=== PATIENT | male | born 1965 | race American Indian/Alaskan Native ===

== ENCOUNTER 2020-12-15 18:53 | Inpatient (IN) | payer MEDICAID ==
[2020-12-15] MEDS ORDERED: SODIUM CHLORIDE 0.9% 1000 ML IV SOLN IV ONE (20:20)
--- NOTE | 2020-12-15 20:23 | Event Note ---
Date: 12/15/20 Verbal report received from emergency medical services. EMS documentation not available at time of chart dictation medical screening examination: 55-year-old gentleman, history of Parkinson's, appears to be bedbound, brought to the hospital by EMS from local long-term for weakness and hypotension. EMS reports this patient was found to be anemic a few weeks ago, and reportedly admitted to [facility]. His medical records not available at this time for review. On examination, the patient appears to be listless, weak and lethargic. He does groan, and he is awake. He is protecting his airway. Initial orders placed. Detailed history and physical to follow. IV fluids ordered. EMS also administering IV fluids.
[2020-12-15 20:55] LABS: Basophils % (Auto) 0.2 % (0.0-1.8); Eosinophils # (Auto) 0.1 K/mm3 (0.0-0.4); Eosinophils % (Auto) 0.7 % (0.0-4.3); Hematocrit 20.2 % (35.5-45.6); Lymphocytes # (Auto) 1.2 K/mm3 (1.2-5.4); Lymphocytes % (Auto) 6.4 % (13.4-35.0); Mean Corpuscular HGB Conc 30 % (32-34); Mean Corpuscular Volume 79 fl (84-94); Monocytes # (Auto) 1.3 K/mm3 (0.0-0.8); Monocytes % (Auto) 6.8 % (0.0-7.3); Platelet Count 512 K/mm3 (140-440); Red Blood Count 2.56 M/mm3 (3.65-5.03)
[2020-12-15 21:01] LABS: Red Cell Distribution Width 22.2 % (13.2-15.2)
[2020-12-15] MEDS ORDERED: cefTRIAXone/NS 1 GM/50 ML 1 GM/50 ML BAG IV ONE (21:07)
[2020-12-15 21:15] LABS: Albumin 2.7 g/dL (3.9-5); Calcium 9.3 mg/dL (8.4-10.2)
[2020-12-15] MEDS ORDERED: SODIUM CHLORIDE 0.9% 500 ML 500 ML IV ONE (21:15)
--- NOTE | 2020-12-15 21:15 | Emergency Department Report ---
HPI - General Chief Complaint: Fever Time Seen by Provider: 12/15/20 21:05 - HPI HPI: 55-year-old -[place] male presents to the emergency department via EMS from [facility] with a complaint of some generalized weakness, fatigue, and concern for anemia. The patient has a history of anemia and recently was transfused during an admission at [facility]. He has a past medical history of Parkinson's disease, DVT, depression previous fracture of the right acetabulum and lumbosacral spine and pelvis. The patient appears to be bedbound. He has a PEG tube in place and sacral decubitus ulcers. The patient is currently AAO x1 to person, but not place or time. Therefore the patient is a poor historian. He does not appear to have been in our emergency department or hospital previously. ED Past Medical Hx - Past Medical History Previous Medical History?: Yes Additional medical history: Paraplegia, Parkinsons, G-TUBE - Surgical History Past Surgical History?: Yes Additional Surgical History: Partial amputation bilateral feet, G-tube - Social History Smoking Status: Never Smoker Substance Use Type: None ED Review of Systems ROS: Stated complaint: NOT EATING/DEHYDRATION Other details as noted in HPI Comment: Unobtainable due to pts medical conditions Physical Exam - Physical Exam Vital Signs: Vital Signs 12/15/20 19:38 Temperature 98.8 F Pulse Rate 90 Respiratory 16 Rate Blood Pressure 84/54 [Left] O2 Sat by Pulse 99 Oximetry Physical Exam: GENERAL: The patient is ill-appearing. HENT: Normocephalic. Atraumatic. Patient has moist mucous membranes. EYES: Extraocular motions are intact. NECK: Supple. Trachea is midline. CHEST/LUNGS: Clear to auscultation. There is no respiratory distress noted. HEART/CARDIOVASCULAR: Regular. There is mild tachycardia. There is no murmur. ABDOMEN: Abdomen is soft, nontender. Patient has normal bowel sounds. G-tube in place. SKIN: Skin is warm and dry. Stage II-III sacral decubitus ulcer. NEURO: The patient is awake but confused. AAO x1 to person, but not place or time. No slurred speech. MUSCULOSKELETAL: There is no tenderness to palpation. ED Course Vital Signs 12/15/20 19:38 Temperature 98.8 F Pulse Rate 90 Respiratory 16 Rate Blood Pressure 84/54 [Left] O2 Sat by Pulse 99 Oximetry - Reevaluation(s) Reevaluation #1: 12/15/20 23:14 I spoke with the patient's ex-, who is also his DPOA. She pulled up "my chart" from [facility] and showed me the patient's most recent visit, about 10 days ago. At that time the patient did not have any renal insufficiency so the creatinine of 2.2 and GFR of about 30 is acute kidney injury. The patient had a hemoglobin of 5.8 at that time. The examination done did not show any evidence of rectal bleeding or melena. During that visit, the patient had been sent in by his SNF for the low hemoglobin and an elevated alkaline phosphatase. Patient's ex- also says that he is a full code. - Consultations Consultation #1: 12/15/20 22:46 I spoke with the department store manager on-call, Dr. Bravo. They will see the patient as a consult but given the patient's anemia requiring transfusions he agrees that the patient is not a candidate for heparin at this time. No acute intervention from cardiology. ED Medical Decision Making - Lab Data Result diagrams: 12/15/20 20:29 12/15/20 20:29 Lab Results 12/15/20 12/15/20 12/15/20 Range/Units 20:20 20:29 20:29 WBC 19.2 H (4.5-11.0) K/mm3 RBC 2.56 L (3.65-5.03) M/mm3 Hgb 6.0 L (11.8-15.2) gm/dl Hct 20.2 L (35.5-45.6) % MCV 79 L (84-94) fl MCH 24 L (28-32) pg MCHC 30 L (32-34) % RDW 22.2 H (13.2-15.2) % Plt Count 512 H (140-440) K/mm3 Lymph % (Auto) 6.4 L (13.4-35.0) % Cook % (Auto) 6.8 (0.0-7.3) % Eos % (Auto) 0.7 (0.0-4.3) % Baso % (Auto) 0.2 (0.0-1.8) % Lymph # (Auto) 1.2 (1.2-5.4) K/mm3 Cook # (Auto) 1.3 H (0.0-0.8) K/mm3 Eos # (Auto) 0.1 (0.0-0.4) K/mm3 Baso # (Auto) 0.0 (0.0-0.1) K/mm3 Seg Neutrophils % 85.9 H (40.0-70.0) % Seg Neutrophils # 16.5 H (1.8-7.7) K/mm3 PT (12.2-14.9) Sec. INR (0.87-1.13) APTT 42.0 H (24.2-36.6) Sec. Sodium (137-145) mmol/L Potassium (3.6-5.0) mmol/L Chloride (98-107) mmol/L Carbon Dioxide (22-30) mmol/L Anion Gap mmol/L BUN (9-20) mg/dL Creatinine (0.8-1.3) mg/dL Estimated GFR ml/min BUN/Creatinine Ratio % Glucose (75-100) mg/dL Lactic Acid (0.7-2.0) mmol/L Calcium (8.4-10.2) mg/dL Total Bilirubin (0.1-1.2) mg/dL AST (5-40) units/L ALT (7-56) units/L Alkaline Phosphatase (35-129) units/L Ammonia (25-60) umol/L Troponin T (0.00-0.029) ng/mL Total Protein (6.3-8.2) g/dL Albumin (3.9-5) g/dL Albumin/Globulin Ratio % Triglycerides (2-149) mg/dL Cholesterol (50-199) mg/dL LDL Cholesterol Direct (50-130) mg/dL HDL Cholesterol (40-59) mg/dL Cholesterol/HDL Ratio % TSH (0.270-4.200) mlU/mL Urine Color Angela (Yellow) Urine Turbidity Turbid (Clear) Urine pH 7.0 (5.0-7.0) Ur Specific Caldwell 1.012 (1.003-1.030) Urine Protein 100 mg/dl (Negative) mg/dL Urine Glucose (UA) Neg (Negative) mg/dL Urine Ketones Neg (Negative) mg/dL Urine Blood Lg (Negative) Urine Nitrite Neg (Negative) Urine Bilirubin Neg (Negative) Urine Urobilinogen 4.0 (<2.0) mg/dL Ur Leukocyte Esterase Lg (Negative) Urine WBC (Auto) > 182.0 H (0.0-6.0) /HPF Urine RBC (Auto) 117.0 (0.0-6.0) /HPF Urine Bacteria (Auto) 3+ (Negative) /HPF Urine WBC Clumps 3+ /HPF Urine Mucus Few /HPF Urine Yeast (Budding) 3+ /HPF Salicylates (2.8-20.0) mg/dL Acetaminophen (10.0-30.0) ug/mL Plasma/Serum Alcohol (0-0.07) % Blood Type Antibody Screen Crossmatch 12/15/20 12/15/20 12/15/20 Range/Units 20:29 20:29 20:29 WBC (4.5-11.0) K/mm3 RBC (3.65-5.03) M/mm3 Hgb (11.8-15.2) gm/dl Hct (35.5-45.6) % MCV (84-94) fl MCH (28-32) pg MCHC (32-34) % RDW (13.2-15.2) % Plt Count (140-440) K/mm3 Lymph % (Auto) (13.4-35.0) % Cook % (Auto) (0.0-7.3) % Eos % (Auto) (0.0-4.3) % Baso % (Auto) (0.0-1.8) % Lymph # (Auto) (1.2-5.4) K/mm3 Cook # (Auto) (0.0-0.8) K/mm3 Eos # (Auto) (0.0-0.4) K/mm3 Baso # (Auto) (0.0-0.1) K/mm3 Seg Neutrophils % (40.0-70.0) % Seg Neutrophils # (1.8-7.7) K/mm3 PT (12.2-14.9) Sec. INR (0.87-1.13) APTT (24.2-36.6) Sec. Sodium 131 L (137-145) mmol/L Potassium 6.0 H (3.6-5.0) mmol/L Chloride 95.1 L (98-107) mmol/L Carbon Dioxide 23 (22-30) mmol/L Anion Gap 19 mmol/L BUN 70 H (9-20) mg/dL Creatinine 2.2 H (0.8-1.3) mg/dL Estimated GFR 31 ml/min BUN/Creatinine Ratio 32 % Glucose 113 H (75-100) mg/dL Lactic Acid 0.80 (0.7-2.0) mmol/L Calcium 9.3 (8.4-10.2) mg/dL Total Bilirubin 0.80 (0.1-1.2) mg/dL AST 16 (5-40) units/L ALT 17 (7-56) units/L Alkaline Phosphatase 321 H (35-129) units/L Ammonia (25-60) umol/L Troponin T 0.215 H* (0.00-0.029) ng/mL Total Protein 7.0 (6.3-8.2) g/dL Albumin 2.7 L (3.9-5) g/dL Albumin/Globulin Ratio 0.6 % Triglycerides 153 H (2-149) mg/dL Cholesterol 95 (50-199) mg/dL LDL Cholesterol Direct 23 L (50-130) mg/dL HDL Cholesterol 27 L (40-59) mg/dL Cholesterol/HDL Ratio 3.51 % TSH (0.270-4.200) mlU/mL Urine Color (Yellow) Urine Turbidity (Clear) Urine pH (5.0-7.0) Ur Specific Caldwell (1.003-1.030) Urine Protein (Negative) mg/dL Urine Glucose (UA) (Negative) mg/dL Urine Ketones (Negative) mg/dL Urine Blood (Negative) Urine Nitrite (Negative) Urine Bilirubin (Negative) Urine Urobilinogen (<2.0) mg/dL Ur Leukocyte Esterase (Negative) Urine WBC (Auto) (0.0-6.0) /HPF Urine RBC (Auto) (0.0-6.0) /HPF Urine Bacteria (Auto) (Negative) /HPF Urine WBC Clumps /HPF Urine Mucus /HPF Urine Yeast (Budding) /HPF Salicylates (2.8-20.0) mg/dL Acetaminophen (10.0-30.0) ug/mL Plasma/Serum Alcohol (0-0.07) % Blood Type A POSITIVE Antibody Screen Negative Crossmatch See Detail 12/15/20 12/15/20 12/15/20 Range/Units 20:29 20:29 20:29 WBC (4.5-11.0) K/mm3 RBC (3.65-5.03) M/mm3 Hgb (11.8-15.2) gm/dl Hct (35.5-45.6) % MCV (84-94) fl MCH (28-32) pg MCHC (32-34) % RDW (13.2-15.2) % Plt Count (140-440) K/mm3 Lymph % (Auto) (13.4-35.0) % Cook % (Auto) (0.0-7.3) % Eos % (Auto) (0.0-4.3) % Baso % (Auto) (0.0-1.8) % Lymph # (Auto) (1.2-5.4) K/mm3 Cook # (Auto) (0.0-0.8) K/mm3 Eos # (Auto) (0.0-0.4) K/mm3 Baso # (Auto) (0.0-0.1) K/mm3 Seg Neutrophils % (40.0-70.0) % Seg Neutrophils # (1.8-7.7) K/mm3 PT (12.2-14.9) Sec. INR (0.87-1.13) APTT (24.2-36.6) Sec. Sodium (137-145) mmol/L Potassium (3.6-5.0) mmol/L Chloride (98-107) mmol/L Carbon Dioxide (22-30) mmol/L Anion Gap mmol/L BUN (9-20) mg/dL Creatinine (0.8-1.3) mg/dL Estimated GFR ml/min BUN/Creatinine Ratio % Glucose (75-100) mg/dL Lactic Acid (0.7-2.0) mmol/L Calcium (8.4-10.2) mg/dL Total Bilirubin (0.1-1.2) mg/dL AST (5-40) units/L ALT (7-56) units/L Alkaline Phosphatase (35-129) units/L Ammonia (25-60) umol/L Troponin T (0.00-0.029) ng/mL Total Protein (6.3-8.2) g/dL Albumin (3.9-5) g/dL Albumin/Globulin Ratio % Triglycerides (2-149) mg/dL Cholesterol (50-199) mg/dL LDL Cholesterol Direct (50-130) mg/dL HDL Cholesterol (40-59) mg/dL Cholesterol/HDL Ratio % TSH 1.380 (0.270-4.200) mlU/mL Urine Color (Yellow) Urine Turbidity (Clear) Urine pH (5.0-7.0) Ur Specific Caldwell (1.003-1.030) Urine Protein (Negative) mg/dL Urine Glucose (UA) (Negative) mg/dL Urine Ketones (Negative) mg/dL Urine Blood (Negative) Urine Nitrite (Negative) Urine Bilirubin (Negative) Urine Urobilinogen (<2.0) mg/dL Ur Leukocyte Esterase (Negative) Urine WBC (Auto) (0.0-6.0) /HPF Urine RBC (Auto) (0.0-6.0) /HPF Urine Bacteria (Auto) (Negative) /HPF Urine WBC Clumps /HPF Urine Mucus /HPF Urine Yeast (Budding) /HPF Salicylates < 0.3 L (2.8-20.0) mg/dL Acetaminophen 5.0 L (10.0-30.0) ug/mL Plasma/Serum Alcohol (0-0.07) % Blood Type Antibody Screen Crossmatch 12/15/20 12/15/20 12/15/20 Range/Units 20:29 20:29 21:28 WBC (4.5-11.0) K/mm3 RBC (3.65-5.03) M/mm3 Hgb (11.8-15.2) gm/dl Hct (35.5-45.6) % MCV (84-94) fl MCH (28-32) pg MCHC (32-34) % RDW (13.2-15.2) % Plt Count (140-440) K/mm3 Lymph % (Auto) (13.4-35.0) % Cook % (Auto) (0.0-7.3) % Eos % (Auto) (0.0-4.3) % Baso % (Auto) (0.0-1.8) % Lymph # (Auto) (1.2-5.4) K/mm3 Cook # (Auto) (0.0-0.8) K/mm3 Eos # (Auto) (0.0-0.4) K/mm3 Baso # (Auto) (0.0-0.1) K/mm3 Seg Neutrophils % (40.0-70.0) % Seg Neutrophils # (1.8-7.7) K/mm3 PT 15.8 H (12.2-14.9) Sec. INR 1.14 H (0.87-1.13) APTT (24.2-36.6) Sec. Sodium (137-145) mmol/L Potassium (3.6-5.0) mmol/L Chloride (98-107) mmol/L Carbon Dioxide (22-30) mmol/L Anion Gap mmol/L BUN (9-20) mg/dL Creatinine (0.8-1.3) mg/dL Estimated GFR ml/min BUN/Creatinine Ratio % Glucose (75-100) mg/dL Lactic Acid (0.7-2.0) mmol/L Calcium (8.4-10.2) mg/dL Total Bilirubin (0.1-1.2) mg/dL AST (5-40) units/L ALT (7-56) units/L Alkaline Phosphatase (35-129) units/L Ammonia 21.0 L (25-60) umol/L Troponin T (0.00-0.029) ng/mL Total Protein (6.3-8.2) g/dL Albumin (3.9-5) g/dL Albumin/Globulin Ratio % Triglycerides (2-149) mg/dL Cholesterol (50-199) mg/dL LDL Cholesterol Direct (50-130) mg/dL HDL Cholesterol (40-59) mg/dL Cholesterol/HDL Ratio % TSH (0.270-4.200) mlU/mL Urine Color (Yellow) Urine Turbidity (Clear) Urine pH (5.0-7.0) Ur Specific Caldwell (1.003-1.030) Urine Protein (Negative) mg/dL Urine Glucose (UA) (Negative) mg/dL Urine Ketones (Negative) mg/dL Urine Blood (Negative) Urine Nitrite (Negative) Urine Bilirubin (Negative) Urine Urobilinogen (<2.0) mg/dL Ur Leukocyte Esterase (Negative) Urine WBC (Auto) (0.0-6.0) /HPF Urine RBC (Auto) (0.0-6.0) /HPF Urine Bacteria (Auto) (Negative) /HPF Urine WBC Clumps /HPF Urine Mucus /HPF Urine Yeast (Budding) /HPF Salicylates (2.8-20.0) mg/dL Acetaminophen (10.0-30.0) ug/mL Plasma/Serum Alcohol < 0.01 (0-0.07) % Blood Type Antibody Screen Crossmatch - EKG Data -: EKG Interpreted by Me EKG shows normal: sinus rhythm, axis, intervals, QRS complexes, ST-T waves Rate: normal - EKG Data When compared to previous EKG there are: previous EKG unavailable Interpretation: normal EKG - Radiology Data Radiology results: image reviewed interpreted by me: Chest x-ray does not show any acute process. There are no pleural effusions, obvious pneumonia and there is no pneumothorax. No widened mediastinum. - Medical Decision Making This patient presents to the emergency department with hypotension, concern for anemia, tachycardia. A code sepsis was initiated. The patient received IV fluid at 20 cc/kg. He was found to have a hemoglobin of 6 so 2 units of packed red blood cells were ordered for transfusion. Patient has a leukocytosis of 19,000, acute kidney injury with a GFR of about 30, has started to develop some uremia with a BUN of 70, hyperkalemia with potassium of 6, and NSTEMI with a troponin of 0.215, and a urinary tract infection. The patient was given IV antibiotics. Cardiology was contacted and consulted but is not a candidate for heparin secondary to his significant anemia. The patient will be admitted to the hospital for further evaluation and treatment was accepted for admission by the hospitalist, Dr. Ling. Critical Care Time: Yes Critical care time in (mins) excluding proc time.: 35 Critical care attestation.: If time is entered above; I have spent that time in minutes in the direct care of this critically ill patient, excluding procedure time. Critical care time spent on this patient in doing his initial evaluation, multiple reevaluations, ordering and interpretation of labs and imaging, discussion with cardiology, discussion with the patient's ex-/DPOA, ordering of packed red blood cells for transfusion, IV fluid resuscitation for his hypotension. Critical Care Time: 35 minutes ED Disposition Clinical Impression: Anemia requiring transfusions, Renal insufficiency, NSTEMI (non-ST elevated myocardial infarction), Hyperkalemia Hypotension Qualifiers: Hypotension type: unspecified hypotension type Qualified Code(s): I95.9 - Hypotension, unspecified Sepsis Qualifiers: Sepsis type: sepsis due to unspecified organism Sepsis acute organ dysfunction status: with acute organ dysfunction Severe sepsis acute organ dysfunction type: acute renal failure Severe sepsis shock status: unspecified UTI (urinary tract infection) Qualifiers: Urinary tract infection type: acute cystitis Hematuria presence: with hematuria Qualified Code(s): N30.01 - Acute cystitis with hematuria Disposition: 09 ADMITTED INPATIENT Is pt being admited?: Yes Condition: Serious Time of Disposition: 22:47
[2020-12-15] MEDS ORDERED: SODIUM POLYSTYRENE 15 GM/60 ML ORAL LIQD PO ONE (21:22)
[2020-12-15] MEDS ORDERED: CALCIUM GLUCONATE 1,000 MG in SODIUM CHLORIDE 0.9% 100 ML IV ONE (21:22)
[2020-12-15] MEDS ORDERED: INSULIN REGULAR, HUMAN 100 UNITS/1 ML IV ONE (21:49)
[2020-12-15] MEDS ORDERED: DEXTROSE 50% IN WATER (25GM) 50 ML SYRINGE IV ONE ×2 (21:49→23:54)
[2020-12-15 22:05] LABS: INR 1.14 (0.87-1.13)
--- NOTE | 2020-12-15 22:29 | XRay Report ---
CHEST 1 VIEW 12/15/2020 9:10 PM INDICATION / CLINICAL INFORMATION: hypotension weakness. COMPARISON: None available. FINDINGS: SUPPORT DEVICES: None. HEART / MEDIASTINUM: No significant abnormality. LUNGS / PLEURA: No significant pulmonary or pleural abnormality. No pneumothorax. ADDITIONAL FINDINGS: Hardware in right humerus. Old fracture proximal right humerus. IMPRESSION: 1. No acute findings. Signer Name: Iker Cooley MD Signed: 12/15/2020 10:25 PM Workstation Name: [id number]
[2020-12-15] MEDS ORDERED: SODIUM CHLORIDE 0.9% 500 ML 500 ML ONE (22:32)
[2020-12-15 22:37] LABS: Chol/HDL Ratio 3.51 %
[2020-12-15] MEDS ORDERED: SODIUM CHLORIDE 0.9% 1000 ML 1,000 ML IV SCH (23:45)
[2020-12-15] MEDS ORDERED: INSULIN REGULAR, HUMAN 100 UNITS/1 ML ONE (23:54)
[2020-12-15] MEDS ORDERED: SODIUM BICARBONATE 325 MG TAB FEEDTUBE PRN (23:59)
[2020-12-15] MEDS ORDERED: ACETAMINOPHEN 650 MG RECT SUPP PR PRN (23:59)
[2020-12-15] MEDS ORDERED: LIPASE 10,500/PROTEASE 25,000/AMYLASE 43,750 (UNITS) DR CAP FEEDTUBE PRN (23:59)
[2020-12-15] MEDS ORDERED: MAGNESIUM HYDROXIDE (MOM) ORAL LIQD UDC PO PRN (23:59)
[2020-12-15] MEDS ORDERED: SIMPLE SYRUP 15 ML FEEDTUBE PRN ×2 (23:59)
--- NOTE | 2020-12-16 00:13 | History and Physical Report ---
History of Present Illness Date of examination: 12/15/20 Date of admission: 12/15/20 22:47 Chief complaint: Generalized Weakness History of present illness: 55-year-old -I[place]ian female resident of [facility] group home with known history of Parkinson's disease, depression, DVT, previous fracture of right acetabulum lumbosacral spine and pelvis and who is currently bedbound brought into the emergency room today with generalized weakness, fatigue and possible concern for anemia. Patient was said to have been transfused recently at [facility]. Patient has a PEG tube in place and also has history of sacral decubitus ulcers. Patient is a poor historian and most of the history was gotten from the ER staff. Upon arrival in the emergency room patient was hypotensive with blood pressure systolic in the 80s and diastolic in the 50s. Work-up in the emergency room today, hemoglobin was found to be 6.0 with hematocrit of 20.2. Patient had a potassium level of 6.0, BUN of 70 and creatinine of 2.2. Chest X-ray- no acute findings Past History Past Medical History: other (Paraplegia,Parkinson's Disease) Past Surgical History: Other (Bilateral Partial Amputation of feet,G-tube pl acement) Social history: no significant social history Family history: no significant family history Medications and Allergies Allergies Allergy/AdvReac Type Severity Reaction Status Date / Time Penicillins Allergy Itching Verified 12/16/20 02:38 Active Meds: Active Medications Acetaminophen (Acetaminophen 650 Mg Rect Supp) 650 mg [place] Q6H PRN PRN Reason: Pain MILD(1-3)/Fever >100.5/RHOADES Lipase/Protease/Amylase (Lipase 10,500/Protease 25,000/Amylase 43,750 (Units) Dr Conroy) 1 each FEEDTUBE PRN PRN PRN Reason: For Clogged Feeding Tube Sodium Chloride (Nacl 0.9% 1000 Ml) 1,000 mls @ 75 mls/hr IV DIRECT TIFF Magnesium Hydroxide (Magnesium Hydroxide (Mom) Oral Liqd Udc) 30 ml PO Q4H PRN PRN Reason: Constipation Morphine Sulfate (Morphine 2 Mg/1 Ml Inj) 2 mg IV Q4H PRN PRN Reason: Pain, Moderate (4-6) Morphine Sulfate (Morphine 4 Mg/1 Ml Inj) 4 mg IV Q4H PRN PRN Reason: Pain , Severe (7-10) Ondansetron HCl (Ondansetron 4 Mg/2 Ml Inj) 4 mg IV Q8H PRN PRN Reason: Nausea And Vomiting Simple Syrup (Simple Syrup 15 Ml) 15 ml FEEDTUBE PRN PRN PRN Reason: Hypoglycemia Simple Syrup (Simple Syrup 15 Ml) 30 ml FEEDTUBE PRN PRN PRN Reason: Hypoglycemia Sodium Bicarbonate (Sodium Bicarbonate 325 Mg Tab) 325 mg FEEDTUBE PRN PRN PRN Reason: For Clogged Feeding Tube Sodium Chloride (Sodium Chloride 0.9% 10 Ml Flush Syringe) 10 ml IV BID TIFF Sodium Chloride (Sodium Chloride 0.9% 10 Ml Flush Syringe) 10 ml IV PRN PRN PRN Reason: LINE FLUSH Sodium Chloride (Sodium Chloride 0.9% 10 Ml Flush Syringe) 10 ml IV PRN PRN PRN Reason: LINE FLUSH Review of Systems ROS unobtainable: due to mental status Exam - Constitutional Vitals: Temp Pulse Resp BP Pulse Ox 97.0 F L 94 H 18 99/69 99 12/15/20 23:20 12/15/20 23:20 12/15/20 23:20 12/15/20 23:20 12/15/20 23:20 General appearance: Present: no acute distress, cachectic, other (Moderately pale) - EENT Eyes: Present: PERRL, EOM intact. Absent: scleral icterus ENT: hearing intact, clear oral mucosa, dentition normal, other (Dry oral Mucosa) - Neck Neck: Present: supple, normal ROM - Respiratory Respiratory effort: normal Respiratory: bilateral: CTA - Cardiovascular Rhythm: regular Heart Sounds: Present: S1 & S2. Absent: gallop, systolic murmur, diastolic murmur, rub, click - Extremities Extremities: no ischemia, pulses intact, No edema, normal temperature, normal color, Full ROM Extremity abnormal: ulceration (Dressing over decubitus ulcers on feet), other (Partially amputated feet bilaterally) Peripheral Pulses: within normal limits - Abdominal General gastrointestinal: Present: soft, non-tender, non-distended, normal bowel sounds, other (G-tube in place). Absent: mass - Integumentary Integumentary: Present: clear, warm, dry, decreased turgor. Absent: rash - Musculoskeletal Musculoskeletal: strength equal bilaterally - Psychiatric Psychiatric: appropriate mood/affect, intact judgment & insight, memory intact, cooperative - Neurologic Neurologic: CNII-XII intact, no focal deficits, moves all extremities, other (Paraplegic ) HEART Score - HEART Score Troponin: Troponin T 0.215 ng/mL (0.00-0.029) H* 12/15/20 20:29 Results - Labs CBC & Chem 7: 12/15/20 20:29 12/15/20 20:29 Labs: Abnormal lab results 12/15/20 12/15/20 12/15/20 Range/Units 20:29 20:29 20:29 WBC 19.2 H (4.5-11.0) K/mm3 RBC 2.56 L (3.65-5.03) M/mm3 Hgb 6.0 L (11.8-15.2) gm/dl Hct 20.2 L (35.5-45.6) % MCV 79 L (84-94) fl MCH 24 L (28-32) pg MCHC 30 L (32-34) % RDW 22.2 H (13.2-15.2) % Plt Count 512 H (140-440) K/mm3 Lymph % (Auto) 6.4 L (13.4-35.0) % Garvin # (Auto) 1.3 H (0.0-0.8) K/mm3 Seg Neutrophils % 85.9 H (40.0-70.0) % Seg Neutrophils # 16.5 H (1.8-7.7) K/mm3 PT (12.2-14.9) Sec. INR (0.87-1.13) APTT 42.0 H (24.2-36.6) Sec. Sodium 131 L (137-145) mmol/L Potassium 6.0 H (3.6-5.0) mmol/L Chloride 95.1 L (98-107) mmol/L BUN 70 H (9-20) mg/dL Creatinine 2.2 H (0.8-1.3) mg/dL Glucose 113 H (75-100) mg/dL Alkaline Phosphatase 321 H (35-129) units/L Ammonia (25-60) umol/L Troponin T 0.215 H* (0.00-0.029) ng/mL Albumin 2.7 L (3.9-5) g/dL Triglycerides 153 H (2-149) mg/dL LDL Cholesterol Direct 23 L (50-130) mg/dL HDL Cholesterol 27 L (40-59) mg/dL Salicylates (2.8-20.0) mg/dL Acetaminophen (10.0-30.0) ug/mL Crossmatch 12/15/20 12/15/20 12/15/20 Range/Units 20:29 20:29 20:29 WBC (4.5-11.0) K/mm3 RBC (3.65-5.03) M/mm3 Hgb (11.8-15.2) gm/dl Hct (35.5-45.6) % MCV (84-94) fl MCH (28-32) pg MCHC (32-34) % RDW (13.2-15.2) % Plt Count (140-440) K/mm3 Lymph % (Auto) (13.4-35.0) % Garvin # (Auto) (0.0-0.8) K/mm3 Seg Neutrophils % (40.0-70.0) % Seg Neutrophils # (1.8-7.7) K/mm3 PT (12.2-14.9) Sec. INR (0.87-1.13) APTT (24.2-36.6) Sec. Sodium (137-145) mmol/L Potassium (3.6-5.0) mmol/L Chloride (98-107) mmol/L BUN (9-20) mg/dL Creatinine (0.8-1.3) mg/dL Glucose (75-100) mg/dL Alkaline Phosphatase (35-129) units/L Ammonia (25-60) umol/L Troponin T (0.00-0.029) ng/mL Albumin (3.9-5) g/dL Triglycerides (2-149) mg/dL LDL Cholesterol Direct (50-130) mg/dL HDL Cholesterol (40-59) mg/dL Salicylates < 0.3 L (2.8-20.0) mg/dL Acetaminophen 5.0 L (10.0-30.0) ug/mL Crossmatch See Detail 12/15/20 12/15/20 Range/Units 20:29 21:28 WBC (4.5-11.0) K/mm3 RBC (3.65-5.03) M/mm3 Hgb (11.8-15.2) gm/dl Hct (35.5-45.6) % MCV (84-94) fl MCH (28-32) pg MCHC (32-34) % RDW (13.2-15.2) % Plt Count (140-440) K/mm3 Lymph % (Auto) (13.4-35.0) % Garvin # (Auto) (0.0-0.8) K/mm3 Seg Neutrophils % (40.0-70.0) % Seg Neutrophils # (1.8-7.7) K/mm3 PT 15.8 H (12.2-14.9) Sec. INR 1.14 H (0.87-1.13) APTT (24.2-36.6) Sec. Sodium (137-145) mmol/L Potassium (3.6-5.0) mmol/L Chloride (98-107) mmol/L BUN (9-20) mg/dL Creatinine (0.8-1.3) mg/dL Glucose (75-100) mg/dL Alkaline Phosphatase (35-129) units/L Ammonia 21.0 L (25-60) umol/L Troponin T (0.00-0.029) ng/mL Albumin (3.9-5) g/dL Triglycerides (2-149) mg/dL LDL Cholesterol Direct (50-130) mg/dL HDL Cholesterol (40-59) mg/dL Salicylates (2.8-20.0) mg/dL Acetaminophen (10.0-30.0) ug/mL Crossmatch Assessment and Plan - Patient Problems (1) Anemia requiring transfusions Current Visit: Yes Status: Acute Plan to address problem: Patient being transfused with PRBC Will monitor CBC (2) Hyperkalemia Current Visit: Yes Status: Acute Plan to address problem: Will check follow up potassium. Patient has received insulin and glucose, Kayexalate (3) Hypotension Current Visit: Yes Status: Acute Qualifiers: Hypotension type: unspecified hypotension type Qualified Code(s): I95.9 - Hypotension, unspecified Plan to address problem: Possibly secondary to sepsis We will place on IV fluid. Will monitor vital signs closely. We consider placing patient on pressors if no improvement. (4) NSTEMI (non-ST elevated myocardial infarction) Current Visit: Yes Status: Acute Plan to address problem: No EKG changes, no chest pain Cardiology consult requested (5) Renal insufficiency Current Visit: Yes Status: Acute Plan to address problem: Patient placed on IV fluid. We will request nephrology evaluation. (6) Sepsis Current Visit: Yes Status: Acute Qualifiers: Sepsis type: sepsis due to unspecified organism Sepsis acute organ dysfunction status: with acute organ dysfunction Severe sepsis acute organ dysfunction type: acute renal failure Severe sepsis shock status: unspecified Plan to address problem: Probably secondary to the UTI Will continue on IV fluid and empiric IV antibiotics. (7) UTI (urinary tract infection) Current Visit: Yes Status: Acute Qualifiers: Urinary tract infection type: acute cystitis Hematuria presence: with hematuria Qualified Code(s): N30.01 - Acute cystitis with hematuria Plan to address problem: Patient commenced on empiric IV antibiotics. We will await culture results. (8) Elevated troponin Current Visit: Yes Status: Acute Plan to address problem: Possibly secondary tot the sepsis/anemia. (9) DVT prophylaxis Current Visit: Yes Status: Acute Plan to address problem: Patient placed on sequential compression device. (10) Full code status Current Visit: Yes Status: Acute Plan to address problem: Patient is full code.
[2020-12-16] MEDS: MORPHINE 4 MG/1 ML INJ IV PRN (00:59)
[2020-12-16] MEDS: ONDANSETRON 4 MG/2 ML INJ IV PRN (01:00)
[2020-12-16 01:06] LABS: Bacteria,Urine 3+ /HPF (Negative); Bilirubin,Urine NEG (Negative); Blood,Urine LG (Negative); Color,Urine Amber (Yellow); Mucus,Urine FEW /HPF
[2020-12-16 01:11] LABS: WBC,Urine > 182.0 /HPF (0.0-6.0)
[2020-12-16] MEDS ORDERED: SODIUM CHLORIDE 0.9% 500 ML 500 ML IV SCH (03:00)
[2020-12-16] MEDS ORDERED: SODIUM CHLORIDE 0.9% 500 ML 500 ML IV ONE ×2 (03:07→05:54)
[2020-12-16 06:28] LABS: Hematocrit 26.3 % (35.5-45.6); Hemoglobin 8.1 gm/dl (11.8-15.2); Mean Corpuscular HGB Conc 31 % (32-34); Mean Corpuscular Volume 82 fl (84-94); Platelet Count 427 K/mm3 (140-440); Red Blood Count 3.19 M/mm3 (3.65-5.03)
[2020-12-16 06:34] LABS: Red Cell Distribution Width 20.3 % (13.2-15.2)
[2020-12-16 06:47] LABS: BUN/Creatinine Ratio 36; Blood Urea Nitrogen 47 mg/dL (9-20); Calcium 7.2 mg/dL (8.4-10.2); Hemolysis Index 3
[2020-12-16] MEDS ORDERED: NORepinephrine/NS 8 MG-250 ML 8 MG/250 ML INFUS..BTL IV SCH ×2 (07:00)
[2020-12-16] MEDS: LACTATED RINGERS 1,000 ML IV SCH (10:50)
--- NOTE | 2020-12-16 11:26 | Electrocardiograph Report ---
[facility] Test Date: 2020-12-15 Test Time: 22:26:17 Pat Name: PAPO CARTY Department: Room: [place] [address] Gender: M [facility] Supervisor: michelle : 1965 Requested By: COLLEEN OH Order Number: [id number] Reading MD: Antony Obregon Measurements Intervals [place] Rate: 85 P: 75 MO: 139 QRS: 71 QRSD: 82 T: 75 QT: 360 QTc: 429 Interpretive Statements Sinus rhythm No previous ECG available for comparison Electronically Signed On 12-16-2020 11:25:45 EST by Antony Obregon
--- NOTE | 2020-12-16 11:44 | Consultation ---
History of Present Illness Consult date: 12/16/20 History of present illness: 55-year-old -Mexican female resident of [facility] long-term with known history of Parkinson's disease, depression, DVT, previous fracture of right acetabulum lumbosacral spine and pelvis and who is currently bedbound brought into the emergency room today with generalized weakness, fatigue and possible concern for anemia. Patient was said to have been transfused recently at [facility]. Patient has a PEG tube in place and also has history of sacral decubitus ulcers. Upon arrival in the emergency room patient was hypotensive with blood pressure systolic in the 80s and diastolic in the 50s. Work-up in the emergency room today, hemoglobin was found to be 6.0 with hematocrit of 20.2. Patient had a potassium level of 6.0, BUN of 70 and creatinine of 2.2. Chest X-ray- no acute findings Patient denies other medical problems. Patient says history of smoking 1 pack x 10 years. Says stopped 1 year ago. Denies alcohol or drug abuse. 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 has two children. Allergic to pencillins. Patient awake. Weak. Patient is on room air. O2 saturation running 83%. Recommended to place him on 4 litres O2 right away. Patient afebrile. Has leukocytosis. Blood pressure 99/72. Pulse 90. Chest xray done 12/15/20 reported No acute findings Patient is on ceftriaxone. Past History Past Medical History: other (Paraplegia,Parkinson's Disease) Past Surgical History: Other (Bilateral Partial Amputation of feet,G-tube placem ent) Social history: no significant social history Family history: no significant family history Medications and Allergies Allergies Allergy/AdvReac Type Severity Reaction Status Date / Time Penicillins Allergy Itching Verified 12/16/20 02:38 Home Medications Medication Instructions Recorded Confirmed Last Taken Type Amantadine 10 mg FEEDTUBE 12/16/20 Unknown History Ascorbic Acid [Vitamin C with Irma 1 tab FEEDTUBE 12/16/20 Unknown History Hips] Aspirin BABY CHEW TAB 81 mg FEEDTUBE 12/16/20 Unknown History Cetirizine HCl [Cetirizine 10mg 1 tab FEEDTUBE 12/16/20 Unknown History chew] Clindamycin [Clindamycin CAP] 1 cap FEEDTUBE 12/16/20 Unknown History Gabapentin 1 cap FEEDTUBE 12/16/20 Unknown History Ibuprofen [Motrin] 800 mg FEEDTUBE 12/16/20 Unknown History Multiple Vitamin TAB (Theragran) 1 tab FEEDTUBE 12/16/20 Unknown History Sennosides [Senna] 8.6 mg FEEDTUBE 12/16/20 Unknown History Sertraline [Zoloft] 1 tab FEEDTUBE 12/16/20 Unknown History Tamsulosin [Flomax] 1 cap FEEDTUBE 12/16/20 Unknown History Vitamin D3 50,000UNIT CAP 1 cap FEEDTUBE 12/16/20 Unknown History Zinc Sulfate 1 cap FEEDTUBE 12/16/20 Unknown History Active Meds: Active Medications Acetaminophen (Acetaminophen 650 Mg Rect Supp) 650 mg SC Q6H PRN PRN Reason: Pain MILD(1-3)/Fever >100.5/RHOADES Last Admin: 12/16/20 00:32 Dose: 650 mg Documented by: Lipase/Protease/Amylase (Lipase 10,500/Protease 25,000/Amylase 43,750 (Units) Dr Conroy) 1 each FEEDTUBE PRN PRN PRN Reason: For Clogged Feeding Tube Ceftriaxone Sodium (Rocephin/Ns 1 Gm/50 Ml) 1 gm in 50 mls @ 100 mls/hr IV Q24H TIFF; Protocol NORepinephrine/NS 8 MG-250 ML (Norepinephrine/Ns 8 Mg-250 Ml (Double Conc)) 8 mg in 250 mls @ 3.75 mls/hr IV TITRATE TIFF; Protocol Lactated Ringer's (Lactated Ringers) 1,000 mls @ 100 mls/hr IV DIRECT TIFF Last Admin: 12/16/20 10:50 Dose: 100 mls/hr Documented by: Magnesium Hydroxide (Magnesium Hydroxide (Mom) Oral Liqd Udc) 30 ml PO Q4H PRN PRN Reason: Constipation Morphine Sulfate (Morphine 2 Mg/1 Ml Inj) 2 mg IV Q4H PRN PRN Reason: Pain, Moderate (4-6) Morphine Sulfate (Morphine 4 Mg/1 Ml Inj) 4 mg IV Q4H PRN PRN Reason: Pain , Severe (7-10) Last Admin: 12/16/20 00:59 Dose: 4 mg Documented by: Ondansetron HCl (Ondansetron 4 Mg/2 Ml Inj) 4 mg IV Q8H PRN PRN Reason: Nausea And Vomiting Last Admin: 12/16/20 01:00 Dose: 4 mg Documented by: Simple Syrup (Simple Syrup 15 Ml) 15 ml FEEDTUBE PRN PRN PRN Reason: Hypoglycemia Simple Syrup (Simple Syrup 15 Ml) 30 ml FEEDTUBE PRN PRN PRN Reason: Hypoglycemia Sodium Bicarbonate (Sodium Bicarbonate 325 Mg Tab) 325 mg FEEDTUBE PRN PRN PRN Reason: For Clogged Feeding Tube Sodium Chloride (Sodium Chloride 0.9% 10 Ml Flush Syringe) 10 ml IV BID TIFF Last Admin: 12/16/20 09:38 Dose: 10 ml Documented by: Sodium Chloride (Sodium Chloride 0.9% 10 Ml Flush Syringe) 10 ml IV PRN PRN PRN Reason: LINE FLUSH Review of Systems All systems: negative Physical Examination Vital signs: Vital Signs Temp Pulse Resp BP Pulse Ox 98.8 F 90 16 84/54 99 12/15/20 19:38 12/15/20 19:38 12/15/20 19:38 12/15/20 19:38 12/15/20 19:38 General appearance: no acute distress, alert, other (Weak, deblitated. Poor dental hygiene.) Eyes: non-icteric ENT: oropharynx dry Neck: supple, no JVD Ascultation: Bilateral: rhonchi Cardiovascular: regular rate and rhythm Gastrointestinal: normoactive bowel sounds, soft, non-tender Integumentary: decubitus ulcer Extremities: no cyanosis, no edema non-focal exam, pupils equal and round depressed Results - Laboratory Findings CBC and BMP: 12/17/20 04:27 12/17/20 04:27 PT/INR, D-dimer PT 15.8 Sec. (12.2-14.9) H 12/15/20 20:29 INR 1.14 (0.87-1.13) H 12/15/20 20:29 Abnormal lab findings: Abnormal Labs 12/15/20 12/15/20 12/15/20 20:20 20:29 20:29 WBC 19.2 H RBC 2.56 L Hgb 6.0 L Hct 20.2 L MCV 79 L MCH 24 L MCHC 30 L RDW 22.2 H Plt Count 512 H Lymph % (Auto) 6.4 L Fisher # (Auto) 1.3 H Seg Neutrophils % 85.9 H Seg Neutrophils # 16.5 H PT INR APTT 42.0 H Sodium Potassium Chloride Carbon Dioxide BUN Creatinine Glucose Calcium Alkaline Phosphatase Ammonia Troponin T Albumin Triglycerides LDL Cholesterol Direct HDL Cholesterol Urine WBC (Auto) > 182.0 H Salicylates Acetaminophen Crossmatch 12/15/20 12/15/20 12/15/20 20:29 20:29 20:29 WBC RBC Hgb Hct MCV MCH MCHC RDW Plt Count Lymph % (Auto) Fisher # (Auto) Seg Neutrophils % Seg Neutrophils # PT INR APTT Sodium 131 L Potassium 6.0 H Chloride 95.1 L Carbon Dioxide BUN 70 H Creatinine 2.2 H Glucose 113 H Calcium Alkaline Phosphatase 321 H Ammonia Troponin T 0.215 H* Albumin 2.7 L Triglycerides 153 H LDL Cholesterol Direct 23 L HDL Cholesterol 27 L Urine WBC (Auto) Salicylates < 0.3 L Acetaminophen Crossmatch See Detail 12/15/20 12/15/20 12/15/20 20:29 20:29 21:28 WBC RBC Hgb Hct MCV MCH MCHC RDW Plt Count Lymph % (Auto) Fisher # (Auto) Seg Neutrophils % Seg Neutrophils # PT 15.8 H INR 1.14 H APTT Sodium Potassium Chloride Carbon Dioxide BUN Creatinine Glucose Calcium Alkaline Phosphatase Ammonia 21.0 L Troponin T Albumin Triglycerides LDL Cholesterol Direct HDL Cholesterol Urine WBC (Auto) Salicylates Acetaminophen 5.0 L Crossmatch 12/16/20 12/16/20 06:02 06:02 WBC 16.4 H RBC 3.19 L Hgb 8.1 L Hct 26.3 L D MCV 82 L MCH 25 L MCHC 31 L RDW 20.3 H Plt Count Lymph % (Auto) Fisher # (Auto) Seg Neutrophils % Seg Neutrophils # PT INR APTT Sodium Potassium Chloride 112.9 H Carbon Dioxide 15 L D BUN 47 H Creatinine Glucose 185 H Calcium 7.2 L D Alkaline Phosphatase Ammonia Troponin T 0.126 H* D Albumin Triglycerides LDL Cholesterol Direct HDL Cholesterol Urine WBC (Auto) Salicylates Acetaminophen Crossmatch - Diagnostic Findings Chest x-ray: report reviewed, image reviewed Additional studies: CHEST 1 VIEW 12/15/2020 9:10 PM INDICATION / CLINICAL INFORMATION: hypotension weakness. COMPARISON: None available. FINDINGS: SUPPORT DEVICES: None. HEART / MEDIASTINUM: No significant abnormality. LUNGS / PLEURA: No significant pulmonary or pleural abnormality. No pneumothorax. ADDITIONAL FINDINGS: Hardware in right humerus. Old fracture proximal right humerus. IMPRESSION: 1. No acute findings. Assessment and Plan 55-year-old -Mexican female resident of [facility] long-term with known history of Parkinson's disease, depression, DVT, previous fracture of right acetabulum lumbosacral spine and pelvis and who is currently bedbound brought into the emergency room today with generalized weakness, fatigue and possible concern for anemia. Patient was said to have been transfused recently at [facility]. Patient has a PEG tube in place and also has history of sacral decubitus ulcers. Upon arrival in the emergency room patient was hypotensive with blood pressure systolic in the 80s and diastolic in the 50s. Work-up in the emergency room today, hemoglobin was found to be 6.0 with he matocrit of 20.2. Patient had a potassium level of 6.0, BUN of 70 and creatinine of 2.2. Chest X-ray- no acute findings Patient denies other medical problems. Patient says history of smoking 1 pack x 10 years. Says stopped 1 year ago. Denies alcohol or drug abuse. 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 has two children. Allergic to pencillins. Patient awake. Weak. Patient is on room air. O2 saturation running 83%. Recommended to place him on 4 litres O2 right away. Patient afebrile. Has leukocytosis. Blood pressure 99/72. Pulse 90. Chest xray done 12/15/20 reported No acute findings Patient was seen in the emergency room. I spent critical care time of 40 minutes Obtaining history, review the chart, examine the patient, review chest xray, Lab results, talking to the nursing sta ff, respiratory therapy and work up plan of treatment. - Patient Problems (1) Hypotension Current Visit: Yes Status: Acute Qualifiers: Hypotension type: unspecified hypotension type Qualified Code(s): I95.9 - Hypotension, unspecified Plan to address problem: Patient is started on Nor epinephrine. Patient received blood tansfusion. (2) Anemia requiring transfusions Current Visit: Yes Status: Acute Plan to address problem: Received blood transfusion. Management as per primary care and hematology. (3) NSTEMI (non-ST elevated myocardial infarction) Current Visit: Yes Status: Acute Plan to address problem: Management as per cardiology. (4) Sepsis Current Visit: Yes Status: Acute Qualifiers: Sepsis type: sepsis due to unspecified organism Sepsis acute organ dysfunction status: with acute organ dysfunction Severe sepsis acute organ dysfunction type: acute renal failure Severe sepsis shock status: unspecified Plan to address problem: Patient is on ceftriaxone. (5) UTI (urinary tract infection) Current Visit: Yes Status: Acute Qualifiers: Urinary tract infection type: acute cystitis Hematuria presence: with hematuria Qualified Code(s): N30.01 - Acute cystitis with hematuria Plan to address problem: Patient is on ceftriaxone.
--- NOTE | 2020-12-16 13:26 | Event Note ---
Date: 12/16/20 Patient evaluated in the ED. Paged by RN due to hypotension and wounds with drainage. Was currently only on Rocephin for presumed UTI. Vancomycin was added along with maintenance fluids and a wound care consult. Patient paperwork from [place] was seen. Outpatient medications were restarted. Patient with PEG tube and is fed via G-tube per [facility] records. We will continue with tube feeds for now. He also had a lower abdominal scar with yellowish-green drainage seen. Speech evaluation ordered to assess for swallowing, since patient's reports that he is able to consume solids. Time spent: 30 minutes
[2020-12-16] MEDS ORDERED: VANCOMYCIN PHARMACY TO DOSE IV SCH (14:00)
--- NOTE | 2020-12-16 14:48 | Consultation ---
History of Present Illness Consult date: 12/16/20 Requesting physician: JOHNATHAN RAMIRES Consult reason: other (NSTEMI) History of present illness: Patient is a 55-year-old -[place]ian male with a past medical history of Parkinson's, depression, DVT previous fracture of right acetabulum lumbosacral spine and pelvis who was brought to the ED for generalized weakness, fatigue, concern for anemia from [place] [facility]. History is taken from the chart due to patient being poor historian. ED work-up showed patient to be anemic, hyperkalemic, have BERNICE, patient was found to be septic, and have elevated troponins. Patient is previously unknown to our practice. Cardiology is consulted for NSTEMI Past History Past Medical History: other (Paraplegia,Parkinson's Disease) Past Surgical History: Other (Bilateral Partial Amputation of feet,G-tube placement) Social history: no significant social history Family history: no significant family history Medications and Allergies Allergies Allergy/AdvReac Type Severity Reaction Status Date / Time Penicillins Allergy Itching Verified 12/16/20 02:38 Home Medications Medication Instructions Recorded Confirmed Last Taken Type Amantadine 10 mg FEEDTUBE 12/16/20 Unknown History Ascorbic Acid [Vitamin C with Irma 1 tab FEEDTUBE 12/16/20 Unknown History Hips] Aspirin BABY CHEW TAB 81 mg FEEDTUBE 12/16/20 Unknown History Cetirizine HCl [Cetirizine 10mg 1 tab FEEDTUBE 12/16/20 Unknown History chew] Clindamycin [Clindamycin CAP] 1 cap FEEDTUBE 12/16/20 Unknown History Gabapentin 1 cap FEEDTUBE 12/16/20 Unknown History Ibuprofen [Motrin] 800 mg FEEDTUBE 12/16/20 Unknown History Multiple Vitamin TAB (Theragran) 1 tab FEEDTUBE 12/16/20 Unknown History Sennosides [Senna] 8.6 mg FEEDTUBE 12/16/20 Unknown History Sertraline [Zoloft] 1 tab FEEDTUBE 12/16/20 Unknown History Tamsulosin [Flomax] 1 cap FEEDTUBE 12/16/20 Unknown History Vitamin D3 50,000UNIT CAP 1 cap FEEDTUBE 12/16/20 Unknown History Zinc Sulfate 1 cap FEEDTUBE 12/16/20 Unknown History Active Meds: Active Medications Acetaminophen (Acetaminophen 650 Mg Rect Supp) 650 mg HI Q6H PRN PRN Reason: Pain MILD(1-3)/Fever >100.5/RHOADES Last Admin: 12/16/20 00:32 Dose: 650 mg Documented by: Amantadine HCl (Amantadine 100 Mg Cap) 100 mg PO QDAY TIFF Lipase/Protease/Amylase (Lipase 10,500/Protease 25,000/Amylase 43,750 (Units) Dr Rafiq) 1 each FEEDTUBE PRN PRN PRN Reason: For Clogged Feeding Tube Gabapentin (Gabapentin 300 Mg Cap) 600 mg PO Q8HR TIFF Ceftriaxone Sodium (Rocephin/Ns 1 Gm/50 Ml) 1 gm in 50 mls @ 100 mls/hr IV Q24H TIFF; Protocol Lactated Ringer's (Lactated Ringers) 1,000 mls @ 100 mls/hr IV DIRECT TIFF Last Admin: 12/16/20 10:50 Dose: 100 mls/hr Documented by: Magnesium Hydroxide (Magnesium Hydroxide (Mom) Oral Liqd Udc) 30 ml PO Q4H PRN PRN Reason: Constipation Mirtazapine (Mirtazapine 15 Mg Tab) 15 mg PO QHS TIFF Morphine Sulfate (Morphine 2 Mg/1 Ml Inj) 2 mg IV Q4H PRN PRN Reason: Pain, Moderate (4-6) Morphine Sulfate (Morphine 4 Mg/1 Ml Inj) 4 mg IV Q4H PRN PRN Reason: Pain , Severe (7-10) Last Admin: 12/16/20 00:59 Dose: 4 mg Documented by: Ondansetron HCl (Ondansetron 4 Mg/2 Ml Inj) 4 mg IV Q8H PRN PRN Reason: Nausea And Vomiting Last Admin: 12/16/20 01:00 Dose: 4 mg Documented by: Sertraline HCl (Sertraline 50 Mg Tab) 50 mg PO QDAY TIFF Simple Syrup (Simple Syrup 15 Ml) 15 ml FEEDTUBE PRN PRN PRN Reason: Hypoglycemia Simple Syrup (Simple Syrup 15 Ml) 30 ml FEEDTUBE PRN PRN PRN Reason: Hypoglycemia Sodium Bicarbonate (Sodium Bicarbonate 325 Mg Tab) 325 mg FEEDTUBE PRN PRN PRN Reason: For Clogged Feeding Tube Sodium Chloride (Sodium Chloride 0.9% 10 Ml Flush Syringe) 10 ml IV BID TIFF Last Admin: 12/16/20 09:38 Dose: 10 ml Documented by: Sodium Chloride (Sodium Chloride 0.9% 10 Ml Flush Syringe) 10 ml IV PRN PRN PRN Reason: LINE FLUSH Tamsulosin HCl (Tamsulosin 0.4 Mg Cap) 0.4 mg PO QDAY [facility] Review of Systems ROS unobtainable: due to mental status Physical Examination Vital Signs Temp Pulse Resp BP Pulse Ox 98.8 F 90 16 84/54 99 12/15/20 19:38 12/15/20 19:38 12/15/20 19:38 12/15/20 19:38 12/15/20 19:38 General appearance: no acute distress HEENT: Positive: PERRL Neck: Positive: trachea midline Cardiac: Positive: Reg Rate and Rhythm Lungs: Positive: Normal Breath Sounds Neuro: Positive: Grossly Intact Abdomen: Positive: Soft, Active Bowel Sounds Extremities: Present: upper extr. pulses, Other (Bilateral partial foot amputations) Results 12/16/20 06:02 12/16/20 06:02 Cardiac Enzymes 12/15/20 Range/Units 20:29 AST 16 (5-40) units/L Coagulation 12/15/20 12/15/20 Range/Units 20:29 20:29 PT 15.8 H (12.2-14.9) Sec. INR 1.14 H (0.87-1.13) APTT 42.0 H (24.2-36.6) Sec. Lipids 12/15/20 Range/Units 20:29 Triglycerides 153 H (2-149) mg/dL Cholesterol 95 (50-199) mg/dL HDL Cholesterol 27 L (40-59) mg/dL Cholesterol/HDL Ratio 3.51 % CBC 12/15/20 12/16/20 Range/Units 20:29 06:02 WBC 19.2 H 16.4 H (4.5-11.0) K/mm3 RBC 2.56 L 3.19 L (3.65-5.03) M/mm3 Hgb 6.0 L 8.1 L (11.8-15.2) gm/dl Hct 20.2 L 26.3 L D (35.5-45.6) % Plt Count 512 H 427 (140-440) K/mm3 Lymph # (Auto) 1.2 (1.2-5.4) K/mm3 [place] # (Auto) 1.3 H (0.0-0.8) K/mm3 Eos # (Auto) 0.1 (0.0-0.4) K/mm3 Baso # (Auto) 0.0 (0.0-0.1) K/mm3 Comprehensive Metabolic Panel 12/15/20 12/16/20 Range/Units 20:29 06:02 Sodium 131 L 141 D (137-145) mmol/L Potassium 6.0 H 4.3 D (3.6-5.0) mmol/L Chloride 95.1 L 112.9 H (98-107) mmol/L Carbon Dioxide 23 15 L D (22-30) mmol/L BUN 70 H 47 H (9-20) mg/dL Creatinine 2.2 H 1.3 (0.8-1.3) mg/dL Glucose 113 H 185 H (75-100) mg/dL Calcium 9.3 7.2 L D (8.4-10.2) mg/dL AST 16 (5-40) units/L ALT 17 (7-56) units/L Alkaline Phosphatase 321 H (35-129) units/L Total Protein 7.0 (6.3-8.2) g/dL Albumin 2.7 L (3.9-5) g/dL - Imaging and Cardiology Echo: pending EKG interpretations - Telemetry EKG Rhythm: Sinus Rhythm - EKG Sinus rhythms and dysrhythmias: sinus rhythm Assessment and Plan EKG shows sinus rhythm 85 with no acute ischemic changes. Troponin is noted to be elevated but downtrending 0.2->0.12 Suspect NSTEMI type II in setting of sepsis and BERNICE Echo pending Patient seen in conjunction with Dr. Alvarez who agrees with the plan of care. We will continue to follow - Patient Problems (1) Anemia requiring transfusions Current Visit: Yes Status: Acute (2) Renal insufficiency Current Visit: Yes Status: Acute (3) NSTEMI (non-ST elevated myocardial infarction) Current Visit: Yes Status: Acute (4) Hyperkalemia Current Visit: Yes Status: Acute (5) Hypotension Current Visit: Yes Status: Acute Qualifiers: Hypotension type: unspecified hypotension type Qualified Code(s): I95.9 - Hypotension, unspecified (6) Sepsis Current Visit: Yes Status: Acute Qualifiers: Sepsis type: sepsis due to unspecified organism Sepsis acute organ dysfunction status: with acute organ dysfunction Severe sepsis acute organ dysfunction type: acute renal failure Severe sepsis shock status: unspecified
[2020-12-16] MEDS ORDERED: SODIUM BICARBONATE 325 MG TAB FEEDTUBE PRN (15:13)
[2020-12-16] MEDS ORDERED: LIPASE 10,500/PROTEASE 25,000/AMYLASE 43,750 (UNITS) DR CAP FEEDTUBE PRN (15:13)
[2020-12-16] MEDS ORDERED: SIMPLE SYRUP 15 ML FEEDTUBE PRN ×2 (15:13)
[2020-12-16] MEDS: GABAPENTIN 300 MG CAP PO SCH ×2 (15:47→23:29)
[2020-12-16] MEDS: VANCOMYCIN/NS 1 GM/250 ML 1 GM/250 ML BAG IV SCH (16:51)
[2020-12-16] MEDS: TAMSULOSIN 0.4 MG CAP PO SCH (16:52)
[2020-12-16] MEDS: SERTRALINE 50 MG TAB PO SCH (16:52)
--- NOTE | 2020-12-16 17:02 | Consultation ---
History of Present Illness - Reason for Consult acute renal failure, hyperkalemia - History of Present Illness 55-year-old frail ill-appearing -[place]oc[place] male, resident of [facility] facility, presented to the emergency department secondary to hypotension and worsening weakness. Found to be anemic requiring 1 unit of packed red blood cells here in the emergency department. Per at bedside patient had recent admission to [place] secondary to similar weakness, low blood pressures, and se janine anemia which required 2 units of packed red blood cells to be transfused during that admission. Did not undergo any further diagnostic imaging such as colonoscopy during the previous admission. Nephrology was consulted for acute kidney injury present on initial admission labs. Urinalysis also concerning for underlying urinary tract infection. Patient does have indwelling Kyle catheter at this time. With IV fluid hydration, antibiotic therapy, and transfusion of 1 unit of packed blood cells it seems that renal function is showing improvement on follow-up labs. Past History Past Medical History: other (Paraplegia,Parkinson's Disease) Past Surgical History: Other (Bilateral Partial Amputation of feet,G-tube placement) Social history: no significant social history Family history: no significant family history Medications and Allergies Allergies Allergy/AdvReac Type Severity Reaction Status Date / Time Penicillins Allergy Itching Verified 12/16/20 02:38 Home Medications Medication Instructions Recorded Confirmed Last Taken Type Amantadine 10 mg FEEDTUBE 12/16/20 Unknown History Ascorbic Acid [Vitamin C with Irma 1 tab FEEDTUBE 12/16/20 Unknown History Hips] Aspirin BABY CHEW TAB 81 mg FEEDTUBE 12/16/20 Unknown History Cetirizine HCl [Cetirizine 10mg 1 tab FEEDTUBE 12/16/20 Unknown History chew] Clindamycin [Clindamycin CAP] 1 cap FEEDTUBE 12/16/20 Unknown History Gabapentin 1 cap FEEDTUBE 12/16/20 Unknown History Ibuprofen [Motrin] 800 mg FEEDTUBE 12/16/20 Unknown History Multiple Vitamin TAB (Theragran) 1 tab FEEDTUBE 12/16/20 Unknown History Sennosides [Senna] 8.6 mg FEEDTUBE 12/16/20 Unknown History Sertraline [Zoloft] 1 tab FEEDTUBE 12/16/20 Unknown History Tamsulosin [Flomax] 1 cap FEEDTUBE 12/16/20 Unknown History Vitamin D3 50,000UNIT CAP 1 cap FEEDTUBE 12/16/20 Unknown History Zinc Sulfate 1 cap FEEDTUBE 12/16/20 Unknown History Active Meds: Active Medications Acetaminophen (Acetaminophen 650 Mg Rect Supp) 650 mg [place] Q6H PRN PRN Reason: Pain MILD(1-3)/Fever >100.5/RHOADES Last Admin: 12/16/20 00:32 Dose: 650 mg Documented by: Amantadine HCl (Amantadine 100 Mg Cap) 100 mg PO QDAY TIFF Lipase/Protease/Amylase (Lipase 10,500/Protease 25,000/Amylase 43,750 (Units) Dr Conroy) 1 each FEEDTUBE PRN PRN PRN Reason: For Clogged Feeding Tube Gabapentin (Gabapentin 300 Mg Cap) 600 mg PO Q8HR TIFF Last Admin: 12/16/20 15:47 Dose: 600 mg Documented by: Ceftriaxone Sodium (Rocephin/Ns 1 Gm/50 Ml) 1 gm in 50 mls @ 100 mls/hr IV Q24H TIFF; Protocol Lactated Ringer's (Lactated Ringers) 1,000 mls @ 100 mls/hr IV DIRECT TIFF Last Admin: 12/16/20 10:50 Dose: 100 mls/hr Documented by: Vancomycin HCl (Vancomycin/Ns 1 Gm/250 Ml) 1 gm in 250 mls @ 125 mls/hr IV Q12H TIFF Last Admin: 12/16/20 16:51 Dose: 125 mls/hr Documented by: Magnesium Hydroxide (Magnesium Hydroxide (Mom) Oral Liqd Udc) 30 ml PO Q4H PRN PRN Reason: Constipation Mirtazapine (Mirtazapine 15 Mg Tab) 15 mg PO QHS TIFF Morphine Sulfate (Morphine 2 Mg/1 Ml Inj) 2 mg IV Q4H PRN PRN Reason: Pain, Moderate (4-6) Morphine Sulfate (Morphine 4 Mg/1 Ml Inj) 4 mg IV Q4H PRN PRN Reason: Pain , Severe (7-10) Last Admin: 12/16/20 00:59 Dose: 4 mg Documented by: Ondansetron HCl (Ondansetron 4 Mg/2 Ml Inj) 4 mg IV Q8H PRN PRN Reason: Nausea And Vomiting Last Admin: 12/16/20 01:00 Dose: 4 mg Documented by: Sertraline HCl (Sertraline 50 Mg Tab) 50 mg PO QDAY TIFF Last Admin: 12/16/20 16:52 Dose: 50 mg Documented by: Simple Syrup (Simple Syrup 15 Ml) 15 ml FEEDTUBE PRN PRN PRN Reason: Hypoglycemia Simple Syrup (Simple Syrup 15 Ml) 30 ml FEEDTUBE PRN PRN PRN Reason: Hypoglycemia Simple Syrup (Simple Syrup 15 Ml) 15 ml FEEDTUBE PRN PRN PRN Reason: Hypoglycemia Simple Syrup (Simple Syrup 15 Ml) 30 ml FEEDTUBE PRN PRN PRN Reason: Hypoglycemia Sodium Bicarbonate (Sodium Bicarbonate 325 Mg Tab) 325 mg FEEDTUBE PRN PRN PRN Reason: For Clogged Feeding Tube Sodium Bicarbonate (Sodium Bicarbonate 325 Mg Tab) 325 mg FEEDTUBE PRN PRN PRN Reason: For Clogged Feeding Tube Sodium Chloride (Sodium Chloride 0.9% 10 Ml Flush Syringe) 10 ml IV BID [facility] Last Admin: 12/16/20 09:38 Dose: 10 ml Documented by: Sodium Chloride (Sodium Chloride 0.9% 10 Ml Flush Syringe) 10 ml IV PRN PRN PRN Reason: LINE FLUSH Tamsulosin HCl (Tamsulosin 0.4 Mg Cap) 0.4 mg PO QDAY [facility] Last Admin: 12/16/20 16:52 Dose: 0.4 mg Documented by: Review of Systems Constitutional: fatigue, weakness Exam - Vital Signs Vital signs: Vital Signs Temp Pulse Resp BP Pulse Ox 98.8 F 90 16 84/54 99 12/15/20 19:38 12/15/20 19:38 12/15/20 19:38 12/15/20 19:38 12/15/20 19:38 - General Appearance General appearance: chronically ill, fatigue, frail EENT: ATNC, PERRL Neck: Present: neck supple Respiratory: Clear to Ascultation Heart: regular Gastrointestinal: Present: normal Integumentary: warm and dry Neurologic: no focal deficit, alert and oriented x3 Musculoskeletal: Present: deferred Psychiatric: cooperative Results - Lab Results 12/16/20 06:02 12/16/20 06:02 Most recent lab results Calcium 7.2 mg/dL (8.4-10.2) L D 12/16/20 06:02 Assessment and Plan - Patient Problems (1) Acute kidney injury Current Visit: Yes Status: Acute Plan to address problem: likely prerenal in nature in the setting of acute on chronic blood loss anemia along with questionable sepsis in the setting of urinary tract infection. Overall renal function is showing improvement after IV fluid hydration as well as transfusion of 1 unit of packed blood cells. Continue close monitoring and please avoid all nephrotoxins at this time. We will continue to follow up closely. (2) Anemia requiring transfusions Current Visit: Yes Status: Acute Plan to address problem: transfuse to maintain hemoglobin above 7. (3) Hyperkalemia Current Visit: Yes Status: Acute Plan to address problem: serum potassium levels have shown improvement with adequate fluid hydration. We will continue to monitor closely. (4) Sepsis Current Visit: Yes Status: Acute Qualifiers: Sepsis type: sepsis due to unspecified organism Sepsis acute organ dysfunction status: with acute organ dysfunction Severe sepsis acute organ dysfunction type: acute renal failure Severe sepsis shock status: unspecified Plan to address problem: patient started on appropriate IV antibiotic therapy along with IV fluid hydration. Please maintain mean Rodriguez pressures above 65 mmHg. We will continue to follow closely. Cultures pending at this time. (5) UTI (urinary tract infection) Current Visit: Yes Status: Acute Qualifiers: Urinary tract infection type: acute cystitis Hematuria presence: with hematuria Qualified Code(s): N30.01 - Acute cystitis with hematuria Plan to address problem: please ensure that antibiotics a dose properly for renal function. We will continue to monitor closely.
[2020-12-16] MEDS ORDERED: cefTRIAXone/NS 1 GM/50 ML 1 GM/50 ML BAG IV SCH (22:00)
[2020-12-16] MEDS: MIRTAZAPINE 15 MG TAB PO SCH (23:29)
[2020-12-17 04:47] LABS: Hematocrit 28.9 % (35.5-45.6); Mean Corpuscular HGB Conc 31 % (32-34); Mean Corpuscular Volume 82 fl (84-94); Platelet Count 585 K/mm3 (140-440); Red Blood Count 3.51 M/mm3 (3.65-5.03)
[2020-12-17] MEDS: MORPHINE 4 MG/1 ML INJ IV PRN ×2 (04:55→22:21)
[2020-12-17] MEDS: ONDANSETRON 4 MG/2 ML INJ IV PRN (04:55)
[2020-12-17 04:56] LABS: Red Cell Distribution Width 20.9 % (13.2-15.2)
[2020-12-17 04:59] LABS: INR 1.22 (0.87-1.13)
[2020-12-17 05:10] LABS: BUN/Creatinine Ratio 34; Blood Urea Nitrogen 41 mg/dL (9-20); Calcium 8.5 mg/dL (8.4-10.2); Hemolysis Index 3
[2020-12-17 06:46] LABS: Total Cells Counted 100
[2020-12-17 06:47] LABS: Anisocytosis 1+; Hypochromasia 1+; Platelet Estimate Consistent w Auto
[2020-12-17] MEDS: TAMSULOSIN 0.4 MG CAP PO SCH (12:49)
[2020-12-17] MEDS: SERTRALINE 50 MG TAB PO SCH (12:50)
--- NOTE | 2020-12-17 13:34 | Progress Note ---
Assessment and Plan Hypotension Anemia requiring transfusions NSTEMI (non-ST elevated myocardial infarction) Sepsis UTI (urinary tract infection) - prn supplemental oxygen to keep O2 sats > 90% - Wound care per RN/WCT - prn Bronchodilators (DARWIN) with pulm hygiene per RT - continue to avoid nephrotoxins, renally dose all medications - continue mobility protocols to prevent pressure ulcers - PT/OT as tolerated - prn analgesia per pain score - accuchecks with glycemic control per SSI for target blood glucose < 180 mg/dL - tobacco abstinence counseling - home oxygen evaluation at discharge - GI & VTE prophylaxis - Flu & pneumovax per protocol - Pulmonary out patient follow up for PFTs and optimization of respiratory status - continue other care per attending / other consultants ... re-evaluate in am & prn Subjective Date of service: 12/17/20 Principal diagnosis: Hypotension; Anemia; NSTEMI; UTI Interval history: Patient is seen today for: Hypotension; Anemia; NSTEMI; UTI Seen and examined at bedside; 24hour events reviewed; nursing and respiratory care staff consulted; no adverse overnight events reported to me; resting peacefully in bed; denies acute chest pains or palpitations; no longer hypotensive; no emesis or overt aspiration and no acute issues Objective Vital Signs - 12hr 12/17/20 12/17/20 12/17/20 01:30 01:45 02:00 Temperature Pulse Rate 87 84 86 Respiratory 22 18 22 Rate Blood Pressure 122/86 120/81 125/83 O2 Sat by Pulse 92 91 Oximetry 12/17/20 12/17/20 12/17/20 02:15 02:30 02:45 Temperature Pulse Rate 84 85 85 Respiratory 20 20 19 Rate Blood Pressure 128/82 120/83 119/86 O2 Sat by Pulse 93 91 Oximetry 12/17/20 12/17/20 12/17/20 03:00 03:15 03:30 Temperature Pulse Rate 83 83 86 Respiratory 22 16 22 Rate Blood Pressure 114/81 105/80 123/87 O2 Sat by Pulse 94 92 92 Oximetry 12/17/20 12/17/20 12/17/20 03:45 04:00 04:15 Temperature Pulse Rate 83 85 81 Respiratory 20 24 19 Rate Blood Pressure 132/82 125/84 116/80 O2 Sat by Pulse 95 93 95 Oximetry 12/17/20 12/17/20 12/17/20 04:30 04:45 05:00 Temperature Pulse Rate 91 H 85 83 Respiratory 20 21 20 Rate Blood Pressure 126/84 120/76 122/74 O2 Sat by Pulse 94 90 94 Oximetry 12/17/20 12/17/20 12/17/20 05:11 05:15 05:30 Temperature 98.6 F Pulse Rate 90 84 Respiratory 20 21 Rate Blood Pressure 115/83 111/76 O2 Sat by Pulse 91 88 Oximetry 12/17/20 12/17/20 12/17/20 05:45 06:26 06:30 Temperature Pulse Rate 93 H 90 86 Respiratory 18 30 H Rate Blood Pressure 121/83 121/83 120/77 O2 Sat by Pulse 94 94 Oximetry 12/17/20 12/17/20 12/17/20 06:45 07:00 07:30 Temperature Pulse Rate 81 79 79 Respiratory 24 21 18 Rate Blood Pressure 116/74 115/76 112/76 O2 Sat by Pulse 93 94 97 Oximetry 12/17/20 12/17/20 12/17/20 08:30 09:00 10:00 Temperature Pulse Rate 81 83 86 Respiratory 16 19 Rate Blood Pressure 112/76 120/77 O2 Sat by Pulse 97 95 95 Oximetry 12/17/20 12:00 Temperature Pulse Rate Respiratory Rate Blood Pressure O2 Sat by Pulse 95 Oximetry Constitutional: no acute distress, alert Eyes: non-icteric ENT: other (Poor dental hygiene.) Neck: supple, no JVD Effort: normal Ascultation: Bilateral: rhonchi (scant) Percussion: Bilateral: not dull Cardiovascular: regular rate and rhythm Gastrointestinal: normoactive bowel sounds, soft, non-tender, non-distended Integumentary: decubitus ulcer (decubitus ulcer; please see [facility] notes for full description) Extremities: no cyanosis, no edema, pulses normal Neurologic: non-focal exam, pupils equal and round Psychiatric: mood appropriate, affect normal CBC and BMP: 12/18/20 07:53 12/18/20 07:53 ABG, PT/INR, D-dimer: PT/INR, D-dimer PT 16.7 Sec. (12.2-14.9) H 12/17/20 04:27 INR 1.22 (0.87-1.13) H 12/17/20 04:27 Abnormal lab findings: Abnormal Labs 12/15/20 12/15/20 12/15/20 20:20 20:29 20:29 WBC 19.2 H RBC 2.56 L Hgb 6.0 L Hct 20.2 L MCV 79 L MCH 24 L MCHC 30 L RDW 22.2 H Plt Count 512 H Lymph % (Auto) 6.4 L [place] # (Auto) 1.3 H Seg Neutrophils % 85.9 H Seg Neuts % (Manual) Lymphocytes % (Manual) Seg Neutrophils # 16.5 H Seg Neutrophils # Man Lymphocytes # (Manual) Monocytes # (Manual) PT INR APTT 42.0 H Sodium Potassium Chloride Carbon Dioxide BUN Creatinine Glucose Calcium Alkaline Phosphatase Ammonia Troponin T Albumin Triglycerides LDL Cholesterol Direct HDL Cholesterol Urine WBC (Auto) > 182.0 H Salicylates Acetaminophen Crossmatch 12/15/20 12/15/20 12/15/20 20:29 20:29 20:29 WBC RBC Hgb Hct MCV MCH MCHC RDW Plt Count Lymph % (Auto) [place] # (Auto) Seg Neutrophils % Seg Neuts % (Manual) Lymphocytes % (Manual) Seg Neutrophils # Seg Neutrophils # Man Lymphocytes # (Manual) Monocytes # (Manual) PT INR APTT Sodium 131 L Potassium 6.0 H Chloride 95.1 L Carbon Dioxide BUN 70 H Creatinine 2.2 H Glucose 113 H Calcium Alkaline Phosphatase 321 H Ammonia Troponin T 0.215 H* Albumin 2.7 L Triglycerides 153 H LDL Cholesterol Direct 23 L HDL Cholesterol 27 L Urine WBC (Auto) Salicylates < 0.3 L Acetaminophen Crossmatch See Detail 12/15/20 12/15/20 12/15/20 20:29 20:29 21:28 WBC RBC Hgb Hct MCV MCH MCHC RDW Plt Count Lymph % (Auto) [place] # (Auto) Seg Neutrophils % Seg Neuts % (Manual) Lymphocytes % (Manual) Seg Neutrophils # Seg Neutrophils # Man Lymphocytes # (Manual) Monocytes # (Manual) PT 15.8 H INR 1.14 H APTT Sodium Potassium Chloride Carbon Dioxide BUN Creatinine Glucose Calcium Alkaline Phosphatase Ammonia 21.0 L Troponin T Albumin Triglycerides LDL Cholesterol Direct HDL Cholesterol Urine WBC (Auto) Salicylates Acetaminophen 5.0 L Crossmatch 12/16/20 12/16/20 12/16/20 06:02 06:02 20:19 WBC 16.4 H RBC 3.19 L Hgb 8.1 L Hct 26.3 L D MCV 82 L MCH 25 L MCHC 31 L RDW 20.3 H Plt Count Lymph % (Auto) [place] # (Auto) Seg Neutrophils % Seg Neuts % (Manual) Lymphocytes % (Manual) Seg Neutrophils # Seg Neutrophils # Man Lymphocytes # (Manual) Monocytes # (Manual) PT INR APTT Sodium Potassium Chloride 112.9 H Carbon Dioxide 15 L D BUN 47 H Creatinine Glucose 185 H Calcium 7.2 L D Alkaline Phosphatase Ammonia Troponin T 0.126 H* D 0.078 H D Albumin Triglycerides LDL Cholesterol Direct HDL Cholesterol Urine WBC (Auto) Salicylates Acetaminophen Crossmatch 12/17/20 12/17/20 12/17/20 04:27 04:27 04:27 WBC 24.5 H RBC 3.51 L Hgb 9.0 L Hct 28.9 L MCV 82 L MCH 26 L MCHC 31 L RDW 20.9 H Plt Count 585 H Lymph % (Auto) [place] # (Auto) Seg Neutrophils % Seg Neuts % (Manual) 91.0 H Lymphocytes % (Manual) 3.0 L Seg Neutrophils # Seg Neutrophils # Man 22.3 H Lymphocytes # (Manual) 0.7 L Monocytes # (Manual) 1.5 H PT 16.7 H INR 1.22 H APTT Sodium Potassium Chloride 115.2 H Carbon Dioxide 16 L BUN 41 H Creatinine Glucose 105 H Calcium Alkaline Phosphatase Ammonia Troponin T Albumin Triglycerides LDL Cholesterol Direct HDL Cholesterol Urine WBC (Auto) Salicylates Acetaminophen Crossmatch Allied health notes reviewed: nursing
--- NOTE | 2020-12-17 13:44 | Electrocardiograph Report ---
[facility] Test Date: 2020-12-17 Test Time: 11:35:16 Pat Name: PAPO CARTY Department: Room: A252 1 Gender: M Professional Nursing Tutor: EDGAR : 1965 Requested By: DAVID ARREOLA Order Number: [id number] Reading MD: Antony Obregon Measurements Intervals [place] Rate: 86 P: 59 [place]: 138 QRS: 42 QRSD: 83 T: 59 QT: 358 QTc: 429 Interpretive Statements Sinus rhythm Low voltage, extremity leads Compared to ECG 12/15/2020 22:26:17 Low QRS voltage now present Electronically Signed On 12-17-2020 13:43:38 EST by Antony Obregon
[2020-12-17] MEDS: GABAPENTIN 300 MG CAP PO SCH ×2 (14:46→22:14)
--- NOTE | 2020-12-17 15:12 | Progress Note ---
Assessment and Plan Assessment and plan: #Hypotension -blood pressure improved after multiple fluid boluses -pressors never required -Likely secondary to anemia and volume depletion #UTI -complicated -UCx: 10-100k GNRs -vicente changed on admission -continue vancomycin and cefepime for now -ID consulted, assistance appreciated #Anemia requiring transfusion -s/p 2 units pRBC -Hgb improved to 9.0 -will transfuse for Hgb less than 7 #Leukocytosis -WBC count 24.5, worsening -afebrile -BCx NGTD #Hyperkalemia -resolved -will continue to monitor K levels #Type II NSTEMI -troponin 0.215, downtrending to 0.078 -Echo showed EF 45-50% -Cardiology evaluated patient, no intervention at this time -likely 2/2 BERNICE #Acute kidney injury -SCr 2.2, improved to 1.2 -likely 2/2 to vasomotor nephropathy -will continue to monitor -Nephrology consulted, assistance appreciated #Stage III Decubitus ulcers -chronic -continue wound care #Malnutrition -albumin 2.7 -Nutrition consulted -will continue PEG feeds in addition to oral feeds to improve healing. Disposition Plan: [facility] assisted once medically stable Total Time Spent with Patient (Minutes): 20 minutes History Interval history: No acute events overnight. Patient more alert today. Reports pain in his back. Eager to drink by mouth. Hospitalist Physical - Physical exam Narrative exam: GENERAL: Thin male. Lying in bed no acute distress. HEENT: Normocephalic. Atraumatic. CHEST/LUNGS: CTAB on room air HEART/CARDIOVASCULAR: RRR. No murmur, rubs or gallops appreciated. ABDOMEN: PEG tube in place. Abdominal wound dressed and intact. +BS. NT/ND. NEURO: No focal motor deficit. EXTREMITIES: Bilateral metatarsal amputation PSYCH: Cooperative. - Constitutional Vitals: Temp Pulse Resp BP Pulse Ox 98.6 F 86 19 120/77 95 12/17/20 05:11 12/17/20 10:00 12/17/20 09:00 12/17/20 09:00 12/17/20 12:00 General appearance: Present: no acute distress HEART Score - HEART Score Troponin: Troponin T 0.078 ng/mL (0.00-0.029) H D 12/16/20 20:19 Results - Labs CBC & Chem 7: 12/19/20 04:50 12/19/20 04:50 Labs: Laboratory Last Values WBC 24.5 K/mm3 (4.5-11.0) H 12/17/20 04:27 RBC 3.51 M/mm3 (3.65-5.03) L 12/17/20 04:27 Hgb 9.0 gm/dl (11.8-15.2) L 12/17/20 04:27 Hct 28.9 % (35.5-45.6) L 12/17/20 04:27 MCV 82 fl (84-94) L 12/17/20 04:27 MCH 26 pg (28-32) L 12/17/20 04:27 MCHC 31 % (32-34) L 12/17/20 04:27 RDW 20.9 % (13.2-15.2) H 12/17/20 04:27 Plt Count 585 K/mm3 (140-440) H 12/17/20 04:27 Lymph % (Auto) 6.4 % (13.4-35.0) L 12/15/20 20:29 [place] % (Auto) 6.8 % (0.0-7.3) 12/15/20 20: Eos % (Auto) 0.7 % (0.0-4.3) 12/15/20 20:29 Baso % (Auto) 0.2 % (0.0-1.8) 12/15/20 20:29 Lymph # (Auto) 1.2 K/mm3 (1.2-5.4) 12/15/20 20:29 [place] # (Auto) 1.3 K/mm3 (0.0-0.8) H 12/15/20 20:29 Eos # (Auto) 0.1 K/mm3 (0.0-0.4) 12/15/20 20:29 Baso # (Auto) 0.0 K/mm3 (0.0-0.1) 12/15/20 20:29 Add Manual Diff Complete 12/17/20 04:27 Total Counted 100 12/17/20 04:27 Seg Neutrophils % 85.9 % (40.0-70.0) H 12/15/20 20:29 Seg Neuts % (Manual) 91.0 % (40.0-70.0) H 12/17/20 04:27 Lymphocytes % (Manual) 3.0 % (13.4-35.0) L 12/17/20 04:27 Monocytes % (Manual) 6.0 % (0.0-7.3) 12/17/20 04:27 Nucleated RBC % Not Reportable 12/17/20 04:27 Seg Neutrophils # 16.5 K/mm3 (1.8-7.7) H 12/15/20 20:29 Seg Neutrophils # Man 22.3 K/mm3 (1.8-7.7) H 12/17/20 04:27 Band Neutrophils # 0.0 K/mm3 12/17/20 04:27 Lymphocytes # (Manual) 0.7 K/mm3 (1.2-5.4) L 12/17/20 04:27 Abs React Lymphs (Man) 0.0 K/mm3 12/17/20 04:27 Monocytes # (Manual) 1.5 K/mm3 (0.0-0.8) H 12/17/20 04:27 Eosinophils # (Manual) 0.0 K/mm3 (0.0-0.4) 12/17/20 04:27 Basophils # (Manual) 0.0 K/mm3 (0.0-0.1) 12/17/20 04:27 Metamyelocytes # 0.0 K/mm3 12/17/20 04:27 Myelocytes # 0.0 K/mm3 12/17/20 04:27 Promyelocytes # 0.0 K/mm3 12/17/20 04:27 Blast Cells # 0.0 K/mm3 12/17/20 04:27 WBC Morphology Not Reportable 12/17/20 04:27 Hypersegmented Neuts Not Reportable 12/17/20 04:27 Hyposegmented Neuts Not Reportable 12/17/20 04:27 Hypogranular Neuts Not Reportable 12/17/20 04:27 Smudge Cells Not Reportable 12/17/20 04:27 Toxic Granulation Not Reportable 12/17/20 04:27 Toxic Vacuolation Not Reportable 12/17/20 04:27 Dohle Bodies Not Reportable 12/17/20 04:27 Pelger-Huet Anomaly Not Reportable 12/17/20 04:27 Marcell Rods Not Reportable 12/17/20 04:27 Platelet Estimate Consistent w auto 12/17/20 04:27 Clumped Platelets Not Reportable 12/17/20 04:27 Plt Clumps, EDTA Not Reportable 12/17/20 04:27 Large Platelets Not Reportable 12/17/20 04:27 Giant Platelets Not Reportable 12/17/20 04:27 Platelet Satelliting Not Reportable 12/17/20 04:27 Plt Morphology Comment Not Reportable 12/17/20 04:27 RBC Morphology Not Reportable 12/17/20 04:27 Dimorphic RBCs Not Reportable 12/17/20 04:27 Polychromasia Not Reportable 12/17/20 04:27 Hypochromasia 1+ 12/17/20 04:27 Poikilocytosis Not Reportable 12/17/20 04:27 Anisocytosis 1+ 12/17/20 04:27 Microcytosis Not Reportable 12/17/20 04:27 Macrocytosis Not Reportable 12/17/20 04:27 Spherocytes Not Reportable 12/17/20 04:27 Pappenheimer Bodies Not Reportable 12/17/20 04:27 Sickle Cells Not Reportable 12/17/20 04:27 Target Cells Not Reportable 12/17/20 04:27 Tear Drop Cells Not Reportable 12/17/20 04:27 Ovalocytes Not Reportable 12/17/20 04:27 Helmet Cells Not Reportable 12/17/20 04:27 [place] Bodies Not Reportable 12/17/20 04:27 Pax Rings Not Reportable 12/17/20 04:27 Nicol Cells Not Reportable 12/17/20 04:27 Bite Cells Not Reportable 12/17/20 04:27 Crenated Cell Not Reportable 12/17/20 04:27 Elliptocytes Not Reportable 12/17/20 04:27 Acanthocytes (Spur) Not Reportable 12/17/20 04:27 Rouleaux Not Reportable 12/17/20 04:27 Hemoglobin C Crystals Not Reportable 12/17/20 04:27 Schistocytes Not Reportable 12/17/20 04:27 Malaria parasites Not Reportable 12/17/20 04:27 Azeem Bodies Not Reportable 12/17/20 04:27 Hem Pathologist Commnt No 12/17/20 04:27 PT 16.7 Sec. (12.2-14.9) H 12/17/20 04:27 INR 1.22 (0.87-1.13) H 12/17/20 04:27 APTT 42.0 Sec. (24.2-36.6) H 12/15/20 20:29 Sodium 144 mmol/L (137-145) 12/17/20 04:27 Potassium 4.3 mmol/L (3.6-5.0) 12/17/20 04:27 Chloride 115.2 mmol/L (98-107) H 12/17/20 04:27 Carbon Dioxide 16 mmol/L (22-30) L 12/17/20 04:27 Anion Gap 17 mmol/L 12/17/20 04:27 BUN 41 mg/dL (9-20) H 12/17/20 04:27 Creatinine 1.2 mg/dL (0.8-1.3) 12/17/20 04:27 Estimated GFR > 60 ml/min 12/17/20 04:27 BUN/Creatinine Ratio 34 % 12/17/20 04:27 Glucose 105 mg/dL (75-100) H 12/17/20 04:27 POC Glucose 72 mg/dL (70-105) 12/15/20 23:48 Lactic Acid 0.80 mmol/L (0.7-2.0) 12/15/20 20:29 Calcium 8.5 mg/dL (8.4-10.2) D 12/17/20 04:27 Total Bilirubin 0.80 mg/dL (0.1-1.2) 12/15/20 20:29 AST 16 units/L (5-40) 12/15/20 20:29 ALT 17 units/L (7-56) 12/15/20 20:29 Alkaline Phosphatase 321 units/L (35-129) H 12/15/20 20:29 Ammonia 21.0 umol/L (25-60) L 12/15/20 21:28 Troponin T 0.078 ng/mL (0.00-0.029) H D 12/16/20 20:19 Total Protein 7.0 g/dL (6.3-8.2) 12/15/20 20:29 Albumin 2.7 g/dL (3.9-5) L 12/15/20 20: Albumin/Globulin Ratio 0.6 % 12/15/20 20: Triglycerides 153 mg/dL (2-149) H 12/15/20 20: Cholesterol 95 mg/dL (50-199) 12/15/20 20: LDL Cholesterol Direct 23 mg/dL (50-130) L 12/15/20: HDL Cholesterol 27 mg/dL (40-59) L 12/15/20: Cholesterol/HDL Ratio 3.51 % 12/15/20 20: TSH 1.380 mlU/mL (0.270-4.200) 12/15/20 20: Urine Color Angela (Yellow) 12/15/20 20: Urine Turbidity Turbid (Clear) 12/15/20 20: Urine pH 7.0 (5.0-7.0) 12/15/20 20:20 Ur Specific [place] 1.012 (1.003-1.030) 12/15/20 20: Urine Protein 100 mg/dl mg/dL (Negative) 12/15/20 20:20 Urine Glucose (UA) Neg mg/dL (Negative) 12/15/20 20:20 Urine Ketones Neg mg/dL (Negative) 12/15/20 20:20 Urine Blood Lg (Negative) 12/15/20 20:20 Urine Nitrite Neg (Negative) 12/15/20 20:20 Urine Bilirubin Neg (Negative) 12/15/20 20:20 Urine Urobilinogen 4.0 mg/dL (<2.0) 12/15/20 20:20 Ur Leukocyte Esterase Lg (Negative) 12/15/20 20:20 Urine WBC (Auto) > 182.0 /HPF (0.0-6.0) H 12/15/20 20:20 Urine RBC (Auto) 117.0 /HPF (0.0-6.0) 12/15/20 20:20 Urine Bacteria (Auto) 3+ /HPF (Negative) 12/15/20 20:20 Urine WBC Clumps 3+ /HPF 12/15/20 20:20 Urine Mucus Few /HPF 12/15/20 20:20 Urine Yeast (Budding) 3+ /HPF 12/15/20 20:20 Salicylates < 0.3 mg/dL (2.8-20.0) L 12/15/20 20:29 Acetaminophen 5.0 ug/mL (10.0-30.0) L 12/15/20 20:29 Plasma/Serum Alcohol < 0.01 % (0-0.07) 12/15/20 20:29 Blood Type A POSITIVE 12/15/20 20:29 Antibody Screen Negative 12/15/20 20:29 Crossmatch See Detail 12/15/20 20:29 Microbiology: Microbiology 12/15/20 00:00 Urine,Clean Catch Urine Culture - Preliminary Gram Negative Akil 12/15/20 20:29 Peripheral/Venous Blood Culture - Preliminary NO GROWTH AFTER 24 HOURS 12/15/20 20:29 Peripheral/Venous Blood Culture - Preliminary NO GROWTH AFTER 24 HOURS Vicente/IV: Voiding Method Indwelling Catheter Active Medications - Current Medications Current Medications: Generic Name Dose Route Start Last Admin Trade Name Freq PRN Reason Stop Dose Admin Acetaminophen 650 mg 12/15/20 23:59 12/16/20 00:32 Acetaminophen 650 Mg Rect Supp [place] 650 mg Q6H PRN Administration Pain MILD(1-3)/Fever >100.5/RHOADES Amantadine HCl 100 mg 12/16/20 17:00 12/17/20 12:50 Amantadine 100 Mg Cap PO Not Given QDAY TIFF Lipase/Protease/Amylase 1 each 12/16/20 15:13 Lipase 10,500/Protease 25,000/Amylase 43,750 (Units) Dr Rafiq FEEDTUBE PRN PRN For Clogged Feeding Tube Gabapentin 600 mg 12/16/20 16:00 12/17/20 14:46 Gabapentin 300 Mg Cap PO 600 mg Q8HR TIFF Administration Lactated Ringer's 1,000 mls @ 100 mls/hr 12/16/20 08:15 12/16/20 10:50 Lactated Ringers IV 100 mls/hr DIRECT TIFF Administration Vancomycin HCl 1 gm in 250 mls @ 125 mls/hr 12/16/20 16:30 12/16/20 19:28 Vancomycin/Ns 1 Gm/250 Ml IV Infused Q12H TIFF Infusion Ceftriaxone Sodium 2 gm in 100 mls @ 200 mls/hr 12/17/20 22:00 Rocephin/Ns 2 Gm/100 Ml IV Q24H TIFF Protocol Magnesium Hydroxide 30 ml 12/15/20 23:59 Magnesium Hydroxide (Mom) Oral Liqd Udc PO Q4H PRN Constipation Metoprolol Tartrate 12.5 mg 12/17/20 22:00 Metoprolol Tartrate 25 Mg Tab PO BID [facility] Mirtazapine 15 mg 12/16/20 22:00 12/16/20 23:29 Mirtazapine 15 Mg Tab PO Not Given QHS TIFF Morphine Sulfate 2 mg 12/15/20 23:59 Morphine 2 Mg/1 Ml Inj IV Q4H PRN Pain, Moderate (4-6) Morphine Sulfate 4 mg 12/15/20 23:59 12/17/20 04:55 Morphine 4 Mg/1 Ml Inj IV 4 mg Q4H PRN Administration Pain , Severe (7-10) Ondansetron HCl 4 mg 12/15/20 23:59 12/17/20 04:55 Ondansetron 4 Mg/2 Ml Inj IV 4 mg Q8H PRN Administration Nausea And Vomiting Sertraline HCl 50 mg 12/16/20 17:00 12/17/20 12:50 Sertraline 50 Mg Tab PO Not Given QDAY [facility] Simple Syrup 15 ml 12/16/20 15:13 Simple Syrup 15 Ml FEEDTUBE PRN PRN Hypoglycemia Simple Syrup 30 ml 12/16/20 15:13 Simple Syrup 15 Ml FEEDTUBE PRN PRN Hypoglycemia Sodium Bicarbonate 325 mg 12/16/20 15:13 Sodium Bicarbonate 325 Mg Tab FEEDTUBE PRN PRN For Clogged Feeding Tube Sodium Chloride 10 ml 12/16/20 10:00 12/17/20 14:46 Sodium Chloride 0.9% 10 Ml Flush Syringe IV Not Given BID [facility] Sodium Chloride 10 ml 12/15/20 23:59 Sodium Chloride 0.9% 10 Ml Flush Syringe IV PRN PRN LINE FLUSH Tamsulosin HCl 0.4 mg 12/16/20 17:00 12/17/20 12:49 Tamsulosin 0.4 Mg Cap PO Not Given QDAY [facility] Nutrition/Malnutrition Assess - Dietary Evaluation Nutrition/Malnutrition Findings: Nutrition Notes Start: 12/16/20 1 3:54 Freq: Status: Active Protocol: Document 12/16/20 14:53 GB (Rec: 12/16/20 15:13 GB [email or web address]) Nutrition Notes Need for Assessment generated from: MD Order Initial or Follow up Assessment Current Diagnosis Sepsis Other Pertinent Diagnosis Anemia, hyperkalemia, UTI, Gen weakness, parkinson's disease , depression Current Diet TF - Nepro Labs/Tests 12/16: glucose 185, BUN 47, creatinine 1.3, Na 141, K 4.3, Ca 7.2 Pertinent Medications Lactated Ringers 100ml/hr, Height 6 ft Weight 81.647 kg Marshall Body Weight (kg) 80.90 BMI 24.4 Weight change and time frame No reported weight change upon admission Weight Status Appropriate Subjective/Other Information H/P: PEG tube present, bedbound, resident assisted, history of sacral decubitis ulcer Chart notes 12/16: states pt can eat PO, [employer] swallow eval ordered Bowel sounds hypoactive Percent of energy/protein needs met: unable to assess at this time. TF order to be entered to meet 50% needs to encourage PO intake. Burn Absent Trauma Absent GI Symptoms None Food Allergy No Skin Integrity/Comment wounds Current % PO Other Minimum of two criteria No #1 Nutrition Diagnosis Increased nutrient needs ( specify in comment below) Comments: PEG tube present Etiology anemia, parkinson's disease, spinal/pelvis fractures As Evidenced by Signs and Symptoms PEG tube present, parkinson's disease Is patient on ventilator? No Is Patient Ambulatory and/or Out of Bed No REE-([facility]-confined to bed) [phone] Calculation Used for Recommendations [facility] Additional Notes Protein: 1-1.2 g/kg @ 82k -98g Fluids: 1 ml/kcal or per MD Nutrition Intervention Change Diet Order: Advance to regular type diet when medically feasible with texture/consistency per [employer] Nutrition Support: TF: nepro @ 23ml/hr goal. Flush: 100ml/4hrs Total free water/day: TF@goal + flush = 1004ml Kcal 1,000 Protein (gm) 45 Carbohydrates (gm) 89 Fat (gm) 53 Fluid (mL) 404 Fiber (gm) 7 % RDI: 50%/50% Goal #1 TF (nepro) started by f/u Goal #2 TF (nepro) at goal rate (23ml/ hr) by f/u Goal #3 Diet advanced per [employer]OR recommendations. Follow-Up By: 12/18/20 Additional Comments f/u: TF, diet advanced, [employer] SELECTOR eval
--- NOTE | 2020-12-17 16:04 | Consultation ---
History of Present Illness - Reason for Consult Consult date: 12/17/20 - History of Present Illness 55-year-old male past medical history Parkinson's, depression, DVT, fracture of the right acetabulum [facility] due to weakness, fatigue, anemia. Of note the patient is bedbound and is affected with sacral decubitus ulcers. Afebrile with some low-grade temperatures yesterday, white count of 24.5. Urine cultures with gram-negative ochoa, blood cultures no growth so far. Currently on ceftriaxone and vancomycin. Imaging personally reviewed: Chest x-ray: No acute findings. Review of Systems: Bold if positive, otherwise negative General: fevers, chills, rigors HEENT: visual disturbance, diplopia, eye pain Respiratory: cough, sputum, hemoptysis, shortness of breath Cardiovascular: chest pain, syncope Gastrointestinal: nausea, vomiting, diarrhea, abdominal pain Genitourinary: dysuria, hematuria, flank pain Musculoskeletal: neck pain, back pain, joint pain, edema Neurologic: headaches, seizures Hematologic: easy bruising or bleeding Endocrine: night sweats, acute weight loss Skin: rash, jaundice, redness Psychiatric: suicidal, homicidal ideation Past History Past Medical History: other (Paraplegia,Parkinson's Disease) Past Surgical History: Other (Bilateral Partial Amputation of feet,G-tube placement) Social history: no significant social history Family history: no significant family history Medications and Allergies Allergies Allergy/AdvReac Type Severity Reaction Status Date / Time Penicillins Allergy Itching Verified 12/16/20 02:38 Home Medications Medication Instructions Recorded Confirmed Last Taken Type Amantadine 10 mg FEEDTUBE 12/16/20 Unknown History Ascorbic Acid [Vitamin C with Irma 1 tab FEEDTUBE 12/16/20 Unknown History Hips] Aspirin BABY CHEW TAB 81 mg FEEDTUBE 12/16/20 Unknown History Cetirizine HCl [Cetirizine 10mg 1 tab FEEDTUBE 12/16/20 Unknown History chew] Clindamycin [Clindamycin CAP] 1 cap FEEDTUBE 12/16/20 Unknown History Gabapentin 1 cap FEEDTUBE 12/16/20 Unknown History Ibuprofen [Motrin] 800 mg FEEDTUBE 12/16/20 Unknown History Multiple Vitamin TAB (Theragran) 1 tab FEEDTUBE 12/16/20 Unknown History Sennosides [Senna] 8.6 mg FEEDTUBE 12/16/20 Unknown History Sertraline [Zoloft] 1 tab FEEDTUBE 12/16/20 Unknown History Tamsulosin [Flomax] 1 cap FEEDTUBE 12/16/20 Unknown History Vitamin D3 50,000UNIT CAP 1 cap FEEDTUBE 12/16/20 Unknown History Zinc Sulfate 1 cap FEEDTUBE 12/16/20 Unknown History Active Meds: Active Medications Acetaminophen (Acetaminophen 650 Mg Rect Supp) 650 mg [place] Q6H PRN PRN Reason: Pain MILD(1-3)/Fever >100.5/RHOADES Last Admin: 12/16/20 00:32 Dose: 650 mg Documented by: Amantadine HCl (Amantadine 100 Mg Cap) 100 mg PO QDAY TIFF Last Admin: 12/17/20 12:50 Dose: Not Given Documented by: Lipase/Protease/Amylase (Lipase 10,500/Protease 25,000/Amylase 43,750 (Units) Dr Rafiq) 1 each FEEDTUBE PRN PRN PRN Reason: For Clogged Feeding Tube Gabapentin (Gabapentin 300 Mg Cap) 600 mg PO Q8HR TIFF Last Admin: 12/17/20 14:46 Dose: 600 mg Documented by: Lactated Ringer's (Lactated Ringers) 1,000 mls @ 100 mls/hr IV DIRECT TIFF Last Admin: 12/16/20 10:50 Dose: 100 mls/hr Documented by: Vancomycin HCl (Vancomycin/Ns 1 Gm/250 Ml) 1 gm in 250 mls @ 125 mls/hr IV Q12H TIFF Last Infusion: 12/16/20 19:28 Dose: Infused Documented by: Ceftriaxone Sodium (Rocephin/Ns 2 Gm/100 Ml) 2 gm in 100 mls @ 200 mls/hr IV Q24H TIFF; Protocol Magnesium Hydroxide (Magnesium Hydroxide (Mom) Oral Liqd Udc) 30 ml PO Q4H PRN PRN Reason: Constipation Metoprolol Tartrate (Metoprolol Tartrate 25 Mg Tab) 12.5 mg PO BID TIFF Mirtazapine (Mirtazapine 15 Mg Tab) 15 mg PO QHS TIFF Last Admin: 12/16/20 23:29 Dose: Not Given Documented by: Morphine Sulfate (Morphine 2 Mg/1 Ml Inj) 2 mg IV Q4H PRN PRN Reason: Pain, Moderate (4-6) Morphine Sulfate (Morphine 4 Mg/1 Ml Inj) 4 mg IV Q4H PRN PRN Reason: Pain , Severe (7-10) Last Admin: 12/17/20 04:55 Dose: 4 mg Documented by: Ondansetron HCl (Ondansetron 4 Mg/2 Ml Inj) 4 mg IV Q8H PRN PRN Reason: Nausea And Vomiting Last Admin: 12/17/20 04:55 Dose: 4 mg Documented by: Sertraline HCl (Sertraline 50 Mg Tab) 50 mg PO QDAY [facility] Last Admin: 12/17/20 12:50 Dose: Not Given Documented by: Simple Syrup (Simple Syrup 15 Ml) 15 ml FEEDTUBE PRN PRN PRN Reason: Hypoglycemia Simple Syrup (Simple Syrup 15 Ml) 30 ml FEEDTUBE PRN PRN PRN Reason: Hypoglycemia Sodium Bicarbonate (Sodium Bicarbonate 325 Mg Tab) 325 mg FEEDTUBE PRN PRN PRN Reason: For Clogged Feeding Tube Sodium Chloride (Sodium Chloride 0.9% 10 Ml Flush Syringe) 10 ml IV BID [facility] Last Admin: 12/17/20 14:46 Dose: Not Given Documented by: Sodium Chloride (Sodium Chloride 0.9% 10 Ml Flush Syringe) 10 ml IV PRN PRN PRN Reason: LINE FLUSH Tamsulosin HCl (Tamsulosin 0.4 Mg Cap) 0.4 mg PO QDAY [facility] Last Admin: 12/17/20 12:49 Dose: Not Given Documented by: Physical Examination - Physical Exam Narrative exam: Physical Exam: Constitutional: Alert, cooperative. No acute distress Head, Ears, Nose: Normocephalic, atraumatic. External ears, nose normal Eyes: Conjunctivae/corneas clear. No icterus. No ptosis. Neck: Supple, no meningeal signs Oral: dentition fair, no thrush Cardiovascular: S1, S2 normal. Respiratory: Good air entry, clear to auscultation bilaterally GI: Soft, non-tender; bowel sounds normal. No peritoneal signs. Musculoskeletal: No pedal edema, no cyanosis. Skin: No rash or abscess Hem/Lymphatic: No palpable cervical or supraclavicular nodes. No lymphangitis Psych: Mood ok. Affect normal Neurological: Awake, alert, oriented. No gross abnormality - Constitutional Vitals: Vital Signs Temp Pulse Resp BP Pulse Ox 98.6 F 86 19 120/77 95 12/17/20 05:11 12/17/20 10:00 12/17/20 09:00 12/17/20 09:00 12/17/20 12:00 Temperature -Last 24 Hours Temperature 98.6 F Temperature 98.2 F Temperature 98.0 F Results - Labs CBC & Chem 7: 12/17/20 04:27 12/17/20 04:27 Labs: Abnormal lab results 12/16/20 12/17/20 12/17/20 Range/Units 20:19 04:27 04:27 WBC 24.5 H (4.5-11.0) K/mm3 RBC 3.51 L (3.65-5.03) M/mm3 Hgb 9.0 L (11.8-15.2) gm/dl Hct 28.9 L (35.5-45.6) % MCV 82 L (84-94) fl MCH 26 L (28-32) pg MCHC 31 L (32-34) % RDW 20.9 H (13.2-15.2) % Plt Count 585 H (140-440) K/mm3 Seg Neuts % (Manual) 91.0 H (40.0-70.0) % Lymphocytes % (Manual) 3.0 L (13.4-35.0) % Seg Neutrophils # Man 22.3 H (1.8-7.7) K/mm3 Lymphocytes # (Manual) 0.7 L (1.2-5.4) K/mm3 Monocytes # (Manual) 1.5 H (0.0-0.8) K/mm3 PT 16.7 H (12.2-14.9) Sec. INR 1.22 H (0.87-1.13) Chloride (98-107) mmol/L Carbon Dioxide (22-30) mmol/L BUN (9-20) mg/dL Glucose (75-100) mg/dL Troponin T 0.078 H D (0.00-0.029) ng/mL 12/17/20 Range/Units 04:27 WBC (4.5-11.0) K/mm3 RBC (3.65-5.03) M/mm3 Hgb (11.8-15.2) gm/dl Hct (35.5-45.6) % MCV (84-94) fl MCH (28-32) pg MCHC (32-34) % RDW (13.2-15.2) % Plt Count (140-440) K/mm3 Seg Neuts % (Manual) (40.0-70.0) % Lymphocytes % (Manual) (13.4-35.0) % Seg Neutrophils # Man (1.8-7.7) K/mm3 Lymphocytes # (Manual) (1.2-5.4) K/mm3 Monocytes # (Manual) (0.0-0.8) K/mm3 PT (12.2-14.9) Sec. INR (0.87-1.13) Chloride 115.2 H (98-107) mmol/L Carbon Dioxide 16 L (22-30) mmol/L BUN 41 H (9-20) mg/dL Glucose 105 H (75-100) mg/dL Troponin T (0.00-0.029) ng/mL Assessment and Plan Cultures: Blood culture no growth so far Urine culture gram-negative ochoa pending ID and MJ A/P: 55-year-old male past medical history Parkinson's, depression, DVT, fracture of the right acetabulum admitted with fatigue #Complicated UTI: GNR growing in the urine culture, patient with signficant leukocytosis. Given NH exposure will escalate to cefepime for now. #Bedbound status with ulcers: pending wound care consult. #Penicillin allergy: currently tolerating ceftriaxone Recs: -Continue vancomycin for now -Chagne ceftriaxone to cefepime for now pending ID and MJ of urine culture given NH exposure -Pending wound care consult. Thank you for the consult, we will continue to follow. Mitul Montana MD [facility] ([facility] O: [phone] F: [phone]
--- NOTE | 2020-12-17 16:29 | Progress Note ---
Assessment and Plan EKG shows sinus rhythm 85 with no acute ischemic changes. Troponin is noted to be elevated but downtrending 0.2->0.12->0.078 Suspect NSTEMI type II in setting of sepsis and BERNICE Echo 12/16/2020-EF 45 to 50%. LV systolic function is borderline. Right ventricle systolic function is normal. Mild to moderate tricuspid regurgitation. Due to borderline decreased EF will initiate metoprolol 12.5 mg p.o. twice daily Patient seen in conjunction with Dr. Alvarez who agrees with the plan of care. We will continue to follow - Patient Problems (1) Anemia requiring transfusions Current Visit: Yes Status: Acute (2) Renal insufficiency Current Visit: Yes Status: Deleted (3) NSTEMI (non-ST elevated myocardial infarction) Current Visit: Yes Status: Acute (4) Hyperkalemia Current Visit: Yes Status: Acute (5) Hypotension Current Visit: Yes Status: Acute Qualifiers: Hypotension type: unspecified hypotension type Qualified Code(s): I95.9 - Hypotension, unspecified (6) Sepsis Current Visit: Yes Status: Acute Qualifiers: Sepsis type: sepsis due to unspecified organism Sepsis acute organ dysfunction status: with acute organ dysfunction Severe sepsis acute organ dysfunction type: acute renal failure Severe sepsis shock status: unspecified (7) UTI (urinary tract infection) Current Visit: Yes Status: Acute Qualifiers: Urinary tract infection type: acute cystitis Hematuria presence: with hematuria Qualified Code(s): N30.01 - Acute cystitis with hematuria Subjective Date of service: 12/17/20 Principal diagnosis: sepsis Interval history: Patient resting in bed more alert and oriented today however still slightly confused Sinus 84 monitor Objective Vital Signs Temp Pulse Resp BP Pulse Ox 12/17/20 12:00 95 12/17/20 10:00 86 95 12/17/20 09:00 83 19 120/77 95 12/17/20 08:30 81 16 112/76 97 12/17/20 07:30 79 18 112/76 97 12/17/20 07:00 79 21 115/76 94 12/17/20 06:45 81 24 116/74 93 12/17/20 06:30 86 30 H 120/77 94 12/17/20 06:26 90 121/83 12/17/20 05:45 93 H 18 121/83 94 12/17/20 05:30 84 21 111/76 88 12/17/20 05:15 90 20 115/83 91 12/17/20 05:11 98.6 F 12/17/20 05:00 83 20 122/74 94 12/17/20 04:45 85 21 120/76 90 12/17/20 04:30 91 H 20 126/84 94 12/17/20 04:15 81 19 116/80 95 12/17/20 04:00 85 24 125/84 93 12/17/20 03:45 83 20 132/82 95 12/17/20 03:30 86 22 123/87 92 12/17/20 03:15 83 16 105/80 92 12/17/20 03:00 83 22 114/81 94 12/17/20 02:45 85 19 119/86 12/17/20 02:30 85 20 120/83 91 12/17/20 02:15 84 20 128/82 93 12/17/20 02:00 86 22 125/83 91 12/17/20 01:45 84 18 120/81 12/17/20 01:30 87 22 122/86 92 12/17/20 01:15 84 22 124/81 94 12/17/20 01:00 85 19 119/80 12/17/20 00:52 94 12/17/20 00:45 87 18 113/80 12/17/20 00:30 87 23 117/80 96 12/17/20 00:15 85 18 112/78 93 12/17/20 00:03 98.2 F 12/17/20 00:00 86 22 115/79 92 12/16/20 23:45 88 20 116/79 92 12/16/20 23:30 85 23 118/79 91 12/16/20 23:15 86 25 H 122/81 92 12/16/20 23:00 88 18 120/80 93 12/16/20 22:45 86 21 121/80 91 12/16/20 22:30 86 21 117/78 91 12/16/20 22:15 88 22 120/80 91 12/16/20 22:00 89 20 114/81 94 12/16/20 21:45 87 20 119/80 93 12/16/20 21:30 88 18 119/76 97 12/16/20 21:15 88 22 116/80 92 12/16/20 21:00 86 20 116/79 87 12/16/20 20:45 88 24 113/80 89 12/16/20 20:30 86 20 115/79 91 12/16/20 20:15 86 17 117/81 95 12/16/20 20:00 85 19 120/80 96 12/16/20 19:45 87 21 117/80 96 12/16/20 19:30 90 18 116/82 92 12/16/20 19:27 98.0 F 12/16/20 19:15 90 14 112/76 93 12/16/20 19:00 90 15 110/76 91 12/16/20 18:45 88 14 104/74 91 12/16/20 18:30 89 18 112/79 12/16/20 18:15 88 19 113/79 92 12/16/20 18:00 90 16 108/75 90 12/16/20 17:45 90 18 116/81 91 12/16/20 17:30 92 H 21 121/84 91 12/16/20 17:15 90 17 117/79 12/16/20 17:00 95 H 17 121/85 93 12/16/20 16:45 88 16 117/79 95 12/16/20 16:30 92 H 16 117/85 93 - Physical Examination General: No Apparent Distress HEENT: Positive: PERRL Neck: Positive: neck supple Cardiac: Positive: Reg Rate and Rhythm Lungs: Positive: Normal Breath Sounds Neuro: Positive: Grossly Intact Abdomen: Positive: Soft, Active Bowel Sounds Extremities: Present: upper extr. pulses, Other (Bilateral partial foot amputations) - Labs and Meds Coagulation 12/17/20 Range/Units 04:27 PT 16.7 H (12.2-14.9) Sec. INR 1.22 H (0.87-1.13) CBC 12/17/20 Range/Units 04:27 WBC 24.5 H (4.5-11.0) K/mm3 RBC 3.51 L (3.65-5.03) M/mm3 Hgb 9.0 L (11.8-15.2) gm/dl Hct 28.9 L (35.5-45.6) % Plt Count 585 H (140-440) K/mm3 Comprehensive Metabolic Panel 11/10/21 Range/Units 04:27 Sodium 144 (137-145) mmol/L Potassium 4.3 (3.6-5.0) mmol/L Chloride 115.2 H (98-107) mmol/L Carbon Dioxide 16 L (22-30) mmol/L BUN 41 H (9-20) mg/dL Creatinine 1.2 (0.8-1.3) mg/dL Glucose 105 H (75-100) mg/dL Calcium 8.5 D (8.4-10.2) mg/dL - Imaging and Cardiology Echo: report reviewed - Telemetry EKG Rhythm: Sinus Rhythm - EKG Sinus rhythms and dysrhythmias: sinus rhythm - Allied health notes Allied health notes reviewed: nursing
[2020-12-17] MEDS: VANCOMYCIN/NS 1 GM/250 ML 1 GM/250 ML BAG IV SCH (17:09)
[2020-12-17] MEDS: LACTATED RINGERS 1,000 ML IV SCH (17:10)
[2020-12-17] MEDS: CEFEPIME/NS 2 GM/100 ML 2 GM/100 ML BAG IV SCH (19:51)
[2020-12-17] MEDS ORDERED: cefTRIAXone/NS 2 GM/100 ML 2 GM/100 ML BAG IV SCH (22:00)
[2020-12-17] MEDS: MIRTAZAPINE 15 MG TAB PO SCH (22:14)
[2020-12-17] MEDS: METOPROLOL TARTRATE 25 MG TAB PO SCH (22:14)
[2020-12-18] MEDS: LACTATED RINGERS 1,000 ML IV SCH (02:41)
[2020-12-18] MEDS: VANCOMYCIN/NS 1 GM/250 ML 1 GM/250 ML BAG IV SCH ×3 (05:32→17:24)
[2020-12-18] MEDS: GABAPENTIN 300 MG CAP PO SCH ×4 (05:32→21:55)
[2020-12-18 05:50] LABS: ABG Base Excess -3.6 mmol/L (-2.0-3.0); ABG HCO3 19.8 mmol/L (20.0-26.0); ABG Methemoglobin 0.5 % (0.0-1.5); ABG Oxygen Saturation 99.4 % (95.0-99.0); ABG PCO2 28.5 mm Hg; ABG PH 7.46 pH Units (7.350-7.450); ABG PO2 250.2 mm Hg (80.0-90.0)
[2020-12-18] MEDS: MORPHINE 4 MG/1 ML INJ IV PRN ×3 (07:11→21:56)
[2020-12-18 08:53] LABS: Hematocrit 29.3 % (35.5-45.6); Mean Corpuscular HGB Conc 31 % (32-34); Mean Corpuscular Volume 82 fl (84-94); Platelet Count 593 K/mm3 (140-440); Red Blood Count 3.56 M/mm3 (3.65-5.03)
[2020-12-18 09:09] LABS: Red Cell Distribution Width 21.3 % (13.2-15.2)
[2020-12-18 09:38] LABS: BUN/Creatinine Ratio 38; Blood Urea Nitrogen 30 mg/dL (9-20); Calcium 8.2 mg/dL (8.4-10.2); Hemolysis Index 4
[2020-12-18] MEDS: METOPROLOL TARTRATE 25 MG TAB PO SCH ×2 (10:24→21:55)
[2020-12-18] MEDS: SERTRALINE 50 MG TAB PO SCH (10:24)
[2020-12-18] MEDS: TAMSULOSIN 0.4 MG CAP PO SCH (10:24)
--- NOTE | 2020-12-18 10:56 | Progress Note ---
Assessment and Plan Cultures: Blood culture no growth so far Urine culture gram-negative ochoa pending ID and MJ A/P: 55-year-old male past medical history Parkinson's, depression, DVT, fracture of the right acetabulum admitted with fatigue #Complicated UTI: GNR growing in the urine culture, patient with signficant leukocytosis. Given NH exposure will escalate to cefepime for now. Has history of Kyle cath #Bedbound status with ulcers: pending wound care consult. #Penicillin allergy: currently tolerating ceftriaxone Recs: -Continue vancomycin for now -Continue cefepime for now -Awaiting upload of wound care pictures. Thank you for the consult, we will continue to follow. Mitul Montana MD [facility] O: [phone] F: [phone] Subjective Date of service: 12/18/20 Principal diagnosis: sepsis Interval history: Afebrile, low-grade temp of 100.1. White count 19.3. Patient now on floor. Urine cultures with Klebsiella Objective - Exam Narrative Exam: Physical Exam: Constitutional: Alert, cooperative. No acute distress Head, Ears, Nose: Normocephalic, atraumatic. External ears, nose normal Eyes: Conjunctivae/corneas clear. No icterus. No ptosis. Neck: Supple, no meningeal signs Oral: dentition fair, no thrush Cardiovascular: S1, S2 normal. Respiratory: Good air entry, clear to auscultation bilaterally GI: Soft, non-tender; bowel sounds normal. No peritoneal signs. Musculoskeletal: No pedal edema, no cyanosis. Skin: No rash or abscess Hem/Lymphatic: No palpable cervical or supraclavicular nodes. No lymphangitis Psych: Mood ok. Affect normal Neurological: Awake, alert, oriented. No gross abnormality - Constitutional Vitals: Vital Signs Temp Pulse Resp BP Pulse Ox 100.1 F H 94 H 19 124/82 95 12/18/20 06:51 12/18/20 10:24 12/18/20 06:51 12/18/20 06:51 12/18/20 06:51 Temperature -Last 24 Hours Temperature 100.1 F Temperature 98.1 F Temperature 99.0 F Temperature 98.2 F Temperature 98.5 F Temperature 98.5 F - Labs CBC & Chem 7: 12/18/20 07:53 12/18/20 07:53 Labs: Abnormal lab results 12/18/20 12/18/20 12/18/20 Range/Units 04:40 07:53 07:53 WBC 19.3 H (4.5-11.0) K/mm3 RBC 3.56 L (3.65-5.03) M/mm3 Hgb 9.0 L (11.8-15.2) gm/dl Hct 29.3 L (35.5-45.6) % MCV 82 L (84-94) fl MCH 25 L (28-32) pg MCHC 31 L (32-34) % RDW 21.3 H (13.2-15.2) % Plt Count 593 H (140-440) K/mm3 ABG pH 7.460 H (7.350-7.450) pH Units ABG pO2 250.2 H (80.0-90.0) mm Hg ABG HCO3 19.8 L (20.0-26.0) mmol/L ABG O2 Saturation 99.4 H (95.0-99.0) % ABG Base Excess -3.6 L (-2.0-3.0) mmol/L ABG Hemoglobin 6.9 L (14.0-18.0) gm/dl Potassium 3.4 L D (3.6-5.0) mmol/L Chloride 110.0 H (98-107) mmol/L Carbon Dioxide 16 L (22-30) mmol/L BUN 30 H (9-20) mg/dL Calcium 8.2 L (8.4-10.2) mg/dL
[2020-12-18] MEDS: CEFEPIME/NS 2 GM/100 ML 2 GM/100 ML BAG IV SCH ×2 (11:26→18:49)
[2020-12-18] MEDS ORDERED: FLU VACC QUAD 2021-22(6MOS UP)/PF 60 MCG/0.5 ML SYRINGE IM ONE (12:00)
--- NOTE | 2020-12-18 13:26 | Progress Note ---
Assessment and Plan Hypotension Anemia requiring transfusions NSTEMI (non-ST elevated myocardial infarction) Sepsis UTI (urinary tract infection) - prn supplemental oxygen to keep O2 sats > 90% - Wound care per RN/WCT - prn Bronchodilators (DARWIN) with pulm hygiene per RT - continue to avoid nephrotoxins, renally dose all medications - continue mobility protocols to prevent pressure ulcers - PT/OT as tolerated - prn analgesia per pain score - accuchecks with glycemic control per SSI for target blood glucose < 180 mg/dL - tobacco abstinence counseling - home oxygen evaluation at discharge - GI & VTE prophylaxis - Flu & pneumovax per protocol - Pulmonary out patient follow up for PFTs and optimization of respiratory status - continue other care per attending / other consultants ... re-evaluate in am & prn Subjective Date of service: 12/18/20 Principal diagnosis: Hypotension; Anemia; NSTEMI; UTI Interval history: Patient is seen today for: Hypotension; Anemia; NSTEMI; UTI Seen and examined at bedside; 24hour events reviewed; nursing and respiratory care staff consulted; no adverse overnight events reported to me; resting peacefully in bed; denies acute chest pain or SOB at rest; denies N/V/F/C Objective Vital Signs - 12hr 12/18/20 12/18/20 06:51 10:24 Temperature 100.1 F H Pulse Rate 101 H 94 H Respiratory 19 Rate Blood Pressure 124/82 O2 Sat by Pulse 95 Oximetry Constitutional: no acute distress, alert Eyes: non-icteric ENT: other (Poor dental hygiene.) Neck: supple, no JVD Effort: normal Ascultation: Bilateral: rhonchi (scant) Percussion: Bilateral: not dull Cardiovascular: regular rate and rhythm Gastrointestinal: normoactive bowel sounds, soft, non-tender, non-distended Integumentary: decubitus ulcer (decubitus ulcer; please see [facility] notes for full description) Extremities: no cyanosis, no edema, pulses normal, other (+ digital amputations / TMA) Neurologic: non-focal exam (grossly), pupils equal and round, CN II-XII normal Psychiatric: mood appropriate, affect normal CBC and BMP: 12/19/20 04:50 12/19/20 04:50 ABG, PT/INR, D-dimer: ABG ABG pH 7.460 pH Units (7.350-7.450) H 12/18/20 04:40 ABG pCO2 28.5 mm Hg 12/18/20 04:40 ABG pO2 250.2 mm Hg (80.0-90.0) H 12/18/20 04:40 ABG O2 Saturation 99.4 % (95.0-99.0) H 12/18/20 04:40 PT/INR, D-dimer PT 16.7 Sec. (12.2-14.9) H 12/17/20 04:27 INR 1.22 (0.87-1.13) H 12/17/20 04:27 Abnormal lab findings: Abnormal Labs 12/15/20 12/15/20 12/15/20 20:20 20:29 20:29 WBC 19.2 H RBC 2.56 L Hgb 6.0 L Hct 20.2 L MCV 79 L MCH 24 L MCHC 30 L RDW 22.2 H Plt Count 512 H Lymph % (Auto) 6.4 L [place] # (Auto) 1.3 H Seg Neutrophils % 85.9 H Seg Neuts % (Manual) Lymphocytes % (Manual) Seg Neutrophils # 16.5 H Seg Neutrophils # Man Lymphocytes # (Manual) Monocytes # (Manual) PT INR APTT 42.0 H ABG pH ABG pO2 ABG HCO3 ABG O2 Saturation ABG Base Excess ABG Hemoglobin Sodium Potassium Chloride Carbon Dioxide BUN Creatinine Glucose Calcium Alkaline Phosphatase Ammonia Troponin T Albumin Triglycerides LDL Cholesterol Direct HDL Cholesterol Urine WBC (Auto) > 182.0 H Salicylates Acetaminophen Crossmatch 12/15/20 12/15/20 12/15/20 20:29 20:29 20:29 WBC RBC Hgb Hct MCV MCH MCHC RDW Plt Count Lymph % (Auto) [place] # (Auto) Seg Neutrophils % Seg Neuts % (Manual) Lymphocytes % (Manual) Seg Neutrophils # Seg Neutrophils # Man Lymphocytes # (Manual) Monocytes # (Manual) PT INR APTT ABG pH ABG pO2 ABG HCO3 ABG O2 Saturation ABG Base Excess ABG Hemoglobin Sodium 131 L Potassium 6.0 H Chloride 95.1 L Carbon Dioxide BUN 70 H Creatinine 2.2 H Glucose 113 H Calcium Alkaline Phosphatase 321 H Ammonia Troponin T 0.215 H* Albumin 2.7 L Triglycerides 153 H LDL Cholesterol Direct 23 L HDL Cholesterol 27 L Urine WBC (Auto) Salicylates < 0.3 L Acetaminophen Crossmatch See Detail 12/15/20 12/15/20 12/15/20 20:29 20:29 21:28 WBC RBC Hgb Hct MCV MCH MCHC RDW Plt Count Lymph % (Auto) [place] # (Auto) Seg Neutrophils % Seg Neuts % (Manual) Lymphocytes % (Manual) Seg Neutrophils # Seg Neutrophils # Man Lymphocytes # (Manual) Monocytes # (Manual) PT 15.8 H INR 1.14 H APTT ABG pH ABG pO2 ABG HCO3 ABG O2 Saturation ABG Base Excess ABG Hemoglobin Sodium Potassium Chloride Carbon Dioxide BUN Creatinine Glucose Calcium Alkaline Phosphatase Ammonia 21.0 L Troponin T Albumin Triglycerides LDL Cholesterol Direct HDL Cholesterol Urine WBC (Auto) Salicylates Acetaminophen 5.0 L Crossmatch 12/16/20 12/16/20 12/16/20 06:02 06:02 20:19 WBC 16.4 H RBC 3.19 L Hgb 8.1 L Hct 26.3 L D MCV 82 L MCH 25 L MCHC 31 L RDW 20.3 H Plt Count Lymph % (Auto) [place] # (Auto) Seg Neutrophils % Seg Neuts % (Manual) Lymphocytes % (Manual) Seg Neutrophils # Seg Neutrophils # Man Lymphocytes # (Manual) Monocytes # (Manual) PT INR APTT ABG pH ABG pO2 ABG HCO3 ABG O2 Saturation ABG Base Excess ABG Hemoglobin Sodium Potassium Chloride 112.9 H Carbon Dioxide 15 L D BUN 47 H Creatinine Glucose 185 H Calcium 7.2 L D Alkaline Phosphatase Ammonia Troponin T 0.126 H* D 0.078 H D Albumin Triglycerides LDL Cholesterol Direct HDL Cholesterol Urine WBC (Auto) Salicylates Acetaminophen Crossmatch 12/17/20 12/17/20 12/17/20 04:27 04:27 04:27 WBC 24.5 H RBC 3.51 L Hgb 9.0 L Hct 28.9 L MCV 82 L MCH 26 L MCHC 31 L RDW 20.9 H Plt Count 585 H Lymph % (Auto) [place] # (Auto) Seg Neutrophils % Seg Neuts % (Manual) 91.0 H Lymphocytes % (Manual) 3.0 L Seg Neutrophils # Seg Neutrophils # Man 22.3 H Lymphocytes # (Manual) 0.7 L Monocytes # (Manual) 1.5 H PT 16.7 H INR 1.22 H APTT ABG pH ABG pO2 ABG HCO3 ABG O2 Saturation ABG Base Excess ABG Hemoglobin Sodium Potassium Chloride 115.2 H Carbon Dioxide 16 L BUN 41 H Creatinine Glucose 105 H Calcium Alkaline Phosphatase Ammonia Troponin T Albumin Triglycerides LDL Cholesterol Direct HDL Cholesterol Urine WBC (Auto) Salicylates Acetaminophen Crossmatch 12/18/20 12/18/20 12/18/20 04:40 07:53 07:53 WBC 19.3 H RBC 3.56 L Hgb 9.0 L Hct 29.3 L MCV 82 L MCH 25 L MCHC 31 L RDW 21.3 H Plt Count 593 H Lymph % (Auto) [place] # (Auto) Seg Neutrophils % Seg Neuts % (Manual) Lymphocytes % (Manual) Seg Neutrophils # Seg Neutrophils # Man Lymphocytes # (Manual) Monocytes # (Manual) PT INR APTT ABG pH 7.460 H ABG pO2 250.2 H ABG HCO3 19.8 L ABG O2 Saturation 99.4 H ABG Base Excess -3.6 L ABG Hemoglobin 6.9 L Sodium Potassium 3.4 L D Chloride 110.0 H Carbon Dioxide 16 L BUN 30 H Creatinine Glucose Calcium 8.2 L Alkaline Phosphatase Ammonia Troponin T Albumin Triglycerides LDL Cholesterol Direct HDL Cholesterol Urine WBC (Auto) Salicylates Acetaminophen Crossmatch Allied health notes reviewed: nursing
[2020-12-18] MEDS ORDERED: POTASSIUM CHLORIDE ER 20 MEQ TAB PO NR (13:30)
--- NOTE | 2020-12-18 14:31 | Progress Note ---
Assessment and Plan - Patient Problems (1) Acute kidney injury Current Visit: Yes Status: Acute Plan to address problem: likely prerenal in nature in the setting of acute on chronic blood loss anemia along with questionable sepsis in the setting of urinary tract infection. Overall renal function is showing improvement after IV fluid hydration as well as transfusion of 1 unit of packed blood cells. Continue close monitoring and please avoid all nephrotoxins at this time. We will continue to follow up closely. Renal function continues to show improvement. (2) Anemia requiring transfusions Current Visit: Yes Status: Acute Plan to address problem: transfuse to maintain hemoglobin above 7. (3) Hyperkalemia Current Visit: Yes Status: Acute Plan to address problem: serum potassium levels have shown improvement with adequate fluid hydration. We will continue to monitor closely. (4) Sepsis Current Visit: Yes Status: Acute Qualifiers: Sepsis type: sepsis due to unspecified organism Sepsis acute organ dysfunction status: with acute organ dysfunction Severe sepsis acute organ dysfunction type: acute renal failure Severe sepsis shock status: unspecified Plan to address problem: patient started on appropriate IV antibiotic therapy along with IV fluid hydration. Please maintain mean Rodriguez pressures above 65 mmHg. We will continue to follow closely. Cultures pending at this time. (5) UTI (urinary tract infection) Current Visit: Yes Status: Acute Qualifiers: Urinary tract infection type: acute cystitis Hematuria presence: with hematuria Qualified Code(s): N30.01 - Acute cystitis with hematuria Plan to address problem: please ensure that antibiotics a dose properly for renal function. We will continue to monitor closely. Subjective Date of service: 12/18/20 Principal diagnosis: Hypotension; Anemia; NSTEMI; UTI Interval history: No acute issues this afternoon. Patient transferred out of the ICU to telemetry. Objective - Vital Signs Vital signs: Vital Signs - 12hr 12/18/20 12/18/20 12/18/20 06:51 10:24 11:27 Temperature 100.1 F H 99.2 F Pulse Rate 101 H 94 H 86 Respiratory 19 18 Rate Blood Pressure 124/82 130/90 O2 Sat by Pulse 95 93 Oximetry - General Appearance General appearance: cachectic, chronically ill, frail EENT: ATNC Neck: no JVD Respiratory: Present: Clear to Ascultation Cardiology: regular Gastrointestinal: normal Integumentary: warm and dry Neurologic: no focal deficit Musculoskeletal: deferred Psychiatric: cooperative - Lab 12/18/20 07:53 11/11/21 07:53 Most recent lab results ABG pH 7.460 pH Units (7.350-7.450) H 12/18/20 04:40 ABG pCO2 28.5 mm Hg 12/18/20 04:40 ABG pO2 250.2 mm Hg (80.0-90.0) H 12/18/20 04:40 ABG HCO3 19.8 mmol/L (20.0-26.0) L 12/18/20 04:40 ABG O2 Saturation 99.4 % (95.0-99.0) H 12/18/20 04:40 Calcium 8.2 mg/dL (8.4-10.2) L 12/18/20 07:53 - Allied health notes Allied health notes reviewed: nursing Medications & Allergies - Medications Allergies/Adverse Reactions: Allergies Penicillins Allergy (Verified 12/16/20 02:38) Itching Home Medications: Home Medications Medication Instructions Recorded Confirmed Last Taken Type Amantadine 10 mg FEEDTUBE 12/16/20 Unknown History Ascorbic Acid [Vitamin C with Irma 1 tab FEEDTUBE 12/16/20 Unknown History Hips] Aspirin BABY CHEW TAB 81 mg FEEDTUBE 12/16/20 Unknown History Cetirizine HCl [Cetirizine 10mg 1 tab FEEDTUBE 12/16/20 Unknown History chew] Clindamycin [Clindamycin CAP] 1 cap FEEDTUBE 12/16/20 Unknown History Gabapentin 1 cap FEEDTUBE 12/16/20 Unknown History Ibuprofen [Motrin] 800 mg FEEDTUBE 12/16/20 Unknown History Multiple Vitamin TAB (Theragran) 1 tab FEEDTUBE 12/16/20 Unknown History Sennosides [Senna] 8.6 mg FEEDTUBE 12/16/20 Unknown History Sertraline [Zoloft] 1 tab FEEDTUBE 12/16/20 Unknown History Tamsulosin [Flomax] 1 cap FEEDTUBE 12/16/20 Unknown History Vitamin D3 50,000UNIT CAP 1 cap FEEDTUBE 12/16/20 Unknown History Zinc Sulfate 1 cap FEEDTUBE 12/16/20 Unknown History Active Medications: Generic Name Dose Route Start Last Admin Trade Name Freq PRN Reason Stop Dose Admin Acetaminophen 650 mg 12/15/20 23:59 12/16/20 00:32 Acetaminophen 650 Mg Rect Supp MS 650 mg Q6H PRN Administration Pain MILD(1-3)/Fever >100.5/RHOADES Amantadine HCl 100 mg 12/16/20 17:00 12/18/20 13:34 Amantadine 100 Mg Cap PO 100 mg QDAY TIFF Administration Lipase/Protease/Amylase 1 each 12/16/20 15:13 Lipase 10,500/Protease 25,000/Amylase 43,750 (Units) Dr Conroy FEEDTUBE PRN PRN For Clogged Feeding Tube Gabapentin 600 mg 12/16/20 16:00 12/18/20 13:34 Gabapentin 300 Mg Cap PO 600 mg Q8HR TIFF Administration Vancomycin HCl 1 gm in 250 mls @ 125 mls/hr 12/16/20 16:30 12/18/20 08:34 Vancomycin/Ns 1 Gm/250 Ml IV Not Given Q12H TIFF Cefepime HCl 2 gm in 100 mls @ 200 mls/hr 12/17/20 18:00 12/18/20 11:26 Cefepime/Ns 2 Gm/100 Ml IV 200 mls/hr Q12H TIFF Administration Protocol Magnesium Hydroxide 30 ml 12/15/20 23:59 Magnesium Hydroxide (Mom) Oral Liqd Udc PO Q4H PRN Constipation Metoprolol Tartrate 12.5 mg 12/17/20 22:00 12/18/20 10:24 Metoprolol Tartrate 25 Mg Tab PO 12.5 mg BID TIFF Administration Mirtazapine 15 mg 12/16/20 22:00 12/17/20 22:14 Mirtazapine 15 Mg Tab PO 15 mg QHS TIFF Administration Morphine Sulfate 2 mg 12/15/20 23:59 Morphine 2 Mg/1 Ml Inj IV Q4H PRN Pain, Moderate (4-6) Morphine Sulfate 4 mg 12/15/20 23:59 12/18/20 07:11 Morphine 4 Mg/1 Ml Inj IV 4 mg Q4H PRN Administration Pain , Severe (7-10) Ondansetron HCl 4 mg 12/15/20 23:59 12/17/20 04:55 Ondansetron 4 Mg/2 Ml Inj IV 4 mg Q8H PRN Administration Nausea And Vomiting Potassium Chloride 40 meq 12/18/20 13:30 12/18/20 13:34 Potassium Chloride Er 20 Meq Tab PO 12/18/20 15:30 40 meq ONCE@1330 NR Administration Sertraline HCl 50 mg 12/16/20 17:00 12/18/20 10:24 Sertraline 50 Mg Tab PO 50 mg QDAY TIFF Administration Simple Syrup 15 ml 12/16/20 15:13 Simple Syrup 15 Ml FEEDTUBE PRN PRN Hypoglycemia Simple Syrup 30 ml 12/16/20 15:13 Simple Syrup 15 Ml FEEDTUBE PRN PRN Hypoglycemia Sodium Bicarbonate 325 mg 12/16/20 15:13 Sodium Bicarbonate 325 Mg Tab FEEDTUBE PRN PRN For Clogged Feeding Tube Sodium Chloride 10 ml 12/16/20 10:00 12/18/20 10:25 Sodium Chloride 0.9% 10 Ml Flush Syringe IV 10 ml BID TIFF Administration Sodium Chloride 10 ml 12/15/20 23:59 Sodium Chloride 0.9% 10 Ml Flush Syringe IV PRN PRN LINE FLUSH Tamsulosin HCl 0.4 mg 12/16/20 17:00 12/18/20 10:24 Tamsulosin 0.4 Mg Cap PO 0.4 mg QDAY TIFF Administration
--- NOTE | 2020-12-18 14:40 | Progress Note ---
Assessment and Plan Echo 12/16/2020 - EF 45-50%, mild-mod TR. CE elevation appears consistent with type 2 [place] in the setting of sepsis and significant anemia. Recommend conservative cardiac mgmt. Continue PO Lopressor 12.5mg BID as BP permits. Cardiac status is otherwise stable. Will see on an as-needed basis. Pt seen in conjunction with Dr. Alvarez, who agrees with the assessment and plan of care. - Patient Problems (1) Sepsis Current Visit: Yes Status: Acute (2) UTI (urinary tract infection) Current Visit: Yes Status: Acute Qualifiers: Urinary tract infection type: acute cystitis Hematuria presence: with hematuria Qualified Code(s): N30.01 - Acute cystitis with hematuria (3) Acute kidney injury Current Visit: Yes Status: Acute (4) Anemia Current Visit: Yes Status: Resolved (5) Hypotension Current Visit: Yes Status: Acute Qualifiers: Qualified Code(s): I95.9 - Hypotension, unspecified (6) Type 2 [place] (myocardial infarction) Current Visit: Yes Status: Acute (7) Tobacco abuse Current Visit: Yes Status: Chronic (8) Hx of deep venous thrombosis Current Visit: Yes Status: Chronic (9) Parkinson disease Current Visit: Yes Status: Chronic (10) Depression Current Visit: Yes Status: Chronic (11) Bedbound Current Visit: Yes Status: Chronic Subjective Date of service: 12/18/20 Principal diagnosis: Urosepsis, Type 2 [place] Interval history: C/o pain in both of his legs. Denies chest pain, SOB, or any additional cardiac complaints. SR 60s on tele, no events. Objective Last Vital Signs Temp 99.2 F 12/18/20 11:27 Pulse 86 12/18/20 11:27 Resp 18 12/18/20 11:27 BP 130/90 12/18/20 11:27 Pulse Ox 93 12/18/20 11:27 - Physical Examination General: No Apparent Distress HEENT: Positive: EOMI, Normocephaly Neck: Positive: neck supple, trachea midline. Negative: JVD/HJR Cardiac: Positive: Reg Rate and Rhythm, S1/S2 Lungs: Positive: clear to auscultation Neuro: Positive: Grossly Intact Abdomen: Positive: Soft. Negative: Tender Skin: Positive: Ulceration (BLE) Extremities: Present: Other (bilateral partial foot amputations). Absent: edema - Labs and Meds CBC 11/11/21 Range/Units 07:53 WBC 19.3 H (4.5-11.0) K/mm3 RBC 3.56 L (3.65-5.03) M/mm3 Hgb 9.0 L (11.8-15.2) gm/dl Hct 29.3 L (35.5-45.6) % Plt Count 593 H (140-440) K/mm3 Comprehensive Metabolic Panel 12/18/20 Range/Units 07:53 Sodium 139 (137-145) mmol/L Potassium 3.4 L D (3.6-5.0) mmol/L Chloride 110.0 H (98-107) mmol/L Carbon Dioxide 16 L (22-30) mmol/L BUN 30 H (9-20) mg/dL Creatinine 0.8 (0.8-1.3) mg/dL Glucose 92 (75-100) mg/dL Calcium 8.2 L (8.4-10.2) mg/dL - Imaging and Cardiology EKG: report reviewed, image reviewed Echo: report reviewed - Telemetry EKG Rhythm: Sinus Rhythm - EKG Sinus rhythms and dysrhythmias: sinus rhythm
--- NOTE | 2020-12-18 15:01 | Progress Note ---
Assessment and Plan Assessment and plan: #UTI -complicated -UCx: 10-100k GNRs -continue vancomycin and cefepime for now -ID following, assistance appreciated #Anemia requiring transfusion -s/p 2 units pRBC -H&H 8.5/28.0 -will transfuse for Hgb less than 7 #Leukocytosis -WBC count 19.3 -afebrile -BCx NGTD x 72hrs #Hypokalemia -K 3.4, will replete -will continue to monitor K levels #Acute kidney injury-resolved -likely 2/2 to vasomotor nephropathy -will continue to monitor -Nephrology consulted, assistance appreciated #Stage III Decubitus ulcers -chronic -continue wound care #Malnutrition -albumin 2.7 -Nutrition consulted -will continue PEG feeds in addition to oral feeds to improve healing. Resolved issues #Hypotension-resolved #Hyperkalemia-resolved #Type II NSTEMI -troponin 0.215, downtrending to 0.078 -Echo showed EF 45-50% -Cardiology evaluated patient, no intervention at this time -likely 2/2 BERNICE Disposition Plan: [facility] pending medical improvement Total Time Spent with Patient (Minutes): 20 minutes History Interval history: No acute events overnight. Patient continues to have lower back pain from lying in the bed. No other complaints at this time. Hospitalist Physical - Physical exam Narrative exam: GENERAL: Thin male. Lying in bed no acute distress. CHEST/LUNGS: CTAB on room air HEART/CARDIOVASCULAR: RRR. No murmur, rubs or gallops appreciated. ABDOMEN: PEG tube in place. Abdominal wound dressed and intact. +BS. NT/ND. NEURO: No focal motor deficit. EXTREMITIES: Bilateral metatarsal amputation PSYCH: Cooperative. - Constitutional Vitals: Temp Pulse Resp BP Pulse Ox 99.2 F 86 18 130/90 93 12/18/20 11:27 12/18/20 11:27 12/18/20 11:27 12/18/20 11:27 12/18/20 11:27 General appearance: Present: no acute distress HEART Score - HEART Score Troponin: Troponin T 0.078 ng/mL (0.00-0.029) H D 12/16/20 20:19 Results - Labs CBC & Chem 7: 12/19/20 04:50 12/19/20 04:50 Labs: Laboratory Last Values WBC 19.3 K/mm3 (4.5-11.0) H 12/18/20 07:53 RBC 3.56 M/mm3 (3.65-5.03) L 12/18/20 07:53 Hgb 9.0 gm/dl (11.8-15.2) L 12/18/20 07:53 Hct 29.3 % (35.5-45.6) L 12/18/20 07:53 MCV 82 fl (84-94) L 12/18/20 07:53 MCH 25 pg (28-32) L 12/18/20 07:53 MCHC 31 % (32-34) L 12/18/20 07:53 RDW 21.3 % (13.2-15.2) H 12/18/20 07:53 Plt Count 593 K/mm3 (140-440) H 12/18/20 07:53 Lymph % (Auto) 6.4 % (13.4-35.0) L 12/15/20 20:29 [place] % (Auto) 6.8 % (0.0-7.3) 12/15/20 20:29 Eos % (Auto) 0.7 % (0.0-4.3) 12/15/20 20:29 Baso % (Auto) 0.2 % (0.0-1.8) 12/15/20 20:29 Lymph # (Auto) 1.2 K/mm3 (1.2-5.4) 12/15/20 20:29 [place] # (Auto) 1.3 K/mm3 (0.0-0.8) H 12/15/20 20:29 Eos # (Auto) 0.1 K/mm3 (0.0-0.4) 12/15/20 20:29 Baso # (Auto) 0.0 K/mm3 (0.0-0.1) 12/15/20 20:29 Add Manual Diff Complete 12/17/20 04:27 Total Counted 100 12/17/20 04:27 Seg Neutrophils % 85.9 % (40.0-70.0) H 12/15/20 20:29 Seg Neuts % (Manual) 91.0 % (40.0-70.0) H 12/17/20 04:27 Lymphocytes % (Manual) 3.0 % (13.4-35.0) L 12/17/20 04:27 Monocytes % (Manual) 6.0 % (0.0-7.3) 12/17/20 04:27 Nucleated RBC % Not Reportable 12/17/20 04:27 Seg Neutrophils # 16.5 K/mm3 (1.8-7.7) H 12/15/20 20:29 Seg Neutrophils # Man 22.3 K/mm3 (1.8-7.7) H 12/17/20 04:27 Band Neutrophils # 0.0 K/mm3 12/17/20 04:27 Lymphocytes # (Manual) 0.7 K/mm3 (1.2-5.4) L 12/17/20 04:27 Abs React Lymphs (Man) 0.0 K/mm3 12/17/20 04:27 Monocytes # (Manual) 1.5 K/mm3 (0.0-0.8) H 12/17/20 04:27 Eosinophils # (Manual) 0.0 K/mm3 (0.0-0.4) 12/17/20 04:27 Basophils # (Manual) 0.0 K/mm3 (0.0-0.1) 12/17/20 04:27 Metamyelocytes # 0.0 K/mm3 12/17/20 04:27 Myelocytes # 0.0 K/mm3 12/17/20 04:27 Promyelocytes # 0.0 K/mm3 12/17/20 04:27 Blast Cells # 0.0 K/mm3 12/17/20 04:27 WBC Morphology Not Reportable 12/17/20 04:27 Hypersegmented Neuts Not Reportable 12/17/20 04:27 Hyposegmented Neuts Not Reportable 12/17/20 04:27 Hypogranular Neuts Not Reportable 12/17/20 04:27 Smudge Cells Not Reportable 12/17/20 04:27 Toxic Granulation Not Reportable 12/17/20 04:27 Toxic Vacuolation Not Reportable 12/17/20 04:27 Dohle Bodies Not Reportable 12/17/20 04:27 Pelger-Huet Anomaly Not Reportable 12/17/20 04:27 Marcell Rods Not Reportable 12/17/20 04:27 Platelet Estimate Consistent w auto 12/17/20 04:27 Clumped Platelets Not Reportable 12/17/20 04:27 Plt Clumps, EDTA Not Reportable 12/17/20 04:27 Large Platelets Not Reportable 12/17/20 04:27 Giant Platelets Not Reportable 12/17/20 04:27 Platelet Satelliting Not Reportable 12/17/20 04:27 Plt Morphology Comment Not Reportable 12/17/20 04:27 RBC Morphology Not Reportable 12/17/20 04:27 Dimorphic RBCs Not Reportable 12/17/20 04:27 Polychromasia Not Reportable 12/17/20 04:27 Hypochromasia 1+ 12/17/20 04:27 Poikilocytosis Not Reportable 12/17/20 04:27 Anisocytosis 1+ 12/17/20 04:27 Microcytosis Not Reportable 12/17/20 04:27 Macrocytosis Not Reportable 12/17/20 04:27 Spherocytes Not Reportable 12/17/20 04:27 Pappenheimer Bodies Not Reportable 12/17/20 04:27 Sickle Cells Not Reportable 12/17/20 04:27 Target Cells Not Reportable 12/17/20 04:27 Tear Drop Cells Not Reportable 12/17/20 04:27 Ovalocytes Not Reportable 12/17/20 04:27 Helmet Cells Not Reportable 12/17/20 04:27 Joshi-[place] Bodies Not Reportable 12/17/20 04:27 [place] Rings Not Reportable 12/17/20 04:27 Nicol Cells Not Reportable 12/17/20 04:27 Bite Cells Not Reportable 12/17/20 04:27 Crenated Cell Not Reportable 12/17/20 04:27 Elliptocytes Not Reportable 12/17/20 04:27 Acanthocytes (Spur) Not Reportable 12/17/20 04:27 Rouleaux Not Reportable 12/17/20 04:27 Hemoglobin C Crystals Not Reportable 12/17/20 04:27 Schistocytes Not Reportable 12/17/20 04:27 Malaria parasites Not Reportable 12/17/20 04:27 Azeem Bodies Not Reportable 12/17/20 04:27 Hem Pathologist Commnt No 12/17/20 04:27 PT 16.7 Sec. (12.2-14.9) H 12/17/20 04:27 INR 1.22 (0.87-1.13) H 12/17/20 04:27 APTT 42.0 Sec. (24.2-36.6) H 12/15/20 20:29 ABG pH 7.460 pH Units (7.350-7.450) H 12/18/20 04:40 ABG pCO2 28.5 mm Hg 12/18/20 04:40 ABG pO2 250.2 mm Hg (80.0-90.0) H 12/18/20 04:40 ABG HCO3 19.8 mmol/L (20.0-26.0) L 12/18/20 04:40 ABG O2 Saturation 99.4 % (95.0-99.0) H 12/18/20 04:40 ABG O2 Content 10.1 (0.0-44) 12/18/20 04:40 ABG Base Excess -3.6 mmol/L (-2.0-3.0) L 12/18/20 04:40 ABG Hemoglobin 6.9 gm/dl (14.0-18.0) L 12/18/20 04:40 ABG Carboxyhemoglobin 1.4 % (0.0-5.0) 12/18/20 04:40 ABG Methemoglobin 0.5 % (0.0-1.5) 12/18/20 04:40 Oxyhemoglobin 97.5 % (95.0-99.0) 12/18/20 04:40 FiO2 60 % 12/18/20 04:40 Sodium 139 mmol/L (137-145) 12/18/20 07:53 Potassium 3.4 mmol/L (3.6-5.0) L D 12/18/20 07:53 Chloride 110.0 mmol/L (98-107) H 12/18/20 07:53 Carbon Dioxide 16 mmol/L (22-30) L 12/18/20 07:53 Anion Gap 16 mmol/L 12/18/20 07:53 BUN 30 mg/dL (9-20) H 12/18/20 07:53 Creatinine 0.8 mg/dL (0.8-1.3) 12/18/20 07:53 Estimated GFR > 60 ml/min 12/18/20 07:53 BUN/Creatinine Ratio 38 % 12/18/20 07:53 Glucose 92 mg/dL (75-100) 12/18/20 07:53 POC Glucose 72 mg/dL (70-105) 12/15/20 23:48 Lactic Acid 0.80 mmol/L (0.7-2.0) 12/15/20 20:29 Calcium 8.2 mg/dL (8.4-10.2) L 12/18/20 07:53 Total Bilirubin 0.80 mg/dL (0.1-1.2) 12/15/20 20:29 AST 16 units/L (5-40) 12/15/20 20:29 ALT 17 units/L (7-56) 12/15/20 20:29 Alkaline Phosphatase 321 units/L (35-129) H 12/15/20 20:29 Ammonia 21.0 umol/L (25-60) L 12/15/20 21:28 Troponin T 0.078 ng/mL (0.00-0.029) H D 12/16/20 20:19 Total Protein 7.0 g/dL (6.3-8.2) 12/15/20 20:29 Albumin 2.7 g/dL (3.9-5) L 12/15/20 20:29 Albumin/Globulin Ratio 0.6 % 12/15/20 20:29 Triglycerides 153 mg/dL (2-149) H 12/15/20 20:29 Cholesterol 95 mg/dL (50-199) 12/15/20 20:29 LDL Cholesterol Direct 23 mg/dL (50-130) L 12/15/20 20:29 HDL Cholesterol 27 mg/dL (40-59) L 12/15/20 20:29 Cholesterol/HDL Ratio 3.51 % 12/15/20 20:29 TSH 1.380 mlU/mL (0.270-4.200) 12/15/20 20:29 Urine Color Angela (Yellow) 12/15/20 20:20 Urine Turbidity Turbid (Clear) 12/15/20 20:20 Urine pH 7.0 (5.0-7.0) 12/15/20 20:20 Ur Specific [place] 1.012 (1.003-1.030) 12/15/20 20:20 Urine Protein 100 mg/dl mg/dL (Negative) 12/15/20 20:20 Urine Glucose (UA) Neg mg/dL (Negative) 12/15/20 20:20 Urine Ketones Neg mg/dL (Negative) 12/15/20 20:20 Urine Blood Lg (Negative) 12/15/20 20:20 Urine Nitrite Neg (Negative) 12/15/20 20:20 Urine Bilirubin Neg (Negative) 12/15/20 20:20 Urine Urobilinogen 4.0 mg/dL (<2.0) 12/15/20 20:20 Ur Leukocyte Esterase Lg (Negative) 12/15/20 20:20 Urine WBC (Auto) > 182.0 /HPF (0.0-6.0) H 12/15/20 20:20 Urine RBC (Auto) 117.0 /HPF (0.0-6.0) 12/15/20 20:20 Urine Bacteria (Auto) 3+ /HPF (Negative) 12/15/20 20:20 Urine WBC Clumps 3+ /HPF 12/15/20 20:20 Urine Mucus Few /HPF 12/15/20 20:20 Urine Yeast (Budding) 3+ /HPF 12/15/20 20:20 Salicylates < 0.3 mg/dL (2.8-20.0) L 12/15/20 20:29 Acetaminophen 5.0 ug/mL (10.0-30.0) L 12/15/20 20:29 Plasma/Serum Alcohol < 0.01 % (0-0.07) 12/15/20 20:29 Coronavirus (PCR) Negative (Negative) 12/18/20 08:00 Blood Type A POSITIVE 12/15/20 20:29 Antibody Screen Negative 12/15/20 20:29 Crossmatch See Detail 12/15/20 20:29 Microbiology: Microbiology 12/15/20 00:00 Urine,Clean Catch Urine Culture - Final Klebsiella Pneumoniae 12/15/20 20:29 Peripheral/Venous Blood Culture - Preliminary NO GROWTH AFTER 48 HOURS 12/15/20 20:29 Peripheral/Venous Blood Culture - Preliminary NO GROWTH AFTER 48 HOURS Kyle/IV: Voiding Method Indwelling Catheter Active Medications - Current Medications Current Medications: Generic Name Dose Route Start Last Admin Trade Name Freq PRN Reason Stop Dose Admin Acetaminophen 650 mg 12/15/20 23:59 12/16/20 00:32 Acetaminophen 650 Mg Rect Supp NC 650 mg Q6H PRN Administration Pain MILD(1-3)/Fever >100.5/RHOADES Amantadine HCl 100 mg 12/16/20 17:00 12/18/20 13:34 Amantadine 100 Mg Cap PO 100 mg QDAY TIFF Administration Lipase/Protease/Amylase 1 each 12/16/20 15:13 Lipase 10,500/Protease 25,000/Amylase 43,750 (Units) Dr Conroy FEEDTUBE PRN PRN For Clogged Feeding Tube Gabapentin 600 mg 12/16/20 16:00 12/18/20 13:34 Gabapentin 300 Mg Cap PO 600 mg Q8HR TIFF Administration Vancomycin HCl 1 gm in 250 mls @ 125 mls/hr 12/16/20 16:30 12/18/20 08:34 Vancomycin/Ns 1 Gm/250 Ml IV Not Given Q12H TIFF Cefepime HCl 2 gm in 100 mls @ 200 mls/hr 12/17/20 18:00 12/18/20 11:26 Cefepime/Ns 2 Gm/100 Ml IV 200 mls/hr Q12H TFIF Administration Protocol Magnesium Hydroxide 30 ml 12/15/20 23:59 Magnesium Hydroxide (Mom) Oral Liqd Udc PO Q4H PRN Constipation Metoprolol Tartrate 12.5 mg 12/17/20 22:00 12/18/20 10:24 Metoprolol Tartrate 25 Mg Tab PO 12.5 mg BID TIFF Administration Mirtazapine 15 mg 12/16/20 22:00 12/17/20 22:14 Mirtazapine 15 Mg Tab PO 15 mg QHS TIFF Administration Morphine Sulfate 2 mg 12/15/20 23:59 Morphine 2 Mg/1 Ml Inj IV Q4H PRN Pain, Moderate (4-6) Morphine Sulfate 4 mg 12/15/20 23:59 12/18/20 07:11 Morphine 4 Mg/1 Ml Inj IV 4 mg Q4H PRN Administration Pain , Severe (7-10) Ondansetron HCl 4 mg 12/15/20 23:59 12/17/20 04:55 Ondansetron 4 Mg/2 Ml Inj IV 4 mg Q8H PRN Administration Nausea And Vomiting Potassium Chloride 40 meq 12/18/20 13:30 12/18/20 13:34 Potassium Chloride Er 20 Meq Tab PO 12/18/20 15:30 40 meq ONCE@1330 NR Administration Sertraline HCl 50 mg 12/16/20 17:00 12/18/20 10:24 Sertraline 50 Mg Tab PO 50 mg QDAY TIFF Administration Simple Syrup 15 ml 12/16/20 15:13 Simple Syrup 15 Ml FEEDTUBE PRN PRN Hypoglycemia Simple Syrup 30 ml 12/16/20 15:13 Simple Syrup 15 Ml FEEDTUBE PRN PRN Hypoglycemia Sodium Bicarbonate 325 mg 12/16/20 15:13 Sodium Bicarbonate 325 Mg Tab FEEDTUBE PRN PRN For Clogged Feeding Tube Sodium Chloride 10 ml 12/16/20 10:00 12/18/20 10:25 Sodium Chloride 0.9% 10 Ml Flush Syringe IV 10 ml BID TIFF Administration Sodium Chloride 10 ml 12/15/20 23:59 Sodium Chloride 0.9% 10 Ml Flush Syringe IV PRN PRN LINE FLUSH Tamsulosin HCl 0.4 mg 12/16/20 17:00 12/18/20 10:24 Tamsulosin 0.4 Mg Cap PO 0.4 mg QDAY TIFF Administration Nutrition/Malnutrition Assess - Dietary Evaluation Nutrition/Malnutrition Findings: Nutrition Notes Start: 12/16/20 13:54 Freq: Status: Active Protocol: Document 12/16/20 14:53 GB (Rec: 12/16/20 15:13 GB [id number]) Nutrition Notes Need for Assessment generated from: MD Order Initial or Follow up Assessment Current Diagnosis Sepsis Other Pertinent Diagnosis Anemia, hyperkalemia, UTI, Gen weakness, parkinson's disease , depression Current Diet TF - Nepro Labs/Tests 12/16: glucose 185, BUN 47, creatinine 1.3, Na 141, K 4.3, Ca 7.2 Pertinent Medications Lactated Ringers 100ml/hr, Height 6 ft Weight 81.647 kg [place] Body Weight (kg) 80.90 BMI 24.4 Weight change and time frame No reported weight change upon admission Weight Status Appropriate Subjective/Other Information H/P: PEG tube present, bedbound, resident snf, history of sacral decubitis ulcer Chart notes 12/16: states pt can eat PO, CERTIFIED ATHLETIC TRAINER swallow eval ordered Bowel sounds hypoactive Percent of energy/protein needs met: unable to assess at this time. TF order to be entered to meet 50% needs to encourage PO intake. Burn Absent Trauma Absent GI Symptoms None Food Allergy No Skin Integrity/Comment wounds Current % PO Other Minimum of two criteria No #1 Nutrition Diagnosis Increased nutrient needs ( specify in comment below) Comments: PEG tube present Etiology anemia, parkinson's disease, spinal/pelvis fractures As Evidenced by Signs and Symptoms PEG tube present, parkinson's disease Is patient on ventilator? No Is Patient Ambulatory and/or Out of Bed No REE-([facility]-confined to bed) 2042.468 Calculation Used for Recommendations [facility] Additional Notes Protein: 1-1.2 g/kg @ 82k -98g Fluids: 1 ml/kcal or per MD Nutrition Intervention Change Diet Order: Advance to regular type diet when medically feasible with texture/consistency per CERTIFIED ATHLETIC TRAINER Nutrition Support: TF: nepro @ 23ml/hr goal. Flush: 100ml/4hrs Total free water/day: TF@goal + flush = 1004ml Kcal 1,000 Protein (gm) 45 Carbohydrates (gm) 89 Fat (gm) 53 Fluid (mL) 404 Fiber (gm) 7 % RDI: 50%/50% Goal #1 TF (nepro) started by f/u Goal #2 TF (nepro) at goal rate (23ml/ hr) by f/u Goal #3 Diet advanced per CERTIFIED ATHLETIC TRAINER recommendations. Follow-Up By: 12/18/20 Additional Comments f/u: TF, diet advanced, CERTIFIED ATHLETIC TRAINER rahel
[2020-12-18 17:09] LABS: ABG Base Excess -6.7 mmol/L (-2.0-3.0); ABG HCO3 17.7 mmol/L (20.0-26.0); ABG Methemoglobin 0.6 % (0.0-1.5); ABG Oxygen Saturation 73.9 % (95.0-99.0); ABG PH 7.374 pH Units (7.350-7.450); ABG PO2 40.2 mm Hg (80.0-90.0)
[2020-12-18] MEDS: MIRTAZAPINE 15 MG TAB PO SCH (21:56)
[2020-12-19] MEDS: MORPHINE 4 MG/1 ML INJ IV PRN ×3 (01:49→16:34)
[2020-12-19] MEDS: VANCOMYCIN/NS 1 GM/250 ML 1 GM/250 ML BAG IV SCH ×2 (04:03→16:34)
[2020-12-19] MEDS: GABAPENTIN 300 MG CAP PO SCH ×3 (06:03→21:19)
[2020-12-19] MEDS: CEFEPIME/NS 2 GM/100 ML 2 GM/100 ML BAG IV SCH (06:03)
[2020-12-19 06:35] LABS: Blood Urea Nitrogen 21 mg/dL (9-20); Calcium 7.9 mg/dL (8.4-10.2); Hemolysis Index 7
[2020-12-19 06:36] LABS: BUN/Creatinine Ratio 30
[2020-12-19 06:37] LABS: Hemoglobin 8.5 gm/dl (11.8-15.2); Mean Corpuscular HGB Conc 30 % (32-34); Mean Corpuscular Volume 83 fl (84-94); Platelet Count 563 K/mm3 (140-440); Red Blood Count 3.37 M/mm3 (3.65-5.03)
[2020-12-19 06:40] LABS: Red Cell Distribution Width 21.4 % (13.2-15.2)
[2020-12-19] MEDS ORDERED: MAGNESIUM SULFATE 4 GM/100 ML BAG IV ONE (07:47)
[2020-12-19] MEDS: SERTRALINE 50 MG TAB PO SCH (09:16)
[2020-12-19] MEDS: TAMSULOSIN 0.4 MG CAP PO SCH (09:16)
[2020-12-19] MEDS: METOPROLOL TARTRATE 25 MG TAB PO SCH ×2 (09:16→21:21)
--- NOTE | 2020-12-19 12:11 | Progress Note ---
Assessment and Plan Cultures: Blood culture no growth so far Urine culture gram-negative ochoa pending ID and MJ A/P: 55-year-old male past medical history Parkinson's, depression, DVT, fracture of the right acetabulum admitted with fatigue #Complicated UTI: GNR growing in the urine culture, patient with significant leukocytosis. Has history of Kyle cath, which has been changed since admission #Bedbound status with ulcers: pending wound care consult. #Sacral wounds: patient refuses examination. #BERNICE: improving. #Penicillin allergy: currently tolerating ceftriaxone Recs: -Continue vancomycin for now -Continue ceftriaxone 2g q24h -Awaiting upload of wound care pictures, patient in too much pain to roll over for my examination Thank you for the consult, we will continue to follow. Dr. Watson taking over Tuesday Mitul Montana MD [facility] ([facility]) O: [phone] F: [phone] Subjective Date of service: 12/19/20 Principal diagnosis: Urosepsis, Type 2 [place] Interval history: Afebrile overnight, white count increased to 24. Blood cultures remain no growth so far. Objective - Exam Narrative Exam: Physical Exam: Constitutional: Alert, cooperative. No acute distress Head, Ears, Nose: Normocephalic, atraumatic. External ears, nose normal Eyes: Conjunctivae/corneas clear. No icterus. No ptosis. Neck: Supple, no meningeal signs Oral: dentition fair, no thrush Cardiovascular: S1, S2 normal. Respiratory: Good air entry, clear to auscultation bilaterally GI: Soft, non-tender; bowel sounds normal. No peritoneal signs. Feeding tube Musculoskeletal: Bilateral TMA, no evident wounds of stumps. Skin: No rash or abscess Hem/Lymphatic: No palpable cervical or supraclavicular nodes. No lymphangitis Psych: Mood ok. Affect normal Neurological: Awake, alert, oriented. No gross abnormality - Constitutional Vitals: Vital Signs Temp Pulse Resp BP Pulse Ox 98.0 F 95 H 24 110/71 90 12/19/20 06:06 12/19/20 06:06 12/19/20 06:06 12/19/20 06:06 12/19/20 06:06 Temperature -Last 24 Hours Temperature 98.0 F Temperature 97.7 F Temperature 99.6 F Temperature 97.8 F - Labs CBC & Chem 7: 12/19/20 04:50 12/19/20 04:50 Labs: Abnormal lab results 12/18/20 12/18/20 12/19/20 Range/Units 11:56 18:40 04:50 WBC 24.1 H (4.5-11.0) K/mm3 RBC 3.37 L (3.65-5.03) M/mm3 Hgb 8.5 L (11.8-15.2) gm/dl Hct 28.0 L (35.5-45.6) % MCV 83 L (84-94) fl MCH 25 L (28-32) pg MCHC 30 L (32-34) % RDW 21.4 H (13.2-15.2) % Plt Count 563 H (140-440) K/mm3 ABG pO2 40.2 L (80.0-90.0) mm Hg ABG HCO3 17.7 L (20.0-26.0) mmol/L ABG O2 Saturation 73.9 L (95.0-99.0) % ABG Base Excess -6.7 L (-2.0-3.0) mmol/L ABG Hemoglobin 9.0 L (14.0-18.0) gm/dl Oxyhemoglobin 71.9 L (95.0-99.0) % Chloride (98-107) mmol/L Carbon Dioxide (22-30) mmol/L BUN (9-20) mg/dL Creatinine (0.8-1.3) mg/dL Calcium (8.4-10.2) mg/dL Magnesium 1.50 L (1.7-2.3) mg/dL Total Creatine Kinase 41 L (55-170) units/L 12/19/20 Range/Units 04:50 WBC (4.5-11.0) K/mm3 RBC (3.65-5.03) M/mm3 Hgb (11.8-15.2) gm/dl Hct (35.5-45.6) % MCV (84-94) fl MCH (28-32) pg MCHC (32-34) % RDW (13.2-15.2) % Plt Count (140-440) K/mm3 ABG pO2 (80.0-90.0) mm Hg ABG HCO3 (20.0-26.0) mmol/L ABG O2 Saturation (95.0-99.0) % ABG Base Excess (-2.0-3.0) mmol/L ABG Hemoglobin (14.0-18.0) gm/dl Oxyhemoglobin (95.0-99.0) % Chloride 109.8 H (98-107) mmol/L Carbon Dioxide 16 L (22-30) mmol/L BUN 21 H (9-20) mg/dL Creatinine 0.7 L (0.8-1.3) mg/dL Calcium 7.9 L (8.4-10.2) mg/dL Magnesium (1.7-2.3) mg/dL Total Creatine Kinase (55-170) units/L
--- NOTE | 2020-12-19 12:53 | Progress Note ---
Assessment and Plan Assessment and plan: #UTI -complicated -UCx: 10-100k Klebsiella sensitive to cefepime -continue cefepime -ID following, assistance appreciated #Anemia requiring transfusion -s/p 2 units pRBC -H&H 8.5/28.0 -will transfuse for Hgb less than 7 #Leukocytosis -WBC count 19.3 -afebrile -BCx NGTD x 72hrs #Hypokalemia -resolved -will continue to monitor K levels #Acute kidney injury-resolved -likely 2/2 to vasomotor nephropathy -will continue to monitor -Nephrology consulted, assistance appreciated #Stage III Decubitus ulcers -chronic -continue wound care #Malnutrition -albumin 2.7 -Nutrition consulted -will continue PEG feeds in addition to oral feeds to improve healing. Resolved issues #Hypotension-resolved #Hyperkalemia-resolved #Type II NSTEMI -troponin 0.215, downtrending to 0.078 -Echo showed EF 45-50% -Cardiology evaluated patient, no intervention at this time -likely 2/2 BERNICE Disposition Plan: [facility] upon discharge Total Time Spent with Patient (Minutes): 20 minutes History Interval history: No acute events overnight. Patient lying in bed sleepy, but easily arousable. No complaints at this time. Hospitalist Physical - Physical exam Narrative exam: GENERAL: Thin male. Lying in bed no acute distress. CHEST/LUNGS: CTAB on room air HEART/CARDIOVASCULAR: RRR. No murmur, rubs or gallops appreciated. ABDOMEN: PEG tube in place. Abdominal wound dressed and intact. +BS. NT/ND. NEURO: No focal motor deficit. EXTREMITIES: Bilateral metatarsal amputation PSYCH: Cooperative. - Constitutional Vitals: Temp Pulse Resp BP Pulse Ox 98.0 F 95 H 24 110/71 97 12/19/20 06:06 12/19/20 06:06 12/19/20 06:06 12/19/20 06:06 12/19/20 10:00 General appearance: Present: no acute distress HEART Score - HEART Score Troponin: Troponin T 0.078 ng/mL (0.00-0.029) H D 12/16/20 20:19 Results - Labs CBC & Chem 7: 12/19/20 04:50 12/19/20 04:50 Labs: Laboratory Last Values WBC 24.1 K/mm3 (4.5-11.0) H 12/19/20 04:50 RBC 3.37 M/mm3 (3.65-5.03) L 12/19/20 04:50 Hgb 8.5 gm/dl (11.8-15.2) L 12/19/20 04:50 Hct 28.0 % (35.5-45.6) L 12/19/20 04:50 MCV 83 fl (84-94) L 12/19/20 04:50 MCH 25 pg (28-32) L 12/19/20 04:50 MCHC 30 % (32-34) L 12/19/20 04:50 RDW 21.4 % (13.2-15.2) H 12/19/20 04:50 Plt Count 563 K/mm3 (140-440) H 12/19/20 04:50 Lymph % (Auto) 6.4 % (13.4-35.0) L 12/15/20 20:29 [place] % (Auto) 6.8 % (0.0-7.3) 12/15/20 20: Eos % (Auto) 0.7 % (0.0-4.3) 12/15/20 20: Baso % (Auto) 0.2 % (0.0-1.8) 12/15/20 20: Lymph # (Auto) 1.2 K/mm3 (1.2-5.4) 12/15/20 20:29 [place] # (Auto) 1.3 K/mm3 (0.0-0.8) H 12/15/20 20:29 Eos # (Auto) 0.1 K/mm3 (0.0-0.4) 12/15/20 20:29 Baso # (Auto) 0.0 K/mm3 (0.0-0.1) 12/15/20 20:29 Add Manual Diff Complete 12/17/20 04:27 Total Counted 100 12/17/20 04:27 Seg Neutrophils % 85.9 % (40.0-70.0) H 12/15/20 20:29 Seg Neuts % (Manual) 91.0 % (40.0-70.0) H 12/17/20 04:27 Lymphocytes % (Manual) 3.0 % (13.4-35.0) L 12/17/20 04:27 Monocytes % (Manual) 6.0 % (0.0-7.3) 12/17/20 04:27 Nucleated RBC % Not Reportable 12/17/20 04:27 Seg Neutrophils # 16.5 K/mm3 (1.8-7.7) H 12/15/20 20:29 Seg Neutrophils # Man 22.3 K/mm3 (1.8-7.7) H 12/17/20 04:27 Band Neutrophils # 0.0 K/mm3 12/17/20 04:27 Lymphocytes # (Manual) 0.7 K/mm3 (1.2-5.4) L 12/17/20 04:27 Abs React Lymphs (Man) 0.0 K/mm3 12/17/20 04:27 Monocytes # (Manual) 1.5 K/mm3 (0.0-0.8) H 12/17/20 04:27 Eosinophils # (Manual) 0.0 K/mm3 (0.0-0.4) 12/17/20 04:27 Basophils # (Manual) 0.0 K/mm3 (0.0-0.1) 12/17/20 04:27 Metamyelocytes # 0.0 K/mm3 12/17/20 04:27 Myelocytes # 0.0 K/mm3 12/17/20 04:27 Promyelocytes # 0.0 K/mm3 12/17/20 04:27 Blast Cells # 0.0 K/mm3 12/17/20 04:27 WBC Morphology Not Reportable 12/17/20 04:27 Hypersegmented Neuts Not Reportable 12/17/20 04:27 Hyposegmented Neuts Not Reportable 12/17/20 04:27 Hypogranular Neuts Not Reportable 12/17/20 04:27 Smudge Cells Not Reportable 12/17/20 04:27 Toxic Granulation Not Reportable 12/17/20 04:27 Toxic Vacuolation Not Reportable 12/17/20 04:27 Dohle Bodies Not Reportable 12/17/20 04:27 Pelger-Huet Anomaly Not Reportable 12/17/20 04:27 Marcell Rods Not Reportable 12/17/20 04:27 Platelet Estimate Consistent w auto 12/17/20 04:27 Clumped Platelets Not Reportable 12/17/20 04:27 Plt Clumps, EDTA Not Reportable 12/17/20 04:27 Large Platelets Not Reportable 12/17/20 04:27 Giant Platelets Not Reportable 12/17/20 04:27 Platelet Satelliting Not Reportable 12/17/20 04:27 Plt Morphology Comment Not Reportable 12/17/20 04:27 RBC Morphology Not Reportable 12/17/20 04:27 Dimorphic RBCs Not Reportable 12/17/20 04:27 Polychromasia Not Reportable 12/17/20 04:27 Hypochromasia 1+ 12/17/20 04:27 Poikilocytosis Not Reportable 12/17/20 04:27 Anisocytosis 1+ 12/17/20 04:27 Microcytosis Not Reportable 12/17/20 04:27 Macrocytosis Not Reportable 12/17/20 04:27 Spherocytes Not Reportable 12/17/20 04:27 Pappenheimer Bodies Not Reportable 12/17/20 04:27 Sickle Cells Not Reportable 12/17/20 04:27 Target Cells Not Reportable 12/17/20 04:27 Tear Drop Cells Not Reportable 12/17/20 04:27 Ovalocytes Not Reportable 12/17/20 04:27 Helmet Cells Not Reportable 12/17/20 04:[address] [place] Bodies Not Reportable 12/17/20 04:27 [place]ima Rings Not Reportable 12/17/20 04:27 [place] Cells Not Reportable 12/17/20 04:27 Bite Cells Not Reportable 12/17/20 04:27 Crenated Cell Not Reportable 12/17/20 04:27 Elliptocytes Not Reportable 12/17/20 04:27 Acanthocytes (Spur) Not Reportable 12/17/20 04:27 Rouleaux Not Reportable 12/17/20 04:27 Hemoglobin C Crystals Not Reportable 12/17/20 04:27 Schistocytes Not Reportable 12/17/20 04:27 Malaria parasites Not Reportable 12/17/20 04:27 Azeem Bodies Not Reportable 12/17/20 04:27 Hem Pathologist Commnt No 12/17/20 04:27 PT 16.7 Sec. (12.2-14.9) H 12/17/20 04:27 INR 1.22 (0.87-1.13) H 12/17/20 04:27 APTT 42.0 Sec. (24.2-36.6) H 12/15/20 20:29 ABG pH 7.374 pH Units (7.350-7.450) 12/18/20 11:56 ABG pCO2 31.0 mm Hg 12/18/20 11:56 ABG pO2 40.2 mm Hg (80.0-90.0) L 12/18/20 11:56 ABG HCO3 17.7 mmol/L (20.0-26.0) L 12/18/20 11:56 ABG O2 Saturation 73.9 % (95.0-99.0) L 12/18/20 11:56 ABG O2 Content 9.1 (0.0-44) 12/18/20 11:56 ABG Base Excess -6.7 mmol/L (-2.0-3.0) L 12/18/20 11:56 ABG Hemoglobin 9.0 gm/dl (14.0-18.0) L 12/18/20 11:56 ABG Carboxyhemoglobin 2.0 % (0.0-5.0) 12/18/20 11:56 ABG Methemoglobin 0.6 % (0.0-1.5) 12/18/20 11:56 Oxyhemoglobin 71.9 % (95.0-99.0) L 12/18/20 11:56 FiO2 21 % 12/18/20 11:56 Sodium 138 mmol/L (137-145) 12/19/20 04:50 Potassium 3.9 mmol/L (3.6-5.0) 12/19/20 04:50 Chloride 109.8 mmol/L (98-107) H 12/19/20 04:50 Carbon Dioxide 16 mmol/L (22-30) L 12/19/20 04:50 Anion Gap 16 mmol/L 12/19/20 04:50 BUN 21 mg/dL (9-20) H 12/19/20 04:50 Creatinine 0.7 mg/dL (0.8-1.3) L 12/19/20 04:50 Estimated GFR > 60 ml/min 12/19/20 04:50 BUN/Creatinine Ratio 30 % 12/19/20 04:50 Glucose 91 mg/dL (75-100) 12/19/20 04:50 POC Glucose 72 mg/dL (70-105) 12/15/20 23:48 Lactic Acid 0.80 mmol/L (0.7-2.0) 12/15/20 20:29 Calcium 7.9 mg/dL (8.4-10.2) L 12/19/20 04:50 Magnesium 1.50 mg/dL (1.7-2.3) L 12/18/20 18:40 Total Bilirubin 0.80 mg/dL (0.1-1.2) 12/15/20 20:29 AST 16 units/L (5-40) 12/15/20 20:29 ALT 17 units/L (7-56) 12/15/20 20:29 Alkaline Phosphatase 321 units/L (35-129) H 12/15/20 20:29 Ammonia 21.0 umol/L (25-60) L 12/15/20 21:28 Total Creatine Kinase 41 units/L (55-170) L 12/18/20 18:40 Troponin T 0.078 ng/mL (0.00-0.029) H D 12/16/20 20:19 Total Protein 7.0 g/dL (6.3-8.2) 12/15/20 20:29 Albumin 2.7 g/dL (3.9-5) L 12/15/20 20:29 Albumin/Globulin Ratio 0.6 % 12/15/20 20:29 Triglycerides 153 mg/dL (2-149) H 12/15/20 20:29 Cholesterol 95 mg/dL (50-199) 12/15/20 20:29 LDL Cholesterol Direct 23 mg/dL (50-130) L 12/15/20 20:29 HDL Cholesterol 27 mg/dL (40-59) L 12/15/20 20:29 Cholesterol/HDL Ratio 3.51 % 12/15/20 20:29 TSH 1.380 mlU/mL (0.270-4.200) 12/15/20 20:29 Urine Color Angela (Yellow) 12/15/20 20:20 Urine Turbidity Turbid (Clear) 12/15/20 20:20 Urine pH 7.0 (5.0-7.0) 12/15/20 20:20 Ur Specific [place] 1.012 (1.003-1.030) 12/15/20 20:20 Urine Protein 100 mg/dl mg/dL (Negative) 12/15/20 20:20 Urine Glucose (UA) Neg mg/dL (Negative) 12/15/20 20:20 Urine Ketones Neg mg/dL (Negative) 12/15/20 20:20 Urine Blood Lg (Negative) 12/15/20 20:20 Urine Nitrite Neg (Negative) 12/15/20 20:20 Urine Bilirubin Neg (Negative) 12/15/20 20:20 Urine Urobilinogen 4.0 mg/dL (<2.0) 12/15/20 20:20 Ur Leukocyte Esterase Lg (Negative) 12/15/20 20:20 Urine WBC (Auto) > 182.0 /HPF (0.0-6.0) H 12/15/20 20:20 Urine RBC (Auto) 117.0 /HPF (0.0-6.0) 12/15/20 20:20 Urine Bacteria (Auto) 3+ /HPF (Negative) 12/15/20 20:20 Urine WBC Clumps 3+ /HPF 12/15/20 20:20 Urine Mucus Few /HPF 12/15/20 20:20 Urine Yeast (Budding) 3+ /HPF 12/15/20 20:20 Nasal Screen MRSA (PCR) Negative (Negative) 12/17/20 Unknown Salicylates < 0.3 mg/dL (2.8-20.0) L 12/15/20 20: Acetaminophen 5.0 ug/mL (10.0-30.0) L 12/15/20 20: Plasma/Serum Alcohol < 0.01 % (0-0.07) 12/15/20 20:29 Coronavirus (PCR) Negative (Negative) 12/18/20 08:00 Blood Type A POSITIVE 12/15/20 20: Antibody Screen Negative 12/15/20 20: Crossmatch See Detail 12/15/20 20:29 Microbiology: Microbiology 12/15/20 20:29 Peripheral/Venous Blood Culture - Preliminary NO GROWTH AFTER 72 HOURS 12/15/20 20:29 Peripheral/Venous Blood Culture - Preliminary NO GROWTH AFTER 72 HOURS 12/15/20 00:00 Urine,Clean Catch Urine Culture - Final Klebsiella Pneumoniae Kyle/IV: Voiding Method Indwelling Catheter Active Medications - Current Medications Current Medications: Generic Name Dose Route Start Last Admin Trade Name Freq PRN Reason Stop Dose Admin Acetaminophen 650 mg 12/15/20 23:59 12/16/20 00:32 Acetaminophen 650 Mg Rect Supp OR 650 mg Q6H PRN Administration Pain MILD(1-3)/Fever >100.5/RHOADES Amantadine HCl 100 mg 12/16/20 17:00 12/19/20 09:16 Amantadine 100 Mg Cap PO 100 mg QDAY TIFF Administration Lipase/Protease/Amylase 1 each 12/16/20 15:13 Lipase 10,500/Protease 25,000/Amylase 43,750 (Units) Dr Conroy FEEDTUBE PRN PRN For Clogged Feeding Tube Gabapentin 600 mg 12/16/20 16:00 12/19/20 06:03 Gabapentin 300 Mg Cap PO 600 mg Q8HR TIFF Administration Vancomycin HCl 1 gm in 250 mls @ 125 mls/hr 12/16/20 16:30 12/19/20 04:03 Vancomycin/Ns 1 Gm/250 Ml IV 166 mls/hr Q12H TIFF Administration Cefepime HCl 2 gm in 100 mls @ 200 mls/hr 12/17/20 18:00 12/19/20 06:03 Cefepime/Ns 2 Gm/100 Ml IV 200 mls/hr Q12H TIFF Administration Protocol Magnesium Hydroxide 30 ml 12/15/20 23:59 Magnesium Hydroxide (Mom) Oral Liqd Udc PO Q4H PRN Constipation Metoprolol Tartrate 12.5 mg 12/17/20 22:00 12/19/20 09:16 Metoprolol Tartrate 25 Mg Tab PO 12.5 mg BID TIFF Administration Mirtazapine 15 mg 12/16/20 22:00 12/18/20 21:56 Mirtazapine 15 Mg Tab PO 15 mg QHS TIFF Administration Morphine Sulfate 2 mg 12/15/20 23:59 Morphine 2 Mg/1 Ml Inj IV Q4H PRN Pain, Moderate (4-6) Morphine Sulfate 4 mg 12/15/20 23:59 12/19/20 07:19 Morphine 4 Mg/1 Ml Inj IV 4 mg Q4H PRN Administration Pain , Severe (7-10) Ondansetron HCl 4 mg 12/15/20 23:59 12/17/20 04:55 Ondansetron 4 Mg/2 Ml Inj IV 4 mg Q8H PRN Administration Nausea And Vomiting Sertraline HCl 50 mg 12/16/20 17:00 12/19/20 09:16 Sertraline 50 Mg Tab PO 50 mg QDAY TIFF Administration Simple Syrup 15 ml 12/16/20 15:13 Simple Syrup 15 Ml FEEDTUBE PRN PRN Hypoglycemia Simple Syrup 30 ml 12/16/20 15:13 Simple Syrup 15 Ml FEEDTUBE PRN PRN Hypoglycemia Sodium Bicarbonate 325 mg 12/16/20 15:13 Sodium Bicarbonate 325 Mg Tab FEEDTUBE PRN PRN For Clogged Feeding Tube Sodium Chloride 10 ml 12/16/20 10:00 12/19/20 12:09 Sodium Chloride 0.9% 10 Ml Flush Syringe IV 10 ml BID TIFF Administration Sodium Chloride 10 ml 12/15/20 23:59 Sodium Chloride 0.9% 10 Ml Flush Syringe IV PRN PRN LINE FLUSH Tamsulosin HCl 0.4 mg 12/16/20 17:00 12/19/20 09:16 Tamsulosin 0.4 Mg Cap PO 0.4 mg QDAY TIFF Administration Nutrition/Malnutrition Assess - Dietary Evaluation Nutrition/Malnutrition Findings: Nutrition Notes Start: 12/16/20 13:54 Freq: Status: Active Protocol: Document 12/18/20 16:39 HAWK (Rec: 12/18/20 17:12 HAWK [id number]) Nutrition Notes Initial or Follow up Reassessment Current Diagnosis Acute Kidney Injury,Sepsis Other Pertinent Diagnosis Anemia, Hyperkalemia, UTI. Labs/Tests 12/18: K 3.4, Cl 110, CO2 16, BUN 30, Ca 8.2. Pertinent Medications 12/18: Nutritionally unremarkable. Height 6 ft Weight 81.647 kg [place] Body Weight (kg) 80.90 BMI 24.4 Subjective/Other Information RD consult for routine F/U on TF initiation. Percent of energy/protein needs met: Prescribed Regular Diet provides for energy/protein needs (2,289 Kcal/89 g) during LOS. Additionally TF provides for 1,000 Kcal and 45 g respectivelly. Burn Absent Trauma Absent GI Symptoms Other Food Allergy No Skin Integrity/Comment Surgical wound Current % PO Other Minimum of two criteria No #1 Nutrition Diagnosis Altered GI function Etiology Current concomitant conditions , PEG placement. As Evidenced by Signs and Symptoms Abnotrmal chemistry lab values , MD order for TF + PO Diet. Is patient on ventilator? No Is Patient Ambulatory and/or Out of Bed No REE-([place]-St. Jeor-confined to bed) 2043.468 Kcal/Kg value to use for calculation 25 Approximate Energy Requirements Using 2041 kcal/Kg Calculation Used for Recommendations Kcal/kg Additional Notes Protein: 1.2-1.5 g/Kg; 97-122 g/day (from IBW+critical care) . Fluids: 1 ml/Kcal, or as per MD. Nutrition Intervention Change Diet Order: Continue Regular Diet. Nutrition Support: Continue TF Nepro with CARBSTEADY @ 23 ml/hr; Flush 100 ml Q 4 hrs. Kcal 1,000 Protein (gm) 45 Carbohydrates (gm) 89 Fat (gm) 53 Fluid (mL) 404 Fiber (gm) 7 % RDI: 49% Kcal; 55% AA. Goal #1 Maintain body weight within +/ -3% of current BWt during LOS. Goal #2 Reach and mainatain acceptable chemistry lab values during LOS. Follow-Up By: 12/25/20 Additional Comments Continue monitoring food and TF tolerance, %PO intake of meals, Hydration, and BM.
[2020-12-19] MEDS: MORPHINE 2 MG/1 ML INJ IV PRN ×2 (13:44→21:19)
--- NOTE | 2020-12-19 14:34 | Progress Note ---
Assessment and Plan Hypotension Anemia requiring transfusions NSTEMI (non-ST elevated myocardial infarction) Sepsis UTI (urinary tract infection) - antibiotics de-escalated per ID rec's - continue care as below otherwise; - prn supplemental oxygen to keep O2 sats > 90% - Wound care per RN/WCT - prn Bronchodilators (DARWIN) with pulm hygiene per RT - continue to avoid nephrotoxins, renally dose all medications - continue mobility protocols to prevent pressure ulcers - PT/OT as tolerated - prn analgesia per pain score - accuchecks with glycemic control per SSI for target blood glucose < 180 mg/dL - tobacco abstinence counseling - home oxygen evaluation at discharge - GI & VTE prophylaxis - Flu & pneumovax per protocol - Pulmonary out patient follow up for PFTs and optimization of respiratory status - continue other care per attending / other consultants ... re-evaluate in am & prn Subjective Date of service: 12/19/20 Principal diagnosis: Hypotension; Anemia; NSTEMI; UTI Interval history: Patient is seen today for: Hypotension; Anemia; NSTEMI; UTI Seen and examined at bedside; 24hour events reviewed; nursing and respiratory care staff consulted; no adverse overnight events reported to me; resting peacefully in bed; no new issues today Objective Vital Signs - 12hr 12/19/20 12/19/20 06:06 10:00 Temperature 98.0 F Pulse Rate 95 H Respiratory 24 Rate Blood Pressure 110/71 O2 Sat by Pulse 90 97 Oximetry Constitutional: no acute distress, alert Eyes: non-icteric Neck: supple, no JVD Effort: normal Ascultation: Bilateral: rhonchi (scant) Percussion: Bilateral: not dull Cardiovascular: regular rate and rhythm Gastrointestinal: normoactive bowel sounds, soft, non-tender, non-distended Integumentary: decubitus ulcer (decubitus ulcer; please see [facility] notes for full description) Extremities: no cyanosis, no edema, pulses normal Neurologic: non-focal exam, pupils equal and round, CN II-XII normal, other (weak) Psychiatric: mood appropriate, affect normal CBC and BMP: 12/19/20 04:50 12/19/20 04:50 ABG, PT/INR, D-dimer: ABG ABG pH 7.374 pH Units (7.350-7.450) 12/18/20 11:56 ABG pCO2 31.0 mm Hg 12/18/20 11:56 ABG pO2 40.2 mm Hg (80.0-90.0) L 12/18/20 11:56 ABG O2 Saturation 73.9 % (95.0-99.0) L 12/18/20 11:56 PT/INR, D-dimer PT 16.7 Sec. (12.2-14.9) H 12/17/20 04:27 INR 1.22 (0.87-1.13) H 12/17/20 04:27 Abnormal lab findings: Abnormal Labs 12/15/20 12/15/20 12/15/20 20:20 20:29 20:29 WBC 19.2 H RBC 2.56 L Hgb 6.0 L Hct 20.2 L MCV 79 L MCH 24 L MCHC 30 L RDW 22.2 H Plt Count 512 H Lymph % (Auto) 6.4 L [place] # (Auto) 1.3 H Seg Neutrophils % 85.9 H Seg Neuts % (Manual) Lymphocytes % (Manual) Seg Neutrophils # 16.5 H Seg Neutrophils # Man Lymphocytes # (Manual) Monocytes # (Manual) PT INR APTT 42.0 H ABG pH ABG pO2 ABG HCO3 ABG O2 Saturation ABG Base Excess ABG Hemoglobin Oxyhemoglobin Sodium Potassium Chloride Carbon Dioxide BUN Creatinine Glucose Calcium Magnesium Alkaline Phosphatase Ammonia Total Creatine Kinase Troponin T Albumin Triglycerides LDL Cholesterol Direct HDL Cholesterol Urine WBC (Auto) > 182.0 H Salicylates Acetaminophen Crossmatch 12/15/20 12/15/20 12/15/20 20:29 20:29 20:29 WBC RBC Hgb Hct MCV MCH MCHC RDW Plt Count Lymph % (Auto) [place] # (Auto) Seg Neutrophils % Seg Neuts % (Manual) Lymphocytes % (Manual) Seg Neutrophils # Seg Neutrophils # Man Lymphocytes # (Manual) Monocytes # (Manual) PT INR APTT ABG pH ABG pO2 ABG HCO3 ABG O2 Saturation ABG Base Excess ABG Hemoglobin Oxyhemoglobin Sodium 131 L Potassium 6.0 H Chloride 95.1 L Carbon Dioxide BUN 70 H Creatinine 2.2 H Glucose 113 H Calcium Magnesium Alkaline Phosphatase 321 H Ammonia Total Creatine Kinase Troponin T 0.215 H* Albumin 2.7 L Triglycerides 153 H LDL Cholesterol Direct 23 L HDL Cholesterol 27 L Urine WBC (Auto) Salicylates < 0.3 L Acetaminophen Crossmatch See Detail 12/15/20 12/15/20 12/15/20 20:29 20:29 21:28 WBC RBC Hgb Hct MCV MCH MCHC RDW Plt Count Lymph % (Auto) [place] # (Auto) Seg Neutrophils % Seg Neuts % (Manual) Lymphocytes % (Manual) Seg Neutrophils # Seg Neutrophils # Man Lymphocytes # (Manual) Monocytes # (Manual) PT 15.8 H INR 1.14 H APTT ABG pH ABG pO2 ABG HCO3 ABG O2 Saturation ABG Base Excess ABG Hemoglobin Oxyhemoglobin Sodium Potassium Chloride Carbon Dioxide BUN Creatinine Glucose Calcium Magnesium Alkaline Phosphatase Ammonia 21.0 L Total Creatine Kinase Troponin T Albumin Triglycerides LDL Cholesterol Direct HDL Cholesterol Urine WBC (Auto) Salicylates Acetaminophen 5.0 L Crossmatch 12/16/20 12/16/20 12/16/20 06:02 06:02 20:19 WBC 16.4 H RBC 3.19 L Hgb 8.1 L Hct 26.3 L D MCV 82 L MCH 25 L MCHC 31 L RDW 20.3 H Plt Count Lymph % (Auto) [place] # (Auto) Seg Neutrophils % Seg Neuts % (Manual) Lymphocytes % (Manual) Seg Neutrophils # Seg Neutrophils # Man Lymphocytes # (Manual) Monocytes # (Manual) PT INR APTT ABG pH ABG pO2 ABG HCO3 ABG O2 Saturation ABG Base Excess ABG Hemoglobin Oxyhemoglobin Sodium Potassium Chloride 112.9 H Carbon Dioxide 15 L D BUN 47 H Creatinine Glucose 185 H Calcium 7.2 L D Magnesium Alkaline Phosphatase Ammonia Total Creatine Kinase Troponin T 0.126 H* D 0.078 H D Albumin Triglycerides LDL Cholesterol Direct HDL Cholesterol Urine WBC (Auto) Salicylates Acetaminophen Crossmatch 12/17/20 12/17/20 12/17/20 04:27 04:27 04:27 WBC 24.5 H RBC 3.51 L Hgb 9.0 L Hct 28.9 L MCV 82 L MCH 26 L MCHC 31 L RDW 20.9 H Plt Count 585 H Lymph % (Auto) [place] # (Auto) Seg Neutrophils % Seg Neuts % (Manual) 91.0 H Lymphocytes % (Manual) 3.0 L Seg Neutrophils # Seg Neutrophils # Man 22.3 H Lymphocytes # (Manual) 0.7 L Monocytes # (Manual) 1.5 H PT 16.7 H INR 1.22 H APTT ABG pH ABG pO2 ABG HCO3 ABG O2 Saturation ABG Base Excess ABG Hemoglobin Oxyhemoglobin Sodium Potassium Chloride 115.2 H Carbon Dioxide 16 L BUN 41 H Creatinine Glucose 105 H Calcium Magnesium Alkaline Phosphatase Ammonia Total Creatine Kinase Troponin T Albumin Triglycerides LDL Cholesterol Direct HDL Cholesterol Urine WBC (Auto) Salicylates Acetaminophen Crossmatch 12/18/20 12/18/20 12/18/20 04:40 07:53 07:53 WBC 19.3 H RBC 3.56 L Hgb 9.0 L Hct 29.3 L MCV 82 L MCH 25 L MCHC 31 L RDW 21.3 H Plt Count 593 H Lymph % (Auto) [place] # (Auto) Seg Neutrophils % Seg Neuts % (Manual) Lymphocytes % (Manual) Seg Neutrophils # Seg Neutrophils # Man Lymphocytes # (Manual) Monocytes # (Manual) PT INR APTT ABG pH 7.460 H ABG pO2 250.2 H ABG HCO3 19.8 L ABG O2 Saturation 99.4 H ABG Base Excess -3.6 L ABG Hemoglobin 6.9 L Oxyhemoglobin Sodium Potassium 3.4 L D Chloride 110.0 H Carbon Dioxide 16 L BUN 30 H Creatinine Glucose Calcium 8.2 L Magnesium Alkaline Phosphatase Ammonia Total Creatine Kinase Troponin T Albumin Triglycerides LDL Cholesterol Direct HDL Cholesterol Urine WBC (Auto) Salicylates Acetaminophen Crossmatch 12/18/20 12/18/20 12/19/20 11:56 18:40 04:50 WBC 24.1 H RBC 3.37 L Hgb 8.5 L Hct 28.0 L MCV 83 L MCH 25 L MCHC 30 L RDW 21.4 H Plt Count 563 H Lymph % (Auto) [place] # (Auto) Seg Neutrophils % Seg Neuts % (Manual) Lymphocytes % (Manual) Seg Neutrophils # Seg Neutrophils # Man Lymphocytes # (Manual) Monocytes # (Manual) PT INR APTT ABG pH ABG pO2 40.2 L ABG HCO3 17.7 L ABG O2 Saturation 73.9 L ABG Base Excess -6.7 L ABG Hemoglobin 9.0 L Oxyhemoglobin 71.9 L Sodium Potassium Chloride Carbon Dioxide BUN Creatinine Glucose Calcium Magnesium 1.50 L Alkaline Phosphatase Ammonia Total Creatine Kinase 41 L Troponin T Albumin Triglycerides LDL Cholesterol Direct HDL Cholesterol Urine WBC (Auto) Salicylates Acetaminophen Crossmatch 12/19/20 04:50 WBC RBC Hgb Hct MCV MCH MCHC RDW Plt Count Lymph % (Auto) [place] # (Auto) Seg Neutrophils % Seg Neuts % (Manual) Lymphocytes % (Manual) Seg Neutrophils # Seg Neutrophils # Man Lymphocytes # (Manual) Monocytes # (Manual) PT INR APTT ABG pH ABG pO2 ABG HCO3 ABG O2 Saturation ABG Base Excess ABG Hemoglobin Oxyhemoglobin Sodium Potassium Chloride 109.8 H Carbon Dioxide 16 L BUN 21 H Creatinine 0.7 L Glucose Calcium 7.9 L Magnesium Alkaline Phosphatase Ammonia Total Creatine Kinase Troponin T Albumin Triglycerides LDL Cholesterol Direct HDL Cholesterol Urine WBC (Auto) Salicylates Acetaminophen Crossmatch Allied health notes reviewed: nursing
--- NOTE | 2020-12-19 14:57 | Progress Note ---
Assessment and Plan - Patient Problems (1) Acute kidney injury Current Visit: Yes Status: Acute Plan to address problem: likely prerenal in nature in the setting of acute on chronic blood loss anemia along with questionable sepsis in the setting of urinary tract infection. Overall renal function is showing improvement after IV fluid hydration as well as transfusion of 1 unit of packed blood cells. Continue close monitoring and please avoid all nephrotoxins at this time. We will continue to follow up closely. Renal function continues to show improvement. (2) Anemia requiring transfusions Current Visit: Yes Status: Acute Plan to address problem: transfuse to maintain hemoglobin above 7. (3) Hyperkalemia Current Visit: Yes Status: Acute Plan to address problem: serum potassium levels have shown improvement with adequate fluid hydration. We will continue to monitor closely. (4) Sepsis Current Visit: Yes Status: Acute Plan to address problem: patient started on appropriate IV antibiotic therapy along with IV fluid hydration. Please maintain mean Rodriguez pressures above 65 mmHg. We will continue to follow closely. Cultures pending at this time. (5) UTI (urinary tract infection) Current Visit: Yes Status: Acute Qualifiers: Urinary tract infection type: acute cystitis Hematuria presence: with hematuria Qualified Code(s): N30.01 - Acute cystitis with hematuria Plan to address problem: please ensure that antibiotics a dose properly for renal function. We will co ntinue to monitor closely. Subjective Date of service: 12/19/20 Principal diagnosis: Hypotension; Anemia; NSTEMI; UTI Interval history: no acute changes. Renal function remained stable. Objective - Vital Signs Vital signs: Vital Signs - 12hr 12/19/20 12/19/20 06:06 10:00 Temperature 98.0 F Pulse Rate 95 H Respiratory 24 Rate Blood Pressure 110/71 O2 Sat by Pulse 90 97 Oximetry - General Appearance General appearance: appears stated age, cachectic, chronically ill, frail EENT: ATNC Neck: no JVD Respiratory: Present: Clear to Ascultation Cardiology: regular Gastrointestinal: normal Integumentary: no rash Musculoskeletal: deferred - Lab 12/19/20 04:50 12/19/20 04:50 Most recent lab results ABG pH 7.374 pH Units (7.350-7.450) 12/18/20 11:56 ABG pCO2 31.0 mm Hg 12/18/20 11:56 ABG pO2 40.2 mm Hg (80.0-90.0) L 12/18/20 11:56 ABG HCO3 17.7 mmol/L (20.0-26.0) L 12/18/20 11:56 ABG O2 Saturation 73.9 % (95.0-99.0) L 12/18/20 11:56 Calcium 7.9 mg/dL (8.4-10.2) L 12/19/20 04:50 Magnesium 1.50 mg/dL (1.7-2.3) L 12/18/20 18:40 Medications & Allergies - Medications Allergies/Adverse Reactions: Allergies Penicillins Allergy (Verified 12/16/20 02:38) Itching Home Medications: Home Medications Medication Instructions Recorded Confirmed Last Taken Type Amantadine 10 mg FEEDTUBE DAILY 12/16/20 12/18/20 Unknown History Ascorbic Acid [Vitamin C with Irma 1 tab FEEDTUBE DAILY 12/16/20 12/18/20 Unknown History Hips] Aspirin BABY CHEW TAB 81 mg FEEDTUBE DAILY 12/16/20 12/18/20 Unknown History Cetirizine HCl [Cetirizine 10mg 1 tab FEEDTUBE DAILY 12/16/20 12/18/20 Unknown History chew] Gabapentin 1 cap FEEDTUBE TID 12/16/20 12/18/20 Unknown History Ibuprofen [Motrin] 800 mg FEEDTUBE Q8H PRN 12/16/20 12/18/20 Unknown History Multiple Vitamin TAB (Theragran) 1 tab FEEDTUBE DAILY 12/16/20 12/18/20 Unknown History Sennosides [Senna] 8.6 mg FEEDTUBE DAILY 12/16/20 12/18/20 Unknown History Sertraline [Zoloft] 1 tab FEEDTUBE DAILY 12/16/20 12/18/20 Unknown History Tamsulosin [Flomax] 1 cap FEEDTUBE DAILY 12/16/20 12/18/20 Unknown History Vitamin D3 50,000UNIT CAP 1 cap FEEDTUBE DAILY 12/16/20 12/18/20 Unknown History Zinc Sulfate 1 cap FEEDTUBE DAILY 12/16/20 12/18/20 Unknown History Active Medications: Generic Name Dose Route Start Last Admin Trade Name Freq PRN Reason Stop Dose Admin Acetaminophen 650 mg 12/15/20 23:59 12/16/20 00:32 Acetaminophen 650 Mg Rect Supp [place] 650 mg Q6H PRN Administration Pain MILD(1-3)/Fever >100.5/RHOADES Amantadine HCl 100 mg 12/16/20 17:00 12/19/20 09:16 Amantadine 100 Mg Cap PO 100 mg QDAY TIFF Administration Lipase/Protease/Amylase 1 each 12/16/20 15:13 Lipase 10,500/Protease 25,000/Amylase 43,750 (Units) Dr Conroy FEEDTUBE PRN PRN For Clogged Feeding Tube Gabapentin 600 mg 12/16/20 16:00 12/19/20 13:43 Gabapentin 300 Mg Cap PO 600 mg Q8HR TIFF Administration Vancomycin HCl 1 gm in 250 mls @ 125 mls/hr 12/16/20 16:30 12/19/20 04:03 Vancomycin/Ns 1 Gm/250 Ml IV 166 mls/hr Q12H TIFF Administration Cefepime HCl 2 gm in 100 mls @ 200 mls/hr 12/17/20 18:00 12/19/20 06:03 Cefepime/Ns 2 Gm/100 Ml IV 200 mls/hr Q12H TIFF Administration Protocol Magnesium Hydroxide 30 ml 12/15/20 23:59 Magnesium Hydroxide (Mom) Oral Liqd Udc PO Q4H PRN Constipation Metoprolol Tartrate 12.5 mg 12/17/20 22:00 12/19/20 09:16 Metoprolol Tartrate 25 Mg Tab PO 12.5 mg BID TIFF Administration Mirtazapine 15 mg 12/16/20 22:00 12/18/20 21:56 Mirtazapine 15 Mg Tab PO 15 mg QHS TIFF Administration Morphine Sulfate 2 mg 12/15/20 23:59 12/19/20 13:44 Morphine 2 Mg/1 Ml Inj IV 2 mg Q4H PRN Administration Pain, Moderate (4-6) Morphine Sulfate 4 mg 12/15/20 23:59 12/19/20 07:19 Morphine 4 Mg/1 Ml Inj IV 4 mg Q4H PRN Administration Pain , Severe (7-10) Ondansetron HCl 4 mg 12/15/20 23:59 12/17/20 04:55 Ondansetron 4 Mg/2 Ml Inj IV 4 mg Q8H PRN Administration Nausea And Vomiting Sertraline HCl 50 mg 12/16/20 17:00 12/19/20 09:16 Sertraline 50 Mg Tab PO 50 mg QDAY TIFF Administration Simple Syrup 15 ml 12/16/20 15:13 Simple Syrup 15 Ml FEEDTUBE PRN PRN Hypoglycemia Simple Syrup 30 ml 12/16/20 15:13 Simple Syrup 15 Ml FEEDTUBE PRN PRN Hypoglycemia Sodium Bicarbonate 325 mg 12/16/20 15:13 Sodium Bicarbonate 325 Mg Tab FEEDTUBE PRN PRN For Clogged Feeding Tube Sodium Chloride 10 ml 12/16/20 10:00 12/19/20 12:09 Sodium Chloride 0.9% 10 Ml Flush Syringe IV 10 ml BID TIFF Administration Sodium Chloride 10 ml 12/15/20 23:59 Sodium Chloride 0.9% 10 Ml Flush Syringe IV PRN PRN LINE FLUSH Tamsulosin HCl 0.4 mg 12/16/20 17:00 12/19/20 09:16 Tamsulosin 0.4 Mg Cap PO 0.4 mg QDAY TIFF Administration
[2020-12-19] MEDS: MIRTAZAPINE 15 MG TAB PO SCH (21:19)
[2020-12-19] MEDS: cefTRIAXone/NS 2 GM/100 ML 2 GM/100 ML BAG IV SCH (21:20)
[2020-12-20] MEDS: GABAPENTIN 300 MG CAP PO SCH ×3 (05:42→22:52)
[2020-12-20 05:55] LABS: Hematocrit 29.9 % (35.5-45.6); Mean Corpuscular HGB Conc 30 % (32-34); Mean Corpuscular Volume 87 fl (84-94); Platelet Count 516 K/mm3 (140-440); Red Blood Count 3.43 M/mm3 (3.65-5.03); Red Cell Distribution Width 21.6 % (13.2-15.2)
[2020-12-20] MEDS: VANCOMYCIN/NS 1 GM/250 ML 1 GM/250 ML BAG IV SCH (06:46)
--- NOTE | 2020-12-20 07:43 | Progress Note ---
Assessment and Plan Assessment and plan: #UTI -complicated -UCx: 10-100k Klebsiella sensitive to rocephin -continue rocephin -ID following, assistance appreciated #Anemia requiring transfusion -s/p 2 units pRBC -H&H stable -will transfuse for Hgb less than 7 #Leukocytosis -WBC count persistently elevated -afebrile -BCx NGTD x 4 days #Hypokalemia -resolved -will continue to monitor K levels #Acute kidney injury-resolved -likely 2/2 to vasomotor nephropathy -will continue to monitor -Nephrology consulted, assistance appreciated #Stage III Decubitus ulcers -chronic -continue wound care #Malnutrition -albumin 2.7 -Nutrition consulted -will continue PEG feeds in addition to oral feeds to improve healing. Resolved issues #Hypotension-resolved #Hyperkalemia-resolved #Type II NSTEMI -troponin 0.215, downtrending to 0.078 -Echo showed EF 45-50% -Cardiology evaluated patient, no intervention at this time -likely 2/2 BERNICE Disposition Plan: [facility] facility Total Time Spent with Patient (Minutes): 20 minutes History Interval history: No acute events overnight. Patient lying in bed with complaints of lower back pain. Was encouraged to ask for pain medications which he was not doing. No other complaints at this time. Hospitalist Physical - Physical exam Narrative exam: GENERAL: Thin male. Lying in bed no acute distress. CHEST/LUNGS: CTAB on room air HEART/CARDIOVASCULAR: RRR. No murmur, rubs or gallops appreciated. ABDOMEN: PEG tube in place. Abdominal wound dressed and intact. +BS. NT/ND. NEURO: No focal motor deficit. EXTREMITIES: Bilateral metatarsal amputation PSYCH: Cooperative. - Constitutional Vitals: Temp Pulse Resp BP Pulse Ox 98.0 F 93 H 18 103/71 92 12/20/20 05:44 12/20/20 05:44 12/20/20 05:44 12/20/20 05:44 12/20/20 05:44 General appearance: Present: no acute distress HEART Score - HEART Score Troponin: Troponin T 0.078 ng/mL (0.00-0.029) H D 12/16/20 20:19 Results - Labs CBC & Chem 7: 12/20/20 05:10 12/19/20 04:50 Labs: Laboratory Last Values WBC 23.6 K/mm3 (4.5-11.0) H 12/20/20 05:10 RBC 3.43 M/mm3 (3.65-5.03) L 12/20/20 05:10 Hgb 9.0 gm/dl (11.8-15.2) L 12/20/20 05:10 Hct 29.9 % (35.5-45.6) L 12/20/20 05:10 MCV 87 fl (84-94) 12/20/20 05:10 MCH 26 pg (28-32) L 12/20/20 05:10 MCHC 30 % (32-34) L 12/20/20 05:10 RDW 21.6 % (13.2-15.2) H 12/20/20 05:10 Plt Count 516 K/mm3 (140-440) H 12/20/20 05:10 Lymph % (Auto) 6.4 % (13.4-35.0) L 12/15/20 20:29 [place] % (Auto) 6.8 % (0.0-7.3) 12/15/20 20:29 Eos % (Auto) 0.7 % (0.0-4.3) 12/15/20 20: Baso % (Auto) 0.2 % (0.0-1.8) 12/15/20 20:29 Lymph # (Auto) 1.2 K/mm3 (1.2-5.4) 12/15/20 20:29 [place] # (Auto) 1.3 K/mm3 (0.0-0.8) H 12/15/20 20:29 Eos # (Auto) 0.1 K/mm3 (0.0-0.4) 12/15/20 20:29 Baso # (Auto) 0.0 K/mm3 (0.0-0.1) 12/15/20 20:29 Add Manual Diff Complete 12/17/20 04:27 Total Counted 100 12/17/20 04:27 Seg Neutrophils % 85.9 % (40.0-70.0) H 12/15/20 20:29 Seg Neuts % (Manual) 91.0 % (40.0-70.0) H 12/17/20 04:27 Lymphocytes % (Manual) 3.0 % (13.4-35.0) L 12/17/20 04:27 Monocytes % (Manual) 6.0 % (0.0-7.3) 12/17/20 04:27 Nucleated RBC % Not Reportable 12/17/20 04:27 Seg Neutrophils # 16.5 K/mm3 (1.8-7.7) H 12/15/20 20:29 Seg Neutrophils # Man 22.3 K/mm3 (1.8-7.7) H 12/17/20 04:27 Band Neutrophils # 0.0 K/mm3 12/17/20 04:27 Lymphocytes # (Manual) 0.7 K/mm3 (1.2-5.4) L 12/17/20 04:27 Abs React Lymphs (Man) 0.0 K/mm3 12/17/20 04:27 Monocytes # (Manual) 1.5 K/mm3 (0.0-0.8) H 12/17/20 04:27 Eosinophils # (Manual) 0.0 K/mm3 (0.0-0.4) 12/17/20 04:27 Basophils # (Manual) 0.0 K/mm3 (0.0-0.1) 12/17/20 04:27 Metamyelocytes # 0.0 K/mm3 12/17/20 04:27 Myelocytes # 0.0 K/mm3 12/17/20 04:27 Promyelocytes # 0.0 K/mm3 12/17/20 04:27 Blast Cells # 0.0 K/mm3 12/17/20 04:27 WBC Morphology Not Reportable 12/17/20 04:27 Hypersegmented Neuts Not Reportable 12/17/20 04:27 Hyposegmented Neuts Not Reportable 12/17/20 04:27 Hypogranular Neuts Not Reportable 12/17/20 04:27 Smudge Cells Not Reportable 12/17/20 04:27 Toxic Granulation Not Reportable 12/17/20 04:27 Toxic Vacuolation Not Reportable 12/17/20 04:27 Dohle Bodies Not Reportable 12/17/20 04:27 Pelger-Huet Anomaly Not Reportable 12/17/20 04:27 Marcell Rods Not Reportable 12/17/20 04:27 Platelet Estimate Consistent w auto 12/17/20 04:27 Clumped Platelets Not Reportable 12/17/20 04:27 Plt Clumps, EDTA Not Reportable 12/17/20 04:27 Large Platelets Not Reportable 12/17/20 04:27 Giant Platelets Not Reportable 12/17/20 04:27 Platelet Satelliting Not Reportable 12/17/20 04:27 Plt Morphology Comment Not Reportable 12/17/20 04:27 RBC Morphology Not Reportable 12/17/20 04:27 Dimorphic RBCs Not Reportable 12/17/20 04:27 Polychromasia Not Reportable 12/17/20 04:27 Hypochromasia 1+ 12/17/20 04:27 Poikilocytosis Not Reportable 12/17/20 04:27 Anisocytosis 1+ 12/17/20 04:27 Microcytosis Not Reportable 12/17/20 04:27 Macrocytosis Not Reportable 12/17/20 04:27 Spherocytes Not Reportable 12/17/20 04:27 Pappenheimer Bodies Not Reportable 12/17/20 04:27 Sickle Cells Not Reportable 12/17/20 04:27 Target Cells Not Reportable 12/17/20 04:27 Tear Drop Cells Not Reportable 12/17/20 04:27 Ovalocytes Not Reportable 12/17/20 04:27 Helmet Cells Not Reportable 12/17/20 04:27 [place] Bodies Not Reportable 12/17/20 04:27 [place] Rings Not Reportable 12/17/20 04:27 Lindley Cells Not Reportable 12/17/20 04:27 Bite Cells Not Reportable 12/17/20 04:27 Crenated Cell Not Reportable 12/17/20 04:27 Elliptocytes Not Reportable 12/17/20 04:27 Acanthocytes (Spur) Not Reportable 12/17/20 04:27 Rouleaux Not Reportable 12/17/20 04:27 Hemoglobin C Crystals Not Reportable 12/17/20 04:27 Schistocytes Not Reportable 12/17/20 04:27 Malaria parasites Not Reportable 12/17/20 04:27 Azeem Bodies Not Reportable 12/17/20 04:27 Hem Pathologist Commnt No 12/17/20 04:27 PT 16.7 Sec. (12.2-14.9) H 12/17/20 04:27 INR 1.22 (0.87-1.13) H 12/17/20 04:27 APTT 42.0 Sec. (24.2-36.6) H 12/15/20 20:29 ABG pH 7.374 pH Units (7.350-7.450) 12/18/20 11:56 ABG pCO2 31.0 mm Hg 12/18/20 11:56 ABG pO2 40.2 mm Hg (80.0-90.0) L 12/18/20 11:56 ABG HCO3 17.7 mmol/L (20.0-26.0) L 12/18/20 11:56 ABG O2 Saturation 73.9 % (95.0-99.0) L 12/18/20 11:56 ABG O2 Content 9.1 (0.0-44) 12/18/20 11:56 ABG Base Excess -6.7 mmol/L (-2.0-3.0) L 12/18/20 11:56 ABG Hemoglobin 9.0 gm/dl (14.0-18.0) L 12/18/20 11:56 ABG Carboxyhemoglobin 2.0 % (0.0-5.0) 12/18/20 11:56 ABG Methemoglobin 0.6 % (0.0-1.5) 12/18/20 11:56 Oxyhemoglobin 71.9 % (95.0-99.0) L 12/18/20 11:56 FiO2 21 % 12/18/20 11:56 Sodium 138 mmol/L (137-145) 12/19/20 04:50 Potassium 3.9 mmol/L (3.6-5.0) 12/19/20 04:50 Chloride 109.8 mmol/L (98-107) H 12/19/20 04:50 Carbon Dioxide 16 mmol/L (22-30) L 12/19/20 04:50 Anion Gap 16 mmol/L 12/19/20 04:50 BUN 21 mg/dL (9-20) H 12/19/20 04:50 Creatinine 0.7 mg/dL (0.8-1.3) L 12/19/20 04:50 Estimated GFR > 60 ml/min 12/19/20 04:50 BUN/Creatinine Ratio 30 % 12/19/20 04:50 Glucose 91 mg/dL (75-100) 12/19/20 04:50 POC Glucose 72 mg/dL (70-105) 12/15/20 23:48 Lactic Acid 0.80 mmol/L (0.7-2.0) 12/15/20 20:29 Calcium 7.9 mg/dL (8.4-10.2) L 12/19/20 04:50 Magnesium 1.50 mg/dL (1.7-2.3) L 12/18/20 18:40 Total Bilirubin 0.80 mg/dL (0.1-1.2) 12/15/20 20:29 AST 16 units/L (5-40) 12/15/20 20:29 ALT 17 units/L (7-56) 12/15/20 20:29 Alkaline Phosphatase 321 units/L (35-129) H 12/15/20 20:29 Ammonia 21.0 umol/L (25-60) L 12/15/20 21:28 Total Creatine Kinase 41 units/L (55-170) L 12/18/20 18:40 Troponin T 0.078 ng/mL (0.00-0.029) H D 12/16/20 20:19 Total Protein 7.0 g/dL (6.3-8.2) 12/15/20 20:29 Albumin 2.7 g/dL (3.9-5) L 12/15/20 20:29 Albumin/Globulin Ratio 0.6 % 12/15/20 20:29 Triglycerides 153 mg/dL (2-149) H 12/15/20 20:29 Cholesterol 95 mg/dL (50-199) 12/15/20 20:29 LDL Cholesterol Direct 23 mg/dL (50-130) L 12/15/20 20:29 HDL Cholesterol 27 mg/dL (40-59) L 12/15/20 20:29 Cholesterol/HDL Ratio 3.51 % 12/15/20 20: TSH 1.380 mlU/mL (0.270-4.200) 12/15/20 20:29 Urine Color Angela (Yellow) 12/15/20 20:20 Urine Turbidity Turbid (Clear) 12/15/20 20:20 Urine pH 7.0 (5.0-7.0) 12/15/20 20:20 Ur Specific [place] 1.012 (1.003-1.030) 12/15/20 20:20 Urine Protein 100 mg/dl mg/dL (Negative) 12/15/20 20:20 Urine Glucose (UA) Neg mg/dL (Negative) 12/15/20 20:20 Urine Ketones Neg mg/dL (Negative) 12/15/20 20:20 Urine Blood Lg (Negative) 12/15/20 20:20 Urine Nitrite Neg (Negative) 12/15/20 20:20 Urine Bilirubin Neg (Negative) 12/15/20 20:20 Urine Urobilinogen 4.0 mg/dL (<2.0) 12/15/20 20:20 Ur Leukocyte Esterase Lg (Negative) 12/15/20 20:20 Urine WBC (Auto) > 182.0 /HPF (0.0-6.0) H 12/15/20 20:20 Urine RBC (Auto) 117.0 /HPF (0.0-6.0) 12/15/20 20:20 Urine Bacteria (Auto) 3+ /HPF (Negative) 12/15/20 20:20 Urine WBC Clumps 3+ /HPF 12/15/20 20:20 Urine Mucus Few /HPF 12/15/20 20:20 Urine Yeast (Budding) 3+ /HPF 12/15/20 20:20 Nasal Screen MRSA (PCR) Negative (Negative) 12/17/20 Unknown Vancomycin Trough 30.2 ug/mL (5.0-20.0) H 12/20/20 05:10 Salicylates < 0.3 mg/dL (2.8-20.0) L 12/15/20 20:29 Acetaminophen 5.0 ug/mL (10.0-30.0) L 12/15/20 20:29 Plasma/Serum Alcohol < 0.01 % (0-0.07) 12/15/20 20:29 Coronavirus (PCR) Negative (Negative) 12/18/20 08:00 Blood Type A POSITIVE 12/15/20 20: Antibody Screen Negative 12/15/20 20:29 Crossmatch See Detail 12/15/20 20:29 Microbiology: Microbiology 12/15/20 20:29 Peripheral/Venous Blood Culture - Preliminary NO GROWTH AFTER 4 DAYS 12/15/20 20:29 Peripheral/Venous Blood Culture - Preliminary NO GROWTH AFTER 4 DAYS Kyle/IV: Voiding Method Indwelling Catheter Active Medications - Current Medications Current Medications: Generic Name Dose Route Start Last Admin Trade Name Freq PRN Reason Stop Dose Admin Acetaminophen 650 mg 12/15/20 23:59 12/16/20 00:32 Acetaminophen 650 Mg Rect Supp [place] 650 mg Q6H PRN Administration Pain MILD(1-3)/Fever >100.5/RHOADES Amantadine HCl 100 mg 12/16/20 17:00 12/19/20 09:16 Amantadine 100 Mg Cap PO 100 mg QDAY TIFF Administration Lipase/Protease/Amylase 1 each 12/16/20 15:13 Lipase 10,500/Protease 25,000/Amylase 43,750 (Units) Dr Conroy FEEDTUBE PRN PRN For Clogged Feeding Tube Gabapentin 600 mg 12/16/20 16:00 12/20/20 05:42 Gabapentin 300 Mg Cap PO 600 mg Q8HR TIFF Administration Ceftriaxone Sodium 2 gm in 100 mls @ 200 mls/hr 12/19/20 22:00 12/19/20 21:20 Rocephin/Ns 2 Gm/100 Ml IV 200 mls/hr Q24H TIFF Administration Magnesium Hydroxide 30 ml 12/15/20 23:59 Magnesium Hydroxide (Mom) Oral Liqd Udc PO Q4H PRN Constipation Metoprolol Tartrate 12.5 mg 12/17/20 22:00 12/19/20 21:21 Metoprolol Tartrate 25 Mg Tab PO 12.5 mg BID TIFF Administration Mirtazapine 15 mg 12/16/20 22:00 12/19/20 21:19 Mirtazapine 15 Mg Tab PO 15 mg QHS TIFF Administration Morphine Sulfate 2 mg 12/15/20 23:59 12/19/20 21:19 Morphine 2 Mg/1 Ml Inj IV 2 mg Q4H PRN Administration Pain, Moderate (4-6) Morphine Sulfate 4 mg 12/15/20 23:59 12/19/20 16:34 Morphine 4 Mg/1 Ml Inj IV 4 mg Q4H PRN Administration Pain , Severe (7-10) Ondansetron HCl 4 mg 12/15/20 23:59 12/17/20 04:55 Ondansetron 4 Mg/2 Ml Inj IV 4 mg Q8H PRN Administration Nausea And Vomiting Sertraline HCl 50 mg 12/16/20 17:00 12/19/20 09:16 Sertraline 50 Mg Tab PO 50 mg QDAY TIFF Administration Simple Syrup 15 ml 12/16/20 15:13 Simple Syrup 15 Ml FEEDTUBE PRN PRN Hypoglycemia Simple Syrup 30 ml 12/16/20 15:13 Simple Syrup 15 Ml FEEDTUBE PRN PRN Hypoglycemia Sodium Bicarbonate 325 mg 12/16/20 15:13 Sodium Bicarbonate 325 Mg Tab FEEDTUBE PRN PRN For Clogged Feeding Tube Sodium Chloride 10 ml 12/16/20 10:00 12/20/20 01:25 Sodium Chloride 0.9% 10 Ml Flush Syringe IV 10 ml BID TIFF Administration Sodium Chloride 10 ml 12/15/20 23:59 Sodium Chloride 0.9% 10 Ml Flush Syringe IV PRN PRN LINE FLUSH Tamsulosin HCl 0.4 mg 12/16/20 17:00 12/19/20 09:16 Tamsulosin 0.4 Mg Cap PO 0.4 mg QDAY TIFF Administration Nutrition/Malnutrition Assess - Dietary Evaluation Nutrition/Malnutrition Findings: Nutrition Notes Start: 12/16/20 13:54 Freq: Status: Active Protocol: Document 12/18/20 16:39 HAWK (Rec: 12/18/20 17:12 HAWK [id number]) Nutrition Notes Initial or Follow up Reassessment Current Diagnosis Acute Kidney Injury,Sepsis Other Pertinent Diagnosis Anemia, Hyperkalemia, UTI. Labs/Tests 12/18: K 3.4, Cl 110, CO2 16, BUN 30, Ca 8.2. Pertinent Medications 12/18: Nutritionally unremarkable. Height 6 ft Weight 81.647 kg [place] Body Weight (kg) 80.90 BMI 24.4 Subjective/Other Information RD consult for routine F/U on TF initiation. Percent of energy/protein needs met: Prescribed Regular Diet provides for energy/protein needs (2,289 Kcal/89 g) during LOS. Additionally TF provides for 1,000 Kcal and 45 g respectivelly. Burn Absent Trauma Absent GI Symptoms Other Food Allergy No Skin Integrity/Comment Surgical wound Current % PO Other Minimum of two criteria No #1 Nutrition Diagnosis Altered GI function Etiology Current concomitant conditions , PEG placement. As Evidenced by Signs and Symptoms Abnotrmal chemistry lab values , MD order for TF + PO Diet. Is patient on ventilator? No Is Patient Ambulatory and/or Out of Bed No [facility] 2043.468 Kcal/Kg value to use for calculation 25 Approximate Energy Requirements Using 2041 kcal/Kg Calculation Used for Recommendations Kcal/kg Additional Notes Protein: 1.2-1.5 g/Kg; 97-122 g/day (from IBW+critical care) . Fluids: 1 ml/Kcal, or as per MD. Nutrition Intervention Change Diet Order: Continue Regular Diet. Nutrition Support: Continue TF Nepro with CARBSTEADY @ 23 ml/hr; Flush 100 ml Q 4 hrs. Kcal 1,000 Protein (gm) 45 Carbohydrates (gm) 89 Fat (gm) 53 Fluid (mL) 404 Fiber (gm) 7 % RDI: 49% Kcal; 55% AA. Goal #1 Maintain body weight within +/ -3% of current BWt during LOS. Goal #2 Reach and mainatain acceptable chemistry lab values during LOS. Follow-Up By: 12/25/20 Additional Comments Continue monitoring food and TF tolerance, %PO intake of meals, Hydration, and BM.
[2020-12-20] MEDS: SERTRALINE 50 MG TAB PO SCH (09:47)
[2020-12-20] MEDS: METOPROLOL TARTRATE 25 MG TAB PO SCH ×2 (09:48→22:51)
[2020-12-20] MEDS: TAMSULOSIN 0.4 MG CAP PO SCH (09:49)
[2020-12-20] MEDS: MORPHINE 2 MG/1 ML INJ IV PRN ×3 (09:50→17:51)
--- NOTE | 2020-12-20 11:16 | Progress Note ---
Assessment and Plan - Patient Problems (1) Acute kidney injury Current Visit: Yes Status: Acute Plan to address problem: Prerenal azotemia secondary to sepsis/hypotension. Kidney function improving. Follow-up electrolytes and renal function (2) Metabolic acidosis Current Visit: Yes Status: Acute Plan to address problem: Metabolic acidosis persist. Will start p.o. sodium bicarbonate if tolerated (3) Hyperkalemia Current Visit: Yes Status: Acute Plan to address problem: Resolved. Follow-up potassium periodically (4) Anemia Current Visit: Yes Status: Resolved Plan to address problem: Follow-up hemoglobin (5) UTI (urinary tract infection) Current Visit: Yes Status: Acute Qualifiers: Urinary tract infection type: acute cystitis Hematuria presence: with hematuria Qualified Code(s): N30.01 - Acute cystitis with hematuria Plan to address problem: Continue antibiotics and follow-up Subjective Date of service: 12/20/20 Principal diagnosis: Urosepsis, Type 2 DE Interval history: Patient seen lying in bed. Complains "sore all over". No nausea or vomiting. Objective - Exam Narrative Exam: Frail middle-aged -[place] male lying in bed in no acute distress HEENT: NCAT, pink oral mucous membrane Neck: Supple, no venous distention CVS: S1S2 RRR with no murmur, rub or gallop Chest: Clear to auscultation Abdomen: Protuberant, soft, nontender, no organomegaly, bowel sounds are present Extremities: No edema, muscle wasting Neuro: Awake, looks dull - Vital Signs Vital signs: Vital Signs - 12hr 12/19/20 12/20/20 12/20/20 23:30 05:44 09:48 Temperature 98.7 F 98.0 F Pulse Rate 89 93 H 96 H Respiratory 18 18 Rate Blood Pressure 104/70 103/71 107/73 O2 Sat by Pulse 97 92 Oximetry - Lab 12/20/20 05:10 12/19/20 04:50 Most recent lab results ABG pH 7.374 pH Units (7.350-7.450) 12/18/20 11:56 ABG pCO2 31.0 mm Hg 12/18/20 11:56 ABG pO2 40.2 mm Hg (80.0-90.0) L 12/18/20 11:56 ABG HCO3 17.7 mmol/L (20.0-26.0) L 12/18/20 11:56 ABG O2 Saturation 73.9 % (95.0-99.0) L 12/18/20 11:56 Calcium 7.9 mg/dL (8.4-10.2) L 12/19/20 04:50 Magnesium 1.50 mg/dL (1.7-2.3) L 12/18/20 18:40 Medications & Allergies - Medications Allergies/Adverse Reactions: Allergies Penicillins Allergy (Verified 12/16/20 02:38) Itching Home Medications: Home Medications Medication Instructions Recorded Confirmed Last Taken Type Amantadine 10 mg FEEDTUBE DAILY 12/16/20 12/18/20 Unknown History Ascorbic Acid [Vitamin C with Irma 1 tab FEEDTUBE DAILY 12/16/20 12/18/20 Unknown History Hips] Aspirin BABY CHEW TAB 81 mg FEEDTUBE DAILY 12/16/20 12/18/20 Unknown History Cetirizine HCl [Cetirizine 10mg 1 tab FEEDTUBE DAILY 12/16/20 12/18/20 Unknown History chew] Gabapentin 1 cap FEEDTUBE TID 12/16/20 12/18/20 Unknown History Ibuprofen [Motrin] 800 mg FEEDTUBE Q8H PRN 12/16/20 12/18/20 Unknown History Multiple Vitamin TAB (Theragran) 1 tab FEEDTUBE DAILY 12/16/20 12/18/20 Unknown History Sennosides [Senna] 8.6 mg FEEDTUBE DAILY 12/16/20 12/18/20 Unknown History Sertraline [Zoloft] 1 tab FEEDTUBE DAILY 12/16/20 12/18/20 Unknown History Tamsulosin [Flomax] 1 cap FEEDTUBE DAILY 12/16/20 12/18/20 Unknown History Vitamin D3 50,000UNIT CAP 1 cap FEEDTUBE DAILY 12/16/20 12/18/20 Unknown History Zinc Sulfate 1 cap FEEDTUBE DAILY 12/16/20 12/18/20 Unknown History Active Medications: Generic Name Dose Route Start Last Admin Trade Name Freq PRN Reason Stop Dose Admin Acetaminophen 650 mg 12/15/20 23:59 12/16/20 00:32 Acetaminophen 650 Mg Rect Supp OK 650 mg Q6H PRN Administration Pain MILD(1-3)/Fever >100.5/RHOADES Amantadine HCl 100 mg 12/16/20 17:00 12/20/20 09:47 Amantadine 100 Mg Cap PO 100 mg QDAY TIFF Administration Lipase/Protease/Amylase 1 each 12/16/20 15:13 Lipase 10,500/Protease 25,000/Amylase 43,750 (Units) Dr Conroy FEEDTUBE PRN PRN For Clogged Feeding Tube Gabapentin 600 mg 12/16/20 16:00 12/20/20 05:42 Gabapentin 300 Mg Cap PO 600 mg Q8HR TIFF Administration Ceftriaxone Sodium 2 gm in 100 mls @ 200 mls/hr 12/19/20 22:00 12/19/20 21:20 Rocephin/Ns 2 Gm/100 Ml IV 200 mls/hr Q24H TIFF Administration Magnesium Hydroxide 30 ml 12/15/20 23:59 Magnesium Hydroxide (Mom) Oral Liqd Udc PO Q4H PRN Constipation Metoprolol Tartrate 12.5 mg 12/17/20 22:00 12/20/20 09:48 Metoprolol Tartrate 25 Mg Tab PO 12.5 mg BID TIFF Administration Mirtazapine 15 mg 12/16/20 22:00 12/19/20 21:19 Mirtazapine 15 Mg Tab PO 15 mg QHS TIFF Administration Morphine Sulfate 2 mg 12/15/20 23:59 12/20/20 09:50 Morphine 2 Mg/1 Ml Inj IV 2 mg Q4H PRN Administration Pain, Moderate (4-6) Morphine Sulfate 4 mg 12/15/20 23:59 12/19/20 16:34 Morphine 4 Mg/1 Ml Inj IV 4 mg Q4H PRN Administration Pain , Severe (7-10) Ondansetron HCl 4 mg 12/15/20 23:59 12/17/20 04:55 Ondansetron 4 Mg/2 Ml Inj IV 4 mg Q8H PRN Administration Nausea And Vomiting Sertraline HCl 50 mg 12/16/20 17:00 12/20/20 09:47 Sertraline 50 Mg Tab PO 50 mg QDAY TIFF Administration Simple Syrup 15 ml 12/16/20 15:13 Simple Syrup 15 Ml FEEDTUBE PRN PRN Hypoglycemia Simple Syrup 30 ml 12/16/20 15:13 Simple Syrup 15 Ml FEEDTUBE PRN PRN Hypoglycemia Sodium Bicarbonate 325 mg 12/16/20 15:13 Sodium Bicarbonate 325 Mg Tab FEEDTUBE PRN PRN For Clogged Feeding Tube Sodium Chloride 10 ml 12/16/20 10:00 12/20/20 09:50 Sodium Chloride 0.9% 10 Ml Flush Syringe IV 10 ml BID TIFF Administration Sodium Chloride 10 ml 12/15/20 23:59 Sodium Chloride 0.9% 10 Ml Flush Syringe IV PRN PRN LINE FLUSH Tamsulosin HCl 0.4 mg 12/16/20 17:00 12/20/20 09:49 Tamsulosin 0.4 Mg Cap PO 0.4 mg QDAY TIFF Administration
--- NOTE | 2020-12-20 12:26 | Progress Note ---
Assessment and Plan Hypotension Anemia requiring transfusions NSTEMI (non-ST elevated myocardial infarction) Sepsis UTI (urinary tract infection) - azotemia per nephrology - trend procalcitonin & lactic acid levels if WBC continues to rise - anti-infective's per ID rec's - continue care as below otherwise; - prn supplemental oxygen to keep O2 sats > 90% - Wound care per RN/WCT - prn Bronchodilators (DARWIN) with pulm hygiene per RT - continue to avoid nephrotoxins, renally dose all medications - continue mobility protocols to prevent pressure ulcers - PT/OT as tolerated - prn analgesia per pain score - accuchecks with glycemic control per SSI for target blood glucose < 180 mg/dL - tobacco abstinence counseling - home oxygen evaluation at discharge - GI & VTE prophylaxis - Flu & pneumovax per protocol - Pulmonary out patient follow up for PFTs and optimization of respiratory statu s - continue other care per attending / other consultants ... re-evaluate in am & prn Subjective Date of service: 12/20/20 Principal diagnosis: Hypotension; Anemia; NSTEMI; UTI Interval history: Patient is seen today for: Hypotension; Anemia; NSTEMI; UTI Seen and examined at bedside; 24hour events reviewed; nursing and respiratory care staff consulted; no adverse overnight events reported to me; resting peacefully in bed; leucocytosis is persistent; azotemia is better however he remains with metabolic acidosis; no emesis or overt aspiration Objective Vital Signs - 12hr 12/20/20 12/20/20 05:44 09:48 Temperature 98.0 F Pulse Rate 93 H 96 H Respiratory 18 Rate Blood Pressure 103/71 107/73 O2 Sat by Pulse 92 Oximetry Constitutional: no acute distress, alert Eyes: non-icteric ENT: other (Poor dental hygiene.) Neck: supple, no JVD Effort: normal Ascultation: Bilateral: rhonchi (scant) Percussion: Bilateral: not dull Cardiovascular: regular rate and rhythm Gastrointestinal: normoactive bowel sounds, soft, non-tender, non-distended Integumentary: decubitus ulcer (decubitus ulcer; please see [facility] notes for full description) Extremities: no cyanosis, no edema, pulses normal Neurologic: non-focal exam, pupils equal and round, CN II-XII normal, other (weak) Psychiatric: mood appropriate, affect normal CBC and BMP: 12/21/20 07:46 12/21/20 05:17 ABG, PT/INR, D-dimer: ABG ABG pH 7.374 pH Units (7.350-7.450) 12/18/20 11:56 ABG pCO2 31.0 mm Hg 12/18/20 11:56 ABG pO2 40.2 mm Hg (80.0-90.0) L 12/18/20 11:56 ABG O2 Saturation 73.9 % (95.0-99.0) L 12/18/20 11:56 PT/INR, D-dimer PT 16.7 Sec. (12.2-14.9) H 12/17/20 04:27 INR 1.22 (0.87-1.13) H 12/17/20 04:27 Abnormal lab findings: Abnormal Labs 12/15/20 12/15/20 12/15/20 20:20 20:29 20:29 WBC 19.2 H RBC 2.56 L Hgb 6.0 L Hct 20.2 L MCV 79 L MCH 24 L MCHC 30 L RDW 22.2 H Plt Count 512 H Lymph % (Auto) 6.4 L [place] # (Auto) 1.3 H Seg Neutrophils % 85.9 H Seg Neuts % (Manual) Lymphocytes % (Manual) Seg Neutrophils # 16.5 H Seg Neutrophils # Man Lymphocytes # (Manual) Monocytes # (Manual) PT INR APTT 42.0 H ABG pH ABG pO2 ABG HCO3 ABG O2 Saturation ABG Base Excess ABG Hemoglobin Oxyhemoglobin Sodium Potassium Chloride Carbon Dioxide BUN Creatinine Glucose Calcium Magnesium Alkaline Phosphatase Ammonia Total Creatine Kinase Troponin T Albumin Triglycerides LDL Cholesterol Direct HDL Cholesterol Urine WBC (Auto) > 182.0 H Vancomycin Trough Salicylates Acetaminophen Crossmatch 12/15/20 12/15/20 12/15/20 20:29 20:29 20:29 WBC RBC Hgb Hct MCV MCH MCHC RDW Plt Count Lymph % (Auto) [place] # (Auto) Seg Neutrophils % Seg Neuts % (Manual) Lymphocytes % (Manual) Seg Neutrophils # Seg Neutrophils # Man Lymphocytes # (Manual) Monocytes # (Manual) PT INR APTT ABG pH ABG pO2 ABG HCO3 ABG O2 Saturation ABG Base Excess ABG Hemoglobin Oxyhemoglobin Sodium 131 L Potassium 6.0 H Chloride 95.1 L Carbon Dioxide BUN 70 H Creatinine 2.2 H Glucose 113 H Calcium Magnesium Alkaline Phosphatase 321 H Ammonia Total Creatine Kinase Troponin T 0.215 H* Albumin 2.7 L Triglycerides 153 H LDL Cholesterol Direct 23 L HDL Cholesterol 27 L Urine WBC (Auto) Vancomycin Trough Salicylates < 0.3 L Acetaminophen Crossmatch See Detail 12/15/20 12/15/20 12/15/20 20:29 20:29 21:28 WBC RBC Hgb Hct MCV MCH MCHC RDW Plt Count Lymph % (Auto) [place] # (Auto) Seg Neutrophils % Seg Neuts % (Manual) Lymphocytes % (Manual) Seg Neutrophils # Seg Neutrophils # Man Lymphocytes # (Manual) Monocytes # (Manual) PT 15.8 H INR 1.14 H APTT ABG pH ABG pO2 ABG HCO3 ABG O2 Saturation ABG Base Excess ABG Hemoglobin Oxyhemoglobin Sodium Potassium Chloride Carbon Dioxide BUN Creatinine Glucose Calcium Magnesium Alkaline Phosphatase Ammonia 21.0 L Total Creatine Kinase Troponin T Albumin Triglycerides LDL Cholesterol Direct HDL Cholesterol Urine WBC (Auto) Vancomycin Trough Salicylates Acetaminophen 5.0 L Crossmatch 12/16/20 12/16/20 12/16/20 06:02 06:02 20:19 WBC 16.4 H RBC 3.19 L Hgb 8.1 L Hct 26.3 L D MCV 82 L MCH 25 L MCHC 31 L RDW 20.3 H Plt Count Lymph % (Auto) [place] # (Auto) Seg Neutrophils % Seg Neuts % (Manual) Lymphocytes % (Manual) Seg Neutrophils # Seg Neutrophils # Man Lymphocytes # (Manual) Monocytes # (Manual) PT INR APTT ABG pH ABG pO2 ABG HCO3 ABG O2 Saturation ABG Base Excess ABG Hemoglobin Oxyhemoglobin Sodium Potassium Chloride 112.9 H Carbon Dioxide 15 L D BUN 47 H Creatinine Glucose 185 H Calcium 7.2 L D Magnesium Alkaline Phosphatase Ammonia Total Creatine Kinase Troponin T 0.126 H* D 0.078 H D Albumin Triglycerides LDL Cholesterol Direct HDL Cholesterol Urine WBC (Auto) Vancomycin Trough Salicylates Acetaminophen Crossmatch 12/17/20 12/17/20 12/17/20 04:27 04:27 04:27 WBC 24.5 H RBC 3.51 L Hgb 9.0 L Hct 28.9 L MCV 82 L MCH 26 L MCHC 31 L RDW 20.9 H Plt Count 585 H Lymph % (Auto) [place] # (Auto) Seg Neutrophils % Seg Neuts % (Manual) 91.0 H Lymphocytes % (Manual) 3.0 L Seg Neutrophils # Seg Neutrophils # Man 22.3 H Lymphocytes # (Manual) 0.7 L Monocytes # (Manual) 1.5 H PT 16.7 H INR 1.22 H APTT ABG pH ABG pO2 ABG HCO3 ABG O2 Saturation ABG Base Excess ABG Hemoglobin Oxyhemoglobin Sodium Potassium Chloride 115.2 H Carbon Dioxide 16 L BUN 41 H Creatinine Glucose 105 H Calcium Magnesium Alkaline Phosphatase Ammonia Total Creatine Kinase Troponin T Albumin Triglycerides LDL Cholesterol Direct HDL Cholesterol Urine WBC (Auto) Vancomycin Trough Salicylates Acetaminophen Crossmatch 12/18/20 12/18/20 12/18/20 04:40 07:53 07:53 WBC 19.3 H RBC 3.56 L Hgb 9.0 L Hct 29.3 L MCV 82 L MCH 25 L MCHC 31 L RDW 21.3 H Plt Count 593 H Lymph % (Auto) [place] # (Auto) Seg Neutrophils % Seg Neuts % (Manual) Lymphocytes % (Manual) Seg Neutrophils # Seg Neutrophils # Man Lymphocytes # (Manual) Monocytes # (Manual) PT INR APTT ABG pH 7.460 H ABG pO2 250.2 H ABG HCO3 19.8 L ABG O2 Saturation 99.4 H ABG Base Excess -3.6 L ABG Hemoglobin 6.9 L Oxyhemoglobin Sodium Potassium 3.4 L D Chloride 110.0 H Carbon Dioxide 16 L BUN 30 H Creatinine Glucose Calcium 8.2 L Magnesium Alkaline Phosphatase Ammonia Total Creatine Kinase Troponin T Albumin Triglycerides LDL Cholesterol Direct HDL Cholesterol Urine WBC (Auto) Vancomycin Trough Salicylates Acetaminophen Crossmatch 12/18/20 12/18/20 12/19/20 11:56 18:40 04:50 WBC 24.1 H RBC 3.37 L Hgb 8.5 L Hct 28.0 L MCV 83 L MCH 25 L MCHC 30 L RDW 21.4 H Plt Count 563 H Lymph % (Auto) [place] # (Auto) Seg Neutrophils % Seg Neuts % (Manual) Lymphocytes % (Manual) Seg Neutrophils # Seg Neutrophils # Man Lymphocytes # (Manual) Monocytes # (Manual) PT INR APTT ABG pH ABG pO2 40.2 L ABG HCO3 17.7 L ABG O2 Saturation 73.9 L ABG Base Excess -6.7 L ABG Hemoglobin 9.0 L Oxyhemoglobin 71.9 L Sodium Potassium Chloride Carbon Dioxide BUN Creatinine Glucose Calcium Magnesium 1.50 L Alkaline Phosphatase Ammonia Total Creatine Kinase 41 L Troponin T Albumin Triglycerides LDL Cholesterol Direct HDL Cholesterol Urine WBC (Auto) Vancomycin Trough Salicylates Acetaminophen Crossmatch 12/19/20 12/20/20 12/20/20 04:50 05:10 05:10 WBC 23.6 H RBC 3.43 L Hgb 9.0 L Hct 29.9 L MCV MCH 26 L MCHC 30 L RDW 21.6 H Plt Count 516 H Lymph % (Auto) [place] # (Auto) Seg Neutrophils % Seg Neuts % (Manual) Lymphocytes % (Manual) Seg Neutrophils # Seg Neutrophils # Man Lymphocytes # (Manual) Monocytes # (Manual) PT INR APTT ABG pH ABG pO2 ABG HCO3 ABG O2 Saturation ABG Base Excess ABG Hemoglobin Oxyhemoglobin Sodium Potassium Chloride 109.8 H Carbon Dioxide 16 L BUN 21 H Creatinine 0.7 L Glucose Calcium 7.9 L Magnesium Alkaline Phosphatase Ammonia Total Creatine Kinase Troponin T Albumin Triglycerides LDL Cholesterol Direct HDL Cholesterol Urine WBC (Auto) Vancomycin Trough 30.2 H Salicylates Acetaminophen Crossmatch Allied health notes reviewed: nursing
[2020-12-20] MEDS: cefTRIAXone/NS 2 GM/100 ML 2 GM/100 ML BAG IV SCH (22:52)
[2020-12-20] MEDS: MIRTAZAPINE 15 MG TAB PO SCH (22:52)
[2020-12-20] MEDS: MORPHINE 4 MG/1 ML INJ IV PRN (22:53)
[2020-12-21] MEDS: MORPHINE 4 MG/1 ML INJ IV PRN (05:14)
[2020-12-21] MEDS: GABAPENTIN 300 MG CAP PO SCH ×3 (05:15→22:09)
[2020-12-21 06:24] LABS: Blood Urea Nitrogen 15 mg/dL (9-20); Hemolysis Index 3
[2020-12-21 06:27] LABS: BUN/Creatinine Ratio 25
[2020-12-21 08:16] LABS: Hematocrit 28.8 % (35.5-45.6); Hemoglobin 8.7 gm/dl (11.8-15.2); Mean Corpuscular HGB Conc 30 % (32-34); Mean Corpuscular Volume 83 fl (84-94); Platelet Count 644 K/mm3 (140-440); Red Blood Count 3.45 M/mm3 (3.65-5.03)
[2020-12-21 08:18] LABS: Red Cell Distribution Width 21.6 % (13.2-15.2)
[2020-12-21] MEDS ORDERED: POTASSIUM PHOSPHATE 45 MMOL in SODIUM CHLORIDE 0.9% 500 ML 500 ML IV ONE (09:00)
--- NOTE | 2020-12-21 12:46 | Progress Note ---
Assessment and Plan Assessment and plan: #UTI -complicated -UCx: 10-100k Klebsiella sensitive to rocephin -continue rocephin -ID following, assistance appreciated #Anemia requiring transfusion -s/p 2 units pRBC -H&H stable -will transfuse for Hgb less than 7 #Leukocytosis -WBC count increasing -afebrile -BCx NGTD x 5 days #Hypokalemia -resolved -will continue to monitor K levels #Acute kidney injury-resolved -likely 2/2 to vasomotor nephropathy -will continue to monitor -Nephrology consulted, assistance appreciated #Stage III Decubitus ulcers -chronic -continue wound care #Malnutrition -albumin 2.7 -Nutrition consulted -will continue PEG feeds in addition to oral feeds to improve healing. Resolved issues #Hypotension-resolved #Hyperkalemia-resolved #Type II NSTEMI -troponin 0.215, downtrending to 0.078 -Echo showed EF 45-50% -Cardiology evaluated patient, no intervention at this time -likely 2/2 BERNICE Disposition Plan: NH once medically stable Total Time Spent with Patient (Minutes): 20 minutes History Interval history: No acute events overnight. Continues to have lower back pain. No complaints at this time. Hospitalist Physical - Physical exam Narrative exam: GENERAL: Thin male. Lying in bed no acute distress. CHEST/LUNGS: CTAB on 2L NC HEART/CARDIOVASCULAR: RRR. No murmur, rubs or gallops appreciated. ABDOMEN: PEG tube in place. Abdominal wound dressed and intact. +BS. NT/ND. NEURO: No focal motor deficit. EXTREMITIES: Bilateral metatarsal amputation PSYCH: Cooperative. - Constitutional Vitals: Temp Pulse Resp BP Pulse Ox 98.1 F 94 H 18 105/69 95 12/21/20 04:31 12/21/20 04:31 12/21/20 04:31 12/21/20 04:31 12/21/20 04:31 General appearance: Present: no acute distress HEART Score - HEART Score Troponin: Troponin T 0.078 ng/mL (0.00-0.029) H D 12/16/20 20:19 Results - Labs CBC & Chem 7: 12/21/20 07:46 12/21/20 05:17 Labs: Laboratory Last Values WBC 31.7 K/mm3 (4.5-11.0) H 12/21/20 07:46 RBC 3.45 M/mm3 (3.65-5.03) L 12/21/20 07:46 Hgb 8.7 gm/dl (11.8-15.2) L 12/21/20 07:46 Hct 28.8 % (35.5-45.6) L 12/21/20 07:46 MCV 83 fl (84-94) L 12/21/20 07:46 MCH 25 pg (28-32) L 12/21/20 07:46 MCHC 30 % (32-34) L 12/21/20 07:46 RDW 21.6 % (13.2-15.2) H 12/21/20 07:46 Plt Count 644 K/mm3 (140-440) H 12/21/20 07:46 Lymph % (Auto) 6.4 % (13.4-35.0) L 12/15/20 20:29 [place] % (Auto) 6.8 % (0.0-7.3) 12/15/20 20: Eos % (Auto) 0.7 % (0.0-4.3) 12/15/20 20:29 Baso % (Auto) 0.2 % (0.0-1.8) 12/15/20 20: Lymph # (Auto) 1.2 K/mm3 (1.2-5.4) 12/15/20 20:29 [place] # (Auto) 1.3 K/mm3 (0.0-0.8) H 12/15/20 20:29 Eos # (Auto) 0.1 K/mm3 (0.0-0.4) 12/15/20 20:29 Baso # (Auto) 0.0 K/mm3 (0.0-0.1) 12/15/20 20:29 Add Manual Diff Complete 12/17/20 04:27 Total Counted 100 12/17/20 04:27 Seg Neutrophils % 85.9 % (40.0-70.0) H 12/15/20 20:29 Seg Neuts % (Manual) 91.0 % (40.0-70.0) H 12/17/20 04:27 Lymphocytes % (Manual) 3.0 % (13.4-35.0) L 12/17/20 04:27 Monocytes % (Manual) 6.0 % (0.0-7.3) 12/17/20 04:27 Nucleated RBC % Not Reportable 12/17/20 04:27 Seg Neutrophils # 16.5 K/mm3 (1.8-7.7) H 12/15/20 20:29 Seg Neutrophils # Man 22.3 K/mm3 (1.8-7.7) H 12/17/20 04:27 Band Neutrophils # 0.0 K/mm3 12/17/20 04:27 Lymphocytes # (Manual) 0.7 K/mm3 (1.2-5.4) L 12/17/20 04:27 Abs React Lymphs (Man) 0.0 K/mm3 12/17/20 04:27 Monocytes # (Manual) 1.5 K/mm3 (0.0-0.8) H 12/17/20 04:27 Eosinophils # (Manual) 0.0 K/mm3 (0.0-0.4) 12/17/20 04:27 Basophils # (Manual) 0.0 K/mm3 (0.0-0.1) 12/17/20 04:27 Metamyelocytes # 0.0 K/mm3 12/17/20 04:27 Myelocytes # 0.0 K/mm3 12/17/20 04:27 Promyelocytes # 0.0 K/mm3 12/17/20 04:27 Blast Cells # 0.0 K/mm3 12/17/20 04:27 WBC Morphology Not Reportable 12/17/20 04:27 Hypersegmented Neuts Not Reportable 12/17/20 04:27 Hyposegmented Neuts Not Reportable 12/17/20 04:27 Hypogranular Neuts Not Reportable 12/17/20 04:27 Smudge Cells Not Reportable 12/17/20 04:27 Toxic Granulation Not Reportable 12/17/20 04:27 Toxic Vacuolation Not Reportable 12/17/20 04:27 Dohle Bodies Not Reportable 12/17/20 04:27 Pelger-Huet Anomaly Not Reportable 12/17/20 04:27 Marcell Rods Not Reportable 12/17/20 04:27 Platelet Estimate Consistent w auto 12/17/20 04:27 Clumped Platelets Not Reportable 12/17/20 04:27 Plt Clumps, EDTA Not Reportable 12/17/20 04:27 Large Platelets Not Reportable 12/17/20 04:27 Giant Platelets Not Reportable 12/17/20 04:27 Platelet Satelliting Not Reportable 12/17/20 04:27 Plt Morphology Comment Not Reportable 12/17/20 04:27 RBC Morphology Not Reportable 12/17/20 04:27 Dimorphic RBCs Not Reportable 12/17/20 04:27 Polychromasia Not Reportable 12/17/20 04:27 Hypochromasia 1+ 12/17/20 04:27 Poikilocytosis Not Reportable 12/17/20 04:27 Anisocytosis 1+ 12/17/20 04:27 Microcytosis Not Reportable 12/17/20 04:27 Macrocytosis Not Reportable 12/17/20 04:27 Spherocytes Not Reportable 12/17/20 04:27 Pappenheimer Bodies Not Reportable 12/17/20 04:27 Sickle Cells Not Reportable 12/17/20 04:27 Target Cells Not Reportable 12/17/20 04:27 Tear Drop Cells Not Reportable 12/17/20 04:27 Ovalocytes Not Reportable 12/17/20 04:27 Helmet Cells Not Reportable 12/17/20 04:27 Joshi-Faribault Bodies Not Reportable 12/17/20 04:27 Uledi Rings Not Reportable 12/17/20 04:27 Nicol Cells Not Reportable 12/17/20 04:27 Bite Cells Not Reportable 12/17/20 04:27 Crenated Cell Not Reportable 12/17/20 04:27 Elliptocytes Not Reportable 12/17/20 04:27 Acanthocytes (Spur) Not Reportable 12/17/20 04:27 Rouleaux Not Reportable 12/17/20 04:27 Hemoglobin C Crystals Not Reportable 12/17/20 04:27 Schistocytes Not Reportable 12/17/20 04:27 Malaria parasites Not Reportable 12/17/20 04:27 Azeem Bodies Not Reportable 12/17/20 04:27 Hem Pathologist Commnt No 12/17/20 04:27 PT 16.7 Sec. (12.2-14.9) H 12/17/20 04:27 INR 1.22 (0.87-1.13) H 12/17/20 04:27 APTT 42.0 Sec. (24.2-36.6) H 12/15/20 20:29 ABG pH 7.374 pH Units (7.350-7.450) 12/18/20 11:56 ABG pCO2 31.0 mm Hg 12/18/20 11:56 ABG pO2 40.2 mm Hg (80.0-90.0) L 12/18/20 11:56 ABG HCO3 17.7 mmol/L (20.0-26.0) L 12/18/20 11:56 ABG O2 Saturation 73.9 % (95.0-99.0) L 12/18/20 11:56 ABG O2 Content 9.1 (0.0-44) 12/18/20 11:56 ABG Base Excess -6.7 mmol/L (-2.0-3.0) L 12/18/20 11:56 ABG Hemoglobin 9.0 gm/dl (14.0-18.0) L 12/18/20 11:56 ABG Carboxyhemoglobin 2.0 % (0.0-5.0) 12/18/20 11:56 ABG Methemoglobin 0.6 % (0.0-1.5) 12/18/20 11:56 Oxyhemoglobin 71.9 % (95.0-99.0) L 12/18/20 11:56 FiO2 21 % 12/18/20 11:56 Sodium 138 mmol/L (137-145) 12/21/20 05:17 Potassium 3.3 mmol/L (3.6-5.0) L 12/21/20 05:17 Chloride 109.3 mmol/L (98-107) H 12/21/20 05:17 Carbon Dioxide 17 mmol/L (22-30) L 12/21/20 05:17 Anion Gap 15 mmol/L 12/21/20 05:17 BUN 15 mg/dL (9-20) 12/21/20 05:17 Creatinine 0.6 mg/dL (0.8-1.3) L 12/21/20 05:17 Estimated GFR > 60 ml/min 12/21/20 05:17 BUN/Creatinine Ratio 25 % 12/21/20 05:17 Glucose 123 mg/dL (75-100) H 12/21/20 05:17 POC Glucose 72 mg/dL (70-105) 12/15/20 23:48 Lactic Acid 0.80 mmol/L (0.7-2.0) 12/15/20 20:29 Calcium 8.0 mg/dL (8.4-10.2) L 12/21/20 05:17 Phosphorus 2.00 mg/dL (2.5-4.5) L 12/21/20 05:17 Magnesium 1.70 mg/dL (1.7-2.3) 12/21/20 05:17 Total Bilirubin 0.80 mg/dL (0.1-1.2) 12/15/20 20:29 AST 16 units/L (5-40) 12/15/20 20:29 ALT 17 units/L (7-56) 12/15/20 20:29 Alkaline Phosphatase 321 units/L (35-129) H 12/15/20 20:29 Ammonia 21.0 umol/L (25-60) L 12/15/20 21:28 Total Creatine Kinase 41 units/L (55-170) L 12/18/20 18:40 Troponin T 0.078 ng/mL (0.00-0.029) H D 12/16/20 20:19 Total Protein 7.0 g/dL (6.3-8.2) 12/15/20 20: Albumin 2.7 g/dL (3.9-5) L 12/15/20 20:29 Albumin/Globulin Ratio 0.6 % 12/15/20 20:29 Triglycerides 153 mg/dL (2-149) H 12/15/20 20:29 Cholesterol 95 mg/dL (50-199) 12/15/20 20:29 LDL Cholesterol Direct 23 mg/dL (50-130) L 12/15/20 20:29 HDL Cholesterol 27 mg/dL (40-59) L 12/15/20 20:29 Cholesterol/HDL Ratio 3.51 % 12/15/20 20: TSH 1.380 mlU/mL (0.270-4.200) 12/15/20 20:29 Urine Color Angela (Yellow) 12/15/20 20:20 Urine Turbidity Turbid (Clear) 12/15/20 20:20 Urine pH 7.0 (5.0-7.0) 12/15/20 20:20 Ur Specific [place] 1.012 (1.003-1.030) 12/15/20 20:20 Urine Protein 100 mg/dl mg/dL (Negative) 12/15/20 20:20 Urine Glucose (UA) Neg mg/dL (Negative) 12/15/20 20:20 Urine Ketones Neg mg/dL (Negative) 12/15/20 20:20 Urine Blood Lg (Negative) 12/15/20 20:20 Urine Nitrite Neg (Negative) 12/15/20 20:20 Urine Bilirubin Neg (Negative) 12/15/20 20:20 Urine Urobilinogen 4.0 mg/dL (<2.0) 12/15/20 20:20 Ur Leukocyte Esterase Lg (Negative) 12/15/20 20:20 Urine WBC (Auto) > 182.0 /HPF (0.0-6.0) H 12/15/20 20:20 Urine RBC (Auto) 117.0 /HPF (0.0-6.0) 12/15/20 20:20 Urine Bacteria (Auto) 3+ /HPF (Negative) 12/15/20 20:20 Urine WBC Clumps 3+ /HPF 12/15/20 20:20 Urine Mucus Few /HPF 12/15/20 20:20 Urine Yeast (Budding) 3+ /HPF 12/15/20 20:20 Nasal Screen MRSA (PCR) Negative (Negative) 12/17/20 Unknown Vancomycin Trough 30.2 ug/mL (5.0-20.0) H 12/20/20 05:10 Salicylates < 0.3 mg/dL (2.8-20.0) L 12/15/20 20:29 Acetaminophen 5.0 ug/mL (10.0-30.0) L 12/15/20 20:29 Plasma/Serum Alcohol < 0.01 % (0-0.07) 12/15/20 20:29 Coronavirus (PCR) Negative (Negative) 12/18/20 08:00 Blood Type A POSITIVE 12/15/20 20:29 Antibody Screen Negative 12/15/20 20:29 Crossmatch See Detail 12/15/20 20:29 Microbiology: Microbiology 12/15/20 20:29 Peripheral/Venous Blood Culture - Final NO GROWTH AFTER 5 DAYS 12/15/20 20:29 Peripheral/Venous Blood Culture - Final NO GROWTH AFTER 5 DAYS Kyle/IV: Voiding Method Incontinent Active Medications - Current Medications Current Medications: Generic Name Dose Route Start Last Admin Trade Name Freq PRN Reason Stop Dose Admin Acetaminophen 650 mg 12/15/20 23:59 12/16/20 00:32 Acetaminophen 650 Mg Rect Supp [place] 650 mg Q6H PRN Administration Pain MILD(1-3)/Fever >100.5/RHOADES Amantadine HCl 100 mg 12/16/20 17:00 12/20/20 09:47 Amantadine 100 Mg Cap PO 100 mg QDAY TIFF Administration Lipase/Protease/Amylase 1 each 12/16/20 15:13 Lipase 10,500/Protease 25,000/Amylase 43,750 (Units) Dr Conroy FEEDTUBE PRN PRN For Clogged Feeding Tube Gabapentin 600 mg 12/16/20 16:00 12/21/20 05:15 Gabapentin 300 Mg Cap PO 600 mg Q8HR TIFF Administration Ceftriaxone Sodium 2 gm in 100 mls @ 200 mls/hr 12/19/20 22:00 12/20/20 22:52 Rocephin/Ns 2 Gm/100 Ml IV 200 mls/hr Q24H TIFF Administration Potassium Phosphate 45 mmol/ 515 mls @ 85 mls/hr 12/21/20 09:00 12/21/20 11:23 Sodium Chloride IV 12/21/20 15:03 85 mls/hr ONCE ONE Administration Magnesium Hydroxide 30 ml 12/15/20 23:59 Magnesium Hydroxide (Mom) Oral Liqd Udc PO Q4H PRN Constipation Metoprolol Tartrate 12.5 mg 12/17/20 22:00 12/20/20 22:51 Metoprolol Tartrate 25 Mg Tab PO 12.5 mg BID TIFF Administration Mirtazapine 15 mg 12/16/20 22:00 12/20/20 22:52 Mirtazapine 15 Mg Tab PO 15 mg QHS TIFF Administration Morphine Sulfate 2 mg 12/15/20 23:59 12/20/20 17:51 Morphine 2 Mg/1 Ml Inj IV 2 mg Q4H PRN Administration Pain, Moderate (4-6) Morphine Sulfate 4 mg 12/15/20 23:59 12/21/20 05:14 Morphine 4 Mg/1 Ml Inj IV 4 mg Q4H PRN Administration Pain , Severe (7-10) Ondansetron HCl 4 mg 12/15/20 23:59 12/17/20 04:55 Ondansetron 4 Mg/2 Ml Inj IV 4 mg Q8H PRN Administration Nausea And Vomiting Sertraline HCl 50 mg 12/16/20 17:00 12/20/20 09:47 Sertraline 50 Mg Tab PO 50 mg QDAY TIFF Administration Simple Syrup 15 ml 12/16/20 15:13 Simple Syrup 15 Ml FEEDTUBE PRN PRN Hypoglycemia Simple Syrup 30 ml 12/16/20 15:13 Simple Syrup 15 Ml FEEDTUBE PRN PRN Hypoglycemia Sodium Bicarbonate 325 mg 12/16/20 15:13 Sodium Bicarbonate 325 Mg Tab FEEDTUBE PRN PRN For Clogged Feeding Tube Sodium Chloride 10 ml 12/16/20 10:00 12/21/20 11:25 Sodium Chloride 0.9% 10 Ml Flush Syringe IV 10 ml BID TIFF Administration Sodium Chloride 10 ml 12/15/20 23:59 Sodium Chloride 0.9% 10 Ml Flush Syringe IV PRN PRN LINE FLUSH Tamsulosin HCl 0.4 mg 12/16/20 17:00 12/20/20 09:49 Tamsulosin 0.4 Mg Cap PO 0.4 mg QDAY TIFF Administration Nutrition/Malnutrition Assess - Dietary Evaluation Nutrition/Malnutrition Findings: Nutrition Notes Start: 12/16/20 13:54 Freq: Status: Active Protocol: Document 12/18/20 16:39 HAWK (Rec: 12/18/20 17:12 HAWK [id number]) Nutrition Notes Initial or Follow up Reassessment Current Diagnosis Acute Kidney Injury,Sepsis Other Pertinent Diagnosis Anemia, Hyperkalemia, UTI. Labs/Tests 12/18: K 3.4, Cl 110, CO2 16, BUN 30, Ca 8.2. Pertinent Medications 12/18: Nutritionally unremarkable. Height 6 ft Weight 81.647 kg [place] Body Weight (kg) 80.90 BMI 24.4 Subjective/Other Information RD consult for routine F/U on TF initiation. Percent of energy/protein needs met: Prescribed Regular Diet provides for energy/protein needs (2,289 Kcal/89 g) during LOS. Additionally TF provides for 1,000 Kcal and 45 g respectivelly. Burn Absent Trauma Absent GI Symptoms Other Food Allergy No Skin Integrity/Comment Surgical wound Current % PO Other Minimum of two criteria No #1 Nutrition Diagnosis Altered GI function Etiology Current concomitant conditions , PEG placement. As Evidenced by Signs and Symptoms Abnotrmal chemistry lab values , MD order for TF + PO Diet. Is patient on ventilator? No Is Patient Ambulatory and/or Out of Bed No REE-([place]-confined to bed) 2043.468 Kcal/Kg value to use for calculation 25 Approximate Energy Requirements Using 2041 kcal/Kg Calculation Used for Recommendations Kcal/kg Additional Notes Protein: 1.2-1.5 g/Kg; 97-122 g/day (from IBW+critical care) . Fluids: 1 ml/Kcal, or as per MD. Nutrition Intervention Change Diet Order: Continue Regular Diet. Nutrition Support: Continue TF Nepro with CARBSTEADY @ 23 ml/hr; Flush 100 ml Q 4 hrs. Kcal 1,000 Protein (gm) 45 Carbohydrates (gm) 89 Fat (gm) 53 Fluid (mL) 404 Fiber (gm) 7 % RDI: 49% Kcal; 55% AA. Goal #1 Maintain body weight within +/ -3% of current BWt during LOS. Goal #2 Reach and mainatain acceptable chemistry lab values during LOS. Follow-Up By: 12/25/20 Additional Comments Continue monitoring food and TF tolerance, %PO intake of meals, Hydration, and BM.
[2020-12-21] MEDS: METOPROLOL TARTRATE 25 MG TAB PO SCH ×2 (13:59→22:09)
[2020-12-21] MEDS: SERTRALINE 50 MG TAB PO SCH (13:59)
[2020-12-21] MEDS: TAMSULOSIN 0.4 MG CAP PO SCH (14:03)
--- NOTE | 2020-12-21 15:19 | Progress Note ---
Assessment and Plan - Patient Problems (1) Acute kidney injury Current Visit: Yes Status: Acute Plan to address problem: Prerenal azotemia secondary to sepsis/hypotension. Kidney function improved back to normal. Follow-up electrolytes and renal function (2) Metabolic acidosis Current Visit: Yes Status: Acute Plan to address problem: Metabolic acidosis persist. Will start p.o. sodium bicarbonate if tolerated (3) Hypophosphatemia Current Visit: Yes Status: Acute Plan to address problem: Supplement phosphorus and follow-up levels. (4) Hyperkalemia Current Visit: Yes Status: Acute Plan to address problem: Resolved. Potassium is now low. Supplement potassium. Follow-up potassium periodically (5) Anemia Current Visit: Yes Status: Resolved Plan to address problem: Follow-up hemoglobin (6) UTI (urinary tract infection) Current Visit: Yes Status: Acute Qualifiers: Urinary tract infection type: acute cystitis Hematuria presence: with hematuria Plan to address problem: Continue antibiotics and follow-up Subjective Date of service: 12/21/20 Principal diagnosis: Hypotension; Anemia; NSTEMI; UTI Interval history: Patient seen lying in bed. Complains "sore all over". No nausea or vomiting. Objective - Exam Narrative Exam: Frail middle-aged -[place] male lying in bed in no acute distress HEENT: NCAT, pink oral mucous membrane Neck: Supple, no venous distention CVS: S1S2 RRR with no murmur, rub or gallop Chest: Clear to auscultation Abdomen: Protuberant, soft, nontender, no organomegaly, bowel sounds are present Extremities: No edema, muscle wasting Neuro: Awake, looks dull - Vital Signs Vital signs: Vital Signs - 12hr 12/21/20 12/21/20 12/21/20 04:31 12:25 13:59 Temperature 98.1 F 97.8 F Pulse Rate 94 H 91 H 91 H Respiratory 18 18 Rate Blood Pressure 105/69 100/71 100/71 O2 Sat by Pulse 95 98 Oximetry - Lab 12/21/20 07:46 12/21/20 05:17 Most recent lab results ABG pH 7.374 pH Units (7.350-7.450) 12/18/20 11:56 ABG pCO2 31.0 mm Hg 12/18/20 11:56 ABG pO2 40.2 mm Hg (80.0-90.0) L 12/18/20 11:56 ABG HCO3 17.7 mmol/L (20.0-26.0) L 12/18/20 11:56 ABG O2 Saturation 73.9 % (95.0-99.0) L 12/18/20 11:56 Calcium 8.0 mg/dL (8.4-10.2) L 12/21/20 05:17 Phosphorus 2.00 mg/dL (2.5-4.5) L 12/21/20 05:17 Magnesium 1.70 mg/dL (1.7-2.3) 12/21/20 05:17 Medications & Allergies - Medications Allergies/Adverse Reactions: Allergies Penicillins Allergy (Verified 12/16/20 02:38) Itching Home Medications: Home Medications Medication Instructions Recorded Confirmed Last Taken Type Amantadine 10 mg FEEDTUBE DAILY 12/16/20 12/18/20 Unknown History Ascorbic Acid [Vitamin C with Irma 1 tab FEEDTUBE DAILY 12/16/20 12/18/20 Unknown History Hips] Aspirin BABY CHEW TAB 81 mg FEEDTUBE DAILY 12/16/20 12/18/20 Unknown History Cetirizine HCl [Cetirizine 10mg 1 tab FEEDTUBE DAILY 12/16/20 12/18/20 Unknown History chew] Gabapentin 1 cap FEEDTUBE TID 12/16/20 12/18/20 Unknown History Ibuprofen [Motrin] 800 mg FEEDTUBE Q8H PRN 12/16/20 12/18/20 Unknown History Multiple Vitamin TAB (Theragran) 1 tab FEEDTUBE DAILY 12/16/20 12/18/20 Unknown History Sennosides [Senna] 8.6 mg FEEDTUBE DAILY 12/16/20 12/18/20 Unknown History Sertraline [Zoloft] 1 tab FEEDTUBE DAILY 12/16/20 12/18/20 Unknown History Tamsulosin [Flomax] 1 cap FEEDTUBE DAILY 12/16/20 12/18/20 Unknown History Vitamin D3 50,000UNIT CAP 1 cap FEEDTUBE DAILY 12/16/20 12/18/20 Unknown History Zinc Sulfate 1 cap FEEDTUBE DAILY 12/16/20 12/18/20 Unknown History Active Medications: Generic Name Dose Route Start Last Admin Trade Name Freq PRN Reason Stop Dose Admin Acetaminophen 650 mg 12/15/20 23:59 12/16/20 00:32 Acetaminophen 650 Mg Rect Supp [place] 650 mg Q6H PRN Administration Pain MILD(1-3)/Fever >100.5/RHOADES Amantadine HCl 100 mg 12/16/20 17:00 12/21/20 14:00 Amantadine 100 Mg Cap PO 100 mg QDAY TIFF Administration Lipase/Protease/Amylase 1 each 12/16/20 15:13 Lipase 10,500/Protease 25,000/Amylase 43,750 (Units) Dr Conroy FEEDTUBE PRN PRN For Clogged Feeding Tube Gabapentin 600 mg 12/16/20 16:00 12/21/20 13:59 Gabapentin 300 Mg Cap PO 600 mg Q8HR TIFF Administration Ceftriaxone Sodium 2 gm in 100 mls @ 200 mls/hr 12/19/20 22:00 12/20/20 22:52 Rocephin/Ns 2 Gm/100 Ml IV 200 mls/hr Q24H TIFF Administration Magnesium Hydroxide 30 ml 12/15/20 23:59 Magnesium Hydroxide (Mom) Oral Liqd Udc PO Q4H PRN Constipation Metoprolol Tartrate 12.5 mg 12/17/20 22:00 12/21/20 13:59 Metoprolol Tartrate 25 Mg Tab PO 12.5 mg BID TIFF Administration Mirtazapine 15 mg 12/16/20 22:00 12/20/20 22:52 Mirtazapine 15 Mg Tab PO 15 mg QHS TIFF Administration Morphine Sulfate 2 mg 12/15/20 23:59 12/20/20 17:51 Morphine 2 Mg/1 Ml Inj IV 2 mg Q4H PRN Administration Pain, Moderate (4-6) Morphine Sulfate 4 mg 12/15/20 23:59 12/21/20 05:14 Morphine 4 Mg/1 Ml Inj IV 4 mg Q4H PRN Administration Pain , Severe (7-10) Ondansetron HCl 4 mg 12/15/20 23:59 12/17/20 04:55 Ondansetron 4 Mg/2 Ml Inj IV 4 mg Q8H PRN Administration Nausea And Vomiting Sertraline HCl 50 mg 12/16/20 17:00 12/21/20 13:59 Sertraline 50 Mg Tab PO 50 mg QDAY TIFF Administration Simple Syrup 15 ml 12/16/20 15:13 Simple Syrup 15 Ml FEEDTUBE PRN PRN Hypoglycemia Simple Syrup 30 ml 12/16/20 15:13 Simple Syrup 15 Ml FEEDTUBE PRN PRN Hypoglycemia Sodium Bicarbonate 325 mg 12/16/20 15:13 Sodium Bicarbonate 325 Mg Tab FEEDTUBE PRN PRN For Clogged Feeding Tube Sodium Chloride 10 ml 12/16/20 10:00 12/21/20 11:25 Sodium Chloride 0.9% 10 Ml Flush Syringe IV 10 ml BID TIFF Administration Sodium Chloride 10 ml 12/15/20 23:59 Sodium Chloride 0.9% 10 Ml Flush Syringe IV PRN PRN LINE FLUSH Tamsulosin HCl 0.4 mg 12/16/20 17:00 12/21/20 14:03 Tamsulosin 0.4 Mg Cap PO 0.4 mg QDAY TIFF Administration
[2020-12-21] MEDS: MORPHINE 2 MG/1 ML INJ IV PRN ×2 (15:37→19:20)
--- NOTE | 2020-12-21 15:59 | Progress Note ---
Assessment and Plan Hypotension Anemia requiring transfusions NSTEMI (non-ST elevated myocardial infarction) Sepsis UTI (urinary tract infection) - procalcitonin and lactate ordered - azotemia per nephrology - trend fevers/WBC - anti-infective's per ID rec's - continue care as below otherwise; - prn supplemental oxygen to keep O2 sats > 90% - Wound care per RN/WCT - prn Bronchodilators (DARWIN) with pulm hygiene per RT - continue to avoid nephrotoxins, renally dose all medications - continue mobility protocols to prevent pressure ulcers - PT/OT as tolerated - prn analgesia per pain score - accuchecks with glycemic control per SSI for target blood glucose < 180 mg/dL - tobacco abstinence counseling - home oxygen evaluation at discharge - GI & VTE prophylaxis - Flu & pneumovax per protocol - Pulmonary out patient follow up for PFTs and optimization of respiratory status - continue other care per attending / other consultants ... re-evaluate in am & prn Subjective Date of service: 12/21/20 Principal diagnosis: Hypotension; Anemia; NSTEMI; UTI Interval history: Patient is seen today for: Hypotension; Anemia; NSTEMI; UTI Seen and examined at bedside; 24hour events reviewed; nursing and respiratory care staff consulted; no adverse overnight events reported to me; resting peacefully in bed; leucocytosis is trending upwards; denies acute chest pain or hemoptysis Objective Vital Signs - 12hr 12/21/20 12/21/20 12/21/20 04:31 12:25 13:59 Temperature 98.1 F 97.8 F Pulse Rate 94 H 91 H 91 H Respiratory 18 18 Rate Blood Pressure 105/69 100/71 100/71 O2 Sat by Pulse 95 98 Oximetry Constitutional: no acute distress, alert Eyes: non-icteric ENT: other (Poor dental hygiene.) Neck: supple, no JVD Effort: normal Ascultation: Bilateral: rhonchi (scant) Percussion: Bilateral: not dull Cardiovascular: regular rate and rhythm Gastrointestinal: normoactive bowel sounds, soft, non-tender, non-distended Integumentary: decubitus ulcer (decubitus ulcer; please see [facility] notes for full description) Extremities: no cyanosis, no edema, pulses normal Neurologic: non-focal exam, pupils equal and round, CN II-XII normal, other (weak) Psychiatric: mood appropriate, affect normal CBC and BMP: 12/25/20 04:44 12/25/20 04:44 ABG, PT/INR, D-dimer: ABG ABG pH 7.374 pH Units (7.350-7.450) 12/18/20 11:56 ABG pCO2 31.0 mm Hg 12/18/20 11:56 ABG pO2 40.2 mm Hg (80.0-90.0) L 12/18/20 11:56 ABG O2 Saturation 73.9 % (95.0-99.0) L 12/18/20 11:56 PT/INR, D-dimer PT 16.7 Sec. (12.2-14.9) H 12/17/20 04:27 INR 1.22 (0.87-1.13) H 12/17/20 04:27 Abnormal lab findings: Abnormal Labs 12/15/20 12/15/20 12/15/20 20:20 20:29 20:29 WBC 19.2 H RBC 2.56 L Hgb 6.0 L Hct 20.2 L MCV 79 L MCH 24 L MCHC 30 L RDW 22.2 H Plt Count 512 H Lymph % (Auto) 6.4 L [place] # (Auto) 1.3 H Seg Neutrophils % 85.9 H Seg Neuts % (Manual) Lymphocytes % (Manual) Seg Neutrophils # 16.5 H Seg Neutrophils # Man Lymphocytes # (Manual) Monocytes # (Manual) PT INR APTT 42.0 H ABG pH ABG pO2 ABG HCO3 ABG O2 Saturation ABG Base Excess ABG Hemoglobin Oxyhemoglobin Sodium Potassium Chloride Carbon Dioxide BUN Creatinine Glucose Calcium Phosphorus Magnesium Alkaline Phosphatase Ammonia Total Creatine Kinase Troponin T Albumin Triglycerides LDL Cholesterol Direct HDL Cholesterol Urine WBC (Auto) > 182.0 H Vancomycin Trough Salicylates Acetaminophen Crossmatch 12/15/20 12/15/20 12/15/20 20:29 20:29 20:29 WBC RBC Hgb Hct MCV MCH MCHC RDW Plt Count Lymph % (Auto) [place] # (Auto) Seg Neutrophils % Seg Neuts % (Manual) Lymphocytes % (Manual) Seg Neutrophils # Seg Neutrophils # Man Lymphocytes # (Manual) Monocytes # (Manual) PT INR APTT ABG pH ABG pO2 ABG HCO3 ABG O2 Saturation ABG Base Excess ABG Hemoglobin Oxyhemoglobin Sodium 131 L Potassium 6.0 H Chloride 95.1 L Carbon Dioxide BUN 70 H Creatinine 2.2 H Glucose 113 H Calcium Phosphorus Magnesium Alkaline Phosphatase 321 H Ammonia Total Creatine Kinase Troponin T 0.215 H* Albumin 2.7 L Triglycerides 153 H LDL Cholesterol Direct 23 L HDL Cholesterol 27 L Urine WBC (Auto) Vancomycin Trough Salicylates < 0.3 L Acetaminophen Crossmatch See Detail 12/15/20 12/15/20 12/15/20 20:29 20:29 21:28 WBC RBC Hgb Hct MCV MCH MCHC RDW Plt Count Lymph % (Auto) [place] # (Auto) Seg Neutrophils % Seg Neuts % (Manual) Lymphocytes % (Manual) Seg Neutrophils # Seg Neutrophils # Man Lymphocytes # (Manual) Monocytes # (Manual) PT 15.8 H INR 1.14 H APTT ABG pH ABG pO2 ABG HCO3 ABG O2 Saturation ABG Base Excess ABG Hemoglobin Oxyhemoglobin Sodium Potassium Chloride Carbon Dioxide BUN Creatinine Glucose Calcium Phosphorus Magnesium Alkaline Phosphatase Ammonia 21.0 L Total Creatine Kinase Troponin T Albumin Triglycerides LDL Cholesterol Direct HDL Cholesterol Urine WBC (Auto) Vancomycin Trough Salicylates Acetaminophen 5.0 L Crossmatch 12/16/20 12/16/20 12/16/20 06:02 06:02 20:19 WBC 16.4 H RBC 3.19 L Hgb 8.1 L Hct 26.3 L D MCV 82 L MCH 25 L MCHC 31 L RDW 20.3 H Plt Count Lymph % (Auto) [place] # (Auto) Seg Neutrophils % Seg Neuts % (Manual) Lymphocytes % (Manual) Seg Neutrophils # Seg Neutrophils # Man Lymphocytes # (Manual) Monocytes # (Manual) PT INR APTT ABG pH ABG pO2 ABG HCO3 ABG O2 Saturation ABG Base Excess ABG Hemoglobin Oxyhemoglobin Sodium Potassium Chloride 112.9 H Carbon Dioxide 15 L D BUN 47 H Creatinine Glucose 185 H Calcium 7.2 L D Phosphorus Magnesium Alkaline Phosphatase Ammonia Total Creatine Kinase Troponin T 0.126 H* D 0.078 H D Albumin Triglycerides LDL Cholesterol Direct HDL Cholesterol Urine WBC (Auto) Vancomycin Trough Salicylates Acetaminophen Crossmatch 12/17/20 12/17/20 12/17/20 04:27 04:27 04:27 WBC 24.5 H RBC 3.51 L Hgb 9.0 L Hct 28.9 L MCV 82 L MCH 26 L MCHC 31 L RDW 20.9 H Plt Count 585 H Lymph % (Auto) [place] # (Auto) Seg Neutrophils % Seg Neuts % (Manual) 91.0 H Lymphocytes % (Manual) 3.0 L Seg Neutrophils # Seg Neutrophils # Man 22.3 H Lymphocytes # (Manual) 0.7 L Monocytes # (Manual) 1.5 H PT 16.7 H INR 1.22 H APTT ABG pH ABG pO2 ABG HCO3 ABG O2 Saturation ABG Base Excess ABG Hemoglobin Oxyhemoglobin Sodium Potassium Chloride 115.2 H Carbon Dioxide 16 L BUN 41 H Creatinine Glucose 105 H Calcium Phosphorus Magnesium Alkaline Phosphatase Ammonia Total Creatine Kinase Troponin T Albumin Triglycerides LDL Cholesterol Direct HDL Cholesterol Urine WBC (Auto) Vancomycin Trough Salicylates Acetaminophen Crossmatch 12/18/20 12/18/20 12/18/20 04:40 07:53 07:53 WBC 19.3 H RBC 3.56 L Hgb 9.0 L Hct 29.3 L MCV 82 L MCH 25 L MCHC 31 L RDW 21.3 H Plt Count 593 H Lymph % (Auto) [place] # (Auto) Seg Neutrophils % Seg Neuts % (Manual) Lymphocytes % (Manual) Seg Neutrophils # Seg Neutrophils # Man Lymphocytes # (Manual) Monocytes # (Manual) PT INR APTT ABG pH 7.460 H ABG pO2 250.2 H ABG HCO3 19.8 L ABG O2 Saturation 99.4 H ABG Base Excess -3.6 L ABG Hemoglobin 6.9 L Oxyhemoglobin Sodium Potassium 3.4 L D Chloride 110.0 H Carbon Dioxide 16 L BUN 30 H Creatinine Glucose Calcium 8.2 L Phosphorus Magnesium Alkaline Phosphatase Ammonia Total Creatine Kinase Troponin T Albumin Triglycerides LDL Cholesterol Direct HDL Cholesterol Urine WBC (Auto) Vancomycin Trough Salicylates Acetaminophen Crossmatch 12/18/20 12/18/20 12/19/20 11:56 18:40 04:50 WBC 24.1 H RBC 3.37 L Hgb 8.5 L Hct 28.0 L MCV 83 L MCH 25 L MCHC 30 L RDW 21.4 H Plt Count 563 H Lymph % (Auto) [place] # (Auto) Seg Neutrophils % Seg Neuts % (Manual) Lymphocytes % (Manual) Seg Neutrophils # Seg Neutrophils # Man Lymphocytes # (Manual) Monocytes # (Manual) PT INR APTT ABG pH ABG pO2 40.2 L ABG HCO3 17.7 L ABG O2 Saturation 73.9 L ABG Base Excess -6.7 L ABG Hemoglobin 9.0 L Oxyhemoglobin 71.9 L Sodium Potassium Chloride Carbon Dioxide BUN Creatinine Glucose Calcium Phosphorus Magnesium 1.50 L Alkaline Phosphatase Ammonia Total Creatine Kinase 41 L Troponin T Albumin Triglycerides LDL Cholesterol Direct HDL Cholesterol Urine WBC (Auto) Vancomycin Trough Salicylates Acetaminophen Crossmatch 12/19/20 12/20/20 12/20/20 04:50 05:10 05:10 WBC 23.6 H RBC 3.43 L Hgb 9.0 L Hct 29.9 L MCV MCH 26 L MCHC 30 L RDW 21.6 H Plt Count 516 H Lymph % (Auto) [place] # (Auto) Seg Neutrophils % Seg Neuts % (Manual) Lymphocytes % (Manual) Seg Neutrophils # Seg Neutrophils # Man Lymphocytes # (Manual) Monocytes # (Manual) PT INR APTT ABG pH ABG pO2 ABG HCO3 ABG O2 Saturation ABG Base Excess ABG Hemoglobin Oxyhemoglobin Sodium Potassium Chloride 109.8 H Carbon Dioxide 16 L BUN 21 H Creatinine 0.7 L Glucose Calcium 7.9 L Phosphorus Magnesium Alkaline Phosphatase Ammonia Total Creatine Kinase Troponin T Albumin Triglycerides LDL Cholesterol Direct HDL Cholesterol Urine WBC (Auto) Vancomycin Trough 30.2 H Salicylates Acetaminophen Crossmatch 12/21/20 12/21/20 05:17 07:46 WBC 31.7 H RBC 3.45 L Hgb 8.7 L Hct 28.8 L MCV 83 L MCH 25 L MCHC 30 L RDW 21.6 H Plt Count 644 H Lymph % (Auto) [place] # (Auto) Seg Neutrophils % Seg Neuts % (Manual) Lymphocytes % (Manual) Seg Neutrophils # Seg Neutrophils # Man Lymphocytes # (Manual) Monocytes # (Manual) PT INR APTT ABG pH ABG pO2 ABG HCO3 ABG O2 Saturation ABG Base Excess ABG Hemoglobin Oxyhemoglobin Sodium Potassium 3.3 L Chloride 109.3 H Carbon Dioxide 17 L BUN Creatinine 0.6 L Glucose 123 H Calcium 8.0 L Phosphorus 2.00 L Magnesium Alkaline Phosphatase Ammonia Total Creatine Kinase Troponin T Albumin Triglycerides LDL Cholesterol Direct HDL Cholesterol Urine WBC (Auto) Vancomycin Trough Salicylates Acetaminophen Crossmatch Allied health notes reviewed: nursing
[2020-12-21] MEDS: cefTRIAXone/NS 2 GM/100 ML 2 GM/100 ML BAG IV SCH (22:08)
[2020-12-21] MEDS: MIRTAZAPINE 15 MG TAB PO SCH (22:08)
[2020-12-22] MEDS: MORPHINE 4 MG/1 ML INJ IV PRN ×2 (04:56→11:06)
[2020-12-22] MEDS: GABAPENTIN 300 MG CAP PO SCH ×3 (05:00→21:27)
--- NOTE | 2020-12-22 07:56 | Progress Note ---
Assessment and Plan Assessment and plan: #UTI -complicated -UCx: 10-100k Klebsiella sensitive to rocephin -ID following, assistance appreciated #Anemia requiring transfusion -s/p 2 units pRBC -H&H stable -will transfuse for Hgb less than 7 #Leukocytosis -WBC count 28.9 -afebrile -BCx 12/15 final NGTD -will continue vancomycin and rocephin #Hypokalemia -resolved #Acute kidney injury-resolved -likely 2/2 to vasomotor nephropathy -will continue to monitor -Nephrology consulted, assistance appreciated #Stage III Decubitus ulcers -chronic -patient does not allow nurses to move him to continue dedicated wound care -will add PRN pain medication to be given when patient is moved #Malnutrition -albumin 2.7 -Nutrition consulted -will continue PEG feeds in addition to oral feeds to improve healing. #Advance care planning -Discussed change to DNR/DNI status along with hospice with the patient and his . would like to proceed with DNR/DNI and place him on hospice. The patient wants to continue to be treated and is not ready to give up. Both are aware of poor prognosis. Patient counseled about importance of participating in his medical care to help drive forward improvement in his status. Time +30 minutes Resolved issues #Hypotension-resolved #Hyperkalemia-resolved #Type II NSTEMI -troponin 0.215, downtrending to 0.078 -Echo showed EF 45-50% -Cardiology evaluated patient, no intervention at this time -likely 2/2 BERNICE Disposition Plan: Continue medical management Total Time Spent with Patient (Minutes): 40 minutes History Interval history: No acute events overnight. He is having pain in his back and in both feet. The pain is relieved with PRNs when he requests them. Does not have appetite at this time. Hospitalist Physical - Physical exam Narrative exam: GENERAL: Thin male. Lying in bed no acute distress. CHEST/LUNGS: CTAB on 2L NC HEART/CARDIOVASCULAR: RRR. No murmur, rubs or gallops appreciated. ABDOMEN: PEG tube in place. Abdominal wound dressed and intact. +BS. NT/ND. EXTREMITIES: Bilateral metatarsal amputation PSYCH: Cooperative. - Constitutional Vitals: Temp Pulse Resp BP Pulse Ox 98.5 F 91 H 18 101/66 96 12/22/20 04:50 12/22/20 04:50 12/22/20 04:50 12/22/20 04:50 12/22/20 04:50 General appearance: Present: no acute distress HEART Score - HEART Score Troponin: Troponin T 0.078 ng/mL (0.00-0.029) H D 12/16/20 20:19 Results - Labs CBC & Chem 7: 12/22/20 07:52 12/22/20 07:52 Labs: Laboratory Last Values WBC 31.7 K/mm3 (4.5-11.0) H 12/21/20 07:46 RBC 3.45 M/mm3 (3.65-5.03) L 12/21/20 07:46 Hgb 8.7 gm/dl (11.8-15.2) L 12/21/20 07:46 Hct 28.8 % (35.5-45.6) L 12/21/20 07:46 MCV 83 fl (84-94) L 12/21/20 07:46 MCH 25 pg (28-32) L 12/21/20 07:46 MCHC 30 % (32-34) L 12/21/20 07:46 RDW 21.6 % (13.2-15.2) H 12/21/20 07:46 Plt Count 644 K/mm3 (140-440) H 12/21/20 07:46 Lymph % (Auto) 6.4 % (13.4-35.0) L 12/15/20 20:29 Casey % (Auto) 6.8 % (0.0-7.3) 12/15/20 20:29 Eos % (Auto) 0.7 % (0.0-4.3) 12/15/20 20:29 Baso % (Auto) 0.2 % (0.0-1.8) 12/15/20 20:29 Lymph # (Auto) 1.2 K/mm3 (1.2-5.4) 12/15/20 20:29 Casey # (Auto) 1.3 K/mm3 (0.0-0.8) H 12/15/20 20:29 Eos # (Auto) 0.1 K/mm3 (0.0-0.4) 12/15/20 20:29 Baso # (Auto) 0.0 K/mm3 (0.0-0.1) 12/15/20 20:29 Add Manual Diff Complete 12/17/20 04:27 Total Counted 100 12/17/20 04:27 Seg Neutrophils % 85.9 % (40.0-70.0) H 12/15/20 20:29 Seg Neuts % (Manual) 91.0 % (40.0-70.0) H 12/17/20 04:27 Lymphocytes % (Manual) 3.0 % (13.4-35.0) L 12/17/20 04:27 Monocytes % (Manual) 6.0 % (0.0-7.3) 12/17/20 04:27 Nucleated RBC % Not Reportable 12/17/20 04:27 Seg Neutrophils # 16.5 K/mm3 (1.8-7.7) H 12/15/20 20:29 Seg Neutrophils # Man 22.3 K/mm3 (1.8-7.7) H 12/17/20 04:27 Band Neutrophils # 0.0 K/mm3 12/17/20 04:27 Lymphocytes # (Manual) 0.7 K/mm3 (1.2-5.4) L 12/17/20 04:27 Abs React Lymphs (Man) 0.0 K/mm3 12/17/20 04:27 Monocytes # (Manual) 1.5 K/mm3 (0.0-0.8) H 12/17/20 04:27 Eosinophils # (Manual) 0.0 K/mm3 (0.0-0.4) 12/17/20 04:27 Basophils # (Manual) 0.0 K/mm3 (0.0-0.1) 12/17/20 04:27 Metamyelocytes # 0.0 K/mm3 12/17/20 04:27 Myelocytes # 0.0 K/mm3 12/17/20 04:27 Promyelocytes # 0.0 K/mm3 12/17/20 04:27 Blast Cells # 0.0 K/mm3 12/17/20 04:27 WBC Morphology Not Reportable 12/17/20 04:27 Hypersegmented Neuts Not Reportable 12/17/20 04:27 Hyposegmented Neuts Not Reportable 12/17/20 04:27 Hypogranular Neuts Not Reportable 12/17/20 04:27 Smudge Cells Not Reportable 12/17/20 04:27 Toxic Granulation Not Reportable 12/17/20 04:27 Toxic Vacuolation Not Reportable 12/17/20 04:27 Dohle Bodies Not Reportable 12/17/20 04:27 Pelger-Huet Anomaly Not Reportable 12/17/20 04:27 Marcell Rods Not Reportable 12/17/20 04:27 Platelet Estimate Consistent w auto 12/17/20 04:27 Clumped Platelets Not Reportable 12/17/20 04:27 Plt Clumps, EDTA Not Reportable 12/17/20 04:27 Large Platelets Not Reportable 12/17/20 04:27 Giant Platelets Not Reportable 12/17/20 04:27 Platelet Satelliting Not Reportable 12/17/20 04:27 Plt Morphology Comment Not Reportable 12/17/20 04:27 RBC Morphology Not Reportable 12/17/20 04:27 Dimorphic RBCs Not Reportable 12/17/20 04:27 Polychromasia Not Reportable 12/17/20 04:27 Hypochromasia 1+ 12/17/20 04:27 Poikilocytosis Not Reportable 12/17/20 04:27 Anisocytosis 1+ 12/17/20 04:27 Microcytosis Not Reportable 12/17/20 04:27 Macrocytosis Not Reportable 12/17/20 04:27 Spherocytes Not Reportable 12/17/20 04:27 Pappenheimer Bodies Not Reportable 12/17/20 04:27 Sickle Cells Not Reportable 12/17/20 04:27 Target Cells Not Reportable 12/17/20 04:27 Tear Drop Cells Not Reportable 12/17/20 04:27 Ovalocytes Not Reportable 12/17/20 04:27 Helmet Cells Not Reportable 12/17/20 04:27 Joshi-Yucca Bodies Not Reportable 12/17/20 04:27 Sanibel Rings Not Reportable 12/17/20 04:27 Nicol Cells Not Reportable 12/17/20 04:27 Bite Cells Not Reportable 12/17/20 04:27 Crenated Cell Not Reportable 12/17/20 04:27 Elliptocytes Not Reportable 12/17/20 04:27 Acanthocytes (Spur) Not Reportable 12/17/20 04:27 Rouleaux Not Reportable 12/17/20 04:27 Hemoglobin C Crystals Not Reportable 12/17/20 04:27 Schistocytes Not Reportable 12/17/20 04:27 Malaria parasites Not Reportable 12/17/20 04:27 Azeem Bodies Not Reportable 12/17/20 04:27 Hem Pathologist Commnt No 12/17/20 04:27 PT 16.7 Sec. (12.2-14.9) H 12/17/20 04:27 INR 1.22 (0.87-1.13) H 12/17/20 04:27 APTT 42.0 Sec. (24.2-36.6) H 12/15/20 20:29 ABG pH 7.374 pH Units (7.350-7.450) 12/18/20 11:56 ABG pCO2 31.0 mm Hg 12/18/20 11:56 ABG pO2 40.2 mm Hg (80.0-90.0) L 12/18/20 11:56 ABG HCO3 17.7 mmol/L (20.0-26.0) L 12/18/20 11:56 ABG O2 Saturation 73.9 % (95.0-99.0) L 12/18/20 11:56 ABG O2 Content 9.1 (0.0-44) 12/18/20 11:56 ABG Base Excess -6.7 mmol/L (-2.0-3.0) L 12/18/20 11:56 ABG Hemoglobin 9.0 gm/dl (14.0-18.0) L 12/18/20 11:56 ABG Carboxyhemoglobin 2.0 % (0.0-5.0) 12/18/20 11:56 ABG Methemoglobin 0.6 % (0.0-1.5) 12/18/20 11:56 Oxyhemoglobin 71.9 % (95.0-99.0) L 12/18/20 11:56 FiO2 21 % 12/18/20 11:56 Sodium 138 mmol/L (137-145) 12/21/20 05:17 Potassium 3.3 mmol/L (3.6-5.0) L 12/21/20 05:17 Chloride 109.3 mmol/L (98-107) H 12/21/20 05:17 Carbon Dioxide 17 mmol/L (22-30) L 12/21/20 05:17 Anion Gap 15 mmol/L 12/21/20 05:17 BUN 15 mg/dL (9-20) 12/21/20 05:17 Creatinine 0.6 mg/dL (0.8-1.3) L 12/21/20 05:17 Estimated GFR > 60 ml/min 12/21/20 05:17 BUN/Creatinine Ratio 25 % 12/21/20 05:17 Glucose 123 mg/dL (75-100) H 12/21/20 05:17 POC Glucose 72 mg/dL (70-105) 12/15/20 23:48 Lactic Acid 0.70 mmol/L (0.7-2.0) 12/21/20 21:33 Calcium 8.0 mg/dL (8.4-10.2) L 12/21/20 05:17 Phosphorus 2.00 mg/dL (2.5-4.5) L 12/21/20 05:17 Magnesium 1.70 mg/dL (1.7-2.3) 12/21/20 05:17 Total Bilirubin 0.80 mg/dL (0.1-1.2) 12/15/20 20:29 AST 16 units/L (5-40) 12/15/20 20:29 ALT 17 units/L (7-56) 12/15/20 20:29 Alkaline Phosphatase 321 units/L (35-129) H 12/15/20 20:29 Ammonia 21.0 umol/L (25-60) L 12/15/20 21:28 Total Creatine Kinase 41 units/L (55-170) L 12/18/20 18:40 Troponin T 0.078 ng/mL (0.00-0.029) H D 12/16/20 20:19 Total Protein 7.0 g/dL (6.3-8.2) 12/15/20 20:29 Albumin 2.7 g/dL (3.9-5) L 12/15/20 20:29 Albumin/Globulin Ratio 0.6 % 12/15/20 20:29 Triglycerides 153 mg/dL (2-149) H 12/15/20 20:29 Cholesterol 95 mg/dL (50-199) 12/15/20 20:29 LDL Cholesterol Direct 23 mg/dL (50-130) L 12/15/20 20: HDL Cholesterol 27 mg/dL (40-59) L 12/15/20 20: Cholesterol/HDL Ratio 3.51 % 12/15/20 20: TSH 1.380 mlU/mL (0.270-4.200) 12/15/20 20:29 Urine Color Angela (Yellow) 12/15/20 20:20 Urine Turbidity Turbid (Clear) 12/15/20 20:20 Urine pH 7.0 (5.0-7.0) 12/15/20 20:20 Ur Specific [place] 1.012 (1.003-1.030) 12/15/20 20:20 Urine Protein 100 mg/dl mg/dL (Negative) 12/15/20 20:20 Urine Glucose (UA) Neg mg/dL (Negative) 12/15/20 20:20 Urine Ketones Neg mg/dL (Negative) 12/15/20 20:20 Urine Blood Lg (Negative) 12/15/20 20:20 Urine Nitrite Neg (Negative) 12/15/20 20:20 Urine Bilirubin Neg (Negative) 12/15/20 20:20 Urine Urobilinogen 4.0 mg/dL (<2.0) 12/15/20 20:20 Ur Leukocyte Esterase Lg (Negative) 12/15/20 20:20 Urine WBC (Auto) > 182.0 /HPF (0.0-6.0) H 12/15/20 20:20 Urine RBC (Auto) 117.0 /HPF (0.0-6.0) 12/15/20 20:20 Urine Bacteria (Auto) 3+ /HPF (Negative) 12/15/20 20:20 Urine WBC Clumps 3+ /HPF 12/15/20 20:20 Urine Mucus Few /HPF 12/15/20 20:20 Urine Yeast (Budding) 3+ /HPF 12/15/20 20:20 Nasal Screen MRSA (PCR) Negative (Negative) 12/17/20 Unknown Vancomycin Trough 30.2 ug/mL (5.0-20.0) H 12/20/20 05:10 Salicylates < 0.3 mg/dL (2.8-20.0) L 12/15/20: Acetaminophen 5.0 ug/mL (10.0-30.0) L 12/15/20 20:29 Plasma/Serum Alcohol < 0.01 % (0-0.07) 12/15/20 20:29 Coronavirus (PCR) Negative (Negative) 12/18/20 08:00 Blood Type A POSITIVE 12/15/20 20:29 Antibody Screen Negative 12/15/20 20:29 Crossmatch See Detail 12/15/20 20:29 Kyle/IV: Voiding Method Indwelling Catheter Active Medications - Current Medications Current Medications: Generic Name Dose Route Start Last Admin Trade Name Freq PRN Reason Stop Dose Admin Acetaminophen 650 mg 12/15/20 23:59 12/16/20 00:32 Acetaminophen 650 Mg Rect Supp [place] 650 mg Q6H PRN Administration Pain MILD(1-3)/Fever >100.5/RHOADES Amantadine HCl 100 mg 12/16/20 17:00 12/21/20 14:00 Amantadine 100 Mg Cap PO 100 mg QDAY TIFF Administration Lipase/Protease/Amylase 1 each 12/16/20 15:13 Lipase 10,500/Protease 25,000/Amylase 43,750 (Units) Dr Conroy FEEDTUBE PRN PRN For Clogged Feeding Tube Gabapentin 600 mg 12/16/20 16:00 12/22/20 05:00 Gabapentin 300 Mg Cap PO 600 mg Q8HR TIFF Administration Ceftriaxone Sodium 2 gm in 100 mls @ 200 mls/hr 12/19/20 22:00 12/21/20 22:08 Rocephin/Ns 2 Gm/100 Ml IV 200 mls/hr Q24H TIFF Administration Magnesium Hydroxide 30 ml 12/15/20 23:59 Magnesium Hydroxide (Mom) Oral Liqd Udc PO Q4H PRN Constipation Metoprolol Tartrate 12.5 mg 12/17/20 22:00 12/21/20 22:09 Metoprolol Tartrate 25 Mg Tab PO 12.5 mg BID TIFF Administration Mirtazapine 15 mg 12/16/20 22:00 12/21/20 22:08 Mirtazapine 15 Mg Tab PO 15 mg QHS TIFF Administration Morphine Sulfate 2 mg 12/15/20 23:59 12/21/20 19:20 Morphine 2 Mg/1 Ml Inj IV 2 mg Q4H PRN Administration Pain, Moderate (4-6) Morphine Sulfate 4 mg 12/15/20 23:59 12/22/20 04:56 Morphine 4 Mg/1 Ml Inj IV 4 mg Q4H PRN Administration Pain , Severe (7-10) Ondansetron HCl 4 mg 12/15/20 23:59 12/17/20 04:55 Ondansetron 4 Mg/2 Ml Inj IV 4 mg Q8H PRN Administration Nausea And Vomiting Sertraline HCl 50 mg 12/16/20 17:00 12/21/20 13:59 Sertraline 50 Mg Tab PO 50 mg QDAY TIFF Administration Simple Syrup 15 ml 12/16/20 15:13 Simple Syrup 15 Ml FEEDTUBE PRN PRN Hypoglycemia Simple Syrup 30 ml 12/16/20 15:13 Simple Syrup 15 Ml FEEDTUBE PRN PRN Hypoglycemia Sodium Bicarbonate 325 mg 12/16/20 15:13 Sodium Bicarbonate 325 Mg Tab FEEDTUBE PRN PRN For Clogged Feeding Tube Sodium Chloride 10 ml 12/16/20 10:00 12/21/20 22:08 Sodium Chloride 0.9% 10 Ml Flush Syringe IV 10 ml BID TIFF Administration Sodium Chloride 10 ml 12/15/20 23:59 Sodium Chloride 0.9% 10 Ml Flush Syringe IV PRN PRN LINE FLUSH Tamsulosin HCl 0.4 mg 12/16/20 17:00 12/21/20 14:03 Tamsulosin 0.4 Mg Cap PO 0.4 mg QDAY TIFF Administration Nutrition/Malnutrition Assess - Dietary Evaluation Nutrition/Malnutrition Findings: Nutrition Notes Start: 12/16/20 13:54 Freq: Status: Active Protocol: Document 12/18/20 16:39 HAWK (Rec: 12/18/20 17:12 HAWK [id number]) Nutrition Notes Initial or Follow up Reassessment Current Diagnosis Acute Kidney Injury,Sepsis Other Pertinent Diagnosis Anemia, Hyperkalemia, UTI. Labs/Tests 12/18: K 3.4, Cl 110, CO2 16, BUN 30, Ca 8.2. Pertinent Medications 12/18: Nutritionally unremarkable. Height 6 ft Weight 81.647 kg [place] Body Weight (kg) 80.90 BMI 24.4 Subjective/Other Information RD consult for routine F/U on TF initiation. Percent of energy/protein needs met: Prescribed Regular Diet provides for energy/protein needs (2,289 Kcal/89 g) during LOS. Additionally TF provides for 1,000 Kcal and 45 g respectivelly. Burn Absent Trauma Absent GI Symptoms Other Food Allergy No Skin Integrity/Comment Surgical wound Current % PO Other Minimum of two criteria No #1 Nutrition Diagnosis Altered GI function Etiology Current concomitant conditions , PEG placement. As Evidenced by Signs and Symptoms Abnotrmal chemistry lab values , MD order for TF + PO Diet. Is patient on ventilator? No Is Patient Ambulatory and/or Out of Bed No REE-([facility]-confined to bed) 2043.468 Kcal/Kg value to use for calculation 25 Approximate Energy Requirements Using 2040 kcal/Kg Calculation Used for Recommendations Kcal/kg Additional Notes Protein: 1.2-1.5 g/Kg; 97-122 g/day (from IBW+critical care) . Fluids: 1 ml/Kcal, or as per MD. Nutrition Intervention Change Diet Order: Continue Regular Diet. Nutrition Support: Continue TF Nepro with CARBSTEADY @ 23 ml/hr; Flush 100 ml Q 4 hrs. Kcal 1,000 Protein (gm) 45 Carbohydrates (gm) 89 Fat (gm) 53 Fluid (mL) 404 Fiber (gm) 7 % RDI: 49% Kcal; 55% AA. Goal #1 Maintain body weight within +/ -3% of current BWt during LOS. Goal #2 Reach and mainatain acceptable chemistry lab values during LOS. Follow-Up By: 12/25/20 Additional Comments Continue monitoring food and TF tolerance, %PO intake of meals, Hydration, and BM.
[2020-12-22 08:33] LABS: Hematocrit 27.8 % (35.5-45.6); Hemoglobin 8.5 gm/dl (11.8-15.2); Mean Corpuscular HGB Conc 30 % (32-34); Mean Corpuscular Volume 84 fl (84-94); Platelet Count 693 K/mm3 (140-440); Red Cell Distribution Width 21.7 % (13.2-15.2)
[2020-12-22 08:54] LABS: BUN/Creatinine Ratio 24; Blood Urea Nitrogen 12 mg/dL (9-20); Calcium 7.9 mg/dL (8.4-10.2); Hemolysis Index 4
--- NOTE | 2020-12-22 09:21 | Progress Note ---
Assessment and Plan 55-year-old -F[place] female resident of [facility] long-term with known history of Parkinson's disease, depression, DVT, previous fracture of right acetabulum lumbosacral spine and pelvis and who is currently bedbound brought into the emergency room today with generalized weakness, fatigue and possible concern for anemia. Patient was said to have been transfused recently at [facility]. Patient has a PEG tube in place and also has history of sacral decubitus ulcers. Upon arrival in the emergency room patient was hypotensive with blood pressure systolic in the 80s and diastolic in the 50s. Work-up in the emergency room today, hemoglobin was found to be 6.0 with hematocrit of 20.2. Patient had a potassium level of 6.0, BUN of 70 and creatinine of 2.2. Chest X-ray- no acute findings Patient denies other medical problems. Patient says history of smoking 1 pack x 10 years. Says stopped 1 year ago. Denies alcohol or drug abuse. 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 has two children. Allergic to pencillins. Patient awake. Weak. Patient is on room air. O2 saturation running 83%. Recommended to place him on 4 litres O2 right away. Patient afebrile. Has leukocytosis. Blood pressure 99/72. Pulse 90. Patient admitted to ICU. Patient transfered to medical floor. Patient awake. weak. On 3 litres o2. O2 saturation 99%. Patient still complaining some shortness of breath , slight chest pain and cough. No acute respiratory distress at rest. Patient afebrile. Has leukocytosis. Blood pressure 98/71, Pulse 88. Respirations 20. Patient off the vasopressors. Chest xray 12/15/20 reported no acute findings. Patient is on ceftriaxone and vancomycin. - Patient Problems (1) Hypotension Current Visit: Yes Status: Acute Qualifiers: Qualified Code(s): I95.9 - Hypotension, unspecified Plan to address problem: Patient received blood tansfusion. Patients blood pressure improved. Patient off the vasopressors. (2) Anemia requiring transfusions Current Visit: Yes Status: Acute Plan to address problem: Received blood transfusion. Patients to days HGB 8.5. Management as per primary care and hematology. (3) NSTEMI (non-ST elevated myocardial infarction) Current Visit: Yes Status: Acute Plan to address problem: Management as per cardiology. (4) Sepsis Current Visit: Yes Status: Acute Plan to address problem: Patient is on ceftriaxone and vancomycin. (5) UTI (urinary tract infection) Current Visit: Yes Status: Acute Qualifiers: Urinary tract infection type: acute cystitis Hematuria presence: with hematuria Qualified Code(s): N30.01 - Acute cystitis with hematuria Plan to address problem: Patient is on ceftriaxone. Subjective Date of service: 12/22/20 Principal diagnosis: Hypotension; Anemia; NSTEMI; UTI Interval history: 55-year-old -Faroese female resident of [facility] long-term with known history of Parkinson's disease, depression, DVT, previous fracture of right acetabulum lumbosacral spine and pelvis and who is currently bedbound brought into the emergency room today with generalized weakness, fatigue and possible concern for anemia. Patient was said to have been transfused recently at [facility]. Patient has a PEG tube in place and also has history of sacral decubitus ulcers. Upon arrival in the emergency room patient was hypotensive with blood pressure systolic in the 80s and diastolic in the 50s. Work-up in the emergency room today, hemoglobin was found to be 6.0 with hematocrit of 20.2. Patient had a potassium level of 6.0, BUN of 70 and creatinine of 2.2. Chest X-ray- no acute findings Patient denies other medical problems. Patient says history of smoking 1 pack x 10 years. Says stopped 1 year ago. Denies alcohol or drug abuse. 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 has two children. Allergic to pencillins. Patient awake. Weak. Patient is on room air. O2 saturation running 83%. Recommended to place him on 4 litres O2 right away. Patient afebrile. Has leukocytosis. Blood pressure 99/72. Pulse 90. Chest xray done 12/15/20 reported No acute findings Patient transfered to medical floor. Patient awake. weak. On 3 litres o2. O2 saturation 99%. Patient still complaining some shortness of breath , slight chest pain and cough. No acute respiratory distress at rest. Patient afebrile. Has leukocytosis. Blood pressure 98/71, Pulse 88. Respirations 20. Chest xray 12/15/20 reported no acute findings. Patient is on ceftriaxone and vancomycin. Objective Vital Signs - 12hr 12/21/20 12/21/20 12/22/20 22:00 22:14 04:50 Temperature 98.3 F 98.5 F Pulse Rate 91 H 91 H Respiratory 18 18 Rate Blood Pressure 101/72 101/66 O2 Sat by Pulse 94 96 96 Oximetry Constitutional: no acute distress, alert, other (Weak.) Eyes: non-icteric ENT: other (Poor dental hygiene.) Neck: supple, no JVD Effort: normal Ascultation: Bilateral: rhonchi (scant) Percussion: Bilateral: not dull Cardiovascular: regular rate and rhythm Gastrointestinal: normoactive bowel sounds, soft, non-tender, non-distended Integumentary: decubitus ulcer (decubitus ulcer; please see [facility] notes for full description) Extremities: no cyanosis, no edema, pulses normal Neurologic: non-focal exam, pupils equal and round, CN II-XII normal, other (weak) Psychiatric: mood appropriate, affect normal CBC and BMP: 12/22/20 07:52 12/22/20 07:52 ABG, PT/INR, D-dimer: ABG ABG pH 7.374 pH Units (7.350-7.450) 12/18/20 11:56 ABG pCO2 31.0 mm Hg 12/18/20 11:56 ABG pO2 40.2 mm Hg (80.0-90.0) L 12/18/20 11:56 ABG O2 Saturation 73.9 % (95.0-99.0) L 12/18/20 11:56 PT/INR, D-dimer PT 16.7 Sec. (12.2-14.9) H 12/17/20 04:27 INR 1.22 (0.87-1.13) H 12/17/20 04:27 Abnormal lab findings: Abnormal Labs 12/15/20 12/15/20 12/15/20 20:20 20:29 20:29 WBC 19.2 H RBC 2.56 L Hgb 6.0 L Hct 20.2 L MCV 79 L MCH 24 L MCHC 30 L RDW 22.2 H Plt Count 512 H Lymph % (Auto) 6.4 L D[place]y # (Auto) 1.3 H Seg Neutrophils % 85.9 H Seg Neuts % (Manual) Lymphocytes % (Manual) Seg Neutrophils # 16.5 H Seg Neutrophils # Man Lymphocytes # (Manual) Monocytes # (Manual) PT INR APTT 42.0 H ABG pH ABG pO2 ABG HCO3 ABG O2 Saturation ABG Base Excess ABG Hemoglobin Oxyhemoglobin Sodium Potassium Chloride Carbon Dioxide BUN Creatinine Glucose Calcium Phosphorus Magnesium Alkaline Phosphatase Ammonia Total Creatine Kinase Troponin T Albumin Triglycerides LDL Cholesterol Direct HDL Cholesterol Urine WBC (Auto) > 182.0 H Vancomycin Trough Salicylates Acetaminophen Crossmatch 12/15/20 12/15/20 12/15/20 20:29 20:29 20:29 WBC RBC Hgb Hct MCV MCH MCHC RDW Plt Count Lymph % (Auto) Dooly # (Auto) Seg Neutrophils % Seg Neuts % (Manual) Lymphocytes % (Manual) Seg Neutrophils # Seg Neutrophils # Man Lymphocytes # (Manual) Monocytes # (Manual) PT INR APTT ABG pH ABG pO2 ABG HCO3 ABG O2 Saturation ABG Base Excess ABG Hemoglobin Oxyhemoglobin Sodium 131 L Potassium 6.0 H Chloride 95.1 L Carbon Dioxide BUN 70 H Creatinine 2.2 H Glucose 113 H Calcium Phosphorus Magnesium Alkaline Phosphatase 321 H Ammonia Total Creatine Kinase Troponin T 0.215 H* Albumin 2.7 L Triglycerides 153 H LDL Cholesterol Direct 23 L HDL Cholesterol 27 L Urine WBC (Auto) Vancomycin Trough Salicylates < 0.3 L Acetaminophen Crossmatch See Detail 12/15/20 12/15/20 12/15/20 20:29 20:29 21:28 WBC RBC Hgb Hct MCV MCH MCHC RDW Plt Count Lymph % (Auto) D[place]y # (Auto) Seg Neutrophils % Seg Neuts % (Manual) Lymphocytes % (Manual) Seg Neutrophils # Seg Neutrophils # Man Lymphocytes # (Manual) Monocytes # (Manual) PT 15.8 H INR 1.14 H APTT ABG pH ABG pO2 ABG HCO3 ABG O2 Saturation ABG Base Excess ABG Hemoglobin Oxyhemoglobin Sodium Potassium Chloride Carbon Dioxide BUN Creatinine Glucose Calcium Phosphorus Magnesium Alkaline Phosphatase Ammonia 21.0 L Total Creatine Kinase Troponin T Albumin Triglycerides LDL Cholesterol Direct HDL Cholesterol Urine WBC (Auto) Vancomycin Trough Salicylates Acetaminophen 5.0 L Crossmatch 12/16/20 12/16/20 12/16/20 06:02 06:02 20:19 WBC 16.4 H RBC 3.19 L Hgb 8.1 L Hct 26.3 L D MCV 82 L MCH 25 L MCHC 31 L RDW 20.3 H Plt Count Lymph % (Auto) D[place] # (Auto) Seg Neutrophils % Seg Neuts % (Manual) Lymphocytes % (Manual) Seg Neutrophils # Seg Neutrophils # Man Lymphocytes # (Manual) Monocytes # (Manual) PT INR APTT ABG pH ABG pO2 ABG HCO3 ABG O2 Saturation ABG Base Excess ABG Hemoglobin Oxyhemoglobin Sodium Potassium Chloride 112.9 H Carbon Dioxide 15 L D BUN 47 H Creatinine Glucose 185 H Calcium 7.2 L D Phosphorus Magnesium Alkaline Phosphatase Ammonia Total Creatine Kinase Troponin T 0.126 H* D 0.078 H D Albumin Triglycerides LDL Cholesterol Direct HDL Cholesterol Urine WBC (Auto) Vancomycin Trough Salicylates Acetaminophen Crossmatch 12/17/20 12/17/20 12/17/20 04:27 04:27 04:27 WBC 24.5 H RBC 3.51 L Hgb 9.0 L Hct 28.9 L MCV 82 L MCH 26 L MCHC 31 L RDW 20.9 H Plt Count 585 H Lymph % (Auto) Dooly # (Auto) Seg Neutrophils % Seg Neuts % (Manual) 91.0 H Lymphocytes % (Manual) 3.0 L Seg Neutrophils # Seg Neutrophils # Man 22.3 H Lymphocytes # (Manual) 0.7 L Monocytes # (Manual) 1.5 H PT 16.7 H INR 1.22 H APTT ABG pH ABG pO2 ABG HCO3 ABG O2 Saturation ABG Base Excess ABG Hemoglobin Oxyhemoglobin Sodium Potassium Chloride 115.2 H Carbon Dioxide 16 L BUN 41 H Creatinine Glucose 105 H Calcium Phosphorus Magnesium Alkaline Phosphatase Ammonia Total Creatine Kinase Troponin T Albumin Triglycerides LDL Cholesterol Direct HDL Cholesterol Urine WBC (Auto) Vancomycin Trough Salicylates Acetaminophen Crossmatch 12/18/20 12/18/20 12/18/20 04:40 07:53 07:53 WBC 19.3 H RBC 3.56 L Hgb 9.0 L Hct 29.3 L MCV 82 L MCH 25 L MCHC 31 L RDW 21.3 H Plt Count 593 H Lymph % (Auto) D[place]y # (Auto) Seg Neutrophils % Seg Neuts % (Manual) Lymphocytes % (Manual) Seg Neutrophils # Seg Neutrophils # Man Lymphocytes # (Manual) Monocytes # (Manual) PT INR APTT ABG pH 7.460 H ABG pO2 250.2 H ABG HCO3 19.8 L ABG O2 Saturation 99.4 H ABG Base Excess -3.6 L ABG Hemoglobin 6.9 L Oxyhemoglobin Sodium Potassium 3.4 L D Chloride 110.0 H Carbon Dioxide 16 L BUN 30 H Creatinine Glucose Calcium 8.2 L Phosphorus Magnesium Alkaline Phosphatase Ammonia Total Creatine Kinase Troponin T Albumin Triglycerides LDL Cholesterol Direct HDL Cholesterol Urine WBC (Auto) Vancomycin Trough Salicylates Acetaminophen Crossmatch 12/18/20 12/18/20 12/19/20 11:56 18:40 04:50 WBC 24.1 H RBC 3.37 L Hgb 8.5 L Hct 28.0 L MCV 83 L MCH 25 L MCHC 30 L RDW 21.4 H Plt Count 563 H Lymph % (Auto) [place] # (Auto) Seg Neutrophils % Seg Neuts % (Manual) Lymphocytes % (Manual) Seg Neutrophils # Seg Neutrophils # Man Lymphocytes # (Manual) Monocytes # (Manual) PT INR APTT ABG pH ABG pO2 40.2 L ABG HCO3 17.7 L ABG O2 Saturation 73.9 L ABG Base Excess -6.7 L ABG Hemoglobin 9.0 L Oxyhemoglobin 71.9 L Sodium Potassium Chloride Carbon Dioxide BUN Creatinine Glucose Calcium Phosphorus Magnesium 1.50 L Alkaline Phosphatase Ammonia Total Creatine Kinase 41 L Troponin T Albumin Triglycerides LDL Cholesterol Direct HDL Cholesterol Urine WBC (Auto) Vancomycin Trough Salicylates Acetaminophen Crossmatch 12/19/20 12/20/20 12/20/20 04:50 05:10 05:10 WBC 23.6 H RBC 3.43 L Hgb 9.0 L Hct 29.9 L MCV MCH 26 L MCHC 30 L RDW 21.6 H Plt Count 516 H Lymph % (Auto) D[place]y # (Auto) Seg Neutrophils % Seg Neuts % (Manual) Lymphocytes % (Manual) Seg Neutrophils # Seg Neutrophils # Man Lymphocytes # (Manual) Monocytes # (Manual) PT INR APTT ABG pH ABG pO2 ABG HCO3 ABG O2 Saturation ABG Base Excess ABG Hemoglobin Oxyhemoglobin Sodium Potassium Chloride 109.8 H Carbon Dioxide 16 L BUN 21 H Creatinine 0.7 L Glucose Calcium 7.9 L Phosphorus Magnesium Alkaline Phosphatase Ammonia Total Creatine Kinase Troponin T Albumin Triglycerides LDL Cholesterol Direct HDL Cholesterol Urine WBC (Auto) Vancomycin Trough 30.2 H Salicylates Acetaminophen Crossmatch 12/21/20 12/21/20 12/22/20 05:17 07:46 07:52 WBC 31.7 H 28.9 H RBC 3.45 L 3.30 L Hgb 8.7 L 8.5 L Hct 28.8 L 27.8 L MCV 83 L MCH 25 L 26 L MCHC 30 L 30 L RDW 21.6 H 21.7 H Plt Count 644 H 693 H Lymph % (Auto) D[place]y # (Auto) Seg Neutrophils % Seg Neuts % (Manual) Lymphocytes % (Manual) Seg Neutrophils # Seg Neutrophils # Man Lymphocytes # (Manual) Monocytes # (Manual) PT INR APTT ABG pH ABG pO2 ABG HCO3 ABG O2 Saturation ABG Base Excess ABG Hemoglobin Oxyhemoglobin Sodium Potassium 3.3 L Chloride 109.3 H Carbon Dioxide 17 L BUN Creatinine 0.6 L Glucose 123 H Calcium 8.0 L Phosphorus 2.00 L Magnesium Alkaline Phosphatase Ammonia Total Creatine Kinase Troponin T Albumin Triglycerides LDL Cholesterol Direct HDL Cholesterol Urine WBC (Auto) Vancomycin Trough Salicylates Acetaminophen Crossmatch 12/22/20 07:52 WBC RBC Hgb Hct MCV MCH MCHC RDW Plt Count Lymph % (Auto) [place] # (Auto) Seg Neutrophils % Seg Neuts % (Manual) Lymphocytes % (Manual) Seg Neutrophils # Seg Neutrophils # Man Lymphocytes # (Manual) Monocytes # (Manual) PT INR APTT ABG pH ABG pO2 ABG HCO3 ABG O2 Saturation ABG Base Excess ABG Hemoglobin Oxyhemoglobin Sodium Potassium Chloride 107.8 H Carbon Dioxide 17 L BUN Creatinine 0.5 L Glucose 114 H Calcium 7.9 L Phosphorus Magnesium Alkaline Phosphatase Ammonia Total Creatine Kinase Troponin T Albumin Triglycerides LDL Cholesterol Direct HDL Cholesterol Urine WBC (Auto) Vancomycin Trough Salicylates Acetaminophen Crossmatch Chest x-ray: report reviewed, image reviewed Additional Studies: CHEST 1 VIEW 12/15/2020 9:10 PM INDICATION / CLINICAL INFORMATION: hypotension weakness. COMPARISON: None available. FINDINGS: SUPPORT DEVICES: None. HEART / MEDIASTINUM: No significant abnormality. LUNGS / PLEURA: No significant pulmonary or pleural abnormality. No pneumothorax. ADDITIONAL FINDINGS: Hardware in right humerus. Old fracture proximal right humerus. IMPRESSION: 1. No acute findings. Allied health notes reviewed: nursing
--- NOTE | 2020-12-22 10:37 | Progress Note ---
Assessment and Plan - Patient Problems (1) Acute kidney injury Current Visit: Yes Status: Acute Plan to address problem: Prerenal azotemia secondary to sepsis/hypotension. Kidney function improved back to normal. Follow-up electrolytes and renal function (2) Metabolic acidosis Current Visit: Yes Status: Acute Plan to address problem: Metabolic acidosis persist. Will start p.o. sodium bicarbonate if tolerated (3) Hypophosphatemia Current Visit: Yes Status: Acute Plan to address problem: Phosphorus was supplemented. Follow-up level in the morning (4) Hyperkalemia Current Visit: Yes Status: Acute Plan to address problem: Resolved. Potassium is now normal follow-up potassium periodically (5) Anemia Current Visit: Yes Status: Resolved Plan to address problem: Follow-up hemoglobin (6) UTI (urinary tract infection) Current Visit: Yes Status: Acute Qualifiers: Urinary tract infection type: acute cystitis Hematuria presence: with he maturia Plan to address problem: Continue antibiotics and follow-up Subjective Date of service: 12/22/20 Principal diagnosis: Hypotension; Anemia; NSTEMI; UTI Interval history: Patient seen lying in bed. Still complains of being "sore all over". No nausea or vomiting. Objective - Exam Narrative Exam: Frail emaciated, middle-aged -[place] male lying in bed in no acute distress HEENT: NCAT, pink oral mucous membrane Neck: Supple, no venous distention CVS: S1S2 RRR with no murmur, rub or gallop Chest: Clear to auscultation Abdomen: Protuberant, soft, nontender, no organomegaly, bowel sounds are present Extremities: No edema, muscle wasting Neuro: Awake, looks dull - Vital Signs Vital signs: Vital Signs - 12hr 12/22/20 04:50 Temperature 98.5 F Pulse Rate 91 H Respiratory 18 Rate Blood Pressure 101/66 O2 Sat by Pulse 96 Oximetry - Lab 12/22/20 07:52 12/22/20 07:52 Most recent lab results ABG pH 7.374 pH Units (7.350-7.450) 12/18/20 11:56 ABG pCO2 31.0 mm Hg 12/18/20 11:56 ABG pO2 40.2 mm Hg (80.0-90.0) L 12/18/20 11:56 ABG HCO3 17.7 mmol/L (20.0-26.0) L 12/18/20 11:56 ABG O2 Saturation 73.9 % (95.0-99.0) L 12/18/20 11:56 Calcium 7.9 mg/dL (8.4-10.2) L 12/22/20 07:52 Phosphorus 2.00 mg/dL (2.5-4.5) L 12/21/20 05:17 Magnesium 1.70 mg/dL (1.7-2.3) 12/21/20 05:17 Medications & Allergies - Medications Allergies/Adverse Reactions: Allergies Penicillins Allergy (Verified 12/16/20 02:38) Itching Home Medications: Home Medications Medication Instructions Recorded Confirmed Last Taken Type Amantadine 10 mg FEEDTUBE DAILY 12/16/20 12/18/20 Unknown History Ascorbic Acid [Vitamin C with Irma 1 tab FEEDTUBE DAILY 12/16/20 12/18/20 Unknown History Hips] Aspirin BABY CHEW TAB 81 mg FEEDTUBE DAILY 12/16/20 12/18/20 Unknown History Cetirizine HCl [Cetirizine 10mg 1 tab FEEDTUBE DAILY 12/16/20 12/18/20 Unknown History chew] Gabapentin 1 cap FEEDTUBE TID 12/16/20 12/18/20 Unknown History Ibuprofen [Motrin] 800 mg FEEDTUBE Q8H PRN 12/16/20 12/18/20 Unknown History Multiple Vitamin TAB (Theragran) 1 tab FEEDTUBE DAILY 12/16/20 12/18/20 Unknown History Sennosides [Senna] 8.6 mg FEEDTUBE DAILY 12/16/20 12/18/20 Unknown History Sertraline [Zoloft] 1 tab FEEDTUBE DAILY 12/16/20 12/18/20 Unknown History Tamsulosin [Flomax] 1 cap FEEDTUBE DAILY 12/16/20 12/18/20 Unknown History Vitamin D3 50,000UNIT CAP 1 cap FEEDTUBE DAILY 12/16/20 12/18/20 Unknown History Zinc Sulfate 1 cap FEEDTUBE DAILY 12/16/20 12/18/20 Unknown History Active Medications: Generic Name Dose Route Start Last Admin Trade Name Freq PRN Reason Stop Dose Admin Acetaminophen 650 mg 12/15/20 23:59 12/16/20 00:32 Acetaminophen 650 Mg Rect Supp SD 650 mg Q6H PRN Administration Pain MILD(1-3)/Fever >100.5/RHOADES Amantadine HCl 100 mg 12/16/20 17:00 12/21/20 14:00 Amantadine 100 Mg Cap PO 100 mg QDAY TIFF Administration Lipase/Protease/Amylase 1 each 12/16/20 15:13 Lipase 10,500/Protease 25,000/Amylase 43,750 (Units) Dr Conroy FEEDTUBE PRN PRN For Clogged Feeding Tube Gabapentin 600 mg 12/16/20 16:00 12/22/20 05:00 Gabapentin 300 Mg Cap PO 600 mg Q8HR TIFF Administration Ceftriaxone Sodium 2 gm in 100 mls @ 200 mls/hr 12/19/20 22:00 12/21/20 22:08 Rocephin/Ns 2 Gm/100 Ml IV 200 mls/hr Q24H TIFF Administration Magnesium Hydroxide 30 ml 12/15/20 23:59 Magnesium Hydroxide (Mom) Oral Liqd Udc PO Q4H PRN Constipation Metoprolol Tartrate 12.5 mg 12/17/20 22:00 12/21/20 22:09 Metoprolol Tartrate 25 Mg Tab PO 12.5 mg BID TIFF Administration Mirtazapine 15 mg 12/16/20 22:00 12/21/20 22:08 Mirtazapine 15 Mg Tab PO 15 mg QHS TIFF Administration Morphine Sulfate 2 mg 12/15/20 23:59 12/21/20 19:20 Morphine 2 Mg/1 Ml Inj IV 2 mg Q4H PRN Administration Pain, Moderate (4-6) Morphine Sulfate 4 mg 12/15/20 23:59 12/22/20 04:56 Morphine 4 Mg/1 Ml Inj IV 4 mg Q4H PRN Administration Pain , Severe (7-10) Ondansetron HCl 4 mg 12/15/20 23:59 12/17/20 04:55 Ondansetron 4 Mg/2 Ml Inj IV 4 mg Q8H PRN Administration Nausea And Vomiting Sertraline HCl 50 mg 12/16/20 17:00 12/21/20 13:59 Sertraline 50 Mg Tab PO 50 mg QDAY TIFF Administration Simple Syrup 15 ml 12/16/20 15:13 Simple Syrup 15 Ml FEEDTUBE PRN PRN Hypoglycemia Simple Syrup 30 ml 12/16/20 15:13 Simple Syrup 15 Ml FEEDTUBE PRN PRN Hypoglycemia Sodium Bicarbonate 325 mg 12/16/20 15:13 Sodium Bicarbonate 325 Mg Tab FEEDTUBE PRN PRN For Clogged Feeding Tube Sodium Bicarbonate 650 mg 12/22/20 10:00 Sodium Bicarbonate 650 Mg Tab PO BID TIFF Sodium Chloride 10 ml 12/16/20 10:00 12/21/20 22:08 Sodium Chloride 0.9% 10 Ml Flush Syringe IV 10 ml BID TIFF Administration Sodium Chloride 10 ml 12/15/20 23:59 Sodium Chloride 0.9% 10 Ml Flush Syringe IV PRN PRN LINE FLUSH Tamsulosin HCl 0.4 mg 12/16/20 17:00 12/21/20 14:03 Tamsulosin 0.4 Mg Cap PO 0.4 mg QDAY TIFF Administration
[2020-12-22] MEDS: TAMSULOSIN 0.4 MG CAP PO SCH (10:42)
[2020-12-22] MEDS: SODIUM BICARBONATE 650 MG TAB PO SCH ×2 (10:43→21:27)
[2020-12-22] MEDS: METOPROLOL TARTRATE 25 MG TAB PO SCH ×2 (10:43→21:27)
[2020-12-22] MEDS: SERTRALINE 50 MG TAB PO SCH (10:46)
[2020-12-22] MEDS: MORPHINE 2 MG/1 ML INJ IV PRN ×3 (10:57→21:28)
--- NOTE | 2020-12-22 11:09 | Progress Note ---
Assessment and Plan Cultures: Blood culture no growth so far Urine culture: Klebsiella pneumoniae A/P: 55-year-old male past medical history Parkinson's, depression, DVT, fracture of the right acetabulum admitted with fatigue #Sepsis, leucocytosis, reactive thrombocytosis: likely from UTI and multiple decubiti #Complicated UTI: Has history of Kyle cath, which has been changed since admission #Bedbound status with ulcers: pending wound care consult. #Sacral wounds: patient refuses examination. #BERNICE: improving. #Penicillin allergy: currently tolerating ceftriaxone Recs: -Continue IV vancomycin for now -Continue IV ceftriaxone 2g q24h -awaiting wound care consult -continue wound care, offloading as possible. Overall poor prognosis, agree with goals of care discussions Luis Watson MD, FACP [facility] O: [phone] F: [phone] Subjective Date of service: 12/22/20 Principal diagnosis: Hypotension; Anemia; NSTEMI; UTI Interval history: No fever. Complains of pain all over. Objective - Exam Narrative Exam: Physical Exam: Constitutional: Alert, cooperative. mild distress due to pain Head, Ears, Nose: Normocephalic, atraumatic. External ears, nose normal Eyes: Conjunctivae/corneas clear. No icterus. No ptosis. Neck: Supple, no meningeal signs Cardiovascular: S1, S2 normal. Respiratory: Good air entry, clear to auscultation bilaterally GI: Soft, non-tender; bowel sounds normal. No peritoneal signs. G Tube + Musculoskeletal: Bilateral TMA, no evident wounds of stumps. Multiple decubiti, unable to examine due to pain Skin: No rash or abscess Hem/Lymphatic: No palpable cervical or supraclavicular nodes. No lymphangitis Psych: Mood ok. Affect normal Neurological: Awake, alert, oriented. - Constitutional Vitals: Vital Signs Temp Pulse Resp BP Pulse Ox 98.9 F 87 20 93/61 95 12/22/20 10:37 12/22/20 10:37 12/22/20 10:37 12/22/20 10:37 12/22/20 10:37 Temperature -Last 24 Hours Temperature 98.9 F Temperature 98.5 F Temperature 98.3 F Temperature 97.8 F Temperature 97.8 F - Labs CBC & Chem 7: 12/22/20 07:52 12/22/20 07:52 Labs: Abnormal lab results 12/22/20 12/22/20 Range/Units 07:52 07:52 WBC 28.9 H (4.5-11.0) K/mm3 RBC 3.30 L (3.65-5.03) M/mm3 Hgb 8.5 L (11.8-15.2) gm/dl Hct 27.8 L (35.5-45.6) % MCH 26 L (28-32) pg MCHC 30 L (32-34) % RDW 21.7 H (13.2-15.2) % Plt Count 693 H (140-440) K/mm3 Chloride 107.8 H (98-107) mmol/L Carbon Dioxide 17 L (22-30) mmol/L Creatinine 0.5 L (0.8-1.3) mg/dL Glucose 114 H (75-100) mg/dL Calcium 7.9 L (8.4-10.2) mg/dL
[2020-12-22] MEDS: VANCOMYCIN/NS 1 GM/250 ML 1 GM/250 ML BAG IV SCH (12:53)
--- NOTE | 2020-12-22 14:31 | Event Note ---
Date: 12/22/20 I spoke with both the patient and the patients' Jaleesa for a goals of care discussion. They were
[2020-12-22] MEDS: MIRTAZAPINE 15 MG TAB PO SCH (21:27)
[2020-12-22] MEDS: cefTRIAXone/NS 2 GM/100 ML 2 GM/100 ML BAG IV SCH (21:27)
[2020-12-23] MEDS: MORPHINE 4 MG/1 ML INJ IV PRN ×3 (01:45→18:17)
[2020-12-23] MEDS: MORPHINE 2 MG/1 ML INJ IV PRN ×3 (05:41→22:25)
[2020-12-23] MEDS: GABAPENTIN 300 MG CAP PO SCH ×3 (05:41→22:25)
[2020-12-23 06:53] LABS: Blood Urea Nitrogen 10 mg/dL (9-20); Calcium 8.3 mg/dL (8.4-10.2); Hemolysis Index 2
[2020-12-23 06:54] LABS: BUN/Creatinine Ratio 20
--- NOTE | 2020-12-23 08:19 | Progress Note ---
Assessment and Plan 55-year-old -Maltese female resident of [facility] with known history of Parkinson's disease, depression, DVT, previous fracture of right acetabulum lumbosacral spine and pelvis and who is currently bedbound brought into the emergency room today with generalized weakness, fatigue and possible concern for anemia. Patient was said to have been transfused recently at [facility]. Patient has a PEG tube in place and also has history of sacral decubitus ulcers. Upon arrival in the emergency room patient was hypotensive with blood pressure systolic in the 80s and diastolic in the 50s. Work-up in the emergency room today, hemoglobin was found to be 6.0 with hematocrit of 20.2. Patient had a potassium level of 6.0, BUN of 70 and creatinine of 2.2. Chest X-ray- no acute findings Patient denies other medical problems. Patient says history of smoking 1 pack x 10 years. Says stopped 1 year ago. Denies alcohol or drug abuse. 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 has two children. Allergic to pencillins. Patient awake. Weak. Patient is on room air. O2 saturation running 83%. Recommended to place him on 4 litres O2 right away. Patient afebrile. Has leukocytosis. Blood pressure 99/72. Pulse 90. Patient admitted to ICU. Patient transfered to medical floor. Patient awake. weak. On 3 litres o2. O2 saturation 96%. Patient still complaining slight chest pain and cough. No acute respiratory distress at rest. Patient afebrile. Has leukocytosis. Blood pressure 110/75, Pulse 90. Respirations 18. Chest xray 12/15/20 reported no acute findings. Repeating chest xray and ABGs. Patient is on ceftriaxone and vancomycin. - Patient Problems (1) Hypotension Current Visit: Yes Status: Acute Qualifiers: Qualified Code(s): I95.9 - Hypotension, unspecified Plan to address problem: Patient received blood tansfusion. Patients blood pressure improved. Patients present blood pressure 110/75 .Patient off the vasopressors. (2) Anemia requiring transfusions Current Visit: Yes Status: Acute Plan to address problem: Received blood transfusion. Patients recent HGB 8.5. Management as per primary care and hematology. (3) NSTEMI (non-ST elevated myocardial infarction) Current Visit: Yes Status: Acute Plan to address problem: Management as per cardiology. (4) Sepsis Current Visit: Yes Status: Acute Plan to address problem: Patient is on ceftriaxone and vancomycin. (5) UTI (urinary tract infection) Current Visit: Yes Status: Acute Qualifiers: Urinary tract infection type: acute cystitis Hematuria presence: with hematuria Qualified Code(s): N30.01 - Acute cystitis with hematuria Plan to address problem: Patient is on ceftriaxone. Subjective Date of service: 12/23/20 Principal diagnosis: Hypotension; Anemia; NSTEMI; UTI Interval history: 55-year-old -Maltese female resident of [facility] with known history of Parkinson's disease, depression, DVT, previous fracture of right acetabulum lumbosacral spine and pelvis and who is currently bedbound brought into the emergency room today with generalized weakness, fatigue and possible concern for anemia. Patient was said to have been transfused recently at [facility]. Patient has a PEG tube in place and also has history of sacral decubitus ulcers. Upon arrival in the emergency room patient was hypotensive with blood pressure systolic in the 80s and diastolic in the 50s. Work-up in the emergency room today, hemoglobin was found to be 6.0 with hematocrit of 20.2. Patient had a potassium level of 6.0, BUN of 70 and creatinine of 2.2. Chest X-ray- no acute findings Patient denies other medical problems. Patient says history of smoking 1 pack x 10 years. Says stopped 1 year ago. Denies alcohol or drug abuse. 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 has two children. Allergic to pencillins. Patient awake. Weak. Patient is on room air. O2 saturation running 83%. Recommended to place him on 4 litres O2 right away. Patient afebrile. Has leukocytosis. Blood pressure 99/72. Pulse 90. Chest xray done 12/15/20 reported No acute findings Patient transfered to medical floor. Patient awake. weak. On 3 litres o2. O2 saturation 96%. Patient still complaining slight chest pain and cough. No acute respiratory distress at rest. Patient afebrile. Has leukocytosis. Blood pressure 110/75, Pulse 90. Respirations 18. Chest xray 12/15/20 reported no acute findings. Repeating chest xray and ABGs. Patient is on ceftriaxone and vancomycin. Objective Vital Signs - 12hr 12/22/20 12/22/20 12/22/20 21:28 21:58 22:00 Temperature Pulse Rate 81 Respiratory 20 20 Rate Blood Pressure O2 Sat by Pulse 94 Oximetry 12/22/20 12/23/20 12/23/20 22:18 01:45 02:15 Temperature 99.2 F Pulse Rate 81 Respiratory 18 20 20 Rate Blood Pressure 115/72 O2 Sat by Pulse 93 Oximetry 12/23/20 12/23/20 12/23/20 04:55 05:41 06:11 Temperature 98.2 F Pulse Rate 90 Respiratory 18 20 18 Rate Blood Pressure 110/75 O2 Sat by Pulse 96 Oximetry Constitutional: no acute distress, alert, other (Weak.) Eyes: non-icteric ENT: other (Poor dental hygiene.) Neck: supple, no JVD Effort: normal Ascultation: Bilateral: rhonchi (scant) Percussion: Bilateral: not dull Cardiovascular: regular rate and rhythm Gastrointestinal: normoactive bowel sounds, soft, non-tender, non-distended Integumentary: decubitus ulcer (decubitus ulcer; please see [facility] notes for full description) Extremities: no cyanosis, no edema, pulses normal Neurologic: non-focal exam, pupils equal and round, CN II-XII normal, other (weak) Psychiatric: mood appropriate, affect normal CBC and BMP: 12/24/20 07:40 12/24/20 07:40 ABG, PT/INR, D-dimer: ABG ABG pH 7.374 pH Units (7.350-7.450) 12/18/20 11:56 ABG pCO2 31.0 mm Hg 12/18/20 11:56 ABG pO2 40.2 mm Hg (80.0-90.0) L 12/18/20 11:56 ABG O2 Saturation 73.9 % (95.0-99.0) L 12/18/20 11:56 PT/INR, D-dimer PT 16.7 Sec. (12.2-14.9) H 12/17/20 04:27 INR 1.22 (0.87-1.13) H 12/17/20 04:27 Abnormal lab findings: Abnormal Labs 12/15/20 12/15/20 12/15/20 20:20 20:29 20:29 WBC 19.2 H RBC 2.56 L Hgb 6.0 L Hct 20.2 L MCV 79 L MCH 24 L MCHC 30 L RDW 22.2 H Plt Count 512 H Lymph % (Auto) 6.4 L [place] # (Auto) 1.3 H Seg Neutrophils % 85.9 H Seg Neuts % (Manual) Lymphocytes % (Manual) Seg Neutrophils # 16.5 H Seg Neutrophils # Man Lymphocytes # (Manual) Monocytes # (Manual) PT INR APTT 42.0 H ABG pH ABG pO2 ABG HCO3 ABG O2 Saturation ABG Base Excess ABG Hemoglobin Oxyhemoglobin Sodium Potassium Chloride Carbon Dioxide BUN Creatinine Glucose Calcium Phosphorus Magnesium Alkaline Phosphatase Ammonia Total Creatine Kinase Troponin T Albumin Triglycerides LDL Cholesterol Direct HDL Cholesterol Urine WBC (Auto) > 182.0 H Vancomycin Trough Salicylates Acetaminophen Crossmatch 12/15/20 12/15/20 12/15/20 20:29 20:29 20:29 WBC RBC Hgb Hct MCV MCH MCHC RDW Plt Count Lymph % (Auto) [place] # (Auto) Seg Neutrophils % Seg Neuts % (Manual) Lymphocytes % (Manual) Seg Neutrophils # Seg Neutrophils # Man Lymphocytes # (Manual) Monocytes # (Manual) PT INR APTT ABG pH ABG pO2 ABG HCO3 ABG O2 Saturation ABG Base Excess ABG Hemoglobin Oxyhemoglobin Sodium 131 L Potassium 6.0 H Chloride 95.1 L Carbon Dioxide BUN 70 H Creatinine 2.2 H Glucose 113 H Calcium Phosphorus Magnesium Alkaline Phosphatase 321 H Ammonia Total Creatine Kinase Troponin T 0.215 H* Albumin 2.7 L Triglycerides 153 H LDL Cholesterol Direct 23 L HDL Cholesterol 27 L Urine WBC (Auto) Vancomycin Trough Salicylates < 0.3 L Acetaminophen Crossmatch See Detail 12/15/20 12/15/20 12/15/20 20:29 20:29 21:28 WBC RBC Hgb Hct MCV MCH MCHC RDW Plt Count Lymph % (Auto) [place] # (Auto) Seg Neutrophils % Seg Neuts % (Manual) Lymphocytes % (Manual) Seg Neutrophils # Seg Neutrophils # Man Lymphocytes # (Manual) Monocytes # (Manual) PT 15.8 H INR 1.14 H APTT ABG pH ABG pO2 ABG HCO3 ABG O2 Saturation ABG Base Excess ABG Hemoglobin Oxyhemoglobin Sodium Potassium Chloride Carbon Dioxide BUN Creatinine Glucose Calcium Phosphorus Magnesium Alkaline Phosphatase Ammonia 21.0 L Total Creatine Kinase Troponin T Albumin Triglycerides LDL Cholesterol Direct HDL Cholesterol Urine WBC (Auto) Vancomycin Trough Salicylates Acetaminophen 5.0 L Crossmatch 12/16/20 12/16/20 12/16/20 06:02 06:02 20:19 WBC 16.4 H RBC 3.19 L Hgb 8.1 L Hct 26.3 L D MCV 82 L MCH 25 L MCHC 31 L RDW 20.3 H Plt Count Lymph % (Auto) [place] # (Auto) Seg Neutrophils % Seg Neuts % (Manual) Lymphocytes % (Manual) Seg Neutrophils # Seg Neutrophils # Man Lymphocytes # (Manual) Monocytes # (Manual) PT INR APTT ABG pH ABG pO2 ABG HCO3 ABG O2 Saturation ABG Base Excess ABG Hemoglobin Oxyhemoglobin Sodium Potassium Chloride 112.9 H Carbon Dioxide 15 L D BUN 47 H Creatinine Glucose 185 H Calcium 7.2 L D Phosphorus Magnesium Alkaline Phosphatase Ammonia Total Creatine Kinase Troponin T 0.126 H* D 0.078 H D Albumin Triglycerides LDL Cholesterol Direct HDL Cholesterol Urine WBC (Auto) Vancomycin Trough Salicylates Acetaminophen Crossmatch 12/17/20 12/17/20 12/17/20 04:27 04:27 04:27 WBC 24.5 H RBC 3.51 L Hgb 9.0 L Hct 28.9 L MCV 82 L MCH 26 L MCHC 31 L RDW 20.9 H Plt Count 585 H Lymph % (Auto) [place] # (Auto) Seg Neutrophils % Seg Neuts % (Manual) 91.0 H Lymphocytes % (Manual) 3.0 L Seg Neutrophils # Seg Neutrophils # Man 22.3 H Lymphocytes # (Manual) 0.7 L Monocytes # (Manual) 1.5 H PT 16.7 H INR 1.22 H APTT ABG pH ABG pO2 ABG HCO3 ABG O2 Saturation ABG Base Excess ABG Hemoglobin Oxyhemoglobin Sodium Potassium Chloride 115.2 H Carbon Dioxide 16 L BUN 41 H Creatinine Glucose 105 H Calcium Phosphorus Magnesium Alkaline Phosphatase Ammonia Total Creatine Kinase Troponin T Albumin Triglycerides LDL Cholesterol Direct HDL Cholesterol Urine WBC (Auto) Vancomycin Trough Salicylates Acetaminophen Crossmatch 12/18/20 12/18/20 12/18/20 04:40 07:53 07:53 WBC 19.3 H RBC 3.56 L Hgb 9.0 L Hct 29.3 L MCV 82 L MCH 25 L MCHC 31 L RDW 21.3 H Plt Count 593 H Lymph % (Auto) [place] # (Auto) Seg Neutrophils % Seg Neuts % (Manual) Lymphocytes % (Manual) Seg Neutrophils # Seg Neutrophils # Man Lymphocytes # (Manual) Monocytes # (Manual) PT INR APTT ABG pH 7.460 H ABG pO2 250.2 H ABG HCO3 19.8 L ABG O2 Saturation 99.4 H ABG Base Excess -3.6 L ABG Hemoglobin 6.9 L Oxyhemoglobin Sodium Potassium 3.4 L D Chloride 110.0 H Carbon Dioxide 16 L BUN 30 H Creatinine Glucose Calcium 8.2 L Phosphorus Magnesium Alkaline Phosphatase Ammonia Total Creatine Kinase Troponin T Albumin Triglycerides LDL Cholesterol Direct HDL Cholesterol Urine WBC (Auto) Vancomycin Trough Salicylates Acetaminophen Crossmatch 12/18/20 12/18/20 12/19/20 11:56 18:40 04:50 WBC 24.1 H RBC 3.37 L Hgb 8.5 L Hct 28.0 L MCV 83 L MCH 25 L MCHC 30 L RDW 21.4 H Plt Count 563 H Lymph % (Auto) [place] # (Auto) Seg Neutrophils % Seg Neuts % (Manual) Lymphocytes % (Manual) Seg Neutrophils # Seg Neutrophils # Man Lymphocytes # (Manual) Monocytes # (Manual) PT INR APTT ABG pH ABG pO2 40.2 L ABG HCO3 17.7 L ABG O2 Saturation 73.9 L ABG Base Excess -6.7 L ABG Hemoglobin 9.0 L Oxyhemoglobin 71.9 L Sodium Potassium Chloride Carbon Dioxide BUN Creatinine Glucose Calcium Phosphorus Magnesium 1.50 L Alkaline Phosphatase Ammonia Total Creatine Kinase 41 L Troponin T Albumin Triglycerides LDL Cholesterol Direct HDL Cholesterol Urine WBC (Auto) Vancomycin Trough Salicylates Acetaminophen Crossmatch 12/19/20 12/20/20 12/20/20 04:50 05:10 05:10 WBC 23.6 H RBC 3.43 L Hgb 9.0 L Hct 29.9 L MCV MCH 26 L MCHC 30 L RDW 21.6 H Plt Count 516 H Lymph % (Auto) [place] # (Auto) Seg Neutrophils % Seg Neuts % (Manual) Lymphocytes % (Manual) Seg Neutrophils # Seg Neutrophils # Man Lymphocytes # (Manual) Monocytes # (Manual) PT INR APTT ABG pH ABG pO2 ABG HCO3 ABG O2 Saturation ABG Base Excess ABG Hemoglobin Oxyhemoglobin Sodium Potassium Chloride 109.8 H Carbon Dioxide 16 L BUN 21 H Creatinine 0.7 L Glucose Calcium 7.9 L Phosphorus Magnesium Alkaline Phosphatase Ammonia Total Creatine Kinase Troponin T Albumin Triglycerides LDL Cholesterol Direct HDL Cholesterol Urine WBC (Auto) Vancomycin Trough 30.2 H Salicylates Acetaminophen Crossmatch 12/21/20 12/21/20 12/22/20 05:17 07:46 07:52 WBC 31.7 H 28.9 H RBC 3.45 L 3.30 L Hgb 8.7 L 8.5 L Hct 28.8 L 27.8 L MCV 83 L MCH 25 L 26 L MCHC 30 L 30 L RDW 21.6 H 21.7 H Plt Count 644 H 693 H Lymph % (Auto) [place] # (Auto) Seg Neutrophils % Seg Neuts % (Manual) Lymphocytes % (Manual) Seg Neutrophils # Seg Neutrophils # Man Lymphocytes # (Manual) Monocytes # (Manual) PT INR APTT ABG pH ABG pO2 ABG HCO3 ABG O2 Saturation ABG Base Excess ABG Hemoglobin Oxyhemoglobin Sodium Potassium 3.3 L Chloride 109.3 H Carbon Dioxide 17 L BUN Creatinine 0.6 L Glucose 123 H Calcium 8.0 L Phosphorus 2.00 L Magnesium Alkaline Phosphatase Ammonia Total Creatine Kinase Troponin T Albumin Triglycerides LDL Cholesterol Direct HDL Cholesterol Urine WBC (Auto) Vancomycin Trough Salicylates Acetaminophen Crossmatch 12/22/20 12/23/20 07:52 05:17 WBC RBC Hgb Hct MCV MCH MCHC RDW Plt Count Lymph % (Auto) [place] # (Auto) Seg Neutrophils % Seg Neuts % (Manual) Lymphocytes % (Manual) Seg Neutrophils # Seg Neutrophils # Man Lymphocytes # (Manual) Monocytes # (Manual) PT INR APTT ABG pH ABG pO2 ABG HCO3 ABG O2 Saturation ABG Base Excess ABG Hemoglobin Oxyhemoglobin Sodium 136 L Potassium Chloride 107.8 H Carbon Dioxide 17 L 20 L BUN Creatinine 0.5 L 0.5 L Glucose 114 H Calcium 7.9 L 8.3 L Phosphorus 2.40 L Magnesium Alkaline Phosphatase Ammonia Total Creatine Kinase Troponin T Albumin Triglycerides LDL Cholesterol Direct HDL Cholesterol Urine WBC (Auto) Vancomycin Trough Salicylates Acetaminophen Crossmatch Allied health notes reviewed: nursing
--- NOTE | 2020-12-23 10:49 | Progress Note ---
Assessment and Plan - Patient Problems (1) Acute kidney injury Current Visit: Yes Status: Acute Plan to address problem: Prerenal azotemia secondary to sepsis/hypotension. Kidney function improved back to normal. Follow-up electrolytes and renal function (2) Metabolic acidosis Current Visit: Yes Status: Acute Plan to address problem: Metabolic acidosis: Bicarbonate improving. Follow-up level (3) Hypophosphatemia Current Visit: Yes Status: Acute Plan to address problem: Phosphorus still low normal. Supplement and follow-up level (4) Hyperkalemia Current Visit: Yes Status: Acute Plan to address problem: Resolved. Potassium is now normal follow-up potassium periodically (5) Anemia Current Visit: Yes Status: Resolved Plan to address problem: Follow-up hemoglobin (6) UTI (urinary tract infection) Current Visit: Yes Status: Acute Qualifiers: Urinary tract infection type: acute cystitis Hematuria presence: with hematuria Plan to address problem: Continue antibiotics and follow-up (7) Cough Current Visit: Yes Status: Acute Plan to address problem: Get chest x-ray. Subjective Date of service: 12/23/20 Principal diagnosis: Hypotension; Anemia; NSTEMI; UTI Interval history: Patient seen lying in bed. Complains of cough. No chest pain. No fever or chills. No nausea or vomiting. Objective - Exam Narrative Exam: Frail emaciated, middle-aged -[place]in[place] male lying in bed in no acute distress. Coughing during evaluation. Nonproductive HEENT: NCAT, pink oral mucous membrane Neck: Supple, no venous distention CVS: S1S2 RRR with no murmur, rub or gallop Chest: Clear to auscultation Abdomen: Protuberant, soft, nontender, no organomegaly, bowel sounds are present Extremities: No edema, muscle wasting Neuro: Awake, looks dull - Vital Signs Vital signs: Vital Signs - 12hr 12/23/20 12/23/20 12/23/20 01:45 02:15 04:55 Temperature 98.2 F Pulse Rate 90 Respiratory 20 20 18 Rate Blood Pressure 110/75 O2 Sat by Pulse 96 Oximetry 12/23/20 12/23/20 05:41 06:11 Temperature Pulse Rate Respiratory 20 18 Rate Blood Pressure O2 Sat by Pulse Oximetry - Lab 12/22/20 07:52 12/23/20 05:17 Most recent lab results ABG pH 7.374 pH Units (7.350-7.450) 12/18/20 11:56 ABG pCO2 31.0 mm Hg 12/18/20 11:56 ABG pO2 40.2 mm Hg (80.0-90.0) L 12/18/20 11:56 ABG HCO3 17.7 mmol/L (20.0-26.0) L 12/18/20 11:56 ABG O2 Saturation 73.9 % (95.0-99.0) L 12/18/20 11:56 Calcium 8.3 mg/dL (8.4-10.2) L 12/23/20 05:17 Phosphorus 2.40 mg/dL (2.5-4.5) L 12/23/20 05:17 Magnesium 1.70 mg/dL (1.7-2.3) 12/21/20 05:17 Medications & Allergies - Medications Allergies/Adverse Reactions: Allergies Penicillins Allergy (Verified 12/16/20 02:38) Itching Home Medications: Home Medications Medication Instructions Recorded Confirmed Last Taken Type Amantadine 10 mg FEEDTUBE DAILY 12/16/20 12/18/20 Unknown History Ascorbic Acid [Vitamin C with Irma 1 tab FEEDTUBE DAILY 12/16/20 12/18/20 Unknown History Hips] Aspirin BABY CHEW TAB 81 mg FEEDTUBE DAILY 12/16/20 12/18/20 Unknown History Cetirizine HCl [Cetirizine 10mg 1 tab FEEDTUBE DAILY 12/16/20 12/18/20 Unknown History chew] Gabapentin 1 cap FEEDTUBE TID 12/16/20 12/18/20 Unknown History Ibuprofen [Motrin] 800 mg FEEDTUBE Q8H PRN 12/16/20 12/18/20 Unknown History Multiple Vitamin TAB (Theragran) 1 tab FEEDTUBE DAILY 12/16/20 12/18/20 Unknown History Sennosides [Senna] 8.6 mg FEEDTUBE DAILY 12/16/20 12/18/20 Unknown History Sertraline [Zoloft] 1 tab FEEDTUBE DAILY 12/16/20 12/18/20 Unknown History Tamsulosin [Flomax] 1 cap FEEDTUBE DAILY 12/16/20 12/18/20 Unknown History Vitamin D3 50,000UNIT CAP 1 cap FEEDTUBE DAILY 12/16/20 12/18/20 Unknown History Zinc Sulfate 1 cap FEEDTUBE DAILY 12/16/20 12/18/20 Unknown History Active Medications: Generic Name Dose Route Start Last Admin Trade Name Freq PRN Reason Stop Dose Admin Acetaminophen 650 mg 12/15/20 23:59 12/16/20 00:32 Acetaminophen 650 Mg Rect Supp MI 650 mg Q6H PRN Administration Pain MILD(1-3)/Fever >100.5/RHOADES Amantadine HCl 100 mg 12/16/20 17:00 12/22/20 10:43 Amantadine 100 Mg Cap PO 100 mg QDAY TIFF Administration Lipase/Protease/Amylase 1 each 12/16/20 15:13 Lipase 10,500/Protease 25,000/Amylase 43,750 (Units) Dr Conroy FEEDTUBE PRN PRN For Clogged Feeding Tube Gabapentin 600 mg 12/16/20 16:00 12/23/20 05:41 Gabapentin 300 Mg Cap PO 600 mg Q8HR TIFF Administration Ceftriaxone Sodium 2 gm in 100 mls @ 200 mls/hr 12/19/20 22:00 12/22/20 21:27 Rocephin/Ns 2 Gm/100 Ml IV 200 mls/hr Q24H TIFF Administration Vancomycin HCl 1 gm in 250 mls @ 167.007 mls/hr 12/22/20 12:00 12/22/20 15:10 Vancomycin/Ns 1 Gm/250 Ml IV Infused Q24H TIFF Infusion Magnesium Hydroxide 30 ml 12/15/20 23:59 Magnesium Hydroxide (Mom) Oral Liqd Udc PO Q4H PRN Constipation Metoprolol Tartrate 12.5 mg 12/17/20 22:00 12/22/20 21:27 Metoprolol Tartrate 25 Mg Tab PO 12.5 mg BID TIFF Administration Mirtazapine 15 mg 12/16/20 22:00 12/22/20 21:27 Mirtazapine 15 Mg Tab PO 15 mg QHS TIFF Administration Morphine Sulfate 2 mg 12/15/20 23:59 12/23/20 05:41 Morphine 2 Mg/1 Ml Inj IV 2 mg Q4H PRN Administration Pain, Moderate (4-6) Morphine Sulfate 4 mg 12/15/20 23:59 12/23/20 01:45 Morphine 4 Mg/1 Ml Inj IV 4 mg Q4H PRN Administration Pain , Severe (7-10) Ondansetron HCl 4 mg 12/15/20 23:59 12/17/20 04:55 Ondansetron 4 Mg/2 Ml Inj IV 4 mg Q8H PRN Administration Nausea And Vomiting Sertraline HCl 50 mg 12/16/20 17:00 12/22/20 10:46 Sertraline 50 Mg Tab PO 50 mg QDAY TIFF Administration Simple Syrup 15 ml 12/16/20 15:13 Simple Syrup 15 Ml FEEDTUBE PRN PRN Hypoglycemia Simple Syrup 30 ml 12/16/20 15:13 Simple Syrup 15 Ml FEEDTUBE PRN PRN Hypoglycemia Sodium Bicarbonate 325 mg 12/16/20 15:13 Sodium Bicarbonate 325 Mg Tab FEEDTUBE PRN PRN For Clogged Feeding Tube Sodium Bicarbonate 650 mg 12/22/20 10:00 12/22/20 21:27 Sodium Bicarbonate 650 Mg Tab PO 650 mg BID TIFF Administration Sodium Chloride 10 ml 12/16/20 10:00 12/22/20 21:30 Sodium Chloride 0.9% 10 Ml Flush Syringe IV 10 ml BID TIFF Administration Sodium Chloride 10 ml 12/15/20 23:59 Sodium Chloride 0.9% 10 Ml Flush Syringe IV PRN PRN LINE FLUSH Tamsulosin HCl 0.4 mg 12/16/20 17:00 12/22/20 10:42 Tamsulosin 0.4 Mg Cap PO 0.4 mg QDAY TIFF Administration
[2020-12-23] MEDS: TAMSULOSIN 0.4 MG CAP PO SCH (11:05)
[2020-12-23] MEDS: SERTRALINE 50 MG TAB PO SCH (11:05)
[2020-12-23] MEDS: SODIUM BICARBONATE 650 MG TAB PO SCH ×2 (11:06→22:25)
[2020-12-23] MEDS: METOPROLOL TARTRATE 25 MG TAB PO SCH ×2 (11:06→22:24)
--- NOTE | 2020-12-23 11:35 | Electrocardiograph Report ---
[facility] Test Date: 2020-12-21 Test Time: 18:40:34 Pat Name: PAPO CARTY Department: Room: A374 1 Gender: M Training And Development Coordinator: shameka colón : [id number] Requested By: MILENA QUEEN Order Number: [id number] Reading MD: Antony Obregon Measurements Intervals [place] Rate: 89 P: 55 NH: 135 QRS: 43 QRSD: 78 T: 53 QT: 348 QTc: 425 Interpretive Statements Sinus rhythm Low voltage, extremity leads Compared to ECG 12/17/2020 11:35:16 No significant changes Electronically Signed On 12-23-2020 11:35:03 EST by Antony Obregon
[2020-12-23] MEDS ORDERED: POTASSIUM PHOSPHATE 15 MMOL in SODIUM CHLORIDE 0.9% 250ML 250 ML IV ONE (12:00)
[2020-12-23] MEDS: VANCOMYCIN/NS 1 GM/250 ML 1 GM/250 ML BAG IV SCH (12:52)
--- NOTE | 2020-12-23 13:56 | Progress Note ---
Assessment and Plan Cultures: Blood culture no growth so far Urine culture: Klebsiella pneumoniae A/P: 55-year-old male past medical history Parkinson's, depression, DVT, fracture of the right acetabulum admitted with fatigue #Sepsis, leucocytosis, reactive thrombocytosis: likely from UTI and multiple decubiti #Complicated UTI: Has history of Kyle cath, which has been changed since admission #Bedbound status with ulcers: pending wound care consult. #Sacral wounds: patient refuses examination. #BERNICE: improving. #Penicillin allergy: tolerating ceftriaxone Recs: -Continue IV vancomycin, IV ceftriaxone 2g q24h. WBC has remained elevated. Likelihood of cure is unlikely given his poor nutritional status, bedbound status. Agree with plans for hospice. When transitioned to hospice, d/c antibiotics -continue wound care, offloading as possible Luis Watson MD, FACP [facility] O: [phone] F: [phone] Subjective Date of service: 12/23/20 Principal diagnosis: Hypotension; Anemia; NSTEMI; UTI Interval history: No fever. Mother and aunt at bedside. Note from CM reviewed, regarding plans for hospice. Objective - Exam Narrative Exam: Physical Exam: Constitutional: Alert, cooperative. mild distress due to pain. Cachexia + Head, Ears, Nose: Normocephalic, atraumatic. External ears, nose normal Eyes: Conjunctivae/corneas clear. No icterus. No ptosis. Neck: Supple, no meningeal signs Cardiovascular: S1, S2 normal. Respiratory: Good air entry, clear to auscultation bilaterally GI: Soft, non-tender; bowel sounds normal. No peritoneal signs. G Tube + Musculoskeletal: Bilateral TMA, no evident wounds of stumps. Multiple decubiti, unable to examine due to pain Skin: No rash or abscess Hem/Lymphatic: No palpable cervical or supraclavicular nodes. No lymphangitis Psych: Mood ok. Affect normal Neurological: Awake, alert, oriented. - Constitutional Vitals: Vital Signs Temp Pulse Resp BP Pulse Ox 98.5 F 88 16 98/71 97 12/23/20 11:15 12/23/20 11:15 12/23/20 11:15 12/23/20 11:15 12/23/20 11:15 Temperature -Last 24 Hours Temperature 98.5 F Temperature 98.2 F Temperature 99.2 F Temperature 97.3 F - Labs CBC & Chem 7: 12/22/20 07:52 12/23/20 05:17 Labs: Abnormal lab results 12/23/20 Range/Units 05:17 Sodium 136 L (137-145) mmol/L Carbon Dioxide 20 L (22-30) mmol/L Creatinine 0.5 L (0.8-1.3) mg/dL Calcium 8.3 L (8.4-10.2) mg/dL Phosphorus 2.40 L (2.5-4.5) mg/dL
--- NOTE | 2020-12-23 15:46 | Progress Note ---
Assessment and Plan Assessment and plan: #Complicated UTI-resolved -UCx: 10-100k Klebsiella sensitive to rocephin -status post Rocephin x3 days -ID following, appreciate recs #Anemia requiring transfusion-resolved -s/p 2 units pRBC -will transfuse for Hgb less than 7 or patient becomes symptomatic #Leukocytosis -WBC count 28.9. Unsure of leukocytosis will fully resolve given malnutrition status and lack of source control. -BCx 12/15 final NGTD -will continue vancomycin and rocephin #Hypokalemia -resolved #Acute kidney injury-resolved -creatinine 0.5 -likely 2/2 to vasomotor nephropathy -Nephrology consulted, assistance appreciated #Stage III Decubitus ulcers -chronic -detailed discussion with patient about wound care, and patient described nurses being rough with him in regards to wound care. Patient would like wounds to be cared for but requests the nurses are gentle due to the significant pain. As needed IV analgesic will be available prior to wound changes. #Malnutrition -albumin 2.7 -Nutrition consulted -will continue PEG feeds in addition to oral feeds to improve healing. #Advance care planning -Discussed change to DNR/DNI status along with hospice with the patient and his . would like to proceed with DNR/DNI and place him on hospice. The patient wants to continue to be treated and is not ready to give up. Both are aware of poor prognosis. Patient counseled about importance of participating in his medical care to help drive forward improvement in his status. Time +30 minutes Resolved issues #Hypotension-resolved #Hyperkalemia-resolved #Type II NSTEMI -troponin 0.215, downtrending to 0.078 -Echo showed EF 45-50% -Cardiology evaluated patient, no intervention at this time -likely 2/2 BERNICE #Advanced care planning -Disease education conducted, care plan discussed, diagnoses discussed, prognosis discussed, and patient acknowledges understanding with care plan -time: +30 minutes Disposition Plan: Continue medical management Total Time Spent with Patient (Minutes): 45 minutes History Interval history: No acute events overnight. Hospitalist Physical - Constitutional Vitals: Temp Pulse Resp BP Pulse Ox 98.5 F 88 16 98/71 97 12/23/20 11:15 12/23/20 11:15 12/23/20 11:15 12/23/20 11:15 12/23/20 11:15 General appearance: Present: no acute distress, cachectic - EENT Eyes: Present: PERRL, EOM intact ENT: hearing intact, clear oral mucosa, edentulous - Neck Neck: Present: supple, normal ROM - Respiratory Respiratory effort: normal Respiratory: bilateral: CTA - Cardiovascular Rhythm: regular Heart Sounds: Present: S1 & S2 - Extremities Extremities: no ischemia, pulses intact, pulses symmetrical, normal temperature, normal color, abnormal (Bilateral guillotine amputations of feet; feet are wrapped and Kerlix and Efrem bandage; significant muscle wasting) Extremity abnormal: tenderness (Significant generalized tenderness especially on lower extremities and entire back side in the setting of numerous decubitus ulcers) Peripheral Pulses: within normal limits - Abdominal General gastrointestinal: soft, non-tender, non-distended, normal bowel sounds - Integumentary Integumentary: Present: warm, dry - Psychiatric Psychiatric: appropriate mood/affect, intact judgment & insight, memory intact, cooperative - Neurologic Neurologic: CNII-XII intact, moves all extremities - Allied Health Allied health notes reviewed: nursing HEART Score - HEART Score Troponin: Troponin T 0.078 ng/mL (0.00-0.029) H D 12/16/20 20:19 Results - Labs CBC & Chem 7: 12/22/20 07:52 12/23/20 05:17 Labs: Laboratory Last Values WBC 28.9 K/mm3 (4.5-11.0) H 12/22/20 07:52 RBC 3.30 M/mm3 (3.65-5.03) L 12/22/20 07:52 Hgb 8.5 gm/dl (11.8-15.2) L 12/22/20 07:52 Hct 27.8 % (35.5-45.6) L 12/22/20 07:52 MCV 84 fl (84-94) 12/22/20 07:52 MCH 26 pg (28-32) L 12/22/20 07:52 MCHC 30 % (32-34) L 12/22/20 07:52 RDW 21.7 % (13.2-15.2) H 12/22/20 07:52 Plt Count 693 K/mm3 (140-440) H 12/22/20 07:52 Lymph % (Auto) 6.4 % (13.4-35.0) L 12/15/20 20:29 [place] % (Auto) 6.8 % (0.0-7.3) 12/15/20 20: Eos % (Auto) 0.7 % (0.0-4.3) 12/15/20 20: Baso % (Auto) 0.2 % (0.0-1.8) 12/15/20 20: Lymph # (Auto) 1.2 K/mm3 (1.2-5.4) 12/15/20 20: [place] # (Auto) 1.3 K/mm3 (0.0-0.8) H 12/15/20 20: Eos # (Auto) 0.1 K/mm3 (0.0-0.4) 12/15/20 20: Baso # (Auto) 0.0 K/mm3 (0.0-0.1) 12/15/20 20: Add Manual Diff Complete 12/17/20 04:27 Total Counted 100 12/17/20 04:27 Seg Neutrophils % 85.9 % (40.0-70.0) H 12/15/20 20: Seg Neuts % (Manual) 91.0 % (40.0-70.0) H 12/17/20 04:27 Lymphocytes % (Manual) 3.0 % (13.4-35.0) L 12/17/20 04:27 Monocytes % (Manual) 6.0 % (0.0-7.3) 12/17/20 04:27 Nucleated RBC % Not Reportable 12/17/20 04:27 Seg Neutrophils # 16.5 K/mm3 (1.8-7.7) H 12/15/20 20:29 Seg Neutrophils # Man 22.3 K/mm3 (1.8-7.7) H 12/17/20 04:27 Band Neutrophils # 0.0 K/mm3 12/17/20 04:27 Lymphocytes # (Manual) 0.7 K/mm3 (1.2-5.4) L 12/17/20 04:27 Abs React Lymphs (Man) 0.0 K/mm3 12/17/20 04:27 Monocytes # (Manual) 1.5 K/mm3 (0.0-0.8) H 12/17/20 04:27 Eosinophils # (Manual) 0.0 K/mm3 (0.0-0.4) 12/17/20 04:27 Basophils # (Manual) 0.0 K/mm3 (0.0-0.1) 12/17/20 04:27 Metamyelocytes # 0.0 K/mm3 12/17/20 04:27 Myelocytes # 0.0 K/mm3 12/17/20 04:27 Promyelocytes # 0.0 K/mm3 12/17/20 04:27 Blast Cells # 0.0 K/mm3 12/17/20 04:27 WBC Morphology Not Reportable 12/17/20 04:27 Hypersegmented Neuts Not Reportable 12/17/20 04:27 Hyposegmented Neuts Not Reportable 12/17/20 04:27 Hypogranular Neuts Not Reportable 12/17/20 04:27 Smudge Cells Not Reportable 12/17/20 04:27 Toxic Granulation Not Reportable 12/17/20 04:27 Toxic Vacuolation Not Reportable 12/17/20 04:27 Dohle Bodies Not Reportable 12/17/20 04:27 Pelger-Huet Anomaly Not Reportable 12/17/20 04:27 Marcell Rods Not Reportable 12/17/20 04:27 Platelet Estimate Consistent w auto 12/17/20 04:27 Clumped Platelets Not Reportable 12/17/20 04:27 Plt Clumps, EDTA Not Reportable 12/17/20 04:27 Large Platelets Not Reportable 12/17/20 04:27 Giant Platelets Not Reportable 12/17/20 04:27 Platelet Satelliting Not Reportable 12/17/20 04:27 Plt Morphology Comment Not Reportable 12/17/20 04:27 RBC Morphology Not Reportable 12/17/20 04:27 Dimorphic RBCs Not Reportable 12/17/20 04:27 Polychromasia Not Reportable 12/17/20 04:27 Hypochromasia 1+ 12/17/20 04:27 Poikilocytosis Not Reportable 12/17/20 04:27 Anisocytosis 1+ 12/17/20 04:27 Microcytosis Not Reportable 12/17/20 04:27 Macrocytosis Not Reportable 12/17/20 04:27 Spherocytes Not Reportable 12/17/20 04:27 Pappenheimer Bodies Not Reportable 12/17/20 04:27 Sickle Cells Not Reportable 12/17/20 04:27 Target Cells Not Reportable 12/17/20 04:27 Tear Drop Cells Not Reportable 12/17/20 04:27 Ovalocytes Not Reportable 12/17/20 04:27 Helmet Cells Not Reportable 12/17/20 04:27 Joshi-[place] Bodies Not Reportable 12/17/20 04:27 Shannock Rings Not Reportable 12/17/20 04:27 Nicol Cells Not Reportable 12/17/20 04:27 Bite Cells Not Reportable 12/17/20 04:27 Crenated Cell Not Reportable 12/17/20 04:27 Elliptocytes Not Reportable 12/17/20 04:27 Acanthocytes (Spur) Not Reportable 12/17/20 04:27 Rouleaux Not Reportable 12/17/20 04:27 Hemoglobin C Crystals Not Reportable 12/17/20 04:27 Schistocytes Not Reportable 12/17/20 04:27 Malaria parasites Not Reportable 12/17/20 04:27 Azeem Bodies Not Reportable 12/17/20 04:27 Hem Pathologist Commnt No 12/17/20 04:27 PT 16.7 Sec. (12.2-14.9) H 12/17/20 04:27 INR 1.22 (0.87-1.13) H 12/17/20 04:27 APTT 42.0 Sec. (24.2-36.6) H 12/15/20 20:29 ABG pH 7.374 pH Units (7.350-7.450) 12/18/20 11:56 ABG pCO2 31.0 mm Hg 12/18/20 11:56 ABG pO2 40.2 mm Hg (80.0-90.0) L 12/18/20 11:56 ABG HCO3 17.7 mmol/L (20.0-26.0) L 12/18/20 11:56 ABG O2 Saturation 73.9 % (95.0-99.0) L 12/18/20 11:56 ABG O2 Content 9.1 (0.0-44) 12/18/20 11:56 ABG Base Excess -6.7 mmol/L (-2.0-3.0) L 12/18/20 11:56 ABG Hemoglobin 9.0 gm/dl (14.0-18.0) L 12/18/20 11:56 ABG Carboxyhemoglobin 2.0 % (0.0-5.0) 12/18/20 11:56 ABG Methemoglobin 0.6 % (0.0-1.5) 12/18/20 11:56 Oxyhemoglobin 71.9 % (95.0-99.0) L 12/18/20 11:56 FiO2 21 % 12/18/20 11:56 Sodium 136 mmol/L (137-145) L 12/23/20 05:17 Potassium 3.6 mmol/L (3.6-5.0) 12/23/20 05:17 Chloride 106.2 mmol/L (98-107) 12/23/20 05:17 Carbon Dioxide 20 mmol/L (22-30) L 12/23/20 05:17 Anion Gap 13 mmol/L 12/23/20 05:17 BUN 10 mg/dL (9-20) 12/23/20 05:17 Creatinine 0.5 mg/dL (0.8-1.3) L 12/23/20 05:17 Estimated GFR > 60 ml/min 12/23/20 05:17 BUN/Creatinine Ratio 20 % 12/23/20 05:17 Glucose 82 mg/dL (75-100) 12/23/20 05:17 POC Glucose 72 mg/dL (70-105) 12/15/20 23:48 Lactic Acid 0.70 mmol/L (0.7-2.0) 12/21/20 21:33 Calcium 8.3 mg/dL (8.4-10.2) L 12/23/20 05:17 Phosphorus 2.40 mg/dL (2.5-4.5) L 12/23/20 05:17 Magnesium 1.70 mg/dL (1.7-2.3) 12/21/20 05:17 Total Bilirubin 0.80 mg/dL (0.1-1.2) 12/15/20 20:29 AST 16 units/L (5-40) 12/15/20 20:29 ALT 17 units/L (7-56) 12/15/20 20:29 Alkaline Phosphatase 321 units/L (35-129) H 12/15/20 20:29 Ammonia 21.0 umol/L (25-60) L 12/15/20 21:28 Total Creatine Kinase 41 units/L (55-170) L 12/18/20 18:40 Troponin T 0.078 ng/mL (0.00-0.029) H D 12/16/20 20:19 Total Protein 7.0 g/dL (6.3-8.2) 12/15/20 20: Albumin 2.7 g/dL (3.9-5) L 12/15/20 20: Albumin/Globulin Ratio 0.6 % 12/15/20 20: Triglycerides 153 mg/dL (2-149) H 12/15/20 20: Cholesterol 95 mg/dL (50-199) 12/15/20 20: LDL Cholesterol Direct 23 mg/dL (50-130) L 12/15/20 20: HDL Cholesterol 27 mg/dL (40-59) L 12/15/20 20: Cholesterol/HDL Ratio 3.51 % 12/15/20 20:29 Procalcitonin 2.49 ng/mL (<0.15) 12/21/20 21:33 TSH 1.380 mlU/mL (0.270-4.200) 12/15/20 20:29 Urine Color Angela (Yellow) 12/15/20 20:20 Urine Turbidity Turbid (Clear) 12/15/20 20:20 Urine pH 7.0 (5.0-7.0) 12/15/20 20:20 Ur Specific [place] 1.012 (1.003-1.030) 12/15/20 20:20 Urine Protein 100 mg/dl mg/dL (Negative) 12/15/20 20:20 Urine Glucose (UA) Neg mg/dL (Negative) 12/15/20 20:20 Urine Ketones Neg mg/dL (Negative) 12/15/20 20:20 Urine Blood Lg (Negative) 12/15/20 20:20 Urine Nitrite Neg (Negative) 12/15/20 20:20 Urine Bilirubin Neg (Negative) 12/15/20 20:20 Urine Urobilinogen 4.0 mg/dL (<2.0) 12/15/20 20:20 Ur Leukocyte Esterase Lg (Negative) 12/15/20 20:20 Urine WBC (Auto) > 182.0 /HPF (0.0-6.0) H 12/15/20 20:20 Urine RBC (Auto) 117.0 /HPF (0.0-6.0) 12/15/20 20:20 Urine Bacteria (Auto) 3+ /HPF (Negative) 12/15/20 20:20 Urine WBC Clumps 3+ /HPF 12/15/20 20:20 Urine Mucus Few /HPF 12/15/20 20:20 Urine Yeast (Budding) 3+ /HPF 12/15/20 20:20 Nasal Screen MRSA (PCR) Negative (Negative) 12/17/20 Unknown Vancomycin Trough 30.2 ug/mL (5.0-20.0) H 12/20/20 05:10 Random Vancomycin 7.2 ug/mL (0-40.0) 12/22/20 07:52 Salicylates < 0.3 mg/dL (2.8-20.0) L 12/15/20 20:29 Acetaminophen 5.0 ug/mL (10.0-30.0) L 12/15/20 20:29 Plasma/Serum Alcohol < 0.01 % (0-0.07) 12/15/20 20:29 Coronavirus (PCR) Negative (Negative) 12/18/20 08:00 Blood Type A POSITIVE 12/15/20 20:29 Antibody Screen Negative 12/15/20 20:29 Crossmatch See Detail 12/15/20 20:29 Kyle/IV: Voiding Method Indwelling Catheter Active Medications - Current Medications Current Medications: Generic Name Dose Route Start Last Admin Trade Name Freq PRN Reason Stop Dose Admin Acetaminophen 650 mg 12/15/20 23:59 12/16/20 00:32 Acetaminophen 650 Mg Rect Supp [place] 650 mg Q6H PRN Administration Pain MILD(1-3)/Fever >100.5/RHOADES Amantadine HCl 100 mg 12/16/20 17:00 12/23/20 11:05 Amantadine 100 Mg Cap PO 100 mg QDAY TIFF Administration Lipase/Protease/Amylase 1 each 12/16/20 15:13 Lipase 10,500/Protease 25,000/Amylase 43,750 (Units) Dr Conroy FEEDTUBE PRN PRN For Clogged Feeding Tube Gabapentin 600 mg 12/16/20 16:00 12/23/20 13:01 Gabapentin 300 Mg Cap PO 600 mg Q8HR TIFF Administration Ceftriaxone Sodium 2 gm in 100 mls @ 200 mls/hr 12/19/20 22:00 12/22/20 21:27 Rocephin/Ns 2 Gm/100 Ml IV 200 mls/hr Q24H TIFF Administration Vancomycin HCl 1 gm in 250 mls @ 167.007 mls/hr 12/22/20 12:00 12/23/20 12:52 Vancomycin/Ns 1 Gm/250 Ml IV 167.007 mls/hr Q24H TIFF Administration Potassium Phosphate 15 mmol/ 255 mls @ 63.75 mls/hr 12/23/20 12:00 12/23/20 12:51 Sodium Chloride IV 12/23/20 15:59 63.75 mls/hr ONCE ONE Administration Magnesium Hydroxide 30 ml 12/15/20 23:59 Magnesium Hydroxide (Mom) Oral Liqd Udc PO Q4H PRN Constipation Metoprolol Tartrate 12.5 mg 12/17/20 22:00 12/23/20 11:06 Metoprolol Tartrate 25 Mg Tab PO 12.5 mg BID TIFF Administration Mirtazapine 15 mg 12/16/20 22:00 12/22/20 21:27 Mirtazapine 15 Mg Tab PO 15 mg QHS TIFF Administration Morphine Sulfate 2 mg 12/15/20 23:59 12/23/20 14:31 Morphine 2 Mg/1 Ml Inj IV 2 mg Q4H PRN Administration Pain, Moderate (4-6) Morphine Sulfate 4 mg 12/15/20 23:59 12/23/20 11:05 Morphine 4 Mg/1 Ml Inj IV 4 mg Q4H PRN Administration Pain , Severe (7-10) Ondansetron HCl 4 mg 12/15/20 23:59 12/17/20 04:55 Ondansetron 4 Mg/2 Ml Inj IV 4 mg Q8H PRN Administration Nausea And Vomiting Sertraline HCl 50 mg 12/16/20 17:00 12/23/20 11:05 Sertraline 50 Mg Tab PO 50 mg QDAY TIFF Administration Simple Syrup 15 ml 12/16/20 15:13 Simple Syrup 15 Ml FEEDTUBE PRN PRN Hypoglycemia Simple Syrup 30 ml 12/16/20 15:13 Simple Syrup 15 Ml FEEDTUBE PRN PRN Hypoglycemia Sodium Bicarbonate 325 mg 12/16/20 15:13 Sodium Bicarbonate 325 Mg Tab FEEDTUBE PRN PRN For Clogged Feeding Tube Sodium Bicarbonate 650 mg 12/22/20 10:00 12/23/20 11:06 Sodium Bicarbonate 650 Mg Tab PO 650 mg BID TIFF Administration Sodium Chloride 10 ml 12/16/20 10:00 12/23/20 11:06 Sodium Chloride 0.9% 10 Ml Flush Syringe IV 10 ml BID TIFF Administration Sodium Chloride 10 ml 12/15/20 23:59 Sodium Chloride 0.9% 10 Ml Flush Syringe IV PRN PRN LINE FLUSH Tamsulosin HCl 0.4 mg 12/16/20 17:00 12/23/20 11:05 Tamsulosin 0.4 Mg Cap PO 0.4 mg QDAY TIFF Administration Nutrition/Malnutrition Assess - Dietary Evaluation Nutrition/Malnutrition Findings: Nutrition Notes Start: 12/16/20 13:54 Freq: Status: Active Protocol: Document 12/18/20 16:39 HAWK (Rec: 12/18/20 17:12 HAWK [id number]) Nutrition Notes Initial or Follow up Reassessment Current Diagnosis Acute Kidney Injury,Sepsis Other Pertinent Diagnosis Anemia, Hyperkalemia, UTI. Labs/Tests 12/18: K 3.4, Cl 110, CO2 16, BUN 30, Ca 8.2. Pertinent Medications 12/18: Nutritionally unremarkable. Height 6 ft Weight 81.647 kg [place] Body Weight (kg) 80.90 BMI 24.4 Subjective/Other Information RD consult for routine F/U on TF initiation. Percent of energy/protein needs met: Prescribed Regular Diet provides for energy/protein needs (2,289 Kcal/89 g) during LOS. Additionally TF provides for 1,000 Kcal and 45 g respectivelly. Burn Absent Trauma Absent GI Symptoms Other Food Allergy No Skin Integrity/Comment Surgical wound Current % PO Other Minimum of two criteria No #1 Nutrition Diagnosis Altered GI function Etiology Current concomitant conditions , PEG placement. As Evidenced by Signs and Symptoms Abnotrmal chemistry lab values , MD order for TF + PO Diet. Is patient on ventilator? No Is Patient Ambulatory and/or Out of Bed No [facility] 2043.468 Kcal/Kg value to use for calculation 25 Approximate Energy Requirements Using 2041 kcal/Kg Calculation Used for Recommendations Kcal/kg Additional Notes Protein: 1.2-1.5 g/Kg; 97-122 g/day (from IBW+critical care) . Fluids: 1 ml/Kcal, or as per MD. Nutrition Intervention Change Diet Order: Continue Regular Diet. Nutrition Support: Continue TF Nepro with CARBSTEADY @ 23 ml/hr; Flush 100 ml Q 4 hrs. Kcal 1,000 Protein (gm) 45 Carbohydrates (gm) 89 Fat (gm) 53 Fluid (mL) 404 Fiber (gm) 7 % RDI: 49% Kcal; 55% AA. Goal #1 Maintain body weight within +/ -3% of current BWt during LOS. Goal #2 Reach and mainatain acceptable chemistry lab values during LOS. Follow-Up By: 12/25/20 Additional Comments Continue monitoring food and TF tolerance, %PO intake of meals, Hydration, and BM.
[2020-12-23] MEDS: cefTRIAXone/NS 2 GM/100 ML 2 GM/100 ML BAG IV SCH (22:24)
[2020-12-23] MEDS: MIRTAZAPINE 15 MG TAB PO SCH (22:25)
[2020-12-24] MEDS: MORPHINE 4 MG/1 ML INJ IV PRN ×2 (03:34→10:20)
[2020-12-24] MEDS: GABAPENTIN 300 MG CAP PO SCH ×3 (06:14→21:46)
[2020-12-24 08:13] LABS: Mean Corpuscular HGB Conc 30 % (32-34); Mean Corpuscular Volume 87 fl (84-94); Platelet Count 636 K/mm3 (140-440); Red Blood Count 3.39 M/mm3 (3.65-5.03)
[2020-12-24 08:20] LABS: Hematocrit 29.4 % (35.5-45.6); Hemoglobin 8.6 gm/dl (11.8-15.2); Red Cell Distribution Width 22.4 % (13.2-15.2)
[2020-12-24 08:36] LABS: Blood Urea Nitrogen 9 mg/dL (9-20); Calcium 8.2 mg/dL (8.4-10.2); Hemolysis Index 13
[2020-12-24 08:38] LABS: BUN/Creatinine Ratio 18
[2020-12-24 09:42] LABS: Anisocytosis 1+; Band Neutrophils # (Manual) 0.7 K/mm3; Hypochromasia 1+; Total Cells Counted 100
[2020-12-24 09:43] LABS: Platelet Estimate Consistent w Auto
[2020-12-24] MEDS ORDERED: CALCIUM GLUCONATE 2,000 MG in SODIUM CHLORIDE 0.9% 100 ML IV ONE ×2 (10:00→14:02)
[2020-12-24] MEDS: SERTRALINE 50 MG TAB PO SCH (10:20)
[2020-12-24] MEDS: TAMSULOSIN 0.4 MG CAP PO SCH (10:20)
[2020-12-24] MEDS ORDERED: POTASSIUM PHOSPHATE 15 MMOL in SODIUM CHLORIDE 0.9% 250ML 250 ML IV ONE (10:30)
[2020-12-24] MEDS: SODIUM BICARBONATE 650 MG TAB PO SCH ×2 (10:30→21:46)
--- NOTE | 2020-12-24 10:33 | Progress Note ---
Assessment and Plan - Patient Problems (1) Acute kidney injury Current Visit: Yes Status: Acute Plan to address problem: Prerenal azotemia secondary to sepsis/hypotension. Kidney function improved back to normal. Follow-up electrolytes and renal function. We will sign off. Please reconsult as needed (2) Metabolic acidosis Current Visit: Yes Status: Acute Plan to address problem: Metabolic acidosis: Bicarbonate improving on p.o. sodium bicarbonate. Follow-up level periodically. (3) Hypophosphatemia Current Visit: Yes Status: Acute Plan to address problem: Phosphorus replete. Follow-up periodically (4) Hyperkalemia Current Visit: Yes Status: Acute Plan to address problem: Resolved. Potassium is now normal follow-up potassium periodically (5) Anemia Current Visit: Yes Status: Resolved Plan to address problem: Follow-up hemoglobin (6) UTI (urinary tract infection) Current Visit: Yes Status: Acute Qualifiers: Urinary tract infection type: acute cystitis Hematuria presence: with hematuria Plan to address problem: Continue antibiotics and follow-up (7) Hypomagnesemia Current Visit: Yes Status: Acute Plan to address problem: Supplement magnesium and follow-up level Subjective Date of service: 12/24/20 Principal diagnosis: Hypotension; Anemia; NSTEMI; UTI Interval history: Patient seen lying in bed. Complains of sore all over. No chest pain. No fever or chills. No nausea or vomiting. Objective - Exam Narrative Exam: Frail emaciated, middle-aged -[place] male lying in bed in no acute distress. HEENT: NCAT, pink oral mucous membrane Neck: Supple, no venous distention CVS: S1S2 RRR with no murmur, rub or gallop Chest: Clear to auscultation Abdomen: Protuberant, soft, nontender, no organomegaly, bowel sounds are present Extremities: No edema, muscle wasting Neuro: Awake, looks dull - Vital Signs Vital signs: Vital Signs - 12hr 12/23/20 12/23/20 12/24/20 22:55 23:10 03:34 Temperature 98.0 F Pulse Rate 82 Respiratory 18 18 20 Rate Blood Pressure 106/77 O2 Sat by Pulse 93 Oximetry 12/24/20 12/24/20 04:04 05:15 Temperature 98.9 F Pulse Rate 81 Respiratory 18 18 Rate Blood Pressure 97/67 O2 Sat by Pulse 98 Oximetry - Lab 12/24/20 07:40 12/24/20 07:40 Most recent lab results ABG pH 7.374 pH Units (7.350-7.450) 12/18/20 11:56 ABG pCO2 31.0 mm Hg 12/18/20 11:56 ABG pO2 40.2 mm Hg (80.0-90.0) L 12/18/20 11:56 ABG HCO3 17.7 mmol/L (20.0-26.0) L 12/18/20 11:56 ABG O2 Saturation 73.9 % (95.0-99.0) L 12/18/20 11:56 Calcium 8.2 mg/dL (8.4-10.2) L 12/24/20 07:40 Phosphorus 2.70 mg/dL (2.5-4.5) 12/24/20 07:40 Magnesium 1.60 mg/dL (1.7-2.3) L 12/24/20 07:40 Medications & Allergies - Medications Allergies/Adverse Reactions: Allergies Penicillins Allergy (Verified 12/16/20 02:38) Itching Home Medications: Home Medications Medication Instructions Recorded Confirmed Last Taken Type Amantadine 10 mg FEEDTUBE DAILY 12/16/20 12/18/20 Unknown History Ascorbic Acid [Vitamin C with Irma 1 tab FEEDTUBE DAILY 12/16/20 12/18/20 Unknown History Hips] Aspirin BABY CHEW TAB 81 mg FEEDTUBE DAILY 12/16/20 12/18/20 Unknown History Cetirizine HCl [Cetirizine 10mg 1 tab FEEDTUBE DAILY 12/16/20 12/18/20 Unknown History chew] Gabapentin 1 cap FEEDTUBE TID 12/16/20 12/18/20 Unknown History Ibuprofen [Motrin] 800 mg FEEDTUBE Q8H PRN 12/16/20 12/18/20 Unknown History Multiple Vitamin TAB (Theragran) 1 tab FEEDTUBE DAILY 12/16/20 12/18/20 Unknown History Sennosides [Senna] 8.6 mg FEEDTUBE DAILY 12/16/20 12/18/20 Unknown History Sertraline [Zoloft] 1 tab FEEDTUBE DAILY 12/16/20 12/18/20 Unknown History Tamsulosin [Flomax] 1 cap FEEDTUBE DAILY 12/16/20 12/18/20 Unknown History Vitamin D3 50,000UNIT CAP 1 cap FEEDTUBE DAILY 12/16/20 12/18/20 Unknown History Zinc Sulfate 1 cap FEEDTUBE DAILY 12/16/20 12/18/20 Unknown History Active Medications: Generic Name Dose Route Start Last Admin Trade Name Freq PRN Reason Stop Dose Admin Acetaminophen 650 mg 12/15/20 23:59 12/16/20 00:32 Acetaminophen 650 Mg Rect Supp [place] 650 mg Q6H PRN Administration Pain MILD(1-3)/Fever >100.5/RHOADES Amantadine HCl 100 mg 12/16/20 17:00 12/24/20 10:20 Amantadine 100 Mg Cap PO 100 mg QDAY TIFF Administration Lipase/Protease/Amylase 1 each 12/16/20 15:13 Lipase 10,500/Protease 25,000/Amylase 43,750 (Units) Dr Cap FEEDTUBE PRN PRN For Clogged Feeding Tube Gabapentin 600 mg 12/16/20 16:00 12/24/20 06:14 Gabapentin 300 Mg Cap PO 600 mg Q8HR TIFF Administration Hydromorphone HCl 0.5 mg 12/23/20 18:26 Hydromorphone 1 Mg/1 Ml Inj IV Q3H PRN Pain , Severe (7-10) Ceftriaxone Sodium 2 gm in 100 mls @ 200 mls/hr 12/19/20 22:00 12/23/20 22:24 Rocephin/Ns 2 Gm/100 Ml IV 200 mls/hr Q24H TIFF Administration Vancomycin HCl 1 gm in 250 mls @ 167.007 mls/hr 12/22/20 12:00 12/23/20 20:48 Vancomycin/Ns 1 Gm/250 Ml IV Infused Q24H TIFF Infusion Calcium Gluconate 2,000 mg/ 120 mls @ 120 mls/hr 12/24/20 10:00 12/24/20 10:21 Sodium Chloride IV 12/24/20 10:59 120 mls/hr ONCE ONE Administration Potassium Phosphate 15 mmol/ 255 mls @ 63 mls/hr 12/24/20 10:30 Sodium Chloride IV 12/24/20 14:32 ONCE ONE Magnesium Sulfate 1 gm/ Sodium 52 mls @ 52 mls/hr 12/24/20 11:00 Chloride IV 12/24/20 11:59 ONCE ONE Magnesium Hydroxide 30 ml 12/15/20 23:59 Magnesium Hydroxide (Mom) Oral Liqd Udc PO Q4H PRN Constipation Metoprolol Tartrate 12.5 mg 12/17/20 22:00 12/23/20 22:24 Metoprolol Tartrate 25 Mg Tab PO 12.5 mg BID TIFF Administration Mirtazapine 15 mg 12/16/20 22:00 12/23/20 22:25 Mirtazapine 15 Mg Tab PO 15 mg QHS TIFF Administration Morphine Sulfate 2 mg 12/15/20 23:59 12/23/20 22:25 Morphine 2 Mg/1 Ml Inj IV 2 mg Q4H PRN Administration Pain, Moderate (4-6) Morphine Sulfate 4 mg 12/15/20 23:59 12/24/20 10:20 Morphine 4 Mg/1 Ml Inj IV 4 mg Q4H PRN Administration Pain , Severe (7-10) Ondansetron HCl 4 mg 12/15/20 23:59 12/17/20 04:55 Ondansetron 4 Mg/2 Ml Inj IV 4 mg Q8H PRN Administration Nausea And Vomiting Sertraline HCl 50 mg 12/16/20 17:00 12/24/20 10:20 Sertraline 50 Mg Tab PO 50 mg QDAY TIFF Administration Simple Syrup 15 ml 12/16/20 15:13 Simple Syrup 15 Ml FEEDTUBE PRN PRN Hypoglycemia Simple Syrup 30 ml 12/16/20 15:13 Simple Syrup 15 Ml FEEDTUBE PRN PRN Hypoglycemia Sodium Bicarbonate 325 mg 12/16/20 15:13 Sodium Bicarbonate 325 Mg Tab FEEDTUBE PRN PRN For Clogged Feeding Tube Sodium Bicarbonate 650 mg 12/22/20 10:00 12/23/20 22:25 Sodium Bicarbonate 650 Mg Tab PO 650 mg BID TIFF Administration Sodium Chloride 10 ml 12/16/20 10:00 12/24/20 10:20 Sodium Chloride 0.9% 10 Ml Flush Syringe IV 10 ml BID TIFF Administration Sodium Chloride 10 ml 12/15/20 23:59 Sodium Chloride 0.9% 10 Ml Flush Syringe IV PRN PRN LINE FLUSH Tamsulosin HCl 0.4 mg 12/16/20 17:00 12/24/20 10:20 Tamsulosin 0.4 Mg Cap PO 0.4 mg QDAY TIFF Administration
[2020-12-24] MEDS: METOPROLOL TARTRATE 25 MG TAB PO SCH ×2 (10:36→21:46)
[2020-12-24] MEDS ORDERED: MAGNESIUM SULFATE 1 GM in SODIUM CHLORIDE 0.9% 50 ML IV ONE (11:00)
--- NOTE | 2020-12-24 13:18 | Progress Note ---
Assessment and Plan 55-year-old -[place] female resident of [facility] long-term with known history of Parkinson's disease, depression, DVT, previous fracture of right acetabulum lumbosacral spine and pelvis and who is currently bedbound brought into the emergency room today with generalized weakness, fatigue and possible concern for anemia. Patient was said to have been transfused recently at [facility]. Patient has a PEG tube in place and also has history of sacral decubitus ulcers. Upon arrival in the emergency room patient was hypotensive with blood pressure systolic in the 80s and diastolic in the 50s. Work-up in the emergency room today, hemoglobin was found to be 6.0 with hematocrit of 20.2. Patient had a potassium level of 6.0, BUN of 70 and creatinine of 2.2. Chest X-ray- no acute findings Patient denies other medical problems. Patient says history of smoking 1 pack x 10 years. Says stopped 1 year ago. Denies alcohol or drug abuse. 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 has two children. Allergic to pencillins. Patient awake. Weak. Patient is on room air. O2 saturation running 83%. Recommended to place him on 4 litres O2 right away. Patient afebrile. Has leukocytosis. Blood pressure 99/72. Pulse 90. Patient admitted to ICU. Patient transfered to medical floor. Patient awake. weak. On 3 litres o2. O2 saturation 99%. Patient still complaining slight chest pain and cough. No acute respiratory distress at rest. Patient afebrile. Has leukocytosis. Blood pressure 125/90, Pulse 90. Respirations 18. Chest xray 12/15/20 reported no acute findings. Repeating chest xray done 12/24/20 reported Worsening bilateral pulmonary opacities and effusions Obtaining ultrasound of chest. Patient is on ceftriaxone and vancomycin. - Patient Problems (1) Hypotension Current Visit: Yes Status: Acute Qualifiers: Qualified Code(s): I95.9 - Hypotension, unspecified Plan to address problem: Patient received blood tansfusion. Patients blood pressure improved. Patients present blood pressure 125/90 .Patient off the vasopressors. (2) Anemia requiring transfusions Current Visit: Yes Status: Acute Plan to address problem: Received blood transfusion. Patients To days HGB 8.6. Management as per primary care and hematology. (3) NSTEMI (non-ST elevated myocardial infarction) Current Visit: Yes Status: Acute Plan to address problem: Management as per cardiology. (4) Sepsis Current Visit: Yes Status: Acute Plan to address problem: Patient is on ceftriaxone and vancomycin. (5) UTI (urinary tract infection) Current Visit: Yes Status: Acute Qualifiers: Urinary tract infection type: acute cystitis Hematuria presence: with hematuria Qualified Code(s): N30.01 - Acute cystitis with hematuria Plan to address problem: Patient is on ceftriaxone. Subjective Date of service: 12/24/20 Principal diagnosis: Hypotension; Anemia; NSTEMI; UTI Interval history: 55-year-old -British female resident of [facility] with known history of Parkinson's disease, depression, DVT, previous fracture of right acetabulum lumbosacral spine and pelvis and who is currently bedbound brought into the emergency room today with generalized weakness, fatigue and possible concern for anemia. Patient was said to have been transfused recently at [facility]. Patient has a PEG tube in place and also has history of sacral decubitus ulcers. Upon arrival in the emergency room patient was hypotensive with blood pressure systolic in the 80s and diastolic in the 50s. Work-up in the emergency room today, hemoglobin was found to be 6.0 with hematocrit of 20.2. Patient had a potassium level of 6.0, BUN of 70 and creatinine of 2.2. Chest X-ray- no acute findings Patient denies other medical problems. Patient says history of smoking 1 pack x 10 years. Says stopped 1 year ago. Denies alcohol or drug abuse. 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 has two children. Allergic to pencillins. Patient awake. Weak. Patient is on room air. O2 saturation running 83%. Recommended to place him on 4 litres O2 right away. Patient afebrile. Has leukocytosis. Blood pressure 99/72. Pulse 90. Chest xray done 12/15/20 reported No acute findings Patient transfered to medical floor. Patient awake. weak. On 3 litres o2. O2 saturation 99%. Patient still complaining slight chest pain and cough. No acute respiratory distress at rest. Patient afebrile. Has leukocytosis. Blood pressure 125/90, Pulse 90. Respirations 18. Chest xray 12/15/20 reported no acute findings. Repeating chest xray done 12/24/20 reported Worsening bilateral pulmonary opacities and effusions . Obtaining ultrasound of chest. Patient is on ceftriaxone and vancomycin. Objective Vital Signs - 12hr 12/24/20 12/24/20 12/24/20 03:34 04:04 05:15 Temperature 98.9 F Pulse Rate 81 Respiratory 20 18 18 Rate Blood Pressure 97/67 O2 Sat by Pulse 98 Oximetry 12/24/20 12/24/20 12/24/20 10:00 10:36 12:43 Temperature 98.2 F Pulse Rate 68 90 Respiratory 18 Rate Blood Pressure 125/90 O2 Sat by Pulse 97 99 Oximetry Constitutional: no acute distress, alert, other (Weak.) Eyes: non-icteric ENT: other (Poor dental hygiene.) Neck: supple, no JVD Effort: normal Ascultation: Bilateral: rhonchi (scant) Percussion: Bilateral: not dull Cardiovascular: regular rate and rhythm Gastrointestinal: normoactive bowel sounds, soft, non-tender, non-distended Integumentary: decubitus ulcer (decubitus ulcer; please see [facility] notes for full description) Extremities: no cyanosis, no edema, pulses normal Neurologic: non-focal exam, pupils equal and round, CN II-XII normal, other (weak) Psychiatric: mood appropriate, affect normal CBC and BMP: 12/24/20 07:40 12/24/20 07:40 ABG, PT/INR, D-dimer: ABG ABG pH 7.374 pH Units (7.350-7.450) 12/18/20 11:56 ABG pCO2 31.0 mm Hg 12/18/20 11:56 ABG pO2 40.2 mm Hg (80.0-90.0) L 12/18/20 11:56 ABG O2 Saturation 73.9 % (95.0-99.0) L 12/18/20 11:56 PT/INR, D-dimer PT 16.7 Sec. (12.2-14.9) H 12/17/20 04:27 INR 1.22 (0.87-1.13) H 12/17/20 04:27 Abnormal lab findings: Abnormal Labs 12/15/20 12/15/20 12/15/20 20:20 20:29 20:29 WBC 19.2 H RBC 2.56 L Hgb 6.0 L Hct 20.2 L MCV 79 L MCH 24 L MCHC 30 L RDW 22.2 H Plt Count 512 H Lymph % (Auto) 6.4 L [place] # (Auto) 1.3 H Seg Neutrophils % 85.9 H Seg Neuts % (Manual) Lymphocytes % (Manual) Seg Neutrophils # 16.5 H Seg Neutrophils # Man Lymphocytes # (Manual) Monocytes # (Manual) PT INR APTT 42.0 H ABG pH ABG pO2 ABG HCO3 ABG O2 Saturation ABG Base Excess ABG Hemoglobin Oxyhemoglobin Sodium Potassium Chloride Carbon Dioxide BUN Creatinine Glucose Calcium Phosphorus Magnesium Alkaline Phosphatase Ammonia Total Creatine Kinase Troponin T Albumin Triglycerides LDL Cholesterol Direct HDL Cholesterol Urine WBC (Auto) > 182.0 H Vancomycin Trough Salicylates Acetaminophen Crossmatch 12/15/20 12/15/20 12/15/20 20:29 20:29 20:29 WBC RBC Hgb Hct MCV MCH MCHC RDW Plt Count Lymph % (Auto) [place] # (Auto) Seg Neutrophils % Seg Neuts % (Manual) Lymphocytes % (Manual) Seg Neutrophils # Seg Neutrophils # Man Lymphocytes # (Manual) Monocytes # (Manual) PT INR APTT ABG pH ABG pO2 ABG HCO3 ABG O2 Saturation ABG Base Excess ABG Hemoglobin Oxyhemoglobin Sodium 131 L Potassium 6.0 H Chloride 95.1 L Carbon Dioxide BUN 70 H Creatinine 2.2 H Glucose 113 H Calcium Phosphorus Magnesium Alkaline Phosphatase 321 H Ammonia Total Creatine Kinase Troponin T 0.215 H* Albumin 2.7 L Triglycerides 153 H LDL Cholesterol Direct 23 L HDL Cholesterol 27 L Urine WBC (Auto) Vancomycin Trough Salicylates < 0.3 L Acetaminophen Crossmatch See Detail 12/15/20 12/15/20 12/15/20 20:29 20:29 21:28 WBC RBC Hgb Hct MCV MCH MCHC RDW Plt Count Lymph % (Auto) [place] # (Auto) Seg Neutrophils % Seg Neuts % (Manual) Lymphocytes % (Manual) Seg Neutrophils # Seg Neutrophils # Man Lymphocytes # (Manual) Monocytes # (Manual) PT 15.8 H INR 1.14 H APTT ABG pH ABG pO2 ABG HCO3 ABG O2 Saturation ABG Base Excess ABG Hemoglobin Oxyhemoglobin Sodium Potassium Chloride Carbon Dioxide BUN Creatinine Glucose Calcium Phosphorus Magnesium Alkaline Phosphatase Ammonia 21.0 L Total Creatine Kinase Troponin T Albumin Triglycerides LDL Cholesterol Direct HDL Cholesterol Urine WBC (Auto) Vancomycin Trough Salicylates Acetaminophen 5.0 L Crossmatch 12/16/20 12/16/20 12/16/20 06:02 06:02 20:19 WBC 16.4 H RBC 3.19 L Hgb 8.1 L Hct 26.3 L D MCV 82 L MCH 25 L MCHC 31 L RDW 20.3 H Plt Count Lymph % (Auto) [place] # (Auto) Seg Neutrophils % Seg Neuts % (Manual) Lymphocytes % (Manual) Seg Neutrophils # Seg Neutrophils # Man Lymphocytes # (Manual) Monocytes # (Manual) PT INR APTT ABG pH ABG pO2 ABG HCO3 ABG O2 Saturation ABG Base Excess ABG Hemoglobin Oxyhemoglobin Sodium Potassium Chloride 112.9 H Carbon Dioxide 15 L D BUN 47 H Creatinine Glucose 185 H Calcium 7.2 L D Phosphorus Magnesium Alkaline Phosphatase Ammonia Total Creatine Kinase Troponin T 0.126 H* D 0.078 H D Albumin Triglycerides LDL Cholesterol Direct HDL Cholesterol Urine WBC (Auto) Vancomycin Trough Salicylates Acetaminophen Crossmatch 12/17/20 12/17/20 12/17/20 04:27 04:27 04:27 WBC 24.5 H RBC 3.51 L Hgb 9.0 L Hct 28.9 L MCV 82 L MCH 26 L MCHC 31 L RDW 20.9 H Plt Count 585 H Lymph % (Auto) [place] # (Auto) Seg Neutrophils % Seg Neuts % (Manual) 91.0 H Lymphocytes % (Manual) 3.0 L Seg Neutrophils # Seg Neutrophils # Man 22.3 H Lymphocytes # (Manual) 0.7 L Monocytes # (Manual) 1.5 H PT 16.7 H INR 1.22 H APTT ABG pH ABG pO2 ABG HCO3 ABG O2 Saturation ABG Base Excess ABG Hemoglobin Oxyhemoglobin Sodium Potassium Chloride 115.2 H Carbon Dioxide 16 L BUN 41 H Creatinine Glucose 105 H Calcium Phosphorus Magnesium Alkaline Phosphatase Ammonia Total Creatine Kinase Troponin T Albumin Triglycerides LDL Cholesterol Direct HDL Cholesterol Urine WBC (Auto) Vancomycin Trough Salicylates Acetaminophen Crossmatch 12/18/20 12/18/20 12/18/20 04:40 07:53 07:53 WBC 19.3 H RBC 3.56 L Hgb 9.0 L Hct 29.3 L MCV 82 L MCH 25 L MCHC 31 L RDW 21.3 H Plt Count 593 H Lymph % (Auto) [place] # (Auto) Seg Neutrophils % Seg Neuts % (Manual) Lymphocytes % (Manual) Seg Neutrophils # Seg Neutrophils # Man Lymphocytes # (Manual) Monocytes # (Manual) PT INR APTT ABG pH 7.460 H ABG pO2 250.2 H ABG HCO3 19.8 L ABG O2 Saturation 99.4 H ABG Base Excess -3.6 L ABG Hemoglobin 6.9 L Oxyhemoglobin Sodium Potassium 3.4 L D Chloride 110.0 H Carbon Dioxide 16 L BUN 30 H Creatinine Glucose Calcium 8.2 L Phosphorus Magnesium Alkaline Phosphatase Ammonia Total Creatine Kinase Troponin T Albumin Triglycerides LDL Cholesterol Direct HDL Cholesterol Urine WBC (Auto) Vancomycin Trough Salicylates Acetaminophen Crossmatch 12/18/20 12/18/20 12/19/20 11:56 18:40 04:50 WBC 24.1 H RBC 3.37 L Hgb 8.5 L Hct 28.0 L MCV 83 L MCH 25 L MCHC 30 L RDW 21.4 H Plt Count 563 H Lymph % (Auto) [place] # (Auto) Seg Neutrophils % Seg Neuts % (Manual) Lymphocytes % (Manual) Seg Neutrophils # Seg Neutrophils # Man Lymphocytes # (Manual) Monocytes # (Manual) PT INR APTT ABG pH ABG pO2 40.2 L ABG HCO3 17.7 L ABG O2 Saturation 73.9 L ABG Base Excess -6.7 L ABG Hemoglobin 9.0 L Oxyhemoglobin 71.9 L Sodium Potassium Chloride Carbon Dioxide BUN Creatinine Glucose Calcium Phosphorus Magnesium 1.50 L Alkaline Phosphatase Ammonia Total Creatine Kinase 41 L Troponin T Albumin Triglycerides LDL Cholesterol Direct HDL Cholesterol Urine WBC (Auto) Vancomycin Trough Salicylates Acetaminophen Crossmatch 12/19/20 12/20/20 12/20/20 04:50 05:10 05:10 WBC 23.6 H RBC 3.43 L Hgb 9.0 L Hct 29.9 L MCV MCH 26 L MCHC 30 L RDW 21.6 H Plt Count 516 H Lymph % (Auto) [place] # (Auto) Seg Neutrophils % Seg Neuts % (Manual) Lymphocytes % (Manual) Seg Neutrophils # Seg Neutrophils # Man Lymphocytes # (Manual) Monocytes # (Manual) PT INR APTT ABG pH ABG pO2 ABG HCO3 ABG O2 Saturation ABG Base Excess ABG Hemoglobin Oxyhemoglobin Sodium Potassium Chloride 109.8 H Carbon Dioxide 16 L BUN 21 H Creatinine 0.7 L Glucose Calcium 7.9 L Phosphorus Magnesium Alkaline Phosphatase Ammonia Total Creatine Kinase Troponin T Albumin Triglycerides LDL Cholesterol Direct HDL Cholesterol Urine WBC (Auto) Vancomycin Trough 30.2 H Salicylates Acetaminophen Crossmatch 12/21/20 12/21/20 12/22/20 05:17 07:46 07:52 WBC 31.7 H 28.9 H RBC 3.45 L 3.30 L Hgb 8.7 L 8.5 L Hct 28.8 L 27.8 L MCV 83 L MCH 25 L 26 L MCHC 30 L 30 L RDW 21.6 H 21.7 H Plt Count 644 H 693 H Lymph % (Auto) [place] # (Auto) Seg Neutrophils % Seg Neuts % (Manual) Lymphocytes % (Manual) Seg Neutrophils # Seg Neutrophils # Man Lymphocytes # (Manual) Monocytes # (Manual) PT INR APTT ABG pH ABG pO2 ABG HCO3 ABG O2 Saturation ABG Base Excess ABG Hemoglobin Oxyhemoglobin Sodium Potassium 3.3 L Chloride 109.3 H Carbon Dioxide 17 L BUN Creatinine 0.6 L Glucose 123 H Calcium 8.0 L Phosphorus 2.00 L Magnesium Alkaline Phosphatase Ammonia Total Creatine Kinase Troponin T Albumin Triglycerides LDL Cholesterol Direct HDL Cholesterol Urine WBC (Auto) Vancomycin Trough Salicylates Acetaminophen Crossmatch 12/22/20 12/23/20 12/24/20 07:52 05:17 07:40 WBC 23.6 H RBC 3.39 L Hgb 8.6 L Hct 29.4 L MCV MCH 26 L MCHC 30 L RDW 22.4 H Plt Count 636 H Lymph % (Auto) [place] # (Auto) Seg Neutrophils % Seg Neuts % (Manual) 85.0 H Lymphocytes % (Manual) 10.0 L Seg Neutrophils # Seg Neutrophils # Man 20.1 H Lymphocytes # (Manual) Monocytes # (Manual) PT INR APTT ABG pH ABG pO2 ABG HCO3 ABG O2 Saturation ABG Base Excess ABG Hemoglobin Oxyhemoglobin Sodium 136 L Potassium Chloride 107.8 H Carbon Dioxide 17 L 20 L BUN Creatinine 0.5 L 0.5 L Glucose 114 H Calcium 7.9 L 8.3 L Phosphorus 2.40 L Magnesium Alkaline Phosphatase Ammonia Total Creatine Kinase Troponin T Albumin Triglycerides LDL Cholesterol Direct HDL Cholesterol Urine WBC (Auto) Vancomycin Trough Salicylates Acetaminophen Crossmatch 12/24/20 07:40 WBC RBC Hgb Hct MCV MCH MCHC RDW Plt Count Lymph % (Auto) [place] # (Auto) Seg Neutrophils % Seg Neuts % (Manual) Lymphocytes % (Manual) Seg Neutrophils # Seg Neutrophils # Man Lymphocytes # (Manual) Monocytes # (Manual) PT INR APTT ABG pH ABG pO2 ABG HCO3 ABG O2 Saturation ABG Base Excess ABG Hemoglobin Oxyhemoglobin Sodium 135 L Potassium Chloride Carbon Dioxide 19 L BUN Creatinine 0.5 L Glucose Calcium 8.2 L Phosphorus Magnesium 1.60 L Alkaline Phosphatase Ammonia Total Creatine Kinase Troponin T Albumin Triglycerides LDL Cholesterol Direct HDL Cholesterol Urine WBC (Auto) Vancomycin Trough Salicylates Acetaminophen Crossmatch Chest x-ray: report reviewed, image reviewed Additional Studies: CHEST 1 VIEW 12/24/2020 1:14 PM INDICATION / CLINICAL INFORMATION: Hypoxia and history of smoking.. COMPARISON: 12/15/2020 FINDINGS: SUPPORT DEVICES: None. HEART / MEDIASTINUM: No significant abnormality. LUNGS / PLEURA: Diffuse bilateral pulmonary opacities most significant in the lower lungs with lower lung effusions No pneumothorax. ADDITIONAL FINDINGS: No significant additional findings. IMPRESSION: 1. Worsening bilateral pulmonary opacities and effusions Allied health notes reviewed: nursing
--- NOTE | 2020-12-24 13:22 | XRay Report ---
CHEST 1 VIEW 12/24/2020 1:14 PM INDICATION / CLINICAL INFORMATION: Hypoxia and history of smoking.. COMPARISON: 12/15/2020 FINDINGS: SUPPORT DEVICES: None. HEART / MEDIASTINUM: No significant abnormality. LUNGS / PLEURA: Diffuse bilateral pulmonary opacities most significant in the lower lungs with lower lung effusions No pneumothorax. ADDITIONAL FINDINGS: No significant additional findings. IMPRESSION: 1. Worsening bilateral pulmonary opacities and effusions Signer Name: Ezequiel Capps MD Signed: 12/24/2020 1:17 PM Workstation Name: [id number]
[2020-12-24] MEDS: HYDROmorphone 1 MG/1 ML INJ IV PRN ×3 (13:31→23:01)
[2020-12-24] MEDS ORDERED: MAGNESIUM SULFATE 2 GM/50 ML BAG IV ONE (14:02)
--- NOTE | 2020-12-24 14:05 | Progress Note ---
Assessment and Plan Assessment and plan: #Complicated UTI-resolved -UCx: 10-100k Klebsiella sensitive to rocephin -status post Rocephin x3 days -ID following, appreciate recs #Anemia requiring transfusion-resolved -s/p 2 units pRBC -will transfuse for Hgb less than 7 or patient becomes symptomatic #Leukocytosis-improving -WBC count 23.9 Unsure of leukocytosis will fully resolve given malnutrition status and lack of source control. -BCx 12/15 final NGTD -will continue vancomycin and rocephin #Hypokalemia -resolved #Acute kidney injury-resolved -creatinine 0.5 -likely 2/2 to vasomotor nephropathy -Nephrology consulted, assistance appreciated #Stage III Decubitus ulcers -chronic -detailed discussion with patient about wound care, and patient described nurses being rough with him in regards to wound care. Patient would like wounds to be cared for but requests the nurses are gentle due to the significant pain. As needed IV analgesic will be available prior to wound changes. #Moderate malnutrition -albumin 2.7 -Nutrition consulted; appreciate recs -will continue PEG feeds in addition to oral feeds to improve healing. #Advance care planning -Discussed change to DNR/DNI status along with hospice with the patient and his . would like to proceed with DNR/DNI and place him on hospice. The patient wants to continue to be treated and is not ready to give up. Both are aware of poor prognosis. Patient counseled about importance of participating in his medical care to help drive forward improvement in his status. Time +30 minutes Resolved issues #Hypotension-resolved #Hyperkalemia-resolved #Type II NSTEMI -troponin 0.215, downtrending to 0.078 -Echo showed EF 45-50% -Cardiology evaluated patient, no intervention at this time -likely 2/2 BERNICE #Advanced care planning -Disease education conducted, care plan discussed, diagnoses discussed, prognosis discussed, and patient acknowledges understanding with care plan -time: +30 minutes Disposition Plan: Continue medical management Total Time Spent with Patient (Minutes): 45 minutes History Interval history: No acute events over night. The patient denies fevers, chills, nausea, vomiting, abdominal pain, chest pain/pressure, shortness of breath, urinary symptoms, weakness, or confusion. Hospitalist Physical - Constitutional Vitals: Temp Pulse Resp BP Pulse Ox 98.2 F 90 18 125/90 99 12/24/20 12:43 12/24/20 12:43 12/24/20 12:43 12/24/20 12:43 12/24/20 12:43 General appearance: Present: no acute distress, cachectic, other (Sleepy in bed) - EENT Eyes: Present: PERRL, EOM intact ENT: hearing intact, dentition normal - Neck Neck: Present: supple, normal ROM - Respiratory Respiratory effort: normal - Cardiovascular Rhythm: regular Heart Sounds: Present: S1 & S2 - Extremities Extremities: no ischemia, pulses intact, pulses symmetrical, No edema, normal temperature, abnormal (Guillotine amputation of bilateral feet. Feet wrapped in Kerlix and Efrem bandage. Several decubitus ulcers (stage III)) - Abdominal General gastrointestinal: soft, non-tender, non-distended, normal bowel sounds, other (PEG tube in place) - Integumentary Integumentary: Present: clear, warm, dry - Psychiatric Psychiatric: intact judgment & insight, memory intact, cooperative - Neurologic Neurologic: CNII-XII intact - Allied Health Allied health notes reviewed: nursing HEART Score - HEART Score Troponin: Troponin T 0.078 ng/mL (0.00-0.029) H D 12/16/20 20:19 Results - Labs CBC & Chem 7: 12/24/20 07:40 12/24/20 07:40 Labs: Laboratory Last Values WBC 23.6 K/mm3 (4.5-11.0) H 12/24/20 07:40 RBC 3.39 M/mm3 (3.65-5.03) L 12/24/20 07:40 Hgb 8.6 gm/dl (11.8-15.2) L 12/24/20 07:40 Hct 29.4 % (35.5-45.6) L 12/24/20 07:40 MCV 87 fl (84-94) 12/24/20 07:40 MCH 26 pg (28-32) L 12/24/20 07:40 MCHC 30 % (32-34) L 12/24/20 07:40 RDW 22.4 % (13.2-15.2) H 12/24/20 07:40 Plt Count 636 K/mm3 (140-440) H 12/24/20 07:40 Lymph % (Auto) 6.4 % (13.4-35.0) L 12/15/20 20: [place] % (Auto) 6.8 % (0.0-7.3) 12/15/20 20:29 Eos % (Auto) 0.7 % (0.0-4.3) 12/15/20 20: Baso % (Auto) 0.2 % (0.0-1.8) 12/15/20 20: Lymph # (Auto) 1.2 K/mm3 (1.2-5.4) 12/15/20 20: [place] # (Auto) 1.3 K/mm3 (0.0-0.8) H 12/15/20 20: Eos # (Auto) 0.1 K/mm3 (0.0-0.4) 12/15/20 20: Baso # (Auto) 0.0 K/mm3 (0.0-0.1) 12/15/20 20:29 Add Manual Diff Complete 12/24/20 07:40 Total Counted 100 12/24/20 07:40 Seg Neutrophils % 85.9 % (40.0-70.0) H 12/15/20 20: Seg Neuts % (Manual) 85.0 % (40.0-70.0) H 12/24/20 07:40 Band Neutrophils % 3.0 % 12/24/20 07:40 Lymphocytes % (Manual) 10.0 % (13.4-35.0) L 12/24/20 07:40 Monocytes % (Manual) 1.0 % (0.0-7.3) 12/24/20 07:40 Eosinophils % (Manual) 1.0 % (0.0-4.3) 12/24/20 07:40 Nucleated RBC % Not Reportable 12/24/20 07:40 Seg Neutrophils # 16.5 K/mm3 (1.8-7.7) H 12/15/20 20:29 Seg Neutrophils # Man 20.1 K/mm3 (1.8-7.7) H 12/24/20 07:40 Band Neutrophils # 0.7 K/mm3 12/24/20 07:40 Lymphocytes # (Manual) 2.4 K/mm3 (1.2-5.4) 12/24/20 07:40 Abs React Lymphs (Man) 0.0 K/mm3 12/24/20 07:40 Monocytes # (Manual) 0.2 K/mm3 (0.0-0.8) 12/24/20 07:40 Eosinophils # (Manual) 0.2 K/mm3 (0.0-0.4) 12/24/20 07:40 Basophils # (Manual) 0.0 K/mm3 (0.0-0.1) 12/24/20 07:40 Metamyelocytes # 0.0 K/mm3 12/24/20 07:40 Myelocytes # 0.0 K/mm3 12/24/20 07:40 Promyelocytes # 0.0 K/mm3 12/24/20 07:40 Blast Cells # 0.0 K/mm3 12/24/20 07:40 WBC Morphology Not Reportable 12/24/20 07:40 Hypersegmented Neuts Not Reportable 12/24/20 07:40 Hyposegmented Neuts Not Reportable 12/24/20 07:40 Hypogranular Neuts Not Reportable 12/24/20 07:40 Smudge Cells Not Reportable 12/24/20 07:40 Toxic Granulation Not Reportable 12/24/20 07:40 Toxic Vacuolation Not Reportable 12/24/20 07:40 Dohle Bodies Not Reportable 12/24/20 07:40 Pelger-Huet Anomaly Not Reportable 12/24/20 07:40 Marcell Rods Not Reportable 12/24/20 07:40 Platelet Estimate Consistent w auto 12/24/20 07:40 Clumped Platelets Not Reportable 12/24/20 07:40 Plt Clumps, EDTA Not Reportable 12/24/20 07:40 Large Platelets Not Reportable 12/24/20 07:40 Giant Platelets Not Reportable 12/24/20 07:40 Platelet Satelliting Not Reportable 12/24/20 07:40 Plt Morphology Comment Not Reportable 12/24/20 07:40 RBC Morphology Not Reportable 12/24/20 07:40 Dimorphic RBCs Not Reportable 12/24/20 07:40 Polychromasia Not Reportable 12/24/20 07:40 Hypochromasia 1+ 12/24/20 07:40 Poikilocytosis Not Reportable 12/24/20 07:40 Anisocytosis 1+ 12/24/20 07:40 Microcytosis Not Reportable 12/24/20 07:40 Macrocytosis Not Reportable 12/24/20 07:40 Spherocytes Not Reportable 12/24/20 07:40 Pappenheimer Bodies Not Reportable 12/24/20 07:40 Sickle Cells Not Reportable 12/24/20 07:40 Target Cells Not Reportable 12/24/20 07:40 Tear Drop Cells Not Reportable 12/24/20 07:40 Ovalocytes Not Reportable 12/24/20 07:40 Helmet Cells Not Reportable 12/24/20 07:40 [employer] Bodies Not Reportable 12/24/20 07:40 [place] Rings Not Reportable 12/24/20 07:40 Nicol Cells Not Reportable 12/24/20 07:40 Bite Cells Not Reportable 12/24/20 07:40 Crenated Cell Not Reportable 12/24/20 07:40 Elliptocytes Not Reportable 12/24/20 07:40 Acanthocytes (Spur) Not Reportable 12/24/20 07:40 Rouleaux Not Reportable 12/24/20 07:40 Hemoglobin C Crystals Not Reportable 12/24/20 07:40 Schistocytes Not Reportable 12/24/20 07:40 Malaria parasites Not Reportable 12/24/20 07:40 Azeem Bodies Not Reportable 12/24/20 07:40 Hem Pathologist Commnt No 12/24/20 07:40 PT 16.7 Sec. (12.2-14.9) H 12/17/20 04:27 INR 1.22 (0.87-1.13) H 12/17/20 04:27 APTT 42.0 Sec. (24.2-36.6) H 12/15/20 20:29 ABG pH 7.374 pH Units (7.350-7.450) 12/18/20 11:56 ABG pCO2 31.0 mm Hg 12/18/20 11:56 ABG pO2 40.2 mm Hg (80.0-90.0) L 12/18/20 11:56 ABG HCO3 17.7 mmol/L (20.0-26.0) L 12/18/20 11:56 ABG O2 Saturation 73.9 % (95.0-99.0) L 12/18/20 11:56 ABG O2 Content 9.1 (0.0-44) 12/18/20 11:56 ABG Base Excess -6.7 mmol/L (-2.0-3.0) L 12/18/20 11:56 ABG Hemoglobin 9.0 gm/dl (14.0-18.0) L 12/18/20 11:56 ABG Carboxyhemoglobin 2.0 % (0.0-5.0) 12/18/20 11:56 ABG Methemoglobin 0.6 % (0.0-1.5) 12/18/20 11:56 Oxyhemoglobin 71.9 % (95.0-99.0) L 12/18/20 11:56 FiO2 21 % 12/18/20 11:56 Sodium 135 mmol/L (137-145) L 12/24/20 07:40 Potassium 4.4 mmol/L (3.6-5.0) D 12/24/20 07:40 Chloride 103.4 mmol/L (98-107) 12/24/20 07:40 Carbon Dioxide 19 mmol/L (22-30) L 12/24/20 07:40 Anion Gap 17 mmol/L 12/24/20 07:40 BUN 9 mg/dL (9-20) 12/24/20 07:40 Creatinine 0.5 mg/dL (0.8-1.3) L 12/24/20 07:40 Estimated GFR > 60 ml/min 12/24/20 07:40 BUN/Creatinine Ratio 18 % 12/24/20 07:40 Glucose 99 mg/dL (75-100) 12/24/20 07:40 POC Glucose 72 mg/dL (70-105) 12/15/20 23:48 Lactic Acid 0.70 mmol/L (0.7-2.0) 12/21/20 21:33 Calcium 8.2 mg/dL (8.4-10.2) L 12/24/20 07:40 Phosphorus 2.70 mg/dL (2.5-4.5) 12/24/20 07:40 Magnesium 1.60 mg/dL (1.7-2.3) L 12/24/20 07:40 Total Bilirubin 0.80 mg/dL (0.1-1.2) 12/15/20 20:29 AST 16 units/L (5-40) 12/15/20 20:29 ALT 17 units/L (7-56) 12/15/20 20:29 Alkaline Phosphatase 321 units/L (35-129) H 12/15/20 20:29 Ammonia 21.0 umol/L (25-60) L 12/15/20 21:28 Total Creatine Kinase 41 units/L (55-170) L 12/18/20 18:40 Troponin T 0.078 ng/mL (0.00-0.029) H D 12/16/20 20:19 Total Protein 7.0 g/dL (6.3-8.2) 12/15/20 20: Albumin 2.7 g/dL (3.9-5) L 12/15/20 20: Albumin/Globulin Ratio 0.6 % 12/15/20 20: Triglycerides 153 mg/dL (2-149) H 12/15/20 20: Cholesterol 95 mg/dL (50-199) 12/15/20 20: LDL Cholesterol Direct 23 mg/dL (50-130) L 12/15/20 20:29 HDL Cholesterol 27 mg/dL (40-59) L 12/15/20 20: Cholesterol/HDL Ratio 3.51 % 12/15/20 20: Procalcitonin 2.49 ng/mL (<0.15) 12/21/20 21:33 TSH 1.380 mlU/mL (0.270-4.200) 12/15/20 20:29 Urine Color Angela (Yellow) 12/15/20 20:20 Urine Turbidity Turbid (Clear) 12/15/20 20:20 Urine pH 7.0 (5.0-7.0) 12/15/20 20:20 Ur Specific [place] 1.012 (1.003-1.030) 12/15/20 20:20 Urine Protein 100 mg/dl mg/dL (Negative) 12/15/20 20:20 Urine Glucose (UA) Neg mg/dL (Negative) 12/15/20 20:20 Urine Ketones Neg mg/dL (Negative) 12/15/20 20:20 Urine Blood Lg (Negative) 12/15/20 20:20 Urine Nitrite Neg (Negative) 12/15/20 20:20 Urine Bilirubin Neg (Negative) 12/15/20 20:20 Urine Urobilinogen 4.0 mg/dL (<2.0) 12/15/20 20:20 Ur Leukocyte Esterase Lg (Negative) 12/15/20 20:20 Urine WBC (Auto) > 182.0 /HPF (0.0-6.0) H 12/15/20 20:20 Urine RBC (Auto) 117.0 /HPF (0.0-6.0) 12/15/20 20:20 Urine Bacteria (Auto) 3+ /HPF (Negative) 12/15/20 20:20 Urine WBC Clumps 3+ /HPF 12/15/20 20:20 Urine Mucus Few /HPF 12/15/20 20:20 Urine Yeast (Budding) 3+ /HPF 12/15/20 20:20 Nasal Screen MRSA (PCR) Negative (Negative) 12/17/20 Unknown Vancomycin Trough 30.2 ug/mL (5.0-20.0) H 12/20/20 05:10 Random Vancomycin 7.2 ug/mL (0-40.0) 12/22/20 07:52 Salicylates < 0.3 mg/dL (2.8-20.0) L 12/15/20 20:29 Acetaminophen 5.0 ug/mL (10.0-30.0) L 12/15/20 20:29 Plasma/Serum Alcohol < 0.01 % (0-0.07) 12/15/20 20:29 Coronavirus (PCR) Negative (Negative) 12/18/20 08:00 Blood Type A POSITIVE 12/15/20 20:29 Antibody Screen Negative 12/15/20 20:29 Crossmatch See Detail 12/15/20 20:29 Kyle/IV: Voiding Method Indwelling Catheter Active Medications - Current Medications Current Medications: Generic Name Dose Route Start Last Admin Trade Name Freq PRN Reason Stop Dose Admin Acetaminophen 650 mg 12/15/20 23:59 12/16/20 00:32 Acetaminophen 650 Mg Rect Supp [place] 650 mg Q6H PRN Administration Pain MILD(1-3)/Fever >100.5/RHOADES Amantadine HCl 100 mg 12/16/20 17:00 12/24/20 10:20 Amantadine 100 Mg Cap PO 100 mg QDAY TIFF Administration Lipase/Protease/Amylase 1 each 12/16/20 15:13 Lipase 10,500/Protease 25,000/Amylase 43,750 (Units) Dr Conroy FEEDTUBE PRN PRN For Clogged Feeding Tube Gabapentin 600 mg 12/16/20 16:00 12/24/20 13:32 Gabapentin 300 Mg Cap PO 600 mg Q8HR TIFF Administration Hydromorphone HCl 0.5 mg 12/23/20 18:26 12/24/20 13:31 Hydromorphone 1 Mg/1 Ml Inj IV 0.5 mg Q3H PRN Administration Pain , Severe (7-10) Ceftriaxone Sodium 2 gm in 100 mls @ 200 mls/hr 12/19/20 22:00 12/23/20 22:24 Rocephin/Ns 2 Gm/100 Ml IV 200 mls/hr Q24H TIFF Administration Vancomycin HCl 1 gm in 250 mls @ 167.007 mls/hr 12/22/20 12:00 12/23/20 20:48 Vancomycin/Ns 1 Gm/250 Ml IV Infused Q24H TIFF Infusion Potassium Phosphate 15 mmol/ 255 mls @ 63 mls/hr 12/24/20 10:30 12/24/20 12:0 4 Sodium Chloride IV 12/24/20 14:32 63 mls/hr ONCE ONE Administration Magnesium Hydroxide 30 ml 12/15/20 23:59 Magnesium Hydroxide (Mom) Oral Liqd Udc PO Q4H PRN Constipation Metoprolol Tartrate 12.5 mg 12/17/20 22:00 12/24/20 10:36 Metoprolol Tartrate 25 Mg Tab PO 12.5 mg BID TIFF Administration Mirtazapine 15 mg 12/16/20 22:00 12/23/20 22:25 Mirtazapine 15 Mg Tab PO 15 mg QHS TIFF Administration Morphine Sulfate 2 mg 12/15/20 23:59 12/23/20 22:25 Morphine 2 Mg/1 Ml Inj IV 2 mg Q4H PRN Administration Pain, Moderate (4-6) Morphine Sulfate 4 mg 12/15/20 23:59 12/24/20 10:20 Morphine 4 Mg/1 Ml Inj IV 4 mg Q4H PRN Administration Pain , Severe (7-10) Ondansetron HCl 4 mg 12/15/20 23:59 12/17/20 04:55 Ondansetron 4 Mg/2 Ml Inj IV 4 mg Q8H PRN Administration Nausea And Vomiting Sertraline HCl 50 mg 12/16/20 17:00 12/24/20 10:20 Sertraline 50 Mg Tab PO 50 mg QDAY TIFF Administration Simple Syrup 15 ml 12/16/20 15:13 Simple Syrup 15 Ml FEEDTUBE PRN PRN Hypoglycemia Simple Syrup 30 ml 12/16/20 15:13 Simple Syrup 15 Ml FEEDTUBE PRN PRN Hypoglycemia Sodium Bicarbonate 325 mg 12/16/20 15:13 Sodium Bicarbonate 325 Mg Tab FEEDTUBE PRN PRN For Clogged Feeding Tube Sodium Bicarbonate 650 mg 12/22/20 10:00 12/24/20 10:30 Sodium Bicarbonate 650 Mg Tab PO 650 mg BID TIFF Administration Sodium Chloride 10 ml 12/16/20 10:00 12/24/20 10:20 Sodium Chloride 0.9% 10 Ml Flush Syringe IV 10 ml BID TIFF Administration Sodium Chloride 10 ml 12/15/20 23:59 Sodium Chloride 0.9% 10 Ml Flush Syringe IV PRN PRN LINE FLUSH Tamsulosin HCl 0.4 mg 12/16/20 17:00 12/24/20 10:20 Tamsulosin 0.4 Mg Cap PO 0.4 mg QDAY TIFF Administration Nutrition/Malnutrition Assess - Dietary Evaluation Nutrition/Malnutrition Findings: Nutrition Notes Start: 12/16/20 13:54 Freq: Status: Active Protocol: Document 12/18/20 16:39 HAWK (Rec: 12/18/20 17:12 HAWK [email or web address]) Nutrition Notes Initial or Follow up Reassessment Current Diagnosis Acute Kidney Injury,Sepsis Other Pertinent Diagnosis Anemia, Hyperkalemia, UTI. Labs/Tests 12/18: K 3.4, Cl 110, CO2 16, BUN 30, Ca 8.2. Pertinent Medications 12/18: Nutritionally unremarkable. Height 6 ft Weight 81.647 kg [place] Body Weight (kg) 80.90 BMI 24.4 Subjective/Other Information RD consult for routine F/U on TF initiation. Percent of energy/protein needs met: Prescribed Regular Diet provides for energy/protein needs (2,289 Kcal/89 g) during LOS. Additionally TF provides for 1,000 Kcal and 45 g respectivelly. Burn Absent Trauma Absent GI Symptoms Other Food Allergy No Skin Integrity/Comment Surgical wound Current % PO Other Minimum of two criteria No #1 Nutrition Diagnosis Altered GI function Etiology Current concomitant conditions , PEG placement. As Evidenced by Signs and Symptoms Abnotrmal chemistry lab values , MD order for TF + PO Diet. Is patient on ventilator? No Is Patient Ambulatory and/or Out of Bed No REE-([facility]-confined to bed) 2043.468 Kcal/Kg value to use for calculation 25 Approximate Energy Requirements Using 2041 kcal/Kg Calculation Used for Recommendations Kcal/kg Additional Notes Protein: 1.2-1.5 g/Kg; 97-122 g/day (from IBW+critical care) . Fluids: 1 ml/Kcal, or as per MD. Nutrition Intervention Change Diet Order: Continue Regular Diet. Nutrition Support: Continue TF Nepro with CARBSTEADY @ 23 ml/hr; Flush 100 ml Q 4 hrs. Kcal 1,000 Protein (gm) 45 Carbohydrates (gm) 89 Fat (gm) 53 Fluid (mL) 404 Fiber (gm) 7 % RDI: 49% Kcal; 55% AA. Goal #1 Maintain body weight within +/ -3% of current BWt during LOS. Goal #2 Reach and mainatain acceptable chemistry lab values during LOS. Follow-Up By: 12/25/20 Additional Comments Continue monitoring food and TF tolerance, %PO intake of meals, Hydration, and BM.
--- NOTE | 2020-12-24 14:20 | Progress Note ---
Assessment and Plan Cultures: Blood culture no growth so far Urine culture: Klebsiella pneumoniae A/P: 55-year-old male past medical history Parkinson's, depression, DVT, fracture of the right acetabulum admitted with fatigue #Sepsis, leucocytosis, reactive thrombocytosis: likely from UTI and multiple decubiti #Complicated UTI: Has history of Kyle cath, which has been changed since admission #Bedbound status with ulcers: pending wound care consult. #Sacral wounds: patient refuses examination. #BERNICE: improving. #Penicillin allergy: tolerating ceftriaxone Recs: -Continue IV vancomycin, IV ceftriaxone 2g q24h. Likelihood of cure is unlikely given his poor nutritional status, bedbound status, lack of cooperation with nursing staff for wound care as well as frequent offloading. Hospice appropriate Luis Watson MD, FACP [facility] ([facility] O: [phone] F: [phone] Subjective Date of service: 12/24/20 Principal diagnosis: Hypotension; Anemia; NSTEMI; UTI Interval history: No fever. Complains of pain all over. Noted patient not cooperating with nursing staff with regards to wound care. Objective - Exam Narrative Exam: Physical Exam: Constitutional: Alert, cooperative. mild distress due to pain. Cachexia + Head, Ears, Nose: Normocephalic, atraumatic. External ears, nose normal Eyes: Conjunctivae/corneas clear. No icterus. No ptosis. Neck: Supple, no meningeal signs Cardiovascular: S1, S2 normal. Respiratory: Good air entry, clear to auscultation bilaterally GI: Soft, non-tender; bowel sounds normal. No peritoneal signs. G Tube + Musculoskeletal: Bilateral TMA, no evident wounds of stumps. Multiple decubiti, unable to examine due to pain Skin: No rash or abscess Hem/Lymphatic: No palpable cervical or supraclavicular nodes. No lymphangitis Psych: Mood ok. Affect normal Neurological: Awake, alert, oriented. - Constitutional Vitals: Vital Signs Temp Pulse Resp BP Pulse Ox 98.2 F 90 18 125/90 99 12/24/20 12:43 12/24/20 12:43 12/24/20 12:43 12/24/20 12:43 12/24/20 12:43 Temperature -Last 24 Hours Temperature 98.2 F Temperature 98.9 F Temperature 98.0 F - Labs CBC & Chem 7: 12/24/20 07:40 12/24/20 07:40 Labs: Abnormal lab results 12/24/20 12/24/20 Range/Units 07:40 07:40 WBC 23.6 H (4.5-11.0) K/mm3 RBC 3.39 L (3.65-5.03) M/mm3 Hgb 8.6 L (11.8-15.2) gm/dl Hct 29.4 L (35.5-45.6) % MCH 26 L (28-32) pg MCHC 30 L (32-34) % RDW 22.4 H (13.2-15.2) % Plt Count 636 H (140-440) K/mm3 Seg Neuts % (Manual) 85.0 H (40.0-70.0) % Lymphocytes % (Manual) 10.0 L (13.4-35.0) % Seg Neutrophils # Man 20.1 H (1.8-7.7) K/mm3 Sodium 135 L (137-145) mmol/L Carbon Dioxide 19 L (22-30) mmol/L Creatinine 0.5 L (0.8-1.3) mg/dL Calcium 8.2 L (8.4-10.2) mg/dL Magnesium 1.60 L (1.7-2.3) mg/dL
[2020-12-24] MEDS: VANCOMYCIN 1,250 MG in SODIUM CHLORIDE 0.9% 250ML 250 ML IV SCH (19:30)
[2020-12-24] MEDS: MORPHINE 2 MG/1 ML INJ IV PRN (20:18)
[2020-12-24] MEDS: MIRTAZAPINE 15 MG TAB PO SCH (21:46)
[2020-12-24] MEDS: cefTRIAXone/NS 2 GM/100 ML 2 GM/100 ML BAG IV SCH (21:46)
[2020-12-25] MEDS: MORPHINE 4 MG/1 ML INJ IV PRN (05:13)
[2020-12-25] MEDS: GABAPENTIN 300 MG CAP PO SCH ×3 (05:13→21:29)
[2020-12-25 05:49] LABS: Hematocrit 26.9 % (35.5-45.6); Mean Corpuscular HGB Conc 30 % (32-34); Mean Corpuscular Volume 85 fl (84-94); Platelet Count 682 K/mm3 (140-440); Red Blood Count 3.16 M/mm3 (3.65-5.03)
[2020-12-25 06:01] LABS: Red Cell Distribution Width 22.3 % (13.2-15.2)
[2020-12-25 06:07] LABS: Blood Urea Nitrogen 9 mg/dL (9-20); Calcium 8.7 mg/dL (8.4-10.2); Hemolysis Index 2
[2020-12-25 06:08] LABS: BUN/Creatinine Ratio 18
[2020-12-25 08:37] LABS: Anisocytosis 1+; Hypochromasia 1+; Total Cells Counted 100
[2020-12-25 08:38] LABS: Ovalocytes Few; Platelet Estimate Consistent w Auto; Target Cells 1+
[2020-12-25] MEDS: HYDROmorphone 1 MG/1 ML INJ IV PRN (08:39)
[2020-12-25] MEDS ORDERED: MAGNESIUM SULFATE 2 GM/50 ML BAG IV ONE (09:00)
[2020-12-25] MEDS: METOPROLOL TARTRATE 25 MG TAB PO SCH ×2 (10:23→23:39)
[2020-12-25] MEDS: TAMSULOSIN 0.4 MG CAP PO SCH (10:23)
[2020-12-25] MEDS: SODIUM BICARBONATE 650 MG TAB PO SCH ×2 (10:23→21:29)
[2020-12-25] MEDS: SERTRALINE 50 MG TAB PO SCH (10:26)
--- NOTE | 2020-12-25 11:26 | Progress Note ---
Assessment and Plan Cultures: Blood culture no growth so far Urine culture: Klebsiella pneumoniae A/P: 55-year-old male past medical history Parkinson's, depression, DVT, fracture of the right acetabulum admitted with fatigue #Sepsis, leucocytosis, reactive thrombocytosis: likely from UTI and multiple decubiti #Complicated UTI: Has history of Kyle cath, which has been changed since admission #Bedbound status with ulcers: pending wound care consult. #Sacral wounds: patient refuses examination. #BERNICE: improving. #Penicillin allergy: tolerating ceftriaxone #Protein calorie malnutrition Recs: -Continue IV vancomycin, IV ceftriaxone 2g q24h. Likelihood of cure is unlikely given his poor nutritional status, bedbound status, lack of cooperation with nursing staff for wound care as well as frequent offloading. Hospice appropriate. If discharged, would do PO Keflex 500 mg QID + PO Doxycycline 100 mg BID for another 10 days Luis Watson MD, FACP [facility] ([facility] O: [phone] F: [phone] Subjective Date of service: 12/25/20 Principal diagnosis: Hypotension; Anemia; NSTEMI; UTI Interval history: No fever. Complains of pain all over including when moved or touched, doesn't cooperate with nursing much. Objective - Exam Narrative Exam: Physical Exam: Constitutional: Alert, cooperative. mild distress due to pain. Cachexia + Head, Ears, Nose: Normocephalic, atraumatic. External ears, nose normal Eyes: Conjunctivae/corneas clear. No icterus. No ptosis. Neck: Supple, no meningeal signs Cardiovascular: S1, S2 normal. Respiratory: Good air entry, clear to auscultation bilaterally GI: Soft, non-tender; bowel sounds normal. No peritoneal signs. G Tube + Musculoskeletal: Bilateral TMA, no evident wounds of stumps. Multiple decubiti, unable to examine due to pain Skin: No rash or abscess Hem/Lymphatic: No palpable cervical or supraclavicular nodes. No lymphangitis Psych: Mood ok. Affect normal Neurological: Awake, alert, oriented. - Constitutional Vitals: Vital Signs Temp Pulse Resp BP Pulse Ox 97.9 F 67 18 94/67 98 12/25/20 04:58 12/25/20 10:23 12/25/20 07:30 12/25/20 04:58 12/25/20 04:58 Temperature -Last 24 Hours Temperature 97.9 F Temperature 98.4 F Temperature 98.7 F Temperature 98.2 F - Labs CBC & Chem 7: 12/25/20 04:44 12/25/20 04:44 Labs: Abnormal lab results 12/25/20 12/25/20 Range/Units 04:44 04:44 WBC 23.6 H (4.5-11.0) K/mm3 RBC 3.16 L (3.65-5.03) M/mm3 Hgb 8.0 L (11.8-15.2) gm/dl Hct 26.9 L (35.5-45.6) % MCH 25 L (28-32) pg MCHC 30 L (32-34) % RDW 22.3 H (13.2-15.2) % Plt Count 682 H (140-440) K/mm3 Seg Neuts % (Manual) 88.0 H (40.0-70.0) % Lymphocytes % (Manual) 4.0 L (13.4-35.0) % Seg Neutrophils # Man 20.8 H (1.8-7.7) K/mm3 Lymphocytes # (Manual) 0.9 L (1.2-5.4) K/mm3 Monocytes # (Manual) 1.2 H (0.0-0.8) K/mm3 Eosinophils # (Manual) 0.5 H (0.0-0.4) K/mm3 Basophils # (Manual) 0.2 H (0.0-0.1) K/mm3 Creatinine 0.5 L (0.8-1.3) mg/dL Magnesium 1.60 L (1.7-2.3) mg/dL
--- NOTE | 2020-12-25 13:27 | Progress Note ---
Assessment and Plan Hypotension Anemia requiring transfusions NSTEMI (non-ST elevated myocardial infarction) Sepsis UTI (urinary tract infection) - replace Magnesium per protocol - lactate WNL - trend fevers/WBC - complete anti-infective's per ID rec's - continue care as below otherwise; - prn supplemental oxygen to keep O2 sats > 90% - Wound care per RN/WCT - prn Bronchodilators (DARWIN) with pulm hygiene per RT - continue to avoid nephrotoxins, renally dose all medications - continue mobility protocols to prevent pressure ulcers - PT/OT as tolerated - prn analgesia per pain score - accuchecks with glycemic control per SSI for target blood glucose < 180 mg/dL - tobacco abstinence counseling - home oxygen evaluation at discharge - GI & VTE prophylaxis - Flu & pneumovax per protocol - Pulmonary out patient follow up for PFTs and optimization of respiratory status - continue other care per attending / other consultants ... re-evaluate in am & prn Subjective Date of service: 12/25/20 Principal diagnosis: Hypotension; Anemia; NSTEMI; UTI Interval history: Patient is seen today for: Hypotension; Anemia; NSTEMI; UTI Seen and examined at bedside; 24hour events reviewed; nursing and respiratory care staff consulted; no adverse overnight events reported to me; resting peacefully in bed; WBC trending down; no acute pain issues; no hypotensive i ssues; afebrile Objective Vital Signs - 12hr 12/25/20 12/25/20 12/25/20 02:28 04:58 07:30 Temperature 97.9 F Pulse Rate 83 Respiratory 18 18 Rate Blood Pressure 94/67 O2 Sat by Pulse 96 98 Oximetry 12/25/20 12/25/20 08:00 10:23 Temperature Pulse Rate 67 Respiratory Rate Blood Pressure O2 Sat by Pulse 98 Oximetry Constitutional: no acute distress, alert Eyes: non-icteric Neck: supple, no JVD Effort: normal Ascultation: Bilateral: rhonchi (scant) Percussion: Bilateral: not dull Cardiovascular: regular rate and rhythm Gastrointestinal: normoactive bowel sounds, soft, non-tender, non-distended Integumentary: decubitus ulcer (decubitus ulcer; please see [facility] notes for full description) Extremities: no cyanosis, no edema, pulses normal Neurologic: non-focal exam, pupils equal and round, CN II-XII normal, other (weak) Psychiatric: mood appropriate, affect normal CBC and BMP: 12/26/20 07:02 12/26/20 07:02 ABG, PT/INR, D-dimer: ABG ABG pH 7.374 pH Units (7.350-7.450) 12/18/20 11:56 ABG pCO2 31.0 mm Hg 12/18/20 11:56 ABG pO2 40.2 mm Hg (80.0-90.0) L 12/18/20 11:56 ABG O2 Saturation 73.9 % (95.0-99.0) L 12/18/20 11:56 PT/INR, D-dimer PT 16.7 Sec. (12.2-14.9) H 12/17/20 04:27 INR 1.22 (0.87-1.13) H 12/17/20 04:27 Abnormal lab findings: Abnormal Labs 12/15/20 12/15/20 12/15/20 20:20 20:29 20:29 WBC 19.2 H RBC 2.56 L Hgb 6.0 L Hct 20.2 L MCV 79 L MCH 24 L MCHC 30 L RDW 22.2 H Plt Count 512 H Lymph % (Auto) 6.4 L [place] # (Auto) 1.3 H Seg Neutrophils % 85.9 H Seg Neuts % (Manual) Lymphocytes % (Manual) Seg Neutrophils # 16.5 H Seg Neutrophils # Man Lymphocytes # (Manual) Monocytes # (Manual) Eosinophils # (Manual) Basophils # (Manual) PT INR APTT 42.0 H ABG pH ABG pO2 ABG HCO3 ABG O2 Saturation ABG Base Excess ABG Hemoglobin Oxyhemoglobin Sodium Potassium Chloride Carbon Dioxide BUN Creatinine Glucose Calcium Phosphorus Magnesium Alkaline Phosphatase Ammonia Total Creatine Kinase Troponin T Albumin Triglycerides LDL Cholesterol Direct HDL Cholesterol Urine WBC (Auto) > 182.0 H Vancomycin Trough Salicylates Acetaminophen Crossmatch 12/15/20 12/15/20 12/15/20 20:29 20:29 20:29 WBC RBC Hgb Hct MCV MCH MCHC RDW Plt Count Lymph % (Auto) [place] # (Auto) Seg Neutrophils % Seg Neuts % (Manual) Lymphocytes % (Manual) Seg Neutrophils # Seg Neutrophils # Man Lymphocytes # (Manual) Monocytes # (Manual) Eosinophils # (Manual) Basophils # (Manual) PT INR APTT ABG pH ABG pO2 ABG HCO3 ABG O2 Saturation ABG Base Excess ABG Hemoglobin Oxyhemoglobin Sodium 131 L Potassium 6.0 H Chloride 95.1 L Carbon Dioxide BUN 70 H Creatinine 2.2 H Glucose 113 H Calcium Phosphorus Magnesium Alkaline Phosphatase 321 H Ammonia Total Creatine Kinase Troponin T 0.215 H* Albumin 2.7 L Triglycerides 153 H LDL Cholesterol Direct 23 L HDL Cholesterol 27 L Urine WBC (Auto) Vancomycin Trough Salicylates < 0.3 L Acetaminophen Crossmatch See Detail 12/15/20 12/15/20 12/15/20 20:29 20:29 21:28 WBC RBC Hgb Hct MCV MCH MCHC RDW Plt Count Lymph % (Auto) [place] # (Auto) Seg Neutrophils % Seg Neuts % (Manual) Lymphocytes % (Manual) Seg Neutrophils # Seg Neutrophils # Man Lymphocytes # (Manual) Monocytes # (Manual) Eosinophils # (Manual) Basophils # (Manual) PT 15.8 H INR 1.14 H APTT ABG pH ABG pO2 ABG HCO3 ABG O2 Saturation ABG Base Excess ABG Hemoglobin Oxyhemoglobin Sodium Potassium Chloride Carbon Dioxide BUN Creatinine Glucose Calcium Phosphorus Magnesium Alkaline Phosphatase Ammonia 21.0 L Total Creatine Kinase Troponin T Albumin Triglycerides LDL Cholesterol Direct HDL Cholesterol Urine WBC (Auto) Vancomycin Trough Salicylates Acetaminophen 5.0 L Crossmatch 12/16/20 12/16/20 12/16/20 06:02 06:02 20:19 WBC 16.4 H RBC 3.19 L Hgb 8.1 L Hct 26.3 L D MCV 82 L MCH 25 L MCHC 31 L RDW 20.3 H Plt Count Lymph % (Auto) [place] # (Auto) Seg Neutrophils % Seg Neuts % (Manual) Lymphocytes % (Manual) Seg Neutrophils # Seg Neutrophils # Man Lymphocytes # (Manual) Monocytes # (Manual) Eosinophils # (Manual) Basophils # (Manual) PT INR APTT ABG pH ABG pO2 ABG HCO3 ABG O2 Saturation ABG Base Excess ABG Hemoglobin Oxyhemoglobin Sodium Potassium Chloride 112.9 H Carbon Dioxide 15 L D BUN 47 H Creatinine Glucose 185 H Calcium 7.2 L D Phosphorus Magnesium Alkaline Phosphatase Ammonia Total Creatine Kinase Troponin T 0.126 H* D 0.078 H D Albumin Triglycerides LDL Cholesterol Direct HDL Cholesterol Urine WBC (Auto) Vancomycin Trough Salicylates Acetaminophen Crossmatch 12/17/20 12/17/20 12/17/20 04:27 04:27 04:27 WBC 24.5 H RBC 3.51 L Hgb 9.0 L Hct 28.9 L MCV 82 L MCH 26 L MCHC 31 L RDW 20.9 H Plt Count 585 H Lymph % (Auto) [place] # (Auto) Seg Neutrophils % Seg Neuts % (Manual) 91.0 H Lymphocytes % (Manual) 3.0 L Seg Neutrophils # Seg Neutrophils # Man 22.3 H Lymphocytes # (Manual) 0.7 L Monocytes # (Manual) 1.5 H Eosinophils # (Manual) Basophils # (Manual) PT 16.7 H INR 1.22 H APTT ABG pH ABG pO2 ABG HCO3 ABG O2 Saturation ABG Base Excess ABG Hemoglobin Oxyhemoglobin Sodium Potassium Chloride 115.2 H Carbon Dioxide 16 L BUN 41 H Creatinine Glucose 105 H Calcium Phosphorus Magnesium Alkaline Phosphatase Ammonia Total Creatine Kinase Troponin T Albumin Triglycerides LDL Cholesterol Direct HDL Cholesterol Urine WBC (Auto) Vancomycin Trough Salicylates Acetaminophen Crossmatch 12/18/20 12/18/20 12/18/20 04:40 07:53 07:53 WBC 19.3 H RBC 3.56 L Hgb 9.0 L Hct 29.3 L MCV 82 L MCH 25 L MCHC 31 L RDW 21.3 H Plt Count 593 H Lymph % (Auto) [place] # (Auto) Seg Neutrophils % Seg Neuts % (Manual) Lymphocytes % (Manual) Seg Neutrophils # Seg Neutrophils # Man Lymphocytes # (Manual) Monocytes # (Manual) Eosinophils # (Manual) Basophils # (Manual) PT INR APTT ABG pH 7.460 H ABG pO2 250.2 H ABG HCO3 19.8 L ABG O2 Saturation 99.4 H ABG Base Excess -3.6 L ABG Hemoglobin 6.9 L Oxyhemoglobin Sodium Potassium 3.4 L D Chloride 110.0 H Carbon Dioxide 16 L BUN 30 H Creatinine Glucose Calcium 8.2 L Phosphorus Magnesium Alkaline Phosphatase Ammonia Total Creatine Kinase Troponin T Albumin Triglycerides LDL Cholesterol Direct HDL Cholesterol Urine WBC (Auto) Vancomycin Trough Salicylates Acetaminophen Crossmatch 12/18/20 12/18/20 12/19/20 11:56 18:40 04:50 WBC 24.1 H RBC 3.37 L Hgb 8.5 L Hct 28.0 L MCV 83 L MCH 25 L MCHC 30 L RDW 21.4 H Plt Count 563 H Lymph % (Auto) [place] # (Auto) Seg Neutrophils % Seg Neuts % (Manual) Lymphocytes % (Manual) Seg Neutrophils # Seg Neutrophils # Man Lymphocytes # (Manual) Monocytes # (Manual) Eosinophils # (Manual) Basophils # (Manual) PT INR APTT ABG pH ABG pO2 40.2 L ABG HCO3 17.7 L ABG O2 Saturation 73.9 L ABG Base Excess -6.7 L ABG Hemoglobin 9.0 L Oxyhemoglobin 71.9 L Sodium Potassium Chloride Carbon Dioxide BUN Creatinine Glucose Calcium Phosphorus Magnesium 1.50 L Alkaline Phosphatase Ammonia Total Creatine Kinase 41 L Troponin T Albumin Triglycerides LDL Cholesterol Direct HDL Cholesterol Urine WBC (Auto) Vancomycin Trough Salicylates Acetaminophen Crossmatch 12/19/20 12/20/20 12/20/20 04:50 05:10 05:10 WBC 23.6 H RBC 3.43 L Hgb 9.0 L Hct 29.9 L MCV MCH 26 L MCHC 30 L RDW 21.6 H Plt Count 516 H Lymph % (Auto) [place] # (Auto) Seg Neutrophils % Seg Neuts % (Manual) Lymphocytes % (Manual) Seg Neutrophils # Seg Neutrophils # Man Lymphocytes # (Manual) Monocytes # (Manual) Eosinophils # (Manual) Basophils # (Manual) PT INR APTT ABG pH ABG pO2 ABG HCO3 ABG O2 Saturation ABG Base Excess ABG Hemoglobin Oxyhemoglobin Sodium Potassium Chloride 109.8 H Carbon Dioxide 16 L BUN 21 H Creatinine 0.7 L Glucose Calcium 7.9 L Phosphorus Magnesium Alkaline Phosphatase Ammonia Total Creatine Kinase Troponin T Albumin Triglycerides LDL Cholesterol Direct HDL Cholesterol Urine WBC (Auto) Vancomycin Trough 30.2 H Salicylates Acetaminophen Crossmatch 12/21/20 12/21/20 12/22/20 05:17 07:46 07:52 WBC 31.7 H 28.9 H RBC 3.45 L 3.30 L Hgb 8.7 L 8.5 L Hct 28.8 L 27.8 L MCV 83 L MCH 25 L 26 L MCHC 30 L 30 L RDW 21.6 H 21.7 H Plt Count 644 H 693 H Lymph % (Auto) [place] # (Auto) Seg Neutrophils % Seg Neuts % (Manual) Lymphocytes % (Manual) Seg Neutrophils # Seg Neutrophils # Man Lymphocytes # (Manual) Monocytes # (Manual) Eosinophils # (Manual) Basophils # (Manual) PT INR APTT ABG pH ABG pO2 ABG HCO3 ABG O2 Saturation ABG Base Excess ABG Hemoglobin Oxyhemoglobin Sodium Potassium 3.3 L Chloride 109.3 H Carbon Dioxide 17 L BUN Creatinine 0.6 L Glucose 123 H Calcium 8.0 L Phosphorus 2.00 L Magnesium Alkaline Phosphatase Ammonia Total Creatine Kinase Troponin T Albumin Triglycerides LDL Cholesterol Direct HDL Cholesterol Urine WBC (Auto) Vancomycin Trough Salicylates Acetaminophen Crossmatch 12/22/20 12/23/20 12/24/20 07:52 05:17 07:40 WBC 23.6 H RBC 3.39 L Hgb 8.6 L Hct 29.4 L MCV MCH 26 L MCHC 30 L RDW 22.4 H Plt Count 636 H Lymph % (Auto) [place] # (Auto) Seg Neutrophils % Seg Neuts % (Manual) 85.0 H Lymphocytes % (Manual) 10.0 L Seg Neutrophils # Seg Neutrophils # Man 20.1 H Lymphocytes # (Manual) Monocytes # (Manual) Eosinophils # (Manual) Basophils # (Manual) PT INR APTT ABG pH ABG pO2 ABG HCO3 ABG O2 Saturation ABG Base Excess ABG Hemoglobin Oxyhemoglobin Sodium 136 L Potassium Chloride 107.8 H Carbon Dioxide 17 L 20 L BUN Creatinine 0.5 L 0.5 L Glucose 114 H Calcium 7.9 L 8.3 L Phosphorus 2.40 L Magnesium Alkaline Phosphatase Ammonia Total Creatine Kinase Troponin T Albumin Triglycerides LDL Cholesterol Direct HDL Cholesterol Urine WBC (Auto) Vancomycin Trough Salicylates Acetaminophen Crossmatch 12/24/20 12/25/20 12/25/20 07:40 04:44 04:44 WBC 23.6 H RBC 3.16 L Hgb 8.0 L Hct 26.9 L MCV MCH 25 L MCHC 30 L RDW 22.3 H Plt Count 682 H Lymph % (Auto) [place] # (Auto) Seg Neutrophils % Seg Neuts % (Manual) 88.0 H Lymphocytes % (Manual) 4.0 L Seg Neutrophils # Seg Neutrophils # Man 20.8 H Lymphocytes # (Manual) 0.9 L Monocytes # (Manual) 1.2 H Eosinophils # (Manual) 0.5 H Basophils # (Manual) 0.2 H PT INR APTT ABG pH ABG pO2 ABG HCO3 ABG O2 Saturation ABG Base Excess ABG Hemoglobin Oxyhemoglobin Sodium 135 L Potassium Chloride Carbon Dioxide 19 L BUN Creatinine 0.5 L 0.5 L Glucose Calcium 8.2 L Phosphorus Magnesium 1.60 L 1.60 L Alkaline Phosphatase Ammonia Total Creatine Kinase Troponin T Albumin Triglycerides LDL Cholesterol Direct HDL Cholesterol Urine WBC (Auto) Vancomycin Trough Salicylates Acetaminophen Crossmatch Allied health notes reviewed: nursing
[2020-12-25] MEDS: MORPHINE 2 MG/1 ML INJ IV PRN ×3 (13:40→21:29)
--- NOTE | 2020-12-25 13:56 | Progress Note ---
Assessment and Plan Assessment and plan: #Stage III Decubitus ulcers -chronic -detailed discussion with patient about wound care, and patient described nurses being rough with him in regards to wound care. Patient would like wounds to be cared for but requests the nurses are gentle due to the significant pain. As needed IV analgesic will be available prior to wound changes. -Infectious disease consulted; appreciate recs -Extremely low likelihood of overall improvement decubitus ulcers and leukocytosis given the fact that patient often refuses wound care. Given the patient's malnutrition status and various comorbidities, being bedbound, and overall clinical status, the patient will likely not be able to fully heal. #Leukocytosis -WBC count 23.9 Unsure of leukocytosis will fully resolve given malnutrition status and lack of source control. -BCx 12/15 final NGTD -will continue vancomycin and rocephin. If discharged patient will be transitioned to Keflex 500 mg 4 times daily + p.o. doxycycline 100 mg twice daily x10 additional days. #Hypokalemia -resolved #Moderate malnutrition -albumin 2.7 -Nutrition consulted; appreciate recs -will continue PEG feeds in addition to oral feeds to improve healing. #Advanced care planning -Disease education conducted, care plan discussed, diagnoses discussed, prognosis discussed, and patient acknowledges understanding with care plan -Discussed change to DNR/DNI status along with hospice with the patient and his . would like to proceed with DNR/DNI and place him on hospice. The patient wants to continue to be treated and is not ready to give up. Both are aware of poor prognosis. Patient counseled about importance of participating in his medical care to help drive forward improvement in his status. -Multiple discussions have been had with the patient regarding hospice care, and the patient vehemently denies wanting to go on hospice. Any attempts at hospice acceptance will be discontinued. Patient stated that his "" is actually his ex-, and he is legally . Patient requests that his ex- no longer be contacted regarding his medical condition in any instance. The patient requested his mother be contacted instead. The patient continues to endorse being full code. Attempts will be made at SNF placement versus home discharge. Time: +60 minutes Resolved issues #Hypotension-resolved #BERNICE (prerenal/vasogenic)-resolved #Symptomatic anemia requiring transfusionresolved #Complicated UTIresolved #Hyperkalemia-resolved #Type II NSTEMI-resolved -troponin 0.215, downtrending to 0.078 -Echo showed EF 45-50% -Cardiology evaluated patient, no intervention at this time -likely 2/2 BERNICE Disposition Plan: Continue medical management Total Time Spent with Patient (Minutes): 60 minutes History Interval history: No acute events overnight. Hospitalist Physical - Constitutional Vitals: Temp Pulse Resp BP Pulse Ox 97.9 F 67 18 94/67 98 12/25/20 04:58 12/25/20 10:23 12/25/20 07:30 12/25/20 04:58 12/25/20 08:00 General appearance: Present: no acute distress, cachectic, other (Sleepy in bed) - EENT Eyes: Present: PERRL, EOM intact ENT: hearing intact, clear oral mucosa, edentulous - Neck Neck: Present: supple, normal ROM - Respiratory Respiratory effort: normal (On 3 L nasal cannula) Respiratory: bilateral: diminished - Cardiovascular Rhythm: regular Heart Sounds: Present: S1 & S2 - Extremities Extremities: pulses intact, pulses symmetrical, No edema, normal color, abnormal (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)) Peripheral Pulses: within normal limits - Abdominal General gastrointestinal: soft, non-tender, non-distended, normal bowel sounds, other (PEG tube in place) - Integumentary Integumentary: Present: clear (Numerous decubitus ulcers on buttocks and back and legs), warm, dry - Psychiatric Psychiatric: appropriate mood/affect, cooperative, other (Memory not intact) - Neurologic Neurologic: CNII-XII intact - Allied Health Allied health notes reviewed: nursing HEART Score - HEART Score Troponin: Troponin T 0.078 ng/mL (0.00-0.029) H D 12/16/20 20:19 Results - Labs CBC & Chem 7: 12/25/20 04:44 12/25/20 04:44 Labs: Laboratory Last Values WBC 23.6 K/mm3 (4.5-11.0) H 12/25/20 04:44 RBC 3.16 M/mm3 (3.65-5.03) L 12/25/20 04:44 Hgb 8.0 gm/dl (11.8-15.2) L 12/25/20 04:44 Hct 26.9 % (35.5-45.6) L 12/25/20 04:44 MCV 85 fl (84-94) 12/25/20 04:44 MCH 25 pg (28-32) L 12/25/20 04:44 MCHC 30 % (32-34) L 12/25/20 04:44 RDW 22.3 % (13.2-15.2) H 12/25/20 04:44 Plt Count 682 K/mm3 (140-440) H 12/25/20 04:44 Lymph % (Auto) 6.4 % (13.4-35.0) L 12/15/20 20:29 [place] % (Auto) 6.8 % (0.0-7.3) 12/15/20 20: Eos % (Auto) 0.7 % (0.0-4.3) 12/15/20 20: Baso % (Auto) 0.2 % (0.0-1.8) 12/15/20 20: Lymph # (Auto) 1.2 K/mm3 (1.2-5.4) 12/15/20 20:29 [place] # (Auto) 1.3 K/mm3 (0.0-0.8) H 12/15/20 20:29 Eos # (Auto) 0.1 K/mm3 (0.0-0.4) 12/15/20 20:29 Baso # (Auto) 0.0 K/mm3 (0.0-0.1) 12/15/20 20:29 Add Manual Diff Complete 12/25/20 04:44 Total Counted 100 12/25/20 04:44 Seg Neutrophils % 85.9 % (40.0-70.0) H 12/15/20 20:29 Seg Neuts % (Manual) 88.0 % (40.0-70.0) H 12/25/20 04:44 Band Neutrophils % 3.0 % 12/24/20 07:40 Lymphocytes % (Manual) 4.0 % (13.4-35.0) L 12/25/20 04:44 Monocytes % (Manual) 5.0 % (0.0-7.3) 12/25/20 04:44 Eosinophils % (Manual) 2.0 % (0.0-4.3) 12/25/20 04:44 Basophils % (Manual) 1.0 % (0.0-1.8) 12/25/20 04:44 Nucleated RBC % Not Reportable 12/25/20 04:44 Seg Neutrophils # 16.5 K/mm3 (1.8-7.7) H 12/15/20 20:29 Seg Neutrophils # Man 20.8 K/mm3 (1.8-7.7) H 12/25/20 04:44 Band Neutrophils # 0.0 K/mm3 12/25/20 04:44 Lymphocytes # (Manual) 0.9 K/mm3 (1.2-5.4) L 12/25/20 04:44 Abs React Lymphs (Man) 0.0 K/mm3 12/25/20 04:44 Monocytes # (Manual) 1.2 K/mm3 (0.0-0.8) H 12/25/20 04:44 Eosinophils # (Manual) 0.5 K/mm3 (0.0-0.4) H 12/25/20 04:44 Basophils # (Manual) 0.2 K/mm3 (0.0-0.1) H 12/25/20 04:44 Metamyelocytes # 0.0 K/mm3 12/25/20 04:44 Myelocytes # 0.0 K/mm3 12/25/20 04:44 Promyelocytes # 0.0 K/mm3 12/25/20 04:44 Blast Cells # 0.0 K/mm3 12/25/20 04:44 WBC Morphology Not Reportable 12/25/20 04:44 Hypersegmented Neuts Not Reportable 12/25/20 04:44 Hyposegmented Neuts Not Reportable 12/25/20 04:44 Hypogranular Neuts Not Reportable 12/25/20 04:44 Smudge Cells Not Reportable 12/25/20 04:44 Toxic Granulation Not Reportable 12/25/20 04:44 Toxic Vacuolation Not Reportable 12/25/20 04:44 Dohle Bodies Not Reportable 12/25/20 04:44 Pelger-Huet Anomaly Not Reportable 12/25/20 04:44 Marcell Rods Not Reportable 12/25/20 04:44 Platelet Estimate Consistent w auto 12/25/20 04:44 Clumped Platelets Not Reportable 12/25/20 04:44 Plt Clumps, EDTA Not Reportable 12/25/20 04:44 Large Platelets Not Reportable 12/25/20 04:44 Giant Platelets Not Reportable 12/25/20 04:44 Platelet Satelliting Not Reportable 12/25/20 04:44 Plt Morphology Comment Not Reportable 12/25/20 04:44 RBC Morphology Not Reportable 12/25/20 04:44 Dimorphic RBCs Not Reportable 12/25/20 04:44 Polychromasia Not Reportable 12/25/20 04:44 Hypochromasia 1+ 12/25/20 04:44 Poikilocytosis Not Reportable 12/25/20 04:44 Anisocytosis 1+ 12/25/20 04:44 Microcytosis Not Reportable 12/25/20 04:44 Macrocytosis Not Reportable 12/25/20 04:44 Spherocytes Not Reportable 12/25/20 04:44 Pappenheimer Bodies Not Reportable 12/25/20 04:44 Sickle Cells Not Reportable 12/25/20 04:44 Target Cells 1+ 12/25/20 04:44 Tear Drop Cells Not Reportable 12/25/20 04:44 Ovalocytes Few 12/25/20 04:44 Helmet Cells Not Reportable 12/25/20 04:44 Joshi-[place] Bodies Not Reportable 12/25/20 04:44 Lyman Rings Not Reportable 12/25/20 04:44 [place] Cells Not Reportable 12/25/20 04:44 Bite Cells Not Reportable 12/25/20 04:44 Crenated Cell Not Reportable 12/25/20 04:44 Elliptocytes Not Reportable 12/25/20 04:44 Acanthocytes (Spur) Not Reportable 12/25/20 04:44 Rouleaux Not Reportable 12/25/20 04:44 Hemoglobin C Crystals Not Reportable 12/25/20 04:44 Schistocytes Not Reportable 12/25/20 04:44 Malaria parasites Not Reportable 12/25/20 04:44 Azeem Bodies Not Reportable 12/25/20 04:44 Hem Pathologist Commnt No 12/25/20 04:44 PT 16.7 Sec. (12.2-14.9) H 12/17/20 04:27 INR 1.22 (0.87-1.13) H 12/17/20 04:27 APTT 42.0 Sec. (24.2-36.6) H 12/15/20 20:29 ABG pH 7.374 pH Units (7.350-7.450) 12/18/20 11:56 ABG pCO2 31.0 mm Hg 12/18/20 11:56 ABG pO2 40.2 mm Hg (80.0-90.0) L 12/18/20 11:56 ABG HCO3 17.7 mmol/L (20.0-26.0) L 12/18/20 11:56 ABG O2 Saturation 73.9 % (95.0-99.0) L 12/18/20 11:56 ABG O2 Content 9.1 (0.0-44) 12/18/20 11:56 ABG Base Excess -6.7 mmol/L (-2.0-3.0) L 12/18/20 11:56 ABG Hemoglobin 9.0 gm/dl (14.0-18.0) L 12/18/20 11:56 ABG Carboxyhemoglobin 2.0 % (0.0-5.0) 12/18/20 11:56 ABG Methemoglobin 0.6 % (0.0-1.5) 12/18/20 11:56 Oxyhemoglobin 71.9 % (95.0-99.0) L 12/18/20 11:56 FiO2 21 % 12/18/20 11:56 Sodium 137 mmol/L (137-145) 12/25/20 04:44 Potassium 3.8 mmol/L (3.6-5.0) 12/25/20 04:44 Chloride 103.6 mmol/L (98-107) 12/25/20 04:44 Carbon Dioxide 23 mmol/L (22-30) 12/25/20 04:44 Anion Gap 14 mmol/L 12/25/20 04:44 BUN 9 mg/dL (9-20) 12/25/20 04:44 Creatinine 0.5 mg/dL (0.8-1.3) L 12/25/20 04:44 Estimated GFR > 60 ml/min 12/25/20 04:44 BUN/Creatinine Ratio 18 % 12/25/20 04:44 Glucose 83 mg/dL (75-100) 12/25/20 04:44 POC Glucose 72 mg/dL (70-105) 12/15/20 23:48 Lactic Acid 0.70 mmol/L (0.7-2.0) 12/21/20 21:33 Calcium 8.7 mg/dL (8.4-10.2) 12/25/20 04:44 Phosphorus 2.80 mg/dL (2.5-4.5) 12/25/20 04:44 Magnesium 1.60 mg/dL (1.7-2.3) L 12/25/20 04:44 Total Bilirubin 0.80 mg/dL (0.1-1.2) 12/15/20 20:29 AST 16 units/L (5-40) 12/15/20 20:29 ALT 17 units/L (7-56) 12/15/20 20:29 Alkaline Phosphatase 321 units/L (35-129) H 12/15/20 20:29 Ammonia 21.0 umol/L (25-60) L 12/15/20 21:28 Total Creatine Kinase 41 units/L (55-170) L 12/18/20 18:40 Troponin T 0.078 ng/mL (0.00-0.029) H D 12/16/20 20:19 Total Protein 7.0 g/dL (6.3-8.2) 12/15/20 20:29 Albumin 2.7 g/dL (3.9-5) L 12/15/20 20:29 Albumin/Globulin Ratio 0.6 % 12/15/20 20:29 Triglycerides 153 mg/dL (2-149) H 12/15/20 20:29 Cholesterol 95 mg/dL (50-199) 12/15/20 20:29 LDL Cholesterol Direct 23 mg/dL (50-130) L 12/15/20 20:29 HDL Cholesterol 27 mg/dL (40-59) L 12/15/20 20:29 Cholesterol/HDL Ratio 3.51 % 12/15/20 20:29 Procalcitonin 2.49 ng/mL (<0.15) 12/21/20 21:33 TSH 1.380 mlU/mL (0.270-4.200) 12/15/20 20:29 Urine Color Angela (Yellow) 12/15/20 20:20 Urine Turbidity Turbid (Clear) 12/15/20 20:20 Urine pH 7.0 (5.0-7.0) 12/15/20 20:20 Ur Specific [place] 1.012 (1.003-1.030) 12/15/20 20:20 Urine Protein 100 mg/dl mg/dL (Negative) 12/15/20 20:20 Urine Glucose (UA) Neg mg/dL (Negative) 12/15/20 20:20 Urine Ketones Neg mg/dL (Negative) 12/15/20 20:20 Urine Blood Lg (Negative) 12/15/20 20:20 Urine Nitrite Neg (Negative) 12/15/20 20:20 Urine Bilirubin Neg (Negative) 12/15/20 20:20 Urine Urobilinogen 4.0 mg/dL (<2.0) 12/15/20 20:20 Ur Leukocyte Esterase Lg (Negative) 12/15/20 20:20 Urine WBC (Auto) > 182.0 /HPF (0.0-6.0) H 12/15/20 20:20 Urine RBC (Auto) 117.0 /HPF (0.0-6.0) 12/15/20 20:20 Urine Bacteria (Auto) 3+ /HPF (Negative) 12/15/20 20:20 Urine WBC Clumps 3+ /HPF 12/15/20 20:20 Urine Mucus Few /HPF 12/15/20 20:20 Urine Yeast (Budding) 3+ /HPF 12/15/20 20:20 Nasal Screen MRSA (PCR) Negative (Negative) 12/17/20 Unknown Vancomycin Trough 9.9 ug/mL (5.0-20.0) 12/24/20 14:11 Random Vancomycin 7.2 ug/mL (0-40.0) 12/22/20 07:52 Salicylates < 0.3 mg/dL (2.8-20.0) L 12/15/20 20:29 Acetaminophen 5.0 ug/mL (10.0-30.0) L 12/15/20 20:29 Plasma/Serum Alcohol < 0.01 % (0-0.07) 12/15/20 20:29 Coronavirus (PCR) Negative (Negative) 12/18/20 08:00 Blood Type A POSITIVE 12/15/20: Antibody Screen Negative 11/08/21 20:29 Crossmatch See Detail 12/15/20 20:29 Kyle/IV: Voiding Method Indwelling Catheter Active Medications - Current Medications Current Medications: Generic Name Dose Route Start Last Admin Trade Name Freq PRN Reason Stop Dose Admin Acetaminophen 650 mg 12/15/20 23:59 12/16/20 00:32 Acetaminophen 650 Mg Rect Supp DC 650 mg Q6H PRN Administration Pain MILD(1-3)/Fever >100.5/RHOADES Amantadine HCl 100 mg 12/16/20 17:00 12/25/20 10:22 Amantadine 100 Mg Cap PO 100 mg QDAY TIFF Administration Lipase/Protease/Amylase 1 each 12/16/20 15:13 Lipase 10,500/Protease 25,000/Amylase 43,750 (Units) Dr Conroy FEEDTUBE PRN PRN For Clogged Feeding Tube Gabapentin 600 mg 12/16/20 16:00 12/25/20 05:13 Gabapentin 300 Mg Cap PO 600 mg Q8HR TIFF Administration Hydromorphone HCl 0.5 mg 12/23/20 18:26 12/25/20 08:39 Hydromorphone 1 Mg/1 Ml Inj IV 0.5 mg Q3H PRN Administration Pain , Severe (7-10) Ceftriaxone Sodium 2 gm in 100 mls @ 200 mls/hr 12/19/20 22:00 12/24/20 21:46 Rocephin/Ns 2 Gm/100 Ml IV 200 mls/hr Q24H TIFF Administration Vancomycin HCl 1,250 mg/ 275 mls @ 166.667 mls/hr 12/24/20 16:00 12/24/20 19:30 Sodium Chloride IV 166.667 mls/hr Q24H TIFF Administration Magnesium Hydroxide 30 ml 12/15/20 23:59 Magnesium Hydroxide (Mom) Oral Liqd Udc PO Q4H PRN Constipation Metoprolol Tartrate 12.5 mg 12/17/20 22:00 12/25/20 10:23 Metoprolol Tartrate 25 Mg Tab PO 12.5 mg BID TIFF Administration Mirtazapine 15 mg 12/16/20 22:00 12/24/20 21:46 Mirtazapine 15 Mg Tab PO 15 mg QHS TIFF Administration Morphine Sulfate 2 mg 12/15/20 23:59 12/24/20 20:18 Morphine 2 Mg/1 Ml Inj IV 2 mg Q4H PRN Administration Pain, Moderate (4-6) Morphine Sulfate 4 mg 12/15/20 23:59 12/25/20 05:13 Morphine 4 Mg/1 Ml Inj IV 4 mg Q4H PRN Administration Pain , Severe (7-10) Ondansetron HCl 4 mg 12/15/20 23:59 12/17/20 04:55 Ondansetron 4 Mg/2 Ml Inj IV 4 mg Q8H PRN Administration Nausea And Vomiting Sertraline HCl 50 mg 12/16/20 17:00 12/25/20 10:26 Sertraline 50 Mg Tab PO 50 mg QDAY TIFF Administration Simple Syrup 15 ml 12/16/20 15:13 Simple Syrup 15 Ml FEEDTUBE PRN PRN Hypoglycemia Simple Syrup 30 ml 12/16/20 15:13 Simple Syrup 15 Ml FEEDTUBE PRN PRN Hypoglycemia Sodium Bicarbonate 325 mg 12/16/20 15:13 Sodium Bicarbonate 325 Mg Tab FEEDTUBE PRN PRN For Clogged Feeding Tube Sodium Bicarbonate 650 mg 12/22/20 10:00 12/25/20 10:23 Sodium Bicarbonate 650 Mg Tab PO 650 mg BID TIFF Administration Sodium Chloride 10 ml 12/16/20 10:00 12/25/20 10:26 Sodium Chloride 0.9% 10 Ml Flush Syringe IV 10 ml BID TIFF Administration Sodium Chloride 10 ml 12/15/20 23:59 Sodium Chloride 0.9% 10 Ml Flush Syringe IV PRN PRN LINE FLUSH Tamsulosin HCl 0.4 mg 12/16/20 17:00 12/25/20 10:23 Tamsulosin 0.4 Mg Cap PO 0.4 mg QDAY TIFF Administration Nutrition/Malnutrition Assess - Dietary Evaluation Nutrition/Malnutrition Findings: Nutrition Notes Start: 12/16/20 13 :54 Freq: Status: Active Protocol: Document 12/18/20 16:39 HAWK (Rec: 12/18/20 17:12 HAWK [id number]) Nutrition Notes Initial or Follow up Reassessment Current Diagnosis Acute Kidney Injury,Sepsis Other Pertinent Diagnosis Anemia, Hyperkalemia, UTI. Labs/Tests 12/18: K 3.4, Cl 110, CO2 16, BUN 30, Ca 8.2. Pertinent Medications 12/18: Nutritionally unremarkable. Height 6 ft Weight 81.647 kg [place] Body Weight (kg) 80.90 BMI 24.4 Subjective/Other Information RD consult for routine F/U on TF initiation. Percent of energy/protein needs met: Prescribed Regular Diet provides for energy/protein needs (2,289 Kcal/89 g) during LOS. Additionally TF provides for 1,000 Kcal and 45 g respectivelly. Burn Absent Trauma Absent GI Symptoms Other Food Allergy No Skin Integrity/Comment Surgical wound Current % PO Other Minimum of two criteria No #1 Nutrition Diagnosis Altered GI function Etiology Current concomitant conditions , PEG placement. As Evidenced by Signs and Symptoms Abnotrmal chemistry lab values , MD order for TF + PO Diet. Is patient on ventilator? No Is Patient Ambulatory and/or Out of Bed No REE-([facility]-confined to bed) 2043.468 Kcal/Kg value to use for calculation 25 Approximate Energy Requirements Using 2041 kcal/Kg Calculation Used for Recommendations Kcal/kg Additional Notes Protein: 1.2-1.5 g/Kg; 97-122 g/day (from IBW+critical care) . Fluids: 1 ml/Kcal, or as per MD. Nutrition Intervention Change Diet Order: Continue Regular Diet. Nutrition Support: Continue TF Nepro with CARBSTEADY @ 23 ml/hr; Flush 100 ml Q 4 hrs. Kcal 1,000 Protein (gm) 45 Carbohydrates (gm) 89 Fat (gm) 53 Fluid (mL) 404 Fiber (gm) 7 % RDI: 49% Kcal; 55% AA. Goal #1 Maintain body weight within +/ -3% of current BWt during LOS. Goal #2 Reach and mainatain acceptable chemistry lab values during LOS. Follow-Up By: 12/25/20 Additional Comments Continue monitoring food and TF tolerance, %PO intake of meals, Hydration, and BM.
[2020-12-25] MEDS ORDERED: SIMPLE SYRUP 15 ML FEEDTUBE PRN ×2 (15:20)
[2020-12-25] MEDS ORDERED: SODIUM BICARBONATE 325 MG TAB FEEDTUBE PRN (15:20)
[2020-12-25] MEDS ORDERED: LIPASE 10,500/PROTEASE 25,000/AMYLASE 43,750 (UNITS) DR CAP FEEDTUBE PRN (15:20)
[2020-12-25] MEDS: VANCOMYCIN 1,250 MG in SODIUM CHLORIDE 0.9% 250ML 250 ML IV SCH (16:36)
[2020-12-25] MEDS: MIRTAZAPINE 15 MG TAB PO SCH (21:29)
[2020-12-25] MEDS: cefTRIAXone/NS 2 GM/100 ML 2 GM/100 ML BAG IV SCH (21:30)
[2020-12-26] MEDS: MORPHINE 2 MG/1 ML INJ IV PRN ×2 (05:39→18:53)
[2020-12-26] MEDS: GABAPENTIN 300 MG CAP PO SCH ×2 (05:40→13:28)
[2020-12-26 06:20] VITALS: BP 109/78
[2020-12-26 07:37] LABS: Basophils # (Auto) 0.1 K/mm3 (0.0-0.1); Basophils % (Auto) 0.3 % (0.0-1.8); Eosinophils # (Auto) 0.4 K/mm3 (0.0-0.4); Eosinophils % (Auto) 1.9 % (0.0-4.3); Hematocrit 26.7 % (35.5-45.6); Lymphocytes # (Auto) 1.6 K/mm3 (1.2-5.4); Lymphocytes % (Auto) 8.1 % (13.4-35.0); Mean Corpuscular HGB Conc 30 % (32-34); Mean Corpuscular Volume 85 fl (84-94); Monocytes % (Auto) 5.2 % (0.0-7.3); Platelet Count 675 K/mm3 (140-440); Red Blood Count 3.15 M/mm3 (3.65-5.03)
[2020-12-26 07:43] LABS: Red Cell Distribution Width 21.9 % (13.2-15.2)
[2020-12-26 07:58] LABS: Blood Urea Nitrogen 8 mg/dL (9-20); Calcium 8.5 mg/dL (8.4-10.2); Hemolysis Index 2
[2020-12-26 08:01] LABS: BUN/Creatinine Ratio 16
[2020-12-26] MEDS: MORPHINE 4 MG/1 ML INJ IV PRN ×2 (08:28→16:30)
[2020-12-26] MEDS: SODIUM BICARBONATE 650 MG TAB PO SCH (09:28)
[2020-12-26] MEDS: TAMSULOSIN 0.4 MG CAP PO SCH (09:28)
[2020-12-26] MEDS: SERTRALINE 50 MG TAB PO SCH (09:28)
[2020-12-26] MEDS: METOPROLOL TARTRATE 25 MG TAB PO SCH (09:29)
--- NOTE | 2020-12-26 09:30 | Progress Note ---
Assessment and Plan Cultures: Blood culture no growth Urine culture: Klebsiella pneumoniae A/P: 55-year-old male past medical history Parkinson's, depression, DVT, fracture of the right acetabulum admitted with fatigue #Sepsis, leucocytosis, reactive thrombocytosis: likely from UTI and multiple decubiti #Complicated UTI: Has history of Kyle cath, which has been changed since admission #Bedbound status with ulcers: pending wound care consult. #Sacral wounds: patient refuses examination. #BERNICE: improving. #Penicillin allergy: tolerating ceftriaxone #Protein calorie malnutrition Recs: -Continue IV vancomycin, IV ceftriaxone 2g q24h. Likelihood of cure is unlikely given his poor nutritional status, bedbound status, lack of cooperation with nursing staff for wound care as well as frequent offloading. Hospice appropriate. If discharged, would do PO Keflex 500 mg QID + PO Doxycycline 100 m g BID ending 12/04/2020 Luis Watson MD, FACP [facility] O: [phone] F: [phone] Subjective Date of service: 12/26/20 Principal diagnosis: Hypotension; Anemia; NSTEMI; UTI Interval history: No fever. Denies any new complaints. Lying in bed. Objective - Exam Narrative Exam: Physical Exam: Constitutional: Alert, cooperative. mild distress due to pain. Cachexia + Head, Ears, Nose: Normocephalic, atraumatic. External ears, nose normal Eyes: Conjunctivae/corneas clear. No icterus. No ptosis. Neck: Supple, no meningeal signs Cardiovascular: S1, S2 normal. Respiratory: Good air entry, clear to auscultation bilaterally GI: Soft, non-tender; bowel sounds normal. No peritoneal signs. G Tube + Musculoskeletal: Bilateral TMA, no evident wounds of stumps. Multiple decubiti, unable to examine due to pain Skin: No rash or abscess Hem/Lymphatic: No palpable cervical or supraclavicular nodes. No lymphangitis Psych: Mood ok. Affect normal Neurological: Awake, alert, oriented. - Constitutional Vitals: Vital Signs Temp Pulse Resp BP Pulse Ox 98.0 F 89 18 109/78 98 12/26/20 05:06 12/26/20 05:06 12/26/20 05:06 12/26/20 05:06 12/26/20 05:06 Temperature -Last 24 Hours Temperature 98.0 F Temperature 98.4 F Temperature 98.0 F Temperature 97.9 F - Labs CBC & Chem 7: 12/26/20 07:02 12/26/20 07:02 Labs: Abnormal lab results 12/26/20 12/26/20 Range/Units 07:02 07:02 WBC 19.4 H (4.5-11.0) K/mm3 RBC 3.15 L (3.65-5.03) M/mm3 Hgb 8.0 L (11.8-15.2) gm/dl Hct 26.7 L (35.5-45.6) % MCH 25 L (28-32) pg MCHC 30 L (32-34) % RDW 21.9 H (13.2-15.2) % Plt Count 675 H (140-440) K/mm3 Lymph % (Auto) 8.1 L (13.4-35.0) % [place] # (Auto) 1.0 H (0.0-0.8) K/mm3 Seg Neutrophils % 84.5 H (40.0-70.0) % Seg Neutrophils # 16.4 H (1.8-7.7) K/mm3 BUN 8 L (9-20) mg/dL Creatinine 0.5 L (0.8-1.3) mg/dL Glucose 102 H (75-100) mg/dL
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
[2020-12-26] MEDS: HYDROmorphone 1 MG/1 ML INJ IV PRN (11:46)
--- NOTE | 2020-12-26 13:11 | Progress Note ---
Assessment and Plan Hypotension Anemia requiring transfusions NSTEMI (non-ST elevated myocardial infarction) Sepsis UTI (urinary tract infection) - replace Magnesium per protocol - lactate WNL - trend fevers/WBC - complete anti-infective's per ID rec's - continue care as below otherwise; - prn supplemental oxygen to keep O2 sats > 90% - Wound care per RN/WCT - prn Bronchodilators (DARWIN) with pulm hygiene per RT - continue to avoid nephrotoxins, renally dose all medications - continue mobility protocols to prevent pressure ulcers - PT/OT as tolerated - prn analgesia per pain score - accuchecks with glycemic control per SSI for target blood glucose < 180 mg/dL - tobacco abstinence counseling - home oxygen evaluation at discharge - GI & VTE prophylaxis - Flu & pneumovax per protocol - Pulmonary out patient follow up for PFTs and optimization of respiratory status - continue other care per attending / other consultants ... re-evaluate in am & prn Subjective Date of service: 12/26/20 Principal diagnosis: Hypotension; Anemia; NSTEMI; UTI Interval history: Patient is seen today for: Hypotension; Anemia; NSTEMI; UTI Seen and examined at bedside; 24hour events reviewed; nursing and respiratory care staff consulted; no adverse overnight events reported to me; resting peacefully in bed; WBC trending down; Objective Vital Signs - 12hr 12/26/20 05:06 Temperature 98.0 F Pulse Rate 89 Respiratory 18 Rate Blood Pressure 109/78 O2 Sat by Pulse 98 Oximetry Constitutional: no acute distress, alert Eyes: non-icteric ENT: other (Poor dental hygiene.) Neck: supple, no JVD Effort: normal Ascultation: Bilateral: rhonchi (scant) Percussion: Bilateral: not dull Cardiovascular: regular rate and rhythm Gastrointestinal: normoactive bowel sounds, soft, non-tender, non-distended Integumentary: decubitus ulcer (decubitus ulcer; please see [facility] notes for full description) Extremities: no cyanosis, no edema, pulses normal Neurologic: non-focal exam, pupils equal and round, CN II-XII normal, other (weak) Psychiatric: mood appropriate, affect normal CBC and BMP: 12/26/20 07:02 12/26/20 07:02 ABG, PT/INR, D-dimer: ABG ABG pH 7.374 pH Units (7.350-7.450) 12/18/20 11:56 ABG pCO2 31.0 mm Hg 12/18/20 11:56 ABG pO2 40.2 mm Hg (80.0-90.0) L 12/18/20 11:56 ABG O2 Saturation 73.9 % (95.0-99.0) L 12/18/20 11:56 PT/INR, D-dimer PT 16.7 Sec. (12.2-14.9) H 12/17/20 04:27 INR 1.22 (0.87-1.13) H 12/17/20 04:27 Abnormal lab findings: Abnormal Labs 12/15/20 12/15/20 12/15/20 20:20 20:29 20:29 WBC 19.2 H RBC 2.56 L Hgb 6.0 L Hct 20.2 L MCV 79 L MCH 24 L MCHC 30 L RDW 22.2 H Plt Count 512 H Lymph % (Auto) 6.4 L [place] # (Auto) 1.3 H Seg Neutrophils % 85.9 H Seg Neuts % (Manual) Lymphocytes % (Manual) Seg Neutrophils # 16.5 H Seg Neutrophils # Man Lymphocytes # (Manual) Monocytes # (Manual) Eosinophils # (Manual) Basophils # (Manual) PT INR APTT 42.0 H ABG pH ABG pO2 ABG HCO3 ABG O2 Saturation ABG Base Excess ABG Hemoglobin Oxyhemoglobin Sodium Potassium Chloride Carbon Dioxide BUN Creatinine Glucose Calcium Phosphorus Magnesium Alkaline Phosphatase Ammonia Total Creatine Kinase Troponin T Albumin Triglycerides LDL Cholesterol Direct HDL Cholesterol Urine WBC (Auto) > 182.0 H Vancomycin Trough Salicylates Acetaminophen Crossmatch 12/15/20 12/15/20 12/15/20 20:29 20:29 20:29 WBC RBC Hgb Hct MCV MCH MCHC RDW Plt Count Lymph % (Auto) [place] # (Auto) Seg Neutrophils % Seg Neuts % (Manual) Lymphocytes % (Manual) Seg Neutrophils # Seg Neutrophils # Man Lymphocytes # (Manual) Monocytes # (Manual) Eosinophils # (Manual) Basophils # (Manual) PT INR APTT ABG pH ABG pO2 ABG HCO3 ABG O2 Saturation ABG Base Excess ABG Hemoglobin Oxyhemoglobin Sodium 131 L Potassium 6.0 H Chloride 95.1 L Carbon Dioxide BUN 70 H Creatinine 2.2 H Glucose 113 H Calcium Phosphorus Magnesium Alkaline Phosphatase 321 H Ammonia Total Creatine Kinase Troponin T 0.215 H* Albumin 2.7 L Triglycerides 153 H LDL Cholesterol Direct 23 L HDL Cholesterol 27 L Urine WBC (Auto) Vancomycin Trough Salicylates < 0.3 L Acetaminophen Crossmatch See Detail 12/15/20 12/15/20 12/15/20 20:29 20:29 21:28 WBC RBC Hgb Hct MCV MCH MCHC RDW Plt Count Lymph % (Auto) [place] # (Auto) Seg Neutrophils % Seg Neuts % (Manual) Lymphocytes % (Manual) Seg Neutrophils # Seg Neutrophils # Man Lymphocytes # (Manual) Monocytes # (Manual) Eosinophils # (Manual) Basophils # (Manual) PT 15.8 H INR 1.14 H APTT ABG pH ABG pO2 ABG HCO3 ABG O2 Saturation ABG Base Excess ABG Hemoglobin Oxyhemoglobin Sodium Potassium Chloride Carbon Dioxide BUN Creatinine Glucose Calcium Phosphorus Magnesium Alkaline Phosphatase Ammonia 21.0 L Total Creatine Kinase Troponin T Albumin Triglycerides LDL Cholesterol Direct HDL Cholesterol Urine WBC (Auto) Vancomycin Trough Salicylates Acetaminophen 5.0 L Crossmatch 12/16/20 12/16/20 12/16/20 06:02 06:02 20:19 WBC 16.4 H RBC 3.19 L Hgb 8.1 L Hct 26.3 L D MCV 82 L MCH 25 L MCHC 31 L RDW 20.3 H Plt Count Lymph % (Auto) [place] # (Auto) Seg Neutrophils % Seg Neuts % (Manual) Lymphocytes % (Manual) Seg Neutrophils # Seg Neutrophils # Man Lymphocytes # (Manual) Monocytes # (Manual) Eosinophils # (Manual) Basophils # (Manual) PT INR APTT ABG pH ABG pO2 ABG HCO3 ABG O2 Saturation ABG Base Excess ABG Hemoglobin Oxyhemoglobin Sodium Potassium Chloride 112.9 H Carbon Dioxide 15 L D BUN 47 H Creatinine Glucose 185 H Calcium 7.2 L D Phosphorus Magnesium Alkaline Phosphatase Ammonia Total Creatine Kinase Troponin T 0.126 H* D 0.078 H D Albumin Triglycerides LDL Cholesterol Direct HDL Cholesterol Urine WBC (Auto) Vancomycin Trough Salicylates Acetaminophen Crossmatch 12/17/20 12/17/20 12/17/20 04:27 04:27 04:27 WBC 24.5 H RBC 3.51 L Hgb 9.0 L Hct 28.9 L MCV 82 L MCH 26 L MCHC 31 L RDW 20.9 H Plt Count 585 H Lymph % (Auto) [place] # (Auto) Seg Neutrophils % Seg Neuts % (Manual) 91.0 H Lymphocytes % (Manual) 3.0 L Seg Neutrophils # Seg Neutrophils # Man 22.3 H Lymphocytes # (Manual) 0.7 L Monocytes # (Manual) 1.5 H Eosinophils # (Manual) Basophils # (Manual) PT 16.7 H INR 1.22 H APTT ABG pH ABG pO2 ABG HCO3 ABG O2 Saturation ABG Base Excess ABG Hemoglobin Oxyhemoglobin Sodium Potassium Chloride 115.2 H Carbon Dioxide 16 L BUN 41 H Creatinine Glucose 105 H Calcium Phosphorus Magnesium Alkaline Phosphatase Ammonia Total Creatine Kinase Troponin T Albumin Triglycerides LDL Cholesterol Direct HDL Cholesterol Urine WBC (Auto) Vancomycin Trough Salicylates Acetaminophen Crossmatch 12/18/20 12/18/20 12/18/20 04:40 07:53 07:53 WBC 19.3 H RBC 3.56 L Hgb 9.0 L Hct 29.3 L MCV 82 L MCH 25 L MCHC 31 L RDW 21.3 H Plt Count 593 H Lymph % (Auto) [place] # (Auto) Seg Neutrophils % Seg Neuts % (Manual) Lymphocytes % (Manual) Seg Neutrophils # Seg Neutrophils # Man Lymphocytes # (Manual) Monocytes # (Manual) Eosinophils # (Manual) Basophils # (Manual) PT INR APTT ABG pH 7.460 H ABG pO2 250.2 H ABG HCO3 19.8 L ABG O2 Saturation 99.4 H ABG Base Excess -3.6 L ABG Hemoglobin 6.9 L Oxyhemoglobin Sodium Potassium 3.4 L D Chloride 110.0 H Carbon Dioxide 16 L BUN 30 H Creatinine Glucose Calcium 8.2 L Phosphorus Magnesium Alkaline Phosphatase Ammonia Total Creatine Kinase Troponin T Albumin Triglycerides LDL Cholesterol Direct HDL Cholesterol Urine WBC (Auto) Vancomycin Trough Salicylates Acetaminophen Crossmatch 12/18/20 12/18/20 12/19/20 11:56 18:40 04:50 WBC 24.1 H RBC 3.37 L Hgb 8.5 L Hct 28.0 L MCV 83 L MCH 25 L MCHC 30 L RDW 21.4 H Plt Count 563 H Lymph % (Auto) [place] # (Auto) Seg Neutrophils % Seg Neuts % (Manual) Lymphocytes % (Manual) Seg Neutrophils # Seg Neutrophils # Man Lymphocytes # (Manual) Monocytes # (Manual) Eosinophils # (Manual) Basophils # (Manual) PT INR APTT ABG pH ABG pO2 40.2 L ABG HCO3 17.7 L ABG O2 Saturation 73.9 L ABG Base Excess -6.7 L ABG Hemoglobin 9.0 L Oxyhemoglobin 71.9 L Sodium Potassium Chloride Carbon Dioxide BUN Creatinine Glucose Calcium Phosphorus Magnesium 1.50 L Alkaline Phosphatase Ammonia Total Creatine Kinase 41 L Troponin T Albumin Triglycerides LDL Cholesterol Direct HDL Cholesterol Urine WBC (Auto) Vancomycin Trough Salicylates Acetaminophen Crossmatch 12/19/20 12/20/20 12/20/20 04:50 05:10 05:10 WBC 23.6 H RBC 3.43 L Hgb 9.0 L Hct 29.9 L MCV MCH 26 L MCHC 30 L RDW 21.6 H Plt Count 516 H Lymph % (Auto) [place] # (Auto) Seg Neutrophils % Seg Neuts % (Manual) Lymphocytes % (Manual) Seg Neutrophils # Seg Neutrophils # Man Lymphocytes # (Manual) Monocytes # (Manual) Eosinophils # (Manual) Basophils # (Manual) PT INR APTT ABG pH ABG pO2 ABG HCO3 ABG O2 Saturation ABG Base Excess ABG Hemoglobin Oxyhemoglobin Sodium Potassium Chloride 109.8 H Carbon Dioxide 16 L BUN 21 H Creatinine 0.7 L Glucose Calcium 7.9 L Phosphorus Magnesium Alkaline Phosphatase Ammonia Total Creatine Kinase Troponin T Albumin Triglycerides LDL Cholesterol Direct HDL Cholesterol Urine WBC (Auto) Vancomycin Trough 30.2 H Salicylates Acetaminophen Crossmatch 12/21/20 12/21/20 12/22/20 05:17 07:46 07:52 WBC 31.7 H 28.9 H RBC 3.45 L 3.30 L Hgb 8.7 L 8.5 L Hct 28.8 L 27.8 L MCV 83 L MCH 25 L 26 L MCHC 30 L 30 L RDW 21.6 H 21.7 H Plt Count 644 H 693 H Lymph % (Auto) [place] # (Auto) Seg Neutrophils % Seg Neuts % (Manual) Lymphocytes % (Manual) Seg Neutrophils # Seg Neutrophils # Man Lymphocytes # (Manual) Monocytes # (Manual) Eosinophils # (Manual) Basophils # (Manual) PT INR APTT ABG pH ABG pO2 ABG HCO3 ABG O2 Saturation ABG Base Excess ABG Hemoglobin Oxyhemoglobin Sodium Potassium 3.3 L Chloride 109.3 H Carbon Dioxide 17 L BUN Creatinine 0.6 L Glucose 123 H Calcium 8.0 L Phosphorus 2.00 L Magnesium Alkaline Phosphatase Ammonia Total Creatine Kinase Troponin T Albumin Triglycerides LDL Cholesterol Direct HDL Cholesterol Urine WBC (Auto) Vancomycin Trough Salicylates Acetaminophen Crossmatch 12/22/20 12/23/20 12/24/20 07:52 05:17 07:40 WBC 23.6 H RBC 3.39 L Hgb 8.6 L Hct 29.4 L MCV MCH 26 L MCHC 30 L RDW 22.4 H Plt Count 636 H Lymph % (Auto) [place] # (Auto) Seg Neutrophils % Seg Neuts % (Manual) 85.0 H Lymphocytes % (Manual) 10.0 L Seg Neutrophils # Seg Neutrophils # Man 20.1 H Lymphocytes # (Manual) Monocytes # (Manual) Eosinophils # (Manual) Basophils # (Manual) PT INR APTT ABG pH ABG pO2 ABG HCO3 ABG O2 Saturation ABG Base Excess ABG Hemoglobin Oxyhemoglobin Sodium 136 L Potassium Chloride 107.8 H Carbon Dioxide 17 L 20 L BUN Creatinine 0.5 L 0.5 L Glucose 114 H Calcium 7.9 L 8.3 L Phosphorus 2.40 L Magnesium Alkaline Phosphatase Ammonia Total Creatine Kinase Troponin T Albumin Triglycerides LDL Cholesterol Direct HDL Cholesterol Urine WBC (Auto) Vancomycin Trough Salicylates Acetaminophen Crossmatch 12/24/20 12/25/20 12/25/20 07:40 04:44 04:44 WBC 23.6 H RBC 3.16 L Hgb 8.0 L Hct 26.9 L MCV MCH 25 L MCHC 30 L RDW 22.3 H Plt Count 682 H Lymph % (Auto) [place] # (Auto) Seg Neutrophils % Seg Neuts % (Manual) 88.0 H Lymphocytes % (Manual) 4.0 L Seg Neutrophils # Seg Neutrophils # Man 20.8 H Lymphocytes # (Manual) 0.9 L Monocytes # (Manual) 1.2 H Eosinophils # (Manual) 0.5 H Basophils # (Manual) 0.2 H PT INR APTT ABG pH ABG pO2 ABG HCO3 ABG O2 Saturation ABG Base Excess ABG Hemoglobin Oxyhemoglobin Sodium 135 L Potassium Chloride Carbon Dioxide 19 L BUN Creatinine 0.5 L 0.5 L Glucose Calcium 8.2 L Phosphorus Magnesium 1.60 L 1.60 L Alkaline Phosphatase Ammonia Total Creatine Kinase Troponin T Albumin Triglycerides LDL Cholesterol Direct HDL Cholesterol Urine WBC (Auto) Vancomycin Trough Salicylates Acetaminophen Crossmatch 12/26/20 12/26/20 07:02 07:02 WBC 19.4 H RBC 3.15 L Hgb 8.0 L Hct 26.7 L MCV MCH 25 L MCHC 30 L RDW 21.9 H Plt Count 675 H Lymph % (Auto) 8.1 L [place] # (Auto) 1.0 H Seg Neutrophils % 84.5 H Seg Neuts % (Manual) Lymphocytes % (Manual) Seg Neutrophils # 16.4 H Seg Neutrophils # Man Lymphocytes # (Manual) Monocytes # (Manual) Eosinophils # (Manual) Basophils # (Manual) PT INR APTT ABG pH ABG pO2 ABG HCO3 ABG O2 Saturation ABG Base Excess ABG Hemoglobin Oxyhemoglobin Sodium Potassium Chloride Carbon Dioxide BUN 8 L Creatinine 0.5 L Glucose 102 H Calcium Phosphorus Magnesium Alkaline Phosphatase Ammonia Total Creatine Kinase Troponin T Albumin Triglycerides LDL Cholesterol Direct HDL Cholesterol Urine WBC (Auto) Vancomycin Trough Salicylates Acetaminophen Crossmatch Allied health notes reviewed: nursing
[2020-12-26] MEDS ORDERED: cephALEXin 500 MG CAP PO SCH (18:00)
[2020-12-26] MEDS ORDERED: DOXYCYCLINE 100 MG CAP PO SCH (22:00)
== END 2020-12-26 20:40 | DRG 871 ==
LOC: ED 18:53 → IMCU 22:47 → CC1 12-17 07:45 → 3A 12-17 20:29
PROVIDERS: ADMIT Internal Medicine Geriatric Medicine; ATTEND Student in an Organized Health Care Education/Training Program
PROC: 30233N1 Transfusion of Nonautologous Red Blood Cells into Peripheral Vein, Percutaneous Approach (ICD-10-PCS; 2020-12-15)
PROC: 4A033R1 Measurement of Arterial Saturation, Peripheral, Percutaneous Approach (ICD-10-PCS; principal; 2020-12-18)
DX: A41.9 Sepsis, unspecified organism (principal); L89.153 Pressure ulcer of sacral region, stage 3; N17.0 Acute kidney failure with tubular necrosis; I21.A1 Myocardial infarction type 2; D64.9 Anemia, unspecified; N30.01 Acute cystitis with hematuria; Z68.24 Body mass index [BMI] 24.0-24.9, adult; G20 Parkinson's disease; G82.20 Paraplegia, unspecified; E87.5 Hyperkalemia; F32.9 Major depressive disorder, single episode, unspecified; Z74.01 Bed confinement status; E87.6 Hypokalemia; R65.20 Severe sepsis without septic shock; E83.39 Other disorders of phosphorus metabolism; Z20.822 Contact with and (suspected) exposure to COVID-19; E83.42 Hypomagnesemia; E44.0 Moderate protein-calorie malnutrition
CPT/HCPCS: 36415; 36600; 71045; 80048; 80053; 80061; 80202; 80320; 81001; 82140; 82550; 82803; 82962; 83735; 84100; 84145; 84443; 84484; 85007; 85025; 85027; 85610; 85730; 86850; 86900; 86901; 86920; 87040; 87076; 87086; 87186; 87641; 90686; 93005; 93306; 94760; G0378; J7510; G0480; J0610; J0692; J0696; J1170; J1815; J2270; J2405; J3370; J3475; J7030; J7040; J7050; J7120; P9016; U0003